=== PATIENT | female | born 1935 | race Caucasian/White ===

== ENCOUNTER 2016-07-05 23:00 | Inpatient (IN) | payer MEDICARE, OTHER ==
[~2016-07-05] VITALS: Ht 152.4 cm; Wt 104.0 kg
[~2016-07-05 23:00] MED LIST: BUME1TAB PO; CARV12.5 PO; COMMODE 3:1; DOCU1CAP39 PO; HYDR100T2 PO; LEVO.1 PO; LYRI50CA2 PO; MINO10 PO; MONT10TA2 PO; ROSU40 PO; WALKER ROLLING; WHEELCHAIR RENTAL RA
[2016-07-05 23:07] VITALS: BP 166/72; PULSE 119; RESP 34; TEMP 98.6; O2SAT 89
--- NOTE | 2016-07-05 23:40 | PD ---
HPI Chief Complaint: General Weakness Time Seen by Provider: 23:30 Travel History International Travel<30 days: No Contact w/Intl Traveler<30days: No Traveled to known affect area: No History of Present Illness HPI Pt. is a poor historian. She was sent from her rehab because she has been more fatigued and lethargic. PFSH Past Medical History Arthritis: Yes Asthma: No Autoimmune Disease: No Heart Rhythm Problems: No Cancer: No Cardiovascular Problems: Yes High Cholesterol: Yes (medication controlling) Chemotherapy: No Chest Pain: No Congestive Heart Failure: No COPD: No Cerebrovascular Accident: No Diabetes: Yes Patient Takes Glucophage: No (glipizide ) Endocrine: Yes GERD: Yes Genitourinary: Yes Hiatal Hernia: No Hypertension: Yes Immune Disorder: No Kidney Stones: No Musculoskeletal: Yes (bone on bone knee pain, dr recommended surgery in past) Neurologic: No Psychiatric: No Reproductive: Yes Respiratory: No Radiation Therapy: No Renal Failure: Yes Seizures: No Sickle Cell Disease: No Sleep Apnea: Yes (uses cpap machine) Thyroid Disease: Yes (synthyroid) Ulcer: No Tetanus Vaccination: > 5 Years Past Surgical History Abdominal Surgery: No AICD: No Arteriovenous Shunt: No Cardiac Surgery: No Ear Surgery: No Endocrine Surgery: No Eye Surgery: No Genitourinary Surgery: No Gynecologic Surgery: Yes (partial hysterectomy) Hysterectomy: Yes Insulin Pump: No Joint Replacement: No Oral Surgery: No Pacemaker: No Thoracic Surgery: No Social History Alcohol Use: No Tobacco Use: No Substance Use: No Allergies-Medications (Allergen,Severity, Reaction): Coded Allergies: Codeine (Verified Allergy, Unknown, Confusion, 07/28/15) pt stated, she felt the effects of medication days after, doesnt want any narcotics Reported Meds & Prescriptions Reported Meds & Active Scripts Active Reported Alendronate (Alendronate Sodium) 70 Mg Tab 70 Mg PO Q7D Uloric (Febuxostat) 80 Mg Tab 80 PO DAILY Omeprazole 20 Mg Tab 20 Mg PO DAILY Hydrocodone-Acetaminophen 5-325 mg Tab 1 Tab PO Q4H PRN Flexeril (Cyclobenzaprine HCl) 10 Mg Tab 10 Mg PO TID Colcrys (Colchicine) 0.6 Mg Tab 0.6 Mg PO DAILY Culturelle Advanced Immun (Probiotic Product) 1 Cap Cap Ciprofloxacin (Ciprofloxacin HCl) 500 Mg Tab 500 Mg PO BID Alprazolam 0.25 Mg Tab 0.25 Mg PO Q8H PRN Milk of Magnesia Liq (Magnesium Hydroxide) 400 Mg/5 Ml Susp 30 Ml PO DAILY PRN Dulcolax Supp (Bisacodyl) 10 Mg Supp 10 Mg RECTAL DAILY PRN Reyna Protect (Skin Protectants, Misc.) 1 Cre Cre Review of Systems ROS Limitations: Poor Historian Physical Exam Narrative GENERAL:Well appearing, no acute distress SKIN: Warm and dry. HEAD: Atraumatic. Normocephalic. EYES: Pupils equal and round. No injection or drainage. ENT: Moist mucous membranes NECK: Trachea midline. CARDIOVASCULAR: Regular rate and rhythm. 3/6 systolic murmur over the rusb RESPIRATORY: Clear to auscultation. Breath sounds equal bilaterally. GASTROINTESTINAL: Abdomen soft, non-tender, nondistended. MUSCULOSKELETAL: No obvious deformities. NEUROLOGICAL:Confused. No obvious cranial nerve deficits. Moving all extremities. Data Data Last Documented VS Vital Signs Date Time Temp Pulse Resp B/P Pulse Ox O2 Delivery O2 Flow Rate FiO2 07/06/16 00:37 100 20 125/62 99 Nasal Cannula 2 07/05/16 23:07 98.6 Orders ^ Insert Iv (07/05/16 23:33) Complete Blood Count With Diff (07/05/16 23:33) Comprehensive Metabolic Panel (07/05/16 23:33) B-Type Natriuretic Peptide (07/05/16 23:33) Troponin I (07/05/16 23:33) Chest, Single Ap (07/05/16 ) D-Dimer (07/05/16 23:42) Urinalysis - C+S If Indicated (07/05/16 23:42) Cath For Specimen (07/05/16 23:42) Arterial Blood Gas (Abg) (07/06/16 ) Blood Culture (07/06/16 00:34) Lactic Acid Sepsis Protocol (07/06/16 00:34) Cefepime Inj (Maxipime Inj) (07/06/16 00:45) Vancomycin Inj (Vancomycin Inj) (07/06/16 00:45) Type And Screen (07/06/16 00:34) Pantoprazole Inj (Protonix Inj) (07/06/16 01:45) Pantoprazole Inj (Protonix Inj) (07/06/16 01:45) Sodium Chlorid 0.9% 500 Ml Inj (Ns 500 M (07/06/16 00:45) Sodium Chlorid 0.9% 500 Ml Inj (Ns 500 M (07/06/16 00:45) Admit Order (Ed Use Only) (07/06/16 00:50) Labs Laboratory Tests Test 07/05/16 07/06/16 23:30 00:50 White Blood Count 15.1 TH/MM3 Red Blood Count 3.34 MIL/MM3 Hemoglobin 9.6 GM/DL Hematocrit 29.9 % Mean Corpuscular Volume 89.5 FL Mean Corpuscular Hemoglobin 28.9 PG Mean Corpuscular Hemoglobin 32.3 % Concent Red Cell Distribution Width 14.8 % Platelet Count 285 TH/MM3 Mean Platelet Volume 7.8 FL Neutrophils (%) (Auto) 84.0 % Lymphocytes (%) (Auto) 5.6 % Monocytes (%) (Auto) 8.1 % Eosinophils (%) (Auto) 0.7 % Basophils (%) (Auto) 1.6 % Neutrophils # (Auto) 12.7 TH/MM3 Lymphocytes # (Auto) 0.8 TH/MM3 Monocytes # (Auto) 1.2 TH/MM3 Eosinophils # (Auto) 0.1 TH/MM3 Basophils # (Auto) 0.2 TH/MM3 CBC Comment AUTO DIFF Differential Total Cells 100 Counted Neutrophils % (Manual) 70 % Band Neutrophils % 6 % Lymphocytes % 9 % Monocytes % 10 % Neutrophils # (Manual) 12.2 TH/MM3 Metamyelocytes 4 % Myelocytes 1 % Differential Comment FINAL DIFF MANUAL Platelet Estimate NORMAL Platelet Morphology Comment CLUMPED Basophilic Stippling MOD Acanthocytes D-Dimer Quantitative (PE/DVT) 1.98 MG/L FEU Sodium Level 137 MEQ/L Potassium Level 5.4 MEQ/L Chloride Level 98 MEQ/L Carbon Dioxide Level 27.8 MEQ/L Anion Gap 11 MEQ/L Blood Urea Nitrogen 178 MG/DL Creatinine 3.82 MG/DL Random Glucose 105 MG/DL Calcium Level 7.9 MG/DL Total Bilirubin 0.2 MG/DL Aspartate Amino Transf 13 U/L (AST/SGOT) Alanine Aminotransferase 19 U/L (ALT/SGPT) Alkaline Phosphatase 73 U/L Troponin I 0.10 NG/ML B-Type Natriuretic Peptide 142 PG/ML Total Protein 6.0 GM/DL Albumin 2.4 GM/DL Blood Gas Puncture Site RT RADIAL Blood Gas Patient Temperature 98.6 Blood Gas HCO3 26 mmol/L Blood Gas Base Excess -1.1 mmol/L Blood Gas Oxygen Saturation 94 % Arterial Blood pH 7.21 Arterial Blood Partial 67 mmHg Pressure CO2 Arterial Blood Partial 106 mmHG Pressure O2 Arterial Blood Oxygen Content 12.9 Vol % Arterial Blood 2.4 % Carboxyhemoglobin Arterial Blood Methemoglobin 2.0 % Blood Gas Hemoglobin 9.6 G/DL Oxygen Delivery Device NASAL CANNULA Blood Gas Liter Flow 4 L/M Blood Type O POSITIVE Antibody Screen NEGATIVE Blood Bank Comment MDM Medical Decision Making Medical Screen Exam Complete: Yes Emergency Medical Condition: Yes Interpretation(s) Afebrile, tachycardic, tachypneic, hypoxic Leukocytosis with some metamyelocytes and myelocytes BUN is 178 Creatinine is 3.8 Troponin is 0.1 ABG: PH is 7.21, PCO2 is 67 Last [address] 07/06/16 0000 Signed Impressions: Service Date/Time: June 01:52 - CONCLUSION: 1. Atherosclerosis. 2. Pneumonia. Larry Skaggs MD Chest X-Ray 07/05/16 0000 Signed Impressions: Service Date/Time: Tuesday, July 05, 2016 22:06 - CONCLUSION: No acute disease. Larry Skaggs MD Differential Diagnosis Pneumonia, sepsis, pulmonary embolism, congestive heart failure, electrolyte abnormality Narrative Course This is a 80-year-old female who presents from a rehabilitation facility for altered mental status. She is unable to tell me about her recent admission. She was placed on a monitor and an IV was established. On physical exam she was found to be very dry, confused and somewhat somnolent. ABG demonstrates hypercarbia with a respiratory acidosis. Patient was placed on BiPAP. Patient was found to have a leukocytosis. Cultures were obtained and she was started on broad-spectrum antibiotics. In the setting of hypoxia a pneumonia was suspected. A dry CT was obtained which confirms pneumonia. Patient was also found to be in acute renal failure with a BUN of 178. She was given IV hydration. She also was found to be Hemoccult positive. She was started on pantoprazole. Patient has multiple medical issues including sepsis, GI bleed and renal failure. She requires ICU admission. Critical Care Narrative Aggregate critical care time was 45 minutes. Time to perform other separately billable procedures was not included in the critical care time. My time did not include minutes spent treating any other patients simultaneously or on activities that did not directly contribute to the patient's treatment. The services I provided to this patient were to treat and/or prevent clinically significant deterioration that could result in: disability, I provided critical care services requiring my management, as noted below: Chart data review, documentation time, medication orders and management, vital sign assessments/reviewing monitor data, ordering and reviewing lab tests, ordering and interpreting/reviewing x-rays and diagnostic studies, care of the patient and discussion of the patient with the admitting physicians. Diagnosis Primary Impression: Pneumonia Qualified Code: J18.9 - Pneumonia of right lung due to infectious organism, unspecified part of lung Additional Impression: Renal failure Admitting Information Admitting Physician Requests: it Yarely Sims MD Jul 05, 2016 23:40
[2016-07-06] VITALS (17 sets, daily range): BP systolic 124–178; BP diastolic 61–87; PULSE 80–106; RESP 16–22; TEMP 98.7–99.8; O2SAT 94–100
[2016-07-06 00:10] LABS: AUTOMATED NEUTROPHIL # 12.7 TH/MM3 (1.8-7.7); BASOPHIL # 0.2 TH/MM3 (0-0.2); BASOPHIL % 1.6 % (0.0-2.0); EOSINOPHIL # 0.1 TH/MM3 (0-0.4); EOSINOPHIL % 0.7 % (0.0-4.0); HEMATOCRIT 29.9 % (35.0-46.0); LYMPH % 5.6 % (9.0-44.0); LYMPHOCYTE # 0.8 TH/MM3 (1.0-4.8); MEAN CELL VOLUME 89.5 FL (80.0-100.0); MEAN CORPUSCULAR HEMOGLOBIN 28.9 PG (27.0-34.0); MEAN CORPUSCULAR HGB CONC 32.3 % (32.0-36.0); MONO % 8.1 % (0.0-8.0); PLATELET COUNT 285 TH/MM3 (150-450); RED BLOOD COUNT 3.34 MIL/MM3 (4.00-5.30); RED CELL DISTRIBUTION WIDTH 14.8 % (11.6-17.2); WHITE BLOOD COUNT 15.1 TH/MM3 (4.0-11.0)
[2016-07-06 00:13] LABS: HEMO FLAGS AUTO DIFF
[2016-07-06] MEDS ORDERED: CIPR500T2 PO (00:13)
[2016-07-06] MEDS ORDERED: PROB1CAP25 (00:13)
[2016-07-06] MEDS ORDERED: OMEP20TA PO (00:13)
[2016-07-06] MEDS ORDERED: ULOR80TA2 PO (00:13)
[2016-07-06] MEDS ORDERED: ALPR0.25 PO (00:13)
[2016-07-06] MEDS ORDERED: BAZACRE (00:13)
[2016-07-06] MEDS ORDERED: CYCL1TAB29 PO (00:13)
[2016-07-06] MEDS ORDERED: MILKSUS PO (00:13)
[2016-07-06] MEDS ORDERED: DULC10SU3 RECTAL (00:13)
[2016-07-06] MEDS ORDERED: ALEN1TAB48 PO (00:13)
[2016-07-06] MEDS ORDERED: COLC1TAB7 PO (00:13)
[2016-07-06] MEDS ORDERED: HYDR-3516 PO (00:13)
[2016-07-06 00:21] LABS: ALT (GPT) 19 U/L (10-53); ANION GAP 11 MEQ/L (5-15); AST (GOT) 13 U/L (15-37); BICARBONATE 27.8 MEQ/L (21.0-32.0); CHLORIDE 98 MEQ/L (98-107); POTASSIUM 5.4 MEQ/L (3.5-5.1); SODIUM (NA) 137 MEQ/L (136-145)
[2016-07-06 00:25] LABS: ALKALINE PHOSPHATASE 73 U/L (45-117); BLOOD UREA NITROGEN 178 MG/DL (7-18); TOTAL BILIRUBIN ADULT 0.2 MG/DL (0.2-1.0)
--- NOTE | 2016-07-06 00:34 | RADRPT ---
EXAM DATE/TIME: 07/05/2016 22:06 [facility] COMPARISON: CHEST SINGLE AP, April 11, 2015, 14:05. INDICATIONS : Shortness of breath starting today MEDICAL HISTORY : None. SURGICAL HISTORY : None. ENCOUNTER: Initial ACUITY: 1 day PAIN SCORE: 0/10 LOCATION: Bilateral chest FINDINGS: Cardiomegaly. No definite consolidation or effusion. Osseous structures are intact. CONCLUSION: No acute disease. Larry Skaggs MD on July 06, 2016 at 0:33 Board Certified Radiologist. This report was verified electronically.
[2016-07-06] MEDS ORDERED: VANCOMYCIN INJ 1,500 MG in SODIUM CHLORID 0.9% 500 ML INJ 500 ML IV ONE (00:45)
[2016-07-06] MEDS ORDERED: CEFEPIME INJ 2,000 MG in SODIUM CHLORIDE 0.9% INJ 100 ML IV ONE (00:45)
[2016-07-06] MEDS ORDERED: SODIUM CHLORID 0.9% 500 ML INJ 500 ML IV ONE ×2 (00:45)
[2016-07-06 00:49] LABS: BANDS 6 % (0-6); METAMYELOCYTES 4 % (0-1); MYELOCYTES 1 % (0-0); NEUTROPHIL # MANUAL DIFF 12.2 TH/MM3 (1.8-7.7); POLYS (SEG NEUTROPHILS) 70 % (16-70); WBC DIFF SAMPLE 100
[2016-07-06 00:51] LABS: PLATELET ESTIMATE SMEAR NORMAL (NORMAL); PLATELET MORPHOLOGY CLUMPED (NORMAL); SCAN/DIFF FINAL DIFF MANUAL
[2016-07-06 00:59] LABS: BLOOD GAS BASE EXCESS -1.1 mmol/L (-2-2); BLOOD GAS CARBOXYHEMOGLOBIN 2.4 % (0-4); BLOOD GAS HCO3 26 mmol/L (22-26); BLOOD GAS O2 HGB SATURATION 94 % (90-100); BLOOD GAS OXYGEN CONTENT 12.9 Vol % (12.0-20.0); BLOOD GAS PCO2 67 mmHg (38-42); BLOOD GAS PO2 106 mmHG (61-120); BLOOD GAS TOTAL HGB 9.6 G/DL (12.0-16.0); TEMP CORR TO 98.6
[2016-07-06 01:00] LABS: CRITICAL VALUE YES; DRAW SITE RT RADIAL; LITER FLOW 4 L/M; NUMBER OF ARTERIAL PUNCTURES 1; OXYGEN DEVICE NASAL CANNULA; STAT YES; ULNAR PULSE PRESENT
[2016-07-06] MEDS ORDERED: SODIUM CHLOR 0.9% 1000 ML INJ 1,000 ML IV ONE ×2 (01:30)
--- NOTE | 2016-07-06 01:38 | HHI.HP ---
[facility] Service Critical Care Medicine Primary Care Physician Kelly Lemus Admission Diagnosis renal failure, gi bleed Diagnosis: (1) Chronic diastolic (congestive) heart failure Diagnosis: Principal (2) Altered mental status, unspecified Diagnosis: Principal (3) Uremia Diagnosis: Principal (4) Diabetes mellitus Diagnosis: Principal (5) Hereditary lymphedema Diagnosis: Principal (6) Debility Diagnosis: Principal (7) Impaired mobility and activities of daily living Diagnosis: Principal (8) Chronic kidney disease, stage 3 Diagnosis: Principal (9) HTN (hypertension) Diagnosis: Principal (10) Constipation Diagnosis: Principal (11) Gout Diagnosis: Principal (12) Allergic rhinitis Diagnosis: Principal (13) Gastroesophageal reflux disease Diagnosis: Principal Chief Complaint: Family request evaluation for altered mental status Travel History International Travel<30 Days: No Contact w/Intl Traveler <30 Da: No Traveled to Known Affected Are: No History of Present Illness 80-year-old female. Full code. Resident of [facility]. Recently discharged from [facility] 07/04/16. Past medical history includes chronic diastolic heart failure, chronic kidney disease stage IV, chronic narcotic/muscle relaxant use, gastroesophageal reflux disease, anxiety and gout. He is recently hospice of [facility] for unknown reasons. Was sent to correction on ciprofloxacin. She was seen by her family today that facility was noted to be confused. They requested transfer to emergency department for evaluation. Upon arrival in ED, patient was known to be quite lethargic. She appeared quite currently ED physician. Laboratories revealed BUN [address] of the chest was performed which revealed bilateral lower lobe pneumonia/infiltrates. She received 2 g of cefepime in 1500 mg vancomycin 1. Patient was pancultured. Also noted to have leukocytosis as well. Patient received 4 L normal saline bolus wide open 1. We are asked to admit the patient for further workup. 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 Hydralazine 100 mg twice a day Duo nebs 3 times a day Nystatin powder 3 times a day for 5 days swish and spit Levoxyl 50 mcg by mouth daily Singular 10 mg by mouth daily Hydrocodone 5/325 every 6 hours as needed Alendronate 70 mg weekly Uloric at 40 mg 2 tablets daily Prilosec 20 mg by mouth daily Flexeril 10 mg 3 times a day Colchicine 0.6 mg daily Xanax 0.25 mg 3 times a day as needed Active Ordered Medications Reviewed in EMR Family History father with chf Social History unknown tobacco, ETOH, IVDU Physical Exam Vital Signs Vital Signs Date Time Temp Pulse Resp B/P Pulse Ox O2 Delivery O2 Flow Rate FiO2 07/06/16 00:37 100 20 125/62 99 Nasal Cannula 2 07/05/16 23:07 98.6 119 34 166/72 89 Physical Exam GENERAL: 72-year-old female, critically ill currently resting in bed in no acute distress SKIN: Warm and dry. HEAD: Atraumatic. Normocephalic. EYES: Pupils equal and round about 3 L bilaterally and reactive. No scleral icterus. No injection or drainage. ENT: No nasal bleeding or discharge. Mucous membranes pink and dry. Oropharynx without erythema NECK: Trachea midline. No JVD. CARDIOVASCULAR: Regular rate and rhythm. S1, S2. No S4. Without murmur RESPIRATORY: No accessory muscle use. Clear to auscultation. Breath sounds equal bilaterally. GASTROINTESTINAL: Abdomen obese, soft, nontender. Hypoactive bowel sounds MUSCULOSKELETAL: Extremities 1+ lower extremity edema. No obvious deformities. NEUROLOGICAL: Arousable but falls asleep. Moves all 4 extremity spontaneously but slowly. Normal sensation. Laboratory Laboratory Tests Test 07/05/16 07/06/16 23:30 00:50 White Blood Count 15.1 Red Blood Count 3.34 Hemoglobin 9.6 Hematocrit 29.9 Mean Corpuscular Volume 89.5 Mean Corpuscular Hemoglobin 28.9 Mean Corpuscular Hemoglobin 32.3 Concent Red Cell Distribution Width 14.8 Platelet Count 285 Mean Platelet Volume 7.8 Neutrophils (%) (Auto) 84.0 Lymphocytes (%) (Auto) 5.6 Monocytes (%) (Auto) 8.1 Eosinophils (%) (Auto) 0.7 Basophils (%) (Auto) 1.6 Neutrophils # (Auto) 12.7 Lymphocytes # (Auto) 0.8 Monocytes # (Auto) 1.2 Eosinophils # (Auto) 0.1 Basophils # (Auto) 0.2 CBC Comment AUTO DIFF Differential Total Cells 100 Counted Neutrophils % (Manual) 70 Band Neutrophils % 6 Lymphocytes % 9 Monocytes % 10 Neutrophils # (Manual) 12.2 Metamyelocytes 4 Myelocytes 1 Differential Comment FINAL DIFF MANUAL Platelet Estimate NORMAL Platelet Morphology Comment CLUMPED Basophilic Stippling MOD Acanthocytes D-Dimer Quantitative (PE/DVT) 1.98 Sodium Level 137 Potassium Level 5.4 Chloride Level 98 Carbon Dioxide Level 27.8 Anion Gap 11 Blood Urea Nitrogen 178 Creatinine 3.82 Random Glucose 105 Calcium Level 7.9 Total Bilirubin 0.2 Aspartate Amino Transf 13 (AST/SGOT) Alanine Aminotransferase 19 (ALT/SGPT) Alkaline Phosphatase 73 Troponin I 0.10 B-Type Natriuretic Peptide 142 Total Protein 6.0 Albumin 2.4 Blood Gas Puncture Site RT RADIAL Blood Gas Patient Temperature 98.6 Blood Gas HCO3 26 Blood Gas Base Excess -1.1 Blood Gas Oxygen Saturation 94 Arterial Blood pH 7.21 Arterial Blood Partial 67 Pressure CO2 Arterial Blood Partial 106 Pressure O2 Arterial Blood Oxygen Content 12.9 Arterial Blood 2.4 Carboxyhemoglobin Arterial Blood Methemoglobin 2.0 Blood Gas Hemoglobin 9.6 Oxygen Delivery Device NASAL CANNULA Blood Gas Liter Flow 4 Date/Time Procedure Status Source Growth 07/06/16 01:10 Aerobic Blood Culture Received Blood Peripheral Pending 07/06/16 01:10 Anaerobic Blood Culture Received Blood Peripheral Pending Result Diagram: 07/05/16 2330 07/05/16 2330 Imaging Last Impressions Chest X-Ray 07/05/16 0000 Signed Impressions: Service Date/Time: Tuesday, July 05, 2016 22:06 - CONCLUSION: No acute disease. Larry Skaggs MD Assessment and Plan Assessment and Plan Neuro/Psych: Acute toxic metabolic encephalopathy secondary to uremia Chronic benzodiazepine use Chronic muscle relaxant use Chronic narcotic use CT head has been ordered. Patient is on Xanax 0.25 3 times a day for anxiety. This has been held in light of altered mental status Patient is on scheduled Flexeril 10 mg 3 times a day at home. This has been held in light of altered mental status Patient is on hydrocodone as needed for pain management at home. This is been held in light of altered mental status CV: Hypertension Chronic diastolic heart failure Trop 0.1 Home medications Coreg 12.5 twice a day currently being for hypertension. Issues on Bumex 2 mg daily for diastolic heart failure. This be held in light of acute kidney injury. 2-D echo ordered EKG nonspecific. Recheck in AM. Resp: Obstructive sleep apnea Pneumonia Daily quite acidotic on ABG. Will be intubated in ED. ACV versus PRVC ventilation Ventilator bundle Bronchodilator therapy every 6 hours and as needed Daily sedation vacation Repeat ABG at noon today. CT thorax revealed right greater than left lower lobe infiltrates. Right lower lobe granuloma. Patient is on CPAP at night at [facility]. For obstructive sleep apnea. Currently on BiPAP GI: Gastroesophageal reflux disease Heme+ stool Patient is on Prilosec 20 mg by mouth daily at home. On protonix gtt w/heme+ stool Currently nothing by mouth. Speech therapy to evaluate and treat swallowing mechanism. Colace/as needed Senokot for bowel regimen. GI c/s : Jain will be placed for accurate I's and O's in a critically ill patient Endo: Gout Diabetes mellitus History of secondary hyperparathyroidism on calcitriol 0.25 g daily? Currently holding colchicine 0.6 daily and Uloric 80 mg daily for gout. Resuming clinically indicated Currently holding glipizide 5 mg before meals. Sliding-scale insulin to maintain euglycemia. Renal: Acute on chronic kidney injury stage IV to 5 Baseline creatinine between 2 and 3 documented. Will hold nephrotoxic drugs and diuretics at the present time. Status post 4 L normal saline bolus. She has made 800 cc urine since ED. Heme: Leukocytosis Normocytic anemia Monitor CBC/coags. Monitor trends. Infectious etiology likely Serial H/H q6h ID: Healthcare associated pneumonia Received 2 g cefepime and 1500 mg vancomycin ED Continue cefepime and add Flagyl and azithromycin Blood cultures 2, UA, sputum, and pneumococcal and Legionella urinary antigens all pending. Influenza ordered as well FEN: Hyperkalemia Received D 50/insulin/bicarbonate and calcium. Recheck at 0800 MSK: Osteoporosis/osteoarthritis Holding narcotics/muscle relaxants light of altered mental status. Holding alendronate 70 mg weekly. Resume when clinically indicated Access - Utilize peripheral IV. Central line if indicated Prophylaxis - GI - Protonix - DVT - SCD/pharmacological prophylaxis if CT head no acute findings Critical Care: The total critical care time was 65 minutes. Time to perform other separately billable procedures was not included in the critical care time. Code Status Full code Discussed Condition With Dr. Sims/ED physician. Family unavailable. Care plan discussed and all questions answered Problem Qualifiers (1) Diabetes mellitus: Qualified Code: E11.8 - Type 2 diabetes mellitus with complication, without long-term current use of insulin (2) HTN (hypertension): Qualified Code: I10 - Essential hypertension (3) Constipation: Qualified Code: K59.00 - Constipation, unspecified constipation type (4) Gout: Qualified Code: M1A.9XX0 - Chronic gout without tophus, unspecified cause, unspecified site (5) Allergic rhinitis: (6) Gastroesophageal reflux disease: Qualified Code: K21.9 - Gastroesophageal reflux disease without esophagitis Darius Morrison MD Jul 06, 2016 01:38
[2016-07-06] MEDS ORDERED: PANTOPRAZOLE INJ 80 MG in SODIUM CHLORIDE 0.9% INJ 35 ML IV ONE (01:45)
--- NOTE | 2016-07-06 02:04 | RADRPT ---
EXAM DATE/TIME: 07/06/2016 01:52 [facility] COMPARISON: CHEST SINGLE AP, July 05, 2016, 22:06. INDICATIONS : Short of breath. RADIATION DOSE: 15.20 CTDIvol (mGy) MEDICAL HISTORY : Hypertension. Cardiovascular disease Renal failure, chronic. SURGICAL HISTORY : Hysterectomy. ENCOUNTER: Initial ACUITY: 2 days PAIN SCALE: 3/10 LOCATION: chest TECHNIQUE: Volumetric scanning of the chest was performed. Using automated exposure control and adjustment of t he mA and/or kV according to patient size, radiation dose was kept as low as reasonably achievable to obtain optimal diagnostic quality images. FINDINGS: There is patchy consolidation within both lower lobes, right greater than left. There is a calcified granuloma in the right lower lobe measuring 5.6 mm. There is mild peripheral atelectasis or airspace disease in the right middle lobe lateral segment. Cardiomegaly is present. There is coronary artery c alcification and atherosclerotic calcification of the aorta. There is no adenopathy. The osseous stru ctures demonstrate degenerative changes of the spine. CONCLUSION: 1. Atherosclerosis. 2. Pneumonia. Larry Skaggs MD on July 06, 2016 at 2:01 Board Certified Radiologist. This report was verified electronically.
[2016-07-06 02:55] LABS: BACTERIA, URINE RARE /hpf; BLOOD, URINE NEG (NEG); COMMENT (UR) CATH-CULTURE IND; CULTURE IF INDICATED CATH CULTURE IND; GLUCOSE,URINE NEG (NEG); KETONE, URINE NEG (NEG); MUCUS URINE FEW /lpf (OCC); NITRITE,URINE NEG (NEG); URINE COLOR YELLOW (YELLW/STRAW)
[2016-07-06] MEDS: PANTOPRAZOLE INJ 80 MG in SODIUM CHLORIDE 0.9% INJ 100 ML IV SCH ×3 (03:03→21:16)
[2016-07-06] MEDS ORDERED: RESP: ALBUTEROL 2.5 MG/IPRATROPIUM 0.5 MG NEB (PRN) INH (03:30)
[2016-07-06] MEDS ORDERED: SODIUM CHLORIDE 0.9% FLUSH 5 ML FLUSH IV FLUSH PRN (03:30)
[2016-07-06] MEDS ORDERED: AZITHROMYCIN INJ 500 MG in SODIUM CHLOR 0.9% 250 ML INJ 250 ML IV SCH (03:30)
[2016-07-06] MEDS ORDERED: SENNOSIDES 8.6 MG TAB PO PRN (03:30)
[2016-07-06] MEDS ORDERED: MISCELLANEOUS NURSING INFORMATION XX SCH (03:30)
[2016-07-06] MEDS ORDERED: ACETAMINOPHEN 325 MG TAB PO PRN (03:30)
[2016-07-06] MEDS ORDERED: CHLORHEXIDINE GLUCONATE 2 % 1 PACK (2 CLOTHS) TOP PRN (03:30)
[2016-07-06] MEDS ORDERED: ONDANSETRON HCL 4 MG/2 ML VIAL IV PRN (03:30)
[2016-07-06] MEDS: AZITHROMYCIN INJ 500 MG in SODIUM CHLOR 0.9% 250 ML INJ 250 ML IV SCH (04:00)
[2016-07-06] MEDS: SODIUM CHLOR 0.9% 1000 ML INJ 1,000 ML IV SCH ×2 (04:00→18:31)
[2016-07-06] MEDS: CHLORHEXIDINE GLUCONATE 2 % 1 PACK (2 CLOTHS) TOP SCH (04:00)
[2016-07-06] MEDS ORDERED: INSULIN HUMAN REGULAR 1,000 UNITS/10 ML VIAL IV PUSH ONE (04:30)
[2016-07-06] MEDS ORDERED: CALCIUM GLUCONATE 10% 1 GM/10 ML VIAL SLOW IVP ONE (04:30)
[2016-07-06] MEDS ORDERED: SODIUM BICARBONATE 8.4% SOLN 50 MEQ/50 ML VIAL SLOW IVP ONE (04:30)
[2016-07-06] MEDS ORDERED: DEXTROSE 50% IN WATER 50 ML VIAL(D50) IV PUSH ONE (04:30)
[2016-07-06 04:59] LABS: BLOOD GAS CARBOXYHEMOGLOBIN 2.3 % (0-4); BLOOD GAS HCO3 25 mmol/L (22-26); BLOOD GAS METHEMOGLOBIN 2.2 % (0-2); BLOOD GAS O2 HGB SATURATION 88 % (90-100); BLOOD GAS OXYGEN CONTENT 12.9 Vol % (12.0-20.0); BLOOD GAS PCO2 72 mmHg (38-42); BLOOD GAS PO2 60 mmHG (61-120); BLOOD GAS TOTAL HGB 10.4 G/DL (12.0-16.0); TEMP CORR TO 98.6
[2016-07-06 05:00] LABS: CRITICAL VALUE YES
[2016-07-06 05:01] LABS: DRAW SITE LT RADIAL; FIO2 40 %; NUMBER OF ARTERIAL PUNCTURES 1; OXYGEN DEVICE BiPAP; STAT YES; ULNAR PULSE PRESENT
[2016-07-06] MEDS: RESP: ALBUTEROL 2.5 MG/IPRATROPIUM 0.5 MG NEB (SCH) INH ×4 (05:08→20:26)
[2016-07-06] MEDS: metroNIDAZOLE 500 MG INJ 100 ML IV SCH ×3 (05:11→20:17)
[2016-07-06] MEDS ORDERED: GLUCAGON 1 MG/ML VIAL OTHER PRN (05:15)
[2016-07-06] MEDS ORDERED: ETOMIDATE 20 MG/10 ML VIAL ONE (05:15)
[2016-07-06] MEDS ORDERED: fentaNYL DRIP 250 ML IV SCH (05:15)
[2016-07-06] MEDS ORDERED: DEXTROSE 50% IN WATER 50 ML VIAL(D50) IV PUSH PRN (05:15)
[2016-07-06] MEDS ORDERED: SUCCINYLCHOLINE CHLORIDE 200 MG/10 ML VIAL ONE (05:18)
[2016-07-06] MEDS ORDERED: ETOMIDATE 20 MG/10 ML VIAL IV PUSH ONE (05:30)
[2016-07-06] MEDS ORDERED: SUCCINYLCHOLINE CHLORIDE 200 MG/10 ML VIAL IV PUSH ONE (05:30)
--- NOTE | 2016-07-06 06:37 | RADRPT ---
EXAM DATE/TIME: 07/06/2016 04:26 [facility] COMPARISON: CT THORAX W/O CONTRAST, July 06, 2016, 1:52. CHEST SINGLE AP, July 05, 2016, 22:06. INDICATIONS : Post intubation. MEDICAL HISTORY : None. SURGICAL HISTORY : None. ENCOUNTER: Initial ACUITY: 1 day PAIN SCORE: Non-responsive. LOCATION: Bilateral chest FINDINGS: Tube is noted and the distal tip terminates 2.7 cm above the jaquelin. NG tube is present and the side- port overlies the distal esophagus the distal tip of the esophagogastric junction. It should be advan benito. Cardiomegaly is noted. Medial basilar consolidation is present bilaterally. Degenerative changes of the spine. CONCLUSION: Endotracheal tube as above. Larry Skaggs MD on July 06, 2016 at 6:35 Board Certified Radiologist. This report was verified electronically.
[2016-07-06 06:51] LABS: BLOOD GAS CARBOXYHEMOGLOBIN 0.9 % (0-4); BLOOD GAS HCO3 23 mmol/L (22-26); BLOOD GAS METHEMOGLOBIN 1.7 % (0-2); BLOOD GAS O2 HGB SATURATION 95 % (90-100); BLOOD GAS OXYGEN CONTENT 14.2 Vol % (12.0-20.0); BLOOD GAS PCO2 46 mmHg (38-42); BLOOD GAS PO2 329 mmHG (61-120); CRITICAL VALUE NO; OXYGEN DEVICE VENTILATOR; TEMP CORR TO 98.6
[2016-07-06 06:52] LABS: DRAW SITE RT RADIAL; FIO2 1003 %; NUMBER OF ARTERIAL PUNCTURES 1; STAT NO; ULNAR PULSE PRESENT; VENT SETTINGS PRVC
[2016-07-06] MEDS: INSULIN NovoLIN REGULAR SUPPLEMENTAL SCALE SQ SCH ×4 (07:00→20:18)
[2016-07-06] MEDS ORDERED: NITROGLYCERIN 2% OINT 1 GM PACKET TOPICAL PRN (08:00)
[2016-07-06] MEDS: CHLORHEXIDINE 0.12% (ORAL KIT) 15 ML CUP MT SCH ×2 (08:00→20:17)
[2016-07-06] MEDS: PANTOPRAZOLE SODIUM 40 MG VIAL IV SCH (08:55)
[2016-07-06] MEDS: SODIUM CHLORIDE 0.9% FLUSH 5 ML FLUSH IV FLUSH SCH ×2 (08:55→20:17)
[2016-07-06] MEDS: DOCUSATE SODIUM 100 MG CAP PO SCH ×2 (08:55→20:17)
[2016-07-06] MEDS: ARTIFICIAL TEARS OPTH SOLN 15 ML BTL EACH EYE SCH ×3 (08:56→18:31)
--- NOTE | 2016-07-06 09:08 | RADRPT ---
EXAM DATE/TIME: 07/06/2016 08:43 [facility] COMPARISON: No previous studies available for comparison. INDICATIONS : Altered mental status. Non-responsive RADIATION DOSE: 56.35 CTDIvol (mGy) MEDICAL HISTORY : Hypertension. Cardiovascular disease Renal failure, chronic. SURGICAL HISTORY : Hysterectomy. ENCOUNTER: Initial ACUITY: 1 day PAIN SCALE: Non-responsive LOCATION: cranial TECHNIQUE: Multiple contiguous axial images were obtained of the head. Using automated exposure control and adj ustment of the mA and/or kV according to patient size, radiation dose was kept as low as reasonably a chievable to obtain optimal diagnostic quality images. FINDINGS: CEREBRUM: Mild to moderate atrophic change with sulcal and ventricular prominence. Patchy periventricular white matter lucencies are present as well as area of more decreased attenuation in the left parietal lobe which extends out to the surface of the brain. No evidence of midline shift, mass lesion, or hemorrh age. No extra-axial fluid collections are seen. POSTERIOR FOSSA: The cerebellum and brainstem are intact. The 4th ventricle is midline. The cerebellopontine angle i s unremarkable. EXTRACRANIAL: The visualized portion of the orbits is intact. SKULL: The calvaria is intact. No evidence of skull fracture. CONCLUSION: 1. No acute hemorrhage or mass effect. 2. Focal area of decreased attenuation involving the left parietal lobe most consistent with an area of infarction which may be subacute to remote. 3. Atrophy and chronic small vessel ischemic change. Gilberto Longoria MD on July 06, 2016 at 9:04 Board Certified Radiologist. This report was verified electronically.
[2016-07-06] MEDS: PROPOFOL 1000 MG/100 ML INJ 100 ML IV SCH ×3 (09:59→21:14)
--- NOTE | 2016-07-06 10:25 | PD.CONS ---
HPI History of Present Illness This is a 80 year old female with Past medical history of chronic diastolic heart failure, chronic kidney disease stage IV, chronic narcotic/muscle relaxant use, gastroesophageal reflux disease, anxiety and gout who was sent from [facility] for AMS. Upon arrival in ED, patient was lethargic, she was intubated. CT of the chest was performed which revealed bilateral lower lobe pneumonia/infiltrates. Also noted to be anemic hgb of 9.6 , looking back in old records, this seems to be baseline for patient, leukocytosis WBC 15.1 GI consulted for anemia and heme (+) stools. Currently patient is sedated on a vent, OGT noted and there is coffee ground gastric out put noted in the tube, but none in the canister. No melena or bloody stools reported. No family in the room, HPI obtained from medical chart and nurse by bed side. (Monty Avila) PFSH Past Medical History Per EMR Obstructive sleep apnea Diabetes mellitus type II Recurrent UTI Anxiety disorder Hypothyroidism Gout Gastroesophageal reflux disease without esophagitis Osteoporosis Next incontinence Lymphedema Allergic rhinitis Chronic kidney disease stage IV to 5 Past Surgical History Hysterectomy (Monty Avila) Coded Allergies: Lyrica (Verified Allergy, Mild, Swelling Confussed, 07/06/16) Codeine (Verified Allergy, Unknown, Confusion, 07/28/15) pt stated, she felt the effects of medication days after, doesnt want any narcotics Medications Current Medications Medications (Trade) Dose Ordered Sig/Logan Route Start Time Stop Time Status Last Admin Pantoprazole Sodium 80 mg/ Sodium Chloride 100 ml @ 10 mls/hr Q10H IV 07/06/16 01:45 07/06/16 03:03 (NS 1000 ml Inj) 1,000 ml @ 84 mls/hr [id number] IV 07/06/16 03:20 07/06/16 04:00 (NS Flush) 2 ml UNSCH PRN IV FLUSH 07/06/16 03:30 (NS Flush) 2 ml BID IV FLUSH 07/06/16 09:00 (Tylenol) 650 mg Q6H PRN PO 07/06/16 03:30 (Protonix Inj) 40 mg DAILY IV 07/06/16 09:00 (Tears Naturale Opth Soln) 1 drop TID EACH EYE 07/06/16 09:00 (Zofran Inj) 4 mg Q6H PRN IV 07/06/16 03:30 (Colace) 100 mg BID PO 07/06/16 09:00 (Senokot) 17.2 mg Q12H PRN PO 07/06/16 03:30 Miscellaneous Information 1 Q361D XX 07/06/16 03:30 (Chlorhexidine 2% Cloth) 3 pack Taper DAILY@04 TOP 07/06/16 04:00 07/02/17 03:59 Chlorhexidine Gluconate 3 pack 3 pack UNSCH PRN TOP 07/06/16 03:30 Metronidazole 100 ml @ 100 mls/hr Q8H IV 07/06/16 05:00 07/06/16 05:11 Azithromycin 500 mg/Sodium Chloride 250 ml @ 250 mls/hr Q24H IV 07/06/16 04:00 07/06/16 04:00 (Maxipime Inj/NS Inj) 100 ml @ 200 mls/hr DAILY@03 IV 07/07/16 03:00 (D50w (Vial) Inj) 25 ml UNSCH PRN IV PUSH 07/06/16 05:15 (Glucagon Inj) 1 mg UNSCH PRN OTHER 07/06/16 05:15 Chlorhexidine Gluconate 15 ml 15 ml BID@08,20 MT 07/06/16 08:00 Propofol 100 ml @ 0 mls/hr TITRATE IV 07/06/16 05:15 07/06/16 09:59 (fentaNYL DRIP) 250 ml @ 0 mls/hr TITRATE IV 07/06/16 05:15 (Trandate Inj) 10 mg Q1HR PRN IV PUSH 07/06/16 08:00 (Nitroglycerin 2% Oint) 2 inch Q6HR PRN TOPICAL 07/06/16 08:00 (Apresoline Inj) 10 mg Q1HR PRN IV PUSH 07/06/16 08:00 Family History Non contributory Social History Unable to obtain (Monty Avila) Review of Systems ROS Patient is sedated on a vent, not able to obtain, there is coffee ground gastric out put noted in the tubing but none in the canister (Monty Avila ) GI Exam Vitals I&O Vital Signs Date Time Temp Pulse Resp B/P Pulse Ox O2 Delivery O2 Flow Rate FiO2 07/06/16 09:30 Mechanical Ventilator 07/06/16 09:20 98 45 07/06/16 09:15 98.9 106 19 124/67 99 07/06/16 08:21 106 16 166/61 100 Ventilator 60 07/06/16 06:50 100 60 07/06/16 05:25 100 100 07/06/16 04:00 93 16 161/71 100 BiPAP 07/06/16 02:00 98 40 07/06/16 02:00 92 16 138/87 100 BiPAP 07/06/16 00:37 99 Nasal Cannula 2.00 07/06/16 00:37 100 20 125/62 99 Nasal Cannula 2 07/05/16 23:07 98.6 119 34 166/72 89 Imaging Last Impressions Head CT 07/06/16 0000 Signed Impressions: Service Date/Time: June 08:43 - CONCLUSION: 1. No acute hemorrhage or mass effect. 2. Focal area of decreased attenuation involving the left parietal lobe most consistent with an area of infarction which may be subacute to remote. 3. Atrophy and chronic small vessel ischemic change. Gilberto Longoria MD Chest X-Ray 07/06/16 0000 Signed Impressions: Service Date/Time: June 04:26 - CONCLUSION: Endotracheal tube as above. Larry Skaggs MD Chest CT 07/06/16 0000 Signed Impressions: Service Date/Time: June 01:52 - CONCLUSION: 1. Atherosclerosis. 2. Pneumonia. Larry Skaggs MD Laboratory Test 07/05/16 07/06/16 07/06/16 07/06/16 23:30 00:50 01:11 02:40 White Blood Count 15.1 TH/MM3 Red Blood Count 3.34 MIL/MM3 Hemoglobin 9.6 GM/DL Hematocrit 29.9 % Mean Corpuscular Volume 89.5 FL Mean Corpuscular Hemoglobin 28.9 PG Mean Corpuscular Hemoglobin 32.3 % Concent Red Cell Distribution Width 14.8 % Platelet Count 285 TH/MM3 Mean Platelet Volume 7.8 FL Neutrophils (%) (Auto) 84.0 % Lymphocytes (%) (Auto) 5.6 % Monocytes (%) (Auto) 8.1 % Eosinophils (%) (Auto) 0.7 % Basophils (%) (Auto) 1.6 % Neutrophils # (Auto) 12.7 TH/MM3 Lymphocytes # (Auto) 0.8 TH/MM3 Monocytes # (Auto) 1.2 TH/MM3 Eosinophils # (Auto) 0.1 TH/MM3 Basophils # (Auto) 0.2 TH/MM3 CBC Comment AUTO DIFF Differential Total Cells 100 Counted Neutrophils % (Manual) 70 % Band Neutrophils % 6 % Lymphocytes % 9 % Monocytes % 10 % Neutrophils # (Manual) 12.2 TH/MM3 Metamyelocytes 4 % Myelocytes 1 % Differential Comment FINAL DIFF MANUAL Platelet Estimate NORMAL Platelet Morphology Comment CLUMPED Basophilic Stippling MOD Acanthocytes D-Dimer Quantitative (PE/DVT) 1.98 MG/L FEU Sodium Level 137 MEQ/L Potassium Level 5.4 MEQ/L Chloride Level 98 MEQ/L Carbon Dioxide Level 27.8 MEQ/L Anion Gap 11 MEQ/L Blood Urea Nitrogen 178 MG/DL Creatinine 3.82 MG/DL Random Glucose 105 MG/DL Calcium Level 7.9 MG/DL Total Bilirubin 0.2 MG/DL Aspartate Amino Transf 13 U/L (AST/SGOT) Alanine Aminotransferase 19 U/L (ALT/SGPT) Alkaline Phosphatase 73 U/L Troponin I 0.10 NG/ML B-Type Natriuretic Peptide 142 PG/ML Total Protein 6.0 GM/DL Albumin 2.4 GM/DL Blood Gas Puncture Site RT RADIAL Blood Gas Patient Temperature 98.6 Blood Gas HCO3 26 mmol/L Blood Gas Base Excess -1.1 mmol/L Blood Gas Oxygen Saturation 94 % Arterial Blood pH 7.21 Arterial Blood Partial 67 mmHg Pressure CO2 Arterial Blood Partial 106 mmHG Pressure O2 Arterial Blood Oxygen Content 12.9 Vol % Arterial Blood 2.4 % Carboxyhemoglobin Arterial Blood Methemoglobin 2.0 % Blood Gas Hemoglobin 9.6 G/DL Oxygen Delivery Device NASAL CANNULA Blood Gas Liter Flow 4 L/M Blood Type O POSITIVE Antibody Screen NEGATIVE Blood Bank Comment Lactic Acid Level 0.5 mmol/L Urine Color YELLOW Urine Turbidity CLEAR Urine pH 5.0 Urine Specific [place] 1.012 Urine Protein NEG mg/dL Urine Glucose (UA) NEG mg/dL Urine Ketones NEG mg/dL Urine Occult Blood NEG Urine Nitrite NEG Urine Bilirubin NEG Urine Urobilinogen LESS THAN 2.0 MG/DL Urine Leukocyte Esterase NEG Urine Bacteria RARE /hpf Urine Mucus FEW /lpf Microscopic Urinalysis Comment CATH-CULTURE IND Test 07/06/16 07/06/16 07/06/16 04:33 05:57 06:38 Blood Gas Puncture Site LT RADIAL RT RADIAL Blood Gas Patient Temperature 98.6 98.6 Blood Gas HCO3 25 mmol/L 23 mmol/L Blood Gas Base Excess -3.0 mmol/L -2.0 mmol/L Blood Gas Oxygen Saturation 88 % 95 % Arterial Blood pH 7.16 7.32 Arterial Blood Partial 72 mmHg 46 mmHg Pressure CO2 Arterial Blood Partial 60 mmHG 329 mmHG Pressure O2 Arterial Blood Oxygen Content 12.9 Vol % 14.2 Vol % Arterial Blood 2.3 % 0.9 % Carboxyhemoglobin Arterial Blood Methemoglobin 2.2 % 1.7 % Blood Gas Hemoglobin 10.4 G/DL 10.0 G/DL Oxygen Delivery Device BiPAP VENTILATOR Blood Gas Inspired Oxygen 40 % 1003 % Troponin I 0.06 NG/ML Blood Gas Ventilator Setting [facility] Date/Time Procedure Status Source Growth 07/06/16 02:40 Urine Culture Received Urine Catheterized Urine Pending 07/06/16 02:40 Legionella Antigen - Final Complete Urine Catheterized Urine PRESUMPTIVE NEGATIVE FOR LEGIONELLA P... 07/06/16 02:40 Streptococcus pneumoniae Antigen (M - Final Complete Urine Catheterized Urine PRESUMPTIVE NEGATIVE FOR STREPTOCOCCU... 07/06/16 01:10 Aerobic Blood Culture Received Blood Peripheral Pending 07/06/16 01:10 Anaerobic Blood Culture Received Blood Peripheral Pending Physical Examination HEENT: normocephalic; atraumatic; no jaundice. Throat is clear. NECK: Neck is supple, no JVD, no lymphadenopathy. CHEST: some expiratory wheezing CARDIAC: Regular rate and rhythm with no murmur gallop or rubs. ABDOMEN: Soft, nondistended, nontender; no hepatosplenomegaly; bowel sounds are present in all four quadrants. OGT to LIWS EXTREMITIES: No clubbing, cyanosis, or edema. SKIN: gen. Edema WINDOWS SYSTEMS ADMIN: Sedated on a vent (Monty Avila) Assessment and Plan Plan - Anemia/heme (+) stools- hgb of 9.6, looking back in old records, this seems to be baseline for patient, Currently patient is sedated on a vent, OGT noted and there is coffee ground gastric out put noted in the tube, but none in the canister. No melena or bloody stools reported. - AMS/Leukocytosis/pneumonia - WBC 15.1, CT of the chest was performed which revealed bilateral lower lobe pneumonia/infiltrates, blood cx pending, abx - CKD, HF per [facility] - Respiratory failure- intubated per [facility] Plan: - OGT to LIWS - EGD once more stable medically - cont. PPI - Monitor hh - Transfuse as needed - Notify GI for active bleeding - Supportive care - Patient seen and examined by Dr. Gaston and myself and this note is written on his behalf. (Monty Avila) Physician Comments seen and examined with Ms. Austin BRADLEY, no blood in OG tube now. No rectal bleeding. H/H stable. Just returned from MRI of head. Multiple co morbidities. Gi shah only ig active bleeding. Iv protonix. Discussed with nurse at bedside. Thank you (Rudy Gaston MD) Monty Avila Jul 06, 2016 10:25 Rudy Gaston MD Jul 06, 2016 18:19
--- NOTE | 2016-07-06 11:25 | PD.CONS ---
HPI Service Nephrology Consult Requested By Reason for Consult Acute on CKD Primary Care Physician Kelly Lemus History of Present Illness This is a 80 y/o female who has a history of CKD 4 in 2015. She presented for altered metal status and lethargy per family. [facility] and was on placed on Cipro for unknown reasons. On arrival ABG showed respiratory acidosis, subsequently she was intubated for management. Labs on arrival: K 5.4, C02 27, BUN 178, Cr 3.82. She is non oliguric, we were consulted for renal management. She has dark output from the OG tube. She is not requiring pressors at this time, currently having EEG performed. PMH as outlined below and includes diastolic heart failure, GERD, Anxiety/gout, and secondary hyperparathyroidism. She was not exposed to IV contrast. She is a full code this admission. (Kylie Bridges) Review of Systems ROS Limitations: Intubated, Altered Mental Status (Kylie Bridges) Past Family Social History Allergies: Coded Allergies: Lyrica (Verified Allergy, Mild, Swelling Confussed, 07/06/16) Codeine (Verified Allergy, Unknown, Confusion, 07/28/15) pt stated, she felt the effects of medication days after, doesnt want any narcotics Past Medical History CKD IV, in 2014 creatinine 2.02, GFR 24 Obstructive sleep apnea Diabetes mellitus type II Recurrent UTI Anxiety disorder Hypothyroidism Gout Gastroesophageal reflux disease without esophagitis Osteoporosis Next incontinence Lymphedema Allergic rhinitis Past Surgical History hysterectomy others unknown Reported Medications Bumex 2 mg daily Calcitriol 0.25 g daily Coreg 12.5 mg every 12 hours Glipizide 5 mg one tablet before meals. Hydralazine 100 mg twice a day Duo nebs 3 times a day Nystatin powder 3 times a day for 5 days swish and spit Levoxyl 50 mcg by mouth daily Singular 10 mg by mouth daily Hydrocodone 5/325 every 6 hours as needed Alendronate 70 mg weekly Uloric at 40 mg 2 tablets daily Prilosec 20 mg by mouth daily Flexeril 10 mg 3 times a day Colchicine 0.6 mg daily Xanax 0.25 mg 3 times a day as needed Active Ordered Medications Current Medications Medications (Trade) Dose Ordered Sig/Logan Route Start Time Stop Time Status Last Admin Pantoprazole Sodium 80 mg/ Sodium Chloride 100 ml @ 10 mls/hr Q10H IV 07/06/16 01:45 07/06/16 03:03 (NS 1000 ml Inj) 1,000 ml @ 84 mls/hr [id number] IV 07/06/16 03:20 07/06/16 04:00 (NS Flush) 2 ml UNSCH PRN IV FLUSH 07/06/16 03:30 (NS Flush) 2 ml BID IV FLUSH 07/06/16 09:00 (Tylenol) 650 mg Q6H PRN PO 07/06/16 03:30 (Protonix Inj) 40 mg DAILY IV 07/06/16 09:00 (Tears Naturale Opth Soln) 1 drop TID EACH EYE 07/06/16 09:00 (Zofran Inj) 4 mg Q6H PRN IV 07/06/16 03:30 (Colace) 100 mg BID PO 07/06/16 09:00 (Senokot) 17.2 mg Q12H PRN PO 07/06/16 03:30 Miscellaneous Information 1 Q361D XX 07/06/16 03:30 (Chlorhexidine 2% Cloth) 3 pack Taper DAILY@04 TOP 07/06/16 04:00 07/02/17 03:59 Chlorhexidine Gluconate 3 pack 3 pack UNSCH PRN TOP 07/06/16 03:30 Metronidazole 100 ml @ 100 mls/hr Q8H IV 07/06/16 05:00 07/06/16 05:11 Azithromycin 500 mg/Sodium Chloride 250 ml @ 250 mls/hr Q24H IV 07/06/16 04:00 07/06/16 04:00 (Maxipime Inj/NS Inj) 100 ml @ 200 mls/hr DAILY@03 IV 07/07/16 03:00 (D50w (Vial) Inj) 25 ml UNSCH PRN IV PUSH 07/06/16 05:15 (Glucagon Inj) 1 mg UNSCH PRN OTHER 07/06/16 05:15 Chlorhexidine Gluconate 15 ml 15 ml BID@08,20 MT 07/06/16 08:00 Propofol 100 ml @ 0 mls/hr TITRATE IV 07/06/16 05:15 07/06/16 09:59 (fentaNYL DRIP) 250 ml @ 0 mls/hr TITRATE IV 07/06/16 05:15 (Trandate Inj) 10 mg Q1HR PRN IV PUSH 07/06/16 08:00 (Nitroglycerin 2% Oint) 2 inch Q6HR PRN TOPICAL 07/06/16 08:00 (Apresoline Inj) 10 mg Q1HR PRN IV PUSH 07/06/16 08:00 Family History Unable to obtain Social History unable to obtain (Kylie Bridges) Physical Exam Vital Signs Vital Signs Date Time Temp Pulse Resp B/P Pulse Ox O2 Delivery O2 Flow Rate FiO2 07/06/16 09:30 Mechanical Ventilator 07/06/16 09:20 98 45 07/06/16 09:15 98.9 106 19 124/67 99 07/06/16 08:21 106 16 166/61 100 Ventilator 60 07/06/16 06:50 100 60 07/06/16 05:25 100 100 07/06/16 04:00 93 16 161/71 100 BiPAP 07/06/16 02:00 98 40 07/06/16 02:00 92 16 138/87 100 BiPAP 07/06/16 00:37 99 Nasal Cannula 2.00 07/06/16 00:37 100 20 125/62 99 Nasal Cannula 2 07/05/16 23:07 98.6 119 34 166/72 89 Physical Exam obese, elderly female, intubated, unresponsive CV: S1/S2, regular rhythm, tachycardic Resp: on vent, decreased in bases abd: round, firm, some bleeding from OG tube Ext: trace edema, pedal pulses 2+ Laboratory Laboratory Tests Test 07/05/16 07/06/16 07/06/16 07/06/16 23:30 00:50 01:11 02:40 White Blood Count 15.1 Red Blood Count 3.34 Hemoglobin 9.6 Hematocrit 29.9 Mean Corpuscular Volume 89.5 Mean Corpuscular Hemoglobin 28.9 Mean Corpuscular Hemoglobin 32.3 Concent Red Cell Distribution Width 14.8 Platelet Count 285 Mean Platelet Volume 7.8 Neutrophils (%) (Auto) 84.0 Lymphocytes (%) (Auto) 5.6 Monocytes (%) (Auto) 8.1 Eosinophils (%) (Auto) 0.7 Basophils (%) (Auto) 1.6 Neutrophils # (Auto) 12.7 Lymphocytes # (Auto) 0.8 Monocytes # (Auto) 1.2 Eosinophils # (Auto) 0.1 Basophils # (Auto) 0.2 CBC Comment AUTO DIFF Differential Total Cells 100 Counted Neutrophils % (Manual) 70 Band Neutrophils % 6 Lymphocytes % 9 Monocytes % 10 Neutrophils # (Manual) 12.2 Metamyelocytes 4 Myelocytes 1 Differential Comment FINAL DIFF MANUAL Platelet Estimate NORMAL Platelet Morphology Comment CLUMPED Basophilic Stippling MOD Acanthocytes D-Dimer Quantitative (PE/DVT) 1.98 Sodium Level 137 Potassium Level 5.4 Chloride Level 98 Carbon Dioxide Level 27.8 Anion Gap 11 Blood Urea Nitrogen 178 Creatinine 3.82 Random Glucose 105 Calcium Level 7.9 Total Bilirubin 0.2 Aspartate Amino Transf 13 (AST/SGOT) Alanine Aminotransferase 19 (ALT/SGPT) Alkaline Phosphatase 73 Troponin I 0.10 B-Type Natriuretic Peptide 142 Total Protein 6.0 Albumin 2.4 Blood Gas Puncture Site RT RADIAL Blood Gas Patient Temperature 98.6 Blood Gas HCO3 26 Blood Gas Base Excess -1.1 Blood Gas Oxygen Saturation 94 Arterial Blood pH 7.21 Arterial Blood Partial 67 Pressure CO2 Arterial Blood Partial 106 Pressure O2 Arterial Blood Oxygen Content 12.9 Arterial Blood 2.4 Carboxyhemoglobin Arterial Blood Methemoglobin 2.0 Blood Gas Hemoglobin 9.6 Oxygen Delivery Device NASAL CANNULA Blood Gas Liter Flow 4 Blood Type O POSITIVE Antibody Screen NEGATIVE Blood Bank Comment Lactic Acid Level 0.5 Urine Color YELLOW Urine Turbidity CLEAR Urine pH 5.0 Urine Specific [place] 1.012 Urine Protein NEG Urine Glucose (UA) NEG Urine Ketones NEG Urine Occult Blood NEG Urine Nitrite NEG Urine Bilirubin NEG Urine Urobilinogen LESS THAN 2.0 Urine Leukocyte Esterase NEG Urine Bacteria RARE Urine Mucus FEW Microscopic Urinalysis Comment CATH-CULTURE IND Test 07/06/16 07/06/16 07/06/16 04:33 05:57 06:38 Blood Gas Puncture Site LT RADIAL RT RADIAL Blood Gas Patient Temperature 98.6 98.6 Blood Gas HCO3 25 23 Blood Gas Base Excess -3.0 -2.0 Blood Gas Oxygen Saturation 88 95 Arterial Blood pH 7.16 7.32 Arterial Blood Partial 72 46 Pressure CO2 Arterial Blood Partial 60 329 Pressure O2 Arterial Blood Oxygen Content 12.9 14.2 Arterial Blood 2.3 0.9 Carboxyhemoglobin Arterial Blood Methemoglobin 2.2 1.7 Blood Gas Hemoglobin 10.4 10.0 Oxygen Delivery Device BiPAP VENTILATOR Blood Gas Inspired Oxygen 40 1003 Troponin I 0.06 Blood Gas Ventilator Setting [facility] Date/Time Procedure Status Source Growth 07/06/16 02:40 Urine Culture Received Urine Catheterized Urine Pending 07/06/16 02:40 Legionella Antigen - Final Complete Urine Catheterized Urine PRESUMPTIVE NEGATIVE FOR LEGIONELLA P... 07/06/16 02:40 Streptococcus pneumoniae Antigen (M - Final Complete Urine Catheterized Urine PRESUMPTIVE NEGATIVE FOR STREPTOCOCCU... 07/06/16 01:10 Aerobic Blood Culture Received Blood Peripheral Pending 07/06/16 01:10 Anaerobic Blood Culture Received Blood Peripheral Pending (Kylie Bridges) Result Diagram: 07/05/16 2330 07/05/16 2330 Imaging Last [address] 07/06/16 0000 Signed Impressions: Service Date/Time: June 08:43 - CONCLUSION: 1. No acute hemorrhage or mass effect. 2. Focal area of decreased attenuation involving the left parietal lobe most consistent with an area of infarction which may be subacute to remote. 3. Atrophy and chronic small vessel ischemic change. Gilberto Longoria MD Chest X-Ray 07/06/16 0000 Signed Impressions: Service Date/Time: June 04:26 - CONCLUSION: Endotracheal tube as above. Larry Skaggs MD Chest CT 07/06/16 0000 Signed Impressions: Service Date/Time: June 01:52 - CONCLUSION: 1. Atherosclerosis. 2. Pneumonia. Larry Skaggs MD Chest X-Ray 07/05/16 0000 Signed Impressions: Service Date/Time: Tuesday, July 05, 2016 22:06 - CONCLUSION: No acute disease. Larry Skaggs MD (Kylie Bridges) Assessment and Plan Problem List: (1) Acute kidney injury superimposed on CKD Plan: Baseline creatinine from 2014 2.02, GFR 24, consistent with CKD 4 may have had decline in renal function since then BUN disproportionately elevated, which may be due to GI bleeding differentials include GIB, decreased renal perfusion from sepsis, possible dehydration obtain urine electrolytes obtain renal US K 5.4, she was treated with bicarb and insulin with calcium, follow up BMP tomorrow. she is non oliguric, monitor output reduce IVF to 50 cc/hr, on 0.9% avoid nephrotoxins she is not in need of immediate dialysis support, monitor her overnight, additional recommendations based on her status (2) HTN (hypertension) Plan: BP stable, she is not requiring pressors monitor (3) Pneumonia Plan: on Zithromax and cefepime, given vancomycin in ER monitor clinically (4) DM (diabetes mellitus) Plan: BG acceptable continue insulin as needed (Kylie Bridges) Problem List: (1) Acute kidney injury superimposed on CKD Plan: Baseline creatinine from 2014 2.02, GFR 24, consistent with CKD 4 may have had decline in renal function since then BUN disproportionately elevated, which may be due to GI bleeding differentials include GIB, decreased renal perfusion from sepsis, possible dehydration obtain urine electrolytes obtain renal US K 5.4, she was treated with bicarb and insulin with calcium, follow up BMP tomorrow. she is non oliguric, monitor output reduce IVF to 50 cc/hr, on 0.9% avoid nephrotoxins she is not in need of immediate dialysis support, monitor her overnight, additional recommendations based on her status (2) HTN (hypertension) Plan: BP stable, she is not requiring pressors monitor (3) Pneumonia Plan: on Zithromax and cefepime, given vancomycin in ER monitor clinically (4) DM (diabetes mellitus) Plan: BG acceptable continue insulin as needed Assessment and Plan patient was seen and examined. Acute on chronic kidney disease. Disproportionate increase in BUN could be due to upper GI bleeding vs dehydration. Non oliguric. No immediate need for dialysis. (Luis Crocker MD) Problem Qualifiers (1) HTN (hypertension): Qualified Code: I10 - Essential hypertension (2) Pneumonia: Qualified Code: J18.9 - Pneumonia of right lung due to infectious organism, unspecified part of lung Kylie Bridges Jul 06, 2016 11:25 Luis Crocker MD Jul 07, 2016 15:44
--- NOTE | 2016-07-06 12:53 | RADRPT ---
EXAM DATE/TIME: 07/06/2016 11:52 [place] COMPARISON: US KIDNEY/RENAL/BLADDER, April 14, 2015, 15:55. INDICATIONS: Increased BUN/Creatinine. MEDICAL HISTORY: Hypercholesterolemia. Hypertension. Thyroid disease. Syncope. Renal disease. Diabetes. SURGICAL HISTORY: Hysterectomy. ENCOUNTER: Initial ACUITY: 1 day PAIN SCORE: 0/10 LOCATION: Bilateral flank MEASUREMENTS: RIGHT KIDNEY: 10.1 x 5.0 x 4.2 cm LEFT KIDNEY: 9.6 x 5.7 x 4.3 cm FINDINGS: The kidneys are increased in echogenicity consistent with medical renal disease. Echogenic foci are noted within both kidneys consistent with non-obstructing calculi. Small renal cysts are noted bilat erally and measure 1.5 x 1.2 x 1.8 cm in the mid pole in the right and 0.7 x 0.6 x 0.7 cm in the mid pole on the left. There is no evidence of hydronephrosis. The urinary bladder is decompressed with Jain catheter in place. CONCLUSION: 1. Echogenic kidneys consistent with probable medical renal disease. 2. Scattered echogenic foci bilaterally consistent with probable non-obstructing calculi. 3. Bilateral renal cysts. 4. Suboptimal evaluation of the urinary bladder which is decompressed by a Jain catheter. Ashish Mayorga MD on July 06, 2016 at 12:42 Board Certified Radiologist. This report was verified electronically.
[2016-07-06 14:01] LABS: HEMATOCRIT 29.8 % (35.0-46.0); REVIEW FLAG FINAL
[2016-07-06 14:23] LABS: BICARBONATE 25.7 MEQ/L (21.0-32.0); MAGNESIUM 2.2 MG/DL (1.5-2.5); POTASSIUM 4.3 MEQ/L (3.5-5.1)
--- NOTE | 2016-07-06 17:22 | EC ---
Study Study Date:07/06/2016 STUDY CONCLUSIONS SUMMARY - Left ventricle: The cavity size was normal. Wall thickness was normal. Systolic function was normal. The estimated ejection fraction was in the range of 55% to 60%. Wall motion was normal; there were no regional wall motion abnormalities. Doppler parameters are consistent with abnormal left ventricular relaxation (grade 1 diastolic dysfunction). - Aortic valve: Valve area: 1.96cm^2(VTI). Valve area: 1.65cm^2 (Vmax). If LV function is below 40, please consider prescribing an ACEI or ARB or document rationale for non-use. PROCEDURE DATA STUDY STATUS: Elective. Procedure: Transthoracic echocardiography. Image quality was good. Scanning was performed from the parasternal, apical, and subcostal acoustic windows. Study completion: The patient tolerated the procedure well. Transthoracic echocardiography. M-mode, complete 2D, complete spectral Doppler, and color Doppler. Height: Height: 60in. Weight: Weight: 235.5lb. Body mass index: BMI: 46.1kg/m^2. Body surface area: BSA: 2m^2. Patient status: Inpatient. CARDIAC ANATOMY LEFT VENTRICLE: The cavity size was normal. Wall thickness was normal. Systolic function was normal. The estimated ejection fraction was in the range of 55% to 60%. Wall motion was normal; there were no regional wall motion abnormalities. Doppler parameters are consistent with abnormal left ventricular relaxation (grade 1 diastolic dysfunction). AORTIC VALVE: Trileaflet; normal thickness leaflets. Doppler: Transvalvular velocity was within the normal range. There was no stenosis. No regurgitation. Valve area: 1.96cm^2(VTI). Indexed valve area: 0.98cm^2/m^2 (VTI). Valve area: 1.65cm^2 (Vmax). Indexed valve area: 0.83cm^2/m^2 (Vmax). Mean gradient: 5mm Hg (S). AORTA: Aortic root: The aortic root was normal in size. MITRAL VALVE: Structurally normal valve. Doppler: Transvalvular velocity was within the normal range. There was no evidence for stenosis. No regurgitation. LEFT ATRIUM: The atrium was normal in size. RIGHT VENTRICLE: The cavity size was normal. Wall thickness was normal. PULMONIC VALVE: Doppler: Transvalvular velocity was within the normal range. There was no evidence for stenosis. No regurgitation. TRICUSPID VALVE: Structurally normal valve. Doppler: Transvalvular velocity was within the normal range. No regurgitation. PULMONARY ARTERY: The main pulmonary artery was normal-sized. Systolic pressure was within the normal range. RIGHT ATRIUM: The atrium was normal in size. PERICARDIUM: There was no pericardial effusion. SYSTEMIC VEINS: Inferior vena cava: The vessel was normal in size. Patient weight: 235.5lb _Ejection fraction:_ 65-75% _Fractional shortening:_ 32% up to 5Kg 5-11.5Kg 11.6-22.9Kg 23-45Kg 45-57Kg Aortic Root 7-13 <17 13-22 17-27 17-27 LA diam 6-13 <23 24-38 33-47 37-40 RVID 10-17 7-15 7-15 7-18 8-17 LVIDd 12-22 <32 24-38 33-47 37-40 LVPW 2-4 3-6 5-7 6-8 7-8 IVS 2-4 3-6 5-7 6-8 7-8 BASIC MEASUREMENTS ADULT NORMAL Left ventricle LV internal dimension, ED, chordal *37.8 mm 43-52 level, PLAX LV internal dimension, ES, chordal 28.9 mm 23-38 level, PLAX Fractional shortening, chordal level, *24 % >29 PLAX LV posterior wall thickness, ED 9.67 mm IVS/LVPW ratio, ED 0.99 <1.3 Ventricular septum Septal thickness, ED 9.61 mm Aortic valve Leaflet separation 15 mm 15-26 Aorta Root diameter, ED 25 mm Left atrium Anterior-posterior dimension 32 mm Anterior-posterior dimension index 1.6 cm/m^2 <2.2 BASIC MEASUREMENTS ADULT NORMAL Aortic valve Leaflet separation 15 mm 15-26 DOPPLER MEASUREMENTS ADULT NORMAL Main pulmonary artery Pressure, S 24 mm Hg =30 Aortic valve Peak velocity, S 139 cm/s Mean velocity, S 92.9 cm/s VTI, S 22.9 cm Mean gradient, S 5 mm Hg Valve area, VTI 1.96 cm^2 Valve area index, VTI 0.98 cm^2/m^2 Valve area, Vmax 1.65 cm^2 Valve area index, Vmax 0.83 cm^2/m^2 Mitral valve Peak E-wave velocity 66.7 cm/s Peak A-wave velocity 102 cm/s Deceleration time *285 ms 150-230 Peak E/A ratio 0.7 Tricuspid valve Regurgitant peak velocity 224 cm/s Peak RV-RA gradient, S 20 mm Hg Maximal regurgitant velocity 224 cm/s Systemic veins Estimated CVP 5 mm Hg Right ventricle RV pressure, S 28 mm Hg <30 Pulmonic valve Peak velocity, S 94 cm/s LEGEND: Mean values are shown as u=mean value. Asterisk (*) lipscomb values outside specified normal range. Prepared and signed by Kevin Eugene [id number]
[2016-07-06] MEDS: LABETALOL HCL 100 MG/20 ML VIAL IV PUSH PRN (18:15)
--- NOTE | 2016-07-06 18:49 | RADRPT ---
EXAM DATE/TIME: 07/06/2016 17:51 [facility] COMPARISON: No previous studies available for comparison. INDICATIONS : CVA. Lethargic. MEDICAL HISTORY : Hypertension. Diabetes mellitus type 2. Renal insufficiency, chronic. SURGICAL HISTORY : Hysterectomy. ENCOUNTER: Subsequent ACUITY: 2 day PAIN SCORE: Nonresponsive. LOCATION: head. TECHNIQUE: Multiplanar, multisequence MRI of the brain was performed without contrast. FINDINGS: There is a remote infarct in the left parietal lobe adjacent to the remote infarct is a subcentimeter area of slightly increased signal on the diffusion weighted images which could represent a slight ex tension of the previous infarct. There are moderate chronic ischemic changes in periventricular white matter. No mass effect or midline shift. No hydrocephalus. No abnormal extra-axial fluid collections . There is extensive fluid opacification of the aerated portion of the right temporal bone and right ma stoid air cells and partial opacification on the left side. There is also partial opacification of et hmoid air cells. CONCLUSION: 1. 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 2. Abnormal fluid accumulation in the aerated portion of the temporal bones bilaterally associated wi th bilateral mastoiditis and partial ethmoid opacification. Tad Veliz MD on July 06, 2016 at 18:43 Board Certified Radiologist. This report was verified electronically.
[2016-07-06 21:12] LABS: HEMATOCRIT 27.7 % (35.0-46.0); REVIEW FLAG FINAL
[2016-07-07] VITALS (11 sets, daily range): BP systolic 121–177; BP diastolic 58–70; PULSE 78–98; RESP 12–27; TEMP 97.6–98.5; O2SAT 95–100
[2016-07-07 00:54] LABS: HEMATOCRIT 26.8 % (35.0-46.0); REVIEW FLAG FINAL
[2016-07-07] MEDS: hydrALAZINE HCL 20 MG/ML VIAL IV PUSH PRN ×2 (03:24→10:08)
[2016-07-07] MEDS: PROPOFOL 1000 MG/100 ML INJ 100 ML IV SCH ×3 (03:25→05:29)
[2016-07-07] MEDS: CEFEPIME INJ 2,000 MG in SODIUM CHLORIDE 0.9% INJ 100 ML IV SCH (03:25)
[2016-07-07] MEDS: RESP: ALBUTEROL 2.5 MG/IPRATROPIUM 0.5 MG NEB (SCH) INH ×4 (03:31→20:25)
[2016-07-07] MEDS: AZITHROMYCIN INJ 500 MG in SODIUM CHLOR 0.9% 250 ML INJ 250 ML IV SCH (04:23)
[2016-07-07] MEDS: LABETALOL HCL 100 MG/20 ML VIAL IV PUSH PRN ×2 (04:23→09:00)
[2016-07-07] MEDS: metroNIDAZOLE 500 MG INJ 100 ML IV SCH ×3 (04:23→20:57)
[2016-07-07] MEDS: CHLORHEXIDINE GLUCONATE 2 % 1 PACK (2 CLOTHS) TOP SCH (04:23)
[2016-07-07 04:32] LABS: AUTOMATED NEUTROPHIL # 9.8 TH/MM3 (1.8-7.7); BASOPHIL % 0.2 % (0.0-2.0); EOSINOPHIL # 0.1 TH/MM3 (0-0.4); EOSINOPHIL % 0.7 % (0.0-4.0); HEMATOCRIT 29.7 % (35.0-46.0); LYMPH % 5.8 % (9.0-44.0); LYMPHOCYTE # 0.7 TH/MM3 (1.0-4.8); MEAN CELL VOLUME 87.9 FL (80.0-100.0); MONO % 13.2 % (0.0-8.0); NEUT % 80.1 % (16.0-70.0); PLATELET COUNT 229 TH/MM3 (150-450); RED BLOOD COUNT 3.38 MIL/MM3 (4.00-5.30); RED CELL DISTRIBUTION WIDTH 14.7 % (11.6-17.2); WHITE BLOOD COUNT 12.2 TH/MM3 (4.0-11.0)
[2016-07-07 04:42] LABS: APTT (PATIENT) 24.3 SEC (24.3-30.1); PROTHROMBIN TIME - PATIENT 11.4 SEC (9.8-11.6)
[2016-07-07 04:48] LABS: HEMO FLAGS AUTO DIFF
[2016-07-07 05:34] LABS: ALKALINE PHOSPHATASE 68 U/L (45-117); ALT (GPT) 21 U/L (10-53); ANION GAP 14 MEQ/L (5-15); AST (GOT) 26 U/L (15-37); BICARBONATE 25.7 MEQ/L (21.0-32.0); BLOOD UREA NITROGEN 124 MG/DL (7-18); CHLORIDE 107 MEQ/L (98-107); GLOMERULAR FILTRATION RATE 20 ML/MIN (>89); POTASSIUM 3.6 MEQ/L (3.5-5.1); SODIUM (NA) 147 MEQ/L (136-145); TOTAL BILIRUBIN ADULT 0.7 MG/DL (0.2-1.0)
--- NOTE | 2016-07-07 06:14 | RADRPT ---
EXAM DATE/TIME: 07/07/2016 05:25 [facility] COMPARISON: CHEST SINGLE AP, July 06, 2016, 4:26. INDICATIONS : Shortness of breath. MEDICAL HISTORY : Hypertension. Diabetes mellitus type II. Renal insufficiency, chronic. SURGICAL HISTORY : None. ENCOUNTER: Subsequent ACUITY: 2 days PAIN SCORE: Non-responsive. LOCATION: Bilateral chest FINDINGS: Small left pleural effusion present, slightly larger at least more conspicuous in the interim. Right lung remains reasonably clear. I don't see a pneumothorax. Heart size stable, upper limits of normal. Endotracheal tube tip is about 3 cm above the jaquelin. Nasogastric tube courses into the stomach, has been advanced in the interim. CONCLUSION: Tiny left pleural effusion. Allan Renee MD on July 07, 2016 at 6:12 Board Certified Radiologist. This report was verified electronically.
[2016-07-07] MEDS: INSULIN NovoLIN REGULAR SUPPLEMENTAL SCALE SQ SCH ×4 (07:01→20:59)
[2016-07-07 07:04] LABS: METAMYELOCYTES 1 % (0-1); MYELOCYTES 1 % (0-0); NEUTROPHIL # MANUAL DIFF 10.4 TH/MM3 (1.8-7.7); PLATELET ESTIMATE SMEAR NORMAL (NORMAL); PLATELET MORPHOLOGY NORMAL (NORMAL); POLYS (SEG NEUTROPHILS) 83 % (16-70); SCAN/DIFF FINAL DIFF MANUAL; WBC DIFF SAMPLE 100
[2016-07-07] MEDS ORDERED: MORPHINE SULFATE 8 MG/ML INJ ONE (08:12)
[2016-07-07] MEDS: DOCUSATE SODIUM 100 MG CAP PO SCH ×2 (08:19→20:58)
[2016-07-07] MEDS: CHLORHEXIDINE 0.12% (ORAL KIT) 15 ML CUP MT SCH ×2 (08:19→20:57)
[2016-07-07] MEDS: PANTOPRAZOLE SODIUM 40 MG VIAL IV SCH (08:19)
[2016-07-07] MEDS: SODIUM CHLORIDE 0.9% FLUSH 5 ML FLUSH IV FLUSH SCH ×2 (08:19→20:58)
[2016-07-07] MEDS: ARTIFICIAL TEARS OPTH SOLN 15 ML BTL EACH EYE SCH ×3 (08:21→18:00)
[2016-07-07] MEDS: PANTOPRAZOLE INJ 80 MG in SODIUM CHLORIDE 0.9% INJ 100 ML IV SCH ×2 (08:29→18:21)
--- NOTE | 2016-07-07 08:49 | MG ---
cc: SHAMA CARY Lab No: [id number] Date: 07/06/16 Age: 80 Sex: FEMALE F Race: Patient is intubated with Diprivan. Hyperventilation photic stimulation not performed. A 80-year-old woman, syncopal episode. Vancomycin. A lot of bifrontal and temporal muscle artifact is seen which makes interpretation difficult. Diffuse 6 Hz underlying rhythm is at times seen. Some body tremors are noted but no seizure activity is seen with that. Photic stimulation and hyperventilation were not performed. IMPRESSION The body tremors do not correlate with any seizure activity. Some diffuse theta slowing is seen consistent with a moderate diffuse encephalopathy. No seizure activity is noted. No hemisphere asymmetry are noted. Clinical correlation is needed. MD KARL Wheeler/ /2:57 PM /8:43 AM
[2016-07-07] MEDS ORDERED: CEFEPIME INJ 2,000 MG in SODIUM CHLORIDE 0.9% INJ 100 ML IV SCH (09:00)
[2016-07-07] MEDS ORDERED: SODIUM CHLOR 0.45% 1000 ML INJ 1,000 ML IV SCH (10:00)
--- NOTE | 2016-07-07 11:34 | HHI.NPPN ---
Subjective Complaints: Obesity General Problems: Edema Renal Failure: Chronic, Acute, Stage IV Interval History The pt was extubated this morning. Family is at bedside and able to give more information. Renal function is better. Her right pupil is significantly larger than left. She failed swallow study. (Kylie Bridges) Review of Systems General Constitutional: Fatigue (Kylie Bridges) Musculoskeletal MS: Pain/Stiffness (Kylie Bridges) Objective Data Data 07/06/16 07/07/16 19:00 07:00 Intake Total 1180 ml 2328 ml Output Total 2600 ml 2500 ml Balance -1420 ml -172 ml Intake Oral 0 ml 0 ml IV Total 1180 ml 2328 ml Output Urine Total 2500 ml 2400 ml Gastric Drainage Total 100 ml 100 ml # Bowel Movements 0 0 Vital Signs Date Time Temp Pulse Resp B/P Pulse Ox O2 Delivery O2 Flow Rate FiO2 07/07/16 09:23 97 Nasal Cannula 4.00 07/07/16 09:22 96 Nasal Cannula 4 07/07/16 09:20 96 Nasal Cannula 4.00 07/07/16 08:11 35 07/07/16 08:11 97 35 07/07/16 08:11 97 Ventilator 35 07/07/16 08:00 35 07/07/16 08:00 97.9 85 27 152/67 98 07/07/16 07:00 Mechanical Ventilator 07/07/16 04:10 98 35 07/07/16 04:00 35 07/07/16 04:00 98.5 82 18 177/70 100 07/07/16 00:00 98.3 78 18 156/67 100 07/07/16 00:00 35 07/06/16 23:49 100 35 07/06/16 20:30 35 07/06/16 20:30 100 35 07/06/16 20:00 45 07/06/16 20:00 98.7 80 20 162/71 100 07/06/16 19:00 100 Mechanical Ventilator 45 07/06/16 18:35 100 100 07/06/16 16:09 100 45 07/06/16 16:00 45 07/06/16 16:00 99.8 83 19 178/75 100 07/06/16 12:00 99.7 92 22 129/64 94 07/06/16 11:45 99 45 (Kylie Bridges) -: 07/07/169 07/07/16 0409 Microbiology 07/07/16 Gram Stain, Received Pending 07/07/16 Sputum Culture, Received Pending Imaging Last 72 hours Impressions Chest X-Ray 07/07/16 0000 Signed Impressions: Service Date/Time: Thursday, July 07, 2016 05:25 - CONCLUSION: Tiny left pleural effusion. Allan Renee MD Renal Ultrasound 07/06/16 0859 Signed Impressions: Service Date/Time: June 11:52 - CONCLUSION: 1. Echogenic kidneys consistent with probable medical renal disease. 2. Scattered echogenic foci bilaterally consistent with probable non-obstructing calculi. 3. Bilateral renal cysts. 4. Suboptimal evaluation of the urinary bladder which is decompressed by a Glynn catheter. Ashish Mayorga MD Head CT 07/06/16 0000 Signed Impressions: Service Date/Time: June 08:43 - CONCLUSION: 1. No acute hemorrhage or mass effect. 2. Focal area of decreased attenuation involving the left parietal lobe most consistent with an area of infarction which may be subacute to remote. 3. Atrophy and chronic small vessel ischemic change. Gilberto Longoria MD Chest X-Ray 07/06/16 0000 Signed Impressions: Service Date/Time: June 04:26 - CONCLUSION: Endotracheal tube as above. Larry Skaggs MD Chest CT 07/06/16 0000 Signed Impressions: Service Date/Time: June 01:52 - CONCLUSION: 1. Atherosclerosis. 2. Pneumonia. Larry Skaggs MD Brain MRI 07/06/16 0000 Signed Impressions: Service Date/Time: June 17:51 - CONCLUSION: 1. 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 2. Abnormal fluid accumulation in the aerated portion of the temporal bones bilaterally associated with bilateral mastoiditis and partial ethmoid opacification. Tad Veliz MD Chest X-Ray 07/05/16 0000 Signed Impressions: Service Date/Time: Tuesday, July 05, 2016 22:06 - CONCLUSION: No acute disease. Larry Skaggs MD Tubes & Lines: Glynn (Cyrus,Kylie B. RELAYS DRAFTSPERSON) Physical Exam General Appearance: Well Developed, Well Nourished, Comfortable, Obese (Cyrus Kylie B. RELAYS DRAFTSPERSON) Eyes Eye Exam: Sclera White Eye Remarks right pupil 3 mm, left 1 mm (Cyrus,Kylie B. RELAYS DRAFTSPERSON) Throat Throat Exam: Oral Mucosa Hato Candal & Moist (Cyrus,Kylie B. RELAYS DRAFTSPERSON) Pulmonary Resp Exam: Breath Sounds Equal, Crackles Resp Remarks bibasilar rales (Cyrus,Kylie B. RELAYS DRAFTSPERSON) Cardiology CV Exam: Good Perfusion, Irregular, Tachycardia (Cyrus,Kylie B. RELAYS DRAFTSPERSON) Gastrointestinal/Abdomen GI Exam: Soft, Non-Tender, Bowel Sounds Present, Distended (Cyrus,Kylie B. RELAYS DRAFTSPERSON) Genitourinary Exam: Clear Urine (CyrusKylie B. RELAYS DRAFTSPERSON) Musculoskeletal MS Exam: Joints Intact, Normal Tone (CyrusKylie B. RELAYS DRAFTSPERSON) Integumentary Skin Exam: Clear, Warm, Dry, Intact (Cyrus,Kylie B. RELAYS DRAFTSPERSON) Extremeties Extremities Exam: Pedal Pulses Palpable, Moderate Edema, Pitting Edema ( CyrusKylie B. RELAYS DRAFTSPERSON) Neurologic Neuro Exam: Alert, Awake, Oriented, Speech Clear, Moving All Extremities ( CyrusKylie B. RELAYS DRAFTSPERSON) Psychiatric Psych Exam: Appropriate Responses (CyrusKylie B. RELAYS DRAFTSPERSON) Assessment/Plan Discussed Condition With: Patient, Spouse, Daughter Assessment Summary: RAKEL/Acute Renal Failure, Diabetes Mellitus, CKD Stage IV Problem List: (1) Acute kidney injury superimposed on CKD Plan: Baseline creatinine from 2014 2.02, GFR 24, consistent with CKD 4 may have had decline in renal function since then BUN disproportionately elevated, which can be seen with GI bleeding (denies use of NSAIDs prior to admission) RAKEL differentials include GIB, decreased renal perfusion from sepsis, possible dehydration FeNa low (< 1%) confirming prerenal etiology renal US showing medical renal disease, simple cysts bilaterally, no obstructive etiology potassium has corrected, no acid base disorders developed hypernatremia, IVF was changed to 0.45% at 50 cc/hr; however now demonstrating fluid overload, hold IVF, give a dose of Diuril and add free water through feeding tube of note she was on Bumex 2 mg po once daily at home; EF 55-60% she is non oliguric, monitor output with glynn avoid nephrotoxins, renally dose medications when appropriate she is not in need of immediate dialysis support at this time She follows with Dr Ortiz in [facility], but the pt and family have not been happy with the care they have received. The pt will require follow up after discharge to monitor renal function. We will be happy to follow up with her outpatient if the family chooses. (2) HTN (hypertension) Plan: BP acceptable, continue medications monitor vital signs (3) Pneumonia Plan: on Zithromax and cefepime, monitor clinically 1/4 blood cultures with gram positive cocci (? contaminant) (4) Anemia Plan: check iron profile monitor hemoglobin, did have upper GI bleeding yesterday to have EGD when clinically stable (5) DM (diabetes mellitus) Plan: BG acceptable continue insulin as needed (Kylie Bridges) Plan patient was seen and examined. Renal function has improved. Hypernatremia is noted. A dose of Diuril given. She now has NG tube: Dobbhoff. Start free water through the feeding tube. Discussed with patient's daughter. (Luis Crocker MD) Problem Qualifiers (1) HTN (hypertension): Qualified Code: I10 - Essential hypertension (2) Pneumonia: Qualified Code: J18.9 - Pneumonia of right lung due to infectious organism, unspecified part of lung Kylie Bridges Jul 07, 2016 11:34 Luis Crocker MD Jul 07, 2016 15:53
[2016-07-07] MEDS ORDERED: CHLOROTHIAZIDE SOD 500 MG VIAL IV ONE (11:45)
--- NOTE | 2016-07-07 12:28 | HHI.GIFU ---
Subjective Remarks Patient was extubated this morning, no signs of bleeding, when OGT was removed, green gastric out put came out. hgb stable. there is a plan for dobhoff, she failed her swallow eval. Family by bed side. (Austin,Monty BRADLEY) Objective Vitals I&O Vital Signs Date Time Temp Pulse Resp B/P Pulse Ox O2 Delivery O2 Flow Rate FiO2 07/07/16 09:23 97 Nasal Cannula 4.00 07/07/16 09:22 96 Nasal Cannula 4 07/07/16 09:20 96 Nasal Cannula 4.00 07/07/16 08:11 35 07/07/16 08:11 97 35 07/07/16 08:11 97 Ventilator 35 07/07/16 08:00 35 07/07/16 08:00 97.9 85 27 152/67 98 07/07/16 07:00 Mechanical Ventilator 07/07/16 04:10 98 35 07/07/16 04:00 35 07/07/16 04:00 98.5 82 18 177/70 100 07/07/16 00:00 98.3 78 18 156/67 100 07/07/16 00:00 35 07/06/16 23:49 100 35 07/06/16 20:30 35 07/06/16 20:30 100 35 07/06/16 20:00 45 07/06/16 20:00 98.7 80 20 162/71 100 07/06/16 19:00 100 Mechanical Ventilator 45 07/06/16 18:35 100 100 07/06/16 16:09 100 45 07/06/16 16:00 45 07/06/16 16:00 99.8 83 19 178/75 100 I/O 07/06/16 07/06/16 07/06/16 07/07/16 07/07/16 07/07/16 07:00 15:00 23:00 07:00 15:00 23:00 Intake Total 1180 ml 743 ml 1585 ml Output Total 2600 ml 960 ml 1540 ml Balance -1420 ml -217 ml 45 ml Intake Oral 0 ml 0 ml 0 ml IV Total 1180 ml 743 ml 1585 ml Output Urine Total 2500 ml 900 ml 1500 ml Gastric Drainage Total 100 ml 60 ml 40 ml # Bowel Movements 0 0 0 Laboratory Laboratory Tests Test 207/06/16 07/07/16 07/07/16 13:35 20:41 00:40 04:09 Hemoglobin 9.6 9.2 8.8 9.8 Hematocrit 29.8 27.7 26.8 29.7 Sodium Level 141 147 Potassium Level 4.3 3.6 Chloride Level 105 107 Carbon Dioxide Level 25.7 25.7 Anion Gap 10 14 Blood Urea Nitrogen 152 124 Creatinine 3.09 2.40 Estimat Glomerular Filtration 15 20 Rate Random Glucose 126 176 Calcium Level 8.2 8.4 Phosphorus Level 3.7 3.5 Magnesium Level 2.2 2.0 Troponin I 0.08 White Blood Count 12.2 Red Blood Count 3.38 Mean Corpuscular Volume 87.9 Mean Corpuscular Hemoglobin 29.0 Mean Corpuscular Hemoglobin 33.0 Concent Red Cell Distribution Width 14.7 Platelet Count 229 Mean Platelet Volume 7.8 Neutrophils (%) (Auto) 80.1 Lymphocytes (%) (Auto) 5.8 Monocytes (%) (Auto) 13.2 Eosinophils (%) (Auto) 0.7 Basophils (%) (Auto) 0.2 Neutrophils # (Auto) 9.8 Lymphocytes # (Auto) 0.7 Monocytes # (Auto) 1.6 Eosinophils # (Auto) 0.1 Basophils # (Auto) 0.0 CBC Comment AUTO DIFF Differential Total Cells 100 Counted Neutrophils % (Manual) 83 Lymphocytes % 8 Monocytes % 7 Neutrophils # (Manual) 10.4 Metamyelocytes 1 Myelocytes 1 Differential Comment FINAL DIFF MANUAL Platelet Estimate NORMAL Platelet Morphology Comment NORMAL Prothrombin Time 11.4 Prothromb Time International 1.0 Ratio Activated Partial 24.3 Thromboplast Time Lactic Acid Level 1.5 Total Bilirubin 0.7 Aspartate Amino Transf 26 (AST/SGOT) Alanine Aminotransferase 21 (ALT/SGPT) Alkaline Phosphatase 68 Total Protein 5.8 Albumin 2.2 Date/Time Procedure Status Source Growth 07/07/16 09:20 Gram Stain Received Sputum Endotracheal Pending 07/07/16 09:20 Sputum Culture Received Sputum Endotracheal Pending 07/06/16 02:40 Urine Culture Received Urine Catheterized Urine Pending 07/06/16 02:40 Legionella Antigen - Final Complete Urine Catheterized Urine PRESUMPTIVE NEGATIVE FOR LEGIONELLA P... 07/06/16 02:40 Streptococcus pneumoniae Antigen (M - Final Complete Urine Catheterized Urine PRESUMPTIVE NEGATIVE FOR STREPTOCOCCU... 07/06/16 01:10 Aerobic Blood Culture - Preliminary Resulted Blood Peripheral Gram Positive Cocci 07/06/16 01:10 Anaerobic Blood Culture - Preliminary Resulted Blood Peripheral NO GROWTH IN 1 DAY Imaging Last Impressions Chest X-Ray 07/07/16 0000 Signed Impressions: Service Date/Time: Thursday, July 07, 2016 05:25 - CONCLUSION: Tiny left pleural effusion. Allan Renee MD Renal Ultrasound 07/06/16 0859 Signed Impressions: Service Date/Time: June 11:52 - CONCLUSION: 1. Echogenic kidneys consistent with probable medical renal disease. 2. Scattered echogenic foci bilaterally consistent with probable non-obstructing calculi. 3. Bilateral renal cysts. 4. Suboptimal evaluation of the urinary bladder which is decompressed by a Jain catheter. Ashish Mayorga MD Head CT 07/06/16 0000 Signed Impressions: Service Date/Time: June 08:43 - CONCLUSION: 1. No acute hemorrhage or mass effect. 2. Focal area of decreased attenuation involving the left parietal lobe most consistent with an area of infarction which may be subacute to remote. 3. Atrophy and chronic small vessel ischemic change. Gilberto Longoria MD Chest CT 07/06/16 0000 Signed Impressions: Service Date/Time: June 01:52 - CONCLUSION: 1. Atherosclerosis. 2. Pneumonia. Larry Skaggs MD Brain MRI 07/06/16 0000 Signed Impressions: Service Date/Time: June 17:51 - CONCLUSION: 1. 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 2. Abnormal fluid accumulation in the aerated portion of the temporal bones bilaterally associated with bilateral mastoiditis and partial ethmoid opacification. Tad Veliz MD Physical Exam HEENT: normocephalic; atraumatic; no jaundice. Throat is clear. NECK: Neck is supple, no JVD, no lymphadenopathy. CHEST: crackles, bibasilar rales CARDIAC: Regular rate and rhythm with no murmur gallop or rubs. ABDOMEN: Soft, nondistended, nontender; no hepatosplenomegaly; bowel sounds are present in all four quadrants. EXTREMITIES: No clubbing, cyanosis, or edema. SKIN: gen. 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 No melena or bloody stools reported. - AMS/Leukocytosis/pneumonia - WBC 15.1, CT of the chest was performed which revealed bilateral lower lobe pneumonia/infiltrates, blood cx pending, abx - CKD, HF per [facility] - Respiratory failure- extubated today per [facility] Plan: - Diet per CCM, - Cont. to monitor for signs of bleeding, EGD/colonoscopy only on emergent basis - cont. PPI - Monitor hh - Transfuse as needed - Notify GI for active bleeding - Gi will sign off, please reconsult as needed - Patient seen and examined by Dr. Gaston and myself and this note is written on his behalf. (Monty Avila) Physician Comments Seen and examined with KIRK, extubated earlier today. No bleeding, H/H stable. GI shah when more stable, discussed with daughter at the bedside. Will sign off reconsult when able to proceed with gi shah. Thank you (Rudy Gaston MD) Monty Avila Jul 07, 2016 12:28 Rudy Gaston MD Jul 07, 2016 16:53
[2016-07-07] MEDS: MAGNESIUM SULFATE 1 GM PREMIX 100 ML IV SCH ×2 (13:25→14:04)
--- NOTE | 2016-07-07 14:52 | RADRPT ---
EXAM DATE/TIME: 07/07/2016 13:42 [facility] COMPARISON: No previous studies available for comparison. INDICATIONS : Evaluate Dobhoff placement. MEDICAL HISTORY : Thyroid disease. Renal disease. SURGICAL HISTORY : Hysterectomy. ENCOUNTER: Initial ACUITY: 1 day PAIN SCORE: Non-responsive. LOCATION: Abdomen. FINDINGS: The Dobhoff tube appears to have its tip in the expected region of the distal stomach or proximal duo denum. CONCLUSION: Tip of the Dobhoff tube appears to be in the distal stomach or proximal duodenum. Ashish Mayorga MD on July 07, 2016 at 14:43 Board Certified Radiologist. This report was verified electronically.
--- NOTE | 2016-07-07 16:55 | HHI.CCPN ---
Subjective Remarks/Hospital Course Hospital Course: 80-year-old female. Full code. Resident of [facility]. Recently discharged from [facility] 07/04/16. Past medical history includes chronic diastolic heart failure, chronic kidney disease stage IV, chronic narcotic/muscle relaxant use, gastroesophageal reflux disease, anxiety and gout. He is recently hospice of [facility] for unknown reasons. Was sent to [facility] on ciprofloxacin. She was seen by her family today that facility was noted to be confused. They requested transfer to emergency department for evaluation. Upon arrival in ED, patient was known to be quite lethargic. She appeared quite currently ED physician. Laboratories revealed BUN [address] of the chest was performed which revealed bilateral lower lobe pneumonia/infiltrates. She received 2 g of cefepime in 1500 mg vancomycin 1. Patient was pancultured. Also noted to have leukocytosis as well. Patient received 4 L normal saline bolus wide open 1. We are asked to admit the patient for further workup. Subjective: 07/07: awake and following commands today. no complaints. on SBT this AM. MRI with subacute stroke Objective Vital Signs Date Time Temp Pulse Resp B/P Pulse Ox O2 Delivery O2 Flow Rate FiO2 07/07/16 16:00 97.6 98 12 121/60 96 07/07/16 09:23 Nasal Cannula 4.00 07/07/16 08:11 35 Intake and Output 07/06/16 07/06/16 07/07/16 08:00 16:00 00:00 Intake Total 1180 ml 743 ml Output Total 2600 ml 960 ml Balance -1420 ml -217 ml Result Diagram: 07/07/16 0409 07/07/16 0409 Other Results Microbiology Date/Time Procedure Status Source Growth 07/06/16 02:40 Legionella Antigen - Final Complete Urine Catheterized Urine PRESUMPTIVE NEGATIVE FOR LEGIONELLA P... 07/06/16 02:40 Streptococcus pneumoniae Antigen (M - Final Complete Urine Catheterized Urine PRESUMPTIVE NEGATIVE FOR STREPTOCOCCU... Imaging Last Impressions Chest X-Ray 07/05/16 0000 Signed Impressions: Service Date/Time: Tuesday, July 05, 2016 22:06 - CONCLUSION: No acute disease. Larry Skaggs MD Objective Remarks GENERAL: 72-year-old female, critically ill lying in bed SKIN: Warm and dry. HEAD: Atraumatic. Normocephalic. EYES: Pupils equal and round about 3 L bilaterally and reactive. No scleral icterus. No injection or drainage. ENT: No nasal bleeding or discharge. Mucous membranes pink and dry. Oropharynx without erythema NECK: Trachea midline. No JVD. CARDIOVASCULAR: Regular rate and rhythm. S1, S2. No S4. Without murmur RESPIRATORY: No accessory muscle use. Cleath sounds equal bilaterally. GASTROINTESTINAL: Abdomen obese, soft, nontender. ar to auscultation. BreHypoactive bowel sounds MUSCULOSKELETAL: Extremities 1+ lower extremity edema. No obvious deformities. NEUROLOGICAL: Arousable but falls asleep. follows commands. A/P Assessment and Plan Assessment: 80yF with stage IV CKD, diastolic heart failure, chronic pain complaints who presented with altered mental status and hypoxia requiring intubation and mechanical ventilation. I think her acute encephalopathy could be a combination of her subacute infarct and medication induced from poor renal clearance. certainly she is still at high risk for decompensation. She is very slowly improving. Neuro/Psych: Acute toxic metabolic encephalopathy secondary to uremia Chronic benzodiazepine use Chronic muscle relaxant use Chronic narcotic use MRI with subacute left parietal infarct Currently holding Xanax, Felxeril, hydrocodone, lyrica. Per family, patient has adverse reaction to lyrica and only rarely takes the other home meds. CV: Hypertension Chronic diastolic heart failure Trop 0.1 continue to hold coreg. home bumex 2mg/day. may need to restart this today. 2-D echo: Grade 1 DDfxn, preserved EF. Resp: Obstructive sleep apnea Pneumonia acute hypoxic resp failure SBT-- if she passes, will pursue extubation. Ventilator bundle Bronchodilator therapy every 6 hours and as needed Daily sedation vacation CT thorax revealed right greater than left lower lobe infiltrates. Right lower lobe granuloma. Patient is on CPAP at night at [facility]. For obstructive sleep apnea. GI: Gastroesophageal reflux disease Heme+ stool Patient is on Prilosec 20 mg by mouth daily at home. On protonix gtt w/heme+ stool Currently nothing by mouth. Speech therapy to evaluate and treat swallowing mechanism. Colace/as needed Senokot for bowel regimen. GI c/s : Jain will be placed for accurate I's and O's in a critically ill patient Endo: Gout Diabetes mellitus History of secondary hyperparathyroidism on calcitriol 0.25 g daily? Currently holding colchicine 0.6 daily and Uloric 80 mg daily for gout. Resuming clinically indicated Currently holding glipizide 5 mg before meals. Sliding-scale insulin to maintain euglycemia. Renal: Acute on chronic kidney injury stage IV to 5 Baseline creatinine between 2 and 3 documented. Will hold nephrotoxic drugs and diuretics at the present time. Heme: Leukocytosis Normocytic anemia Monitor CBC/coags. Monitor trends. Infectious etiology likely H/H stable. daily CBC. ID: Healthcare associated pneumonia Received 2 g cefepime and 1500 mg vancomycin ED Continue cefepime, Flagyl and azithromycin FEN: Hyperkalemia- improved. MSK: Osteoporosis/osteoarthritis Holding narcotics/muscle relaxants light of altered mental status. Holding alendronate 70 mg weekly. Resume when clinically indicated Access - Utilize peripheral IV. Prophylaxis - GI - Protonix - DVT - SCD/start SQH 5000 q12h. she is at high risk for DVT, but also cautiously start prophy given possible GIB. Critical Care: The total critical care time was 40 minutes. Time to perform other separately billable procedures was not included in the critical care time. Titus Hurt MD Jul 07, 2016 16:55
[2016-07-07] MEDS ORDERED: HYDROmorphone HCL PF 1 MG/ML VIAL IV PUSH PRN (17:00)
[2016-07-07] MEDS: FREE WATER G-TUBE SCH (18:00)
[2016-07-07] MEDS ORDERED: MONT10TA4 PO (18:17)
[2016-07-07] MEDS ORDERED: ROSU1TAB6 PO (18:17)
[2016-07-07] MEDS ORDERED: HYDR-3801 PO (18:17)
[2016-07-07] MEDS ORDERED: CARV25TA PO (18:17)
[2016-07-07] MEDS ORDERED: TIZA4CAP3 PO (18:17)
[2016-07-07] MEDS ORDERED: CALC0.25 PO (18:17)
[2016-07-07] MEDS ORDERED: TIMO0.2517 EACH EYE (18:17)
[2016-07-07] MEDS ORDERED: POTA-163 PO (18:17)
[2016-07-07] MEDS ORDERED: LEVO50TA4 PO (18:17)
[2016-07-07] MEDS ORDERED: GLIP5TAB8 PO (18:17)
[2016-07-07] MEDS: ACETAMINOPHEN 325 MG TAB PO SCH (18:21)
[2016-07-07] MEDS: HEPARIN SODIUM - SQ 10,000 UNITS/ML VIAL SQ SCH (20:58)
--- NOTE | 2016-07-07 22:33 | RADRPT ---
EXAM DATE/TIME: 07/07/2016 21:00 [place] COMPARISON: No previous studies available for comparison. INDICATIONS : Cerebrovascular accident. MEDICAL HISTORY : Hypercholesterolemia. Hypertension. Gastroesophageal reflux disease. Thyroid disease. Syncope. Renal disease. Diabetes. Congestive heart failure. Sleep apnea. Arthritis. Osteoporosis. Anxiety. Gout. Blo od transfusion. SURGICAL HISTORY : Hysterectomy. Bilateral cataract removal. ENCOUNTER: Subsequent ACUITY: 1 day PAIN SCORE: Nonresponsive. LOCATION: Bilateral neck PEAK SYSTOLIC VELOCITIES (cm/sec): ICA/CCA RATIO: Right: 1.3 Left: 1.9 ICA: Right: 124 Left: 165 CCA: Right: 95 Left: 88 ECA: Right: 110 Left: 111 VERTEBRAL: Right: 100 antegrade Left: 90 antegrade Elevated flow velocities and ICA/CCA ratios have been found to correlate with increased degrees of vessel stenosis, calculated as percentage of diameter relative to a normal segment of distal ICA/CCA FINDINGS: There is mild calcified plaque bilaterally at the carotid bifurcations and left mid common carotid ar rebel. Noncalcified plaque is seen bilaterally to a mild degree as well. Mildly elevated velocities an d ratio on the left side. CONCLUSION: 1. Probable mild stenosis left internal carotid artery. No hemodynamically significant stenosis on th e right. Vertebral artery flow antegrade. Tad Veliz MD on July 07, 2016 at 22:31 Board Certified Radiologist. This report was verified electronically.
[2016-07-08] VITALS: BP 127/59; PULSE 90; RESP 17; TEMP 97.8; O2SAT 96
[2016-07-08] MEDS: FREE WATER G-TUBE SCH ×6 (01:39→23:39)
[2016-07-08] MEDS: ACETAMINOPHEN 325 MG TAB PO SCH ×5 (01:39→23:36)
[2016-07-08] MEDS: CEFEPIME INJ 2,000 MG in SODIUM CHLORIDE 0.9% INJ 100 ML IV SCH (01:40)
[2016-07-08] MEDS: RESP: ALBUTEROL 2.5 MG/IPRATROPIUM 0.5 MG NEB (SCH) INH ×4 (03:23→23:43)
[2016-07-08] MEDS: AZITHROMYCIN INJ 500 MG in SODIUM CHLOR 0.9% 250 ML INJ 250 ML IV SCH (03:56)
[2016-07-08] MEDS: CHLORHEXIDINE GLUCONATE 2 % 1 PACK (2 CLOTHS) TOP SCH (03:57)
[2016-07-08 04:00] VITALS: BP 126/60; PULSE 90; RESP 13; TEMP 97.7; O2SAT 100
[2016-07-08] MEDS: PANTOPRAZOLE INJ 80 MG in SODIUM CHLORIDE 0.9% INJ 100 ML IV SCH (04:02)
[2016-07-08] MEDS: metroNIDAZOLE 500 MG INJ 100 ML IV SCH ×3 (05:18→20:57)
[2016-07-08] MEDS: INSULIN NovoLIN REGULAR SUPPLEMENTAL SCALE SQ SCH ×4 (06:16→21:00)
[2016-07-08 06:23] LABS: HEMATOCRIT 26.1 % (35.0-46.0); MEAN CELL VOLUME 91.9 FL (80.0-100.0); MEAN CORPUSCULAR HEMOGLOBIN 29.8 PG (27.0-34.0); MEAN CORPUSCULAR HGB CONC 32.4 % (32.0-36.0); PLATELET COUNT 180 TH/MM3 (150-450); RED BLOOD COUNT 2.84 MIL/MM3 (4.00-5.30); RED CELL DISTRIBUTION WIDTH 15.2 % (11.6-17.2); REVIEW FLAG FINAL; WHITE BLOOD COUNT 10.2 TH/MM3 (4.0-11.0)
[2016-07-08 06:37] LABS: ANION GAP 11 MEQ/L (5-15); BICARBONATE 26.3 MEQ/L (21.0-32.0); BLOOD UREA NITROGEN 99 MG/DL (7-18); CHLORIDE 112 MEQ/L (98-107); GLOMERULAR FILTRATION RATE 24 ML/MIN (>89); HDL CHOLESTEROL 33.8 MG/DL (40.0-60.0); LDL CHOLESTEROL 32 MG/DL (0-99); POTASSIUM 3.8 MEQ/L (3.5-5.1); SODIUM (NA) 149 MEQ/L (136-145); TRANSFERRIN IRON PROFILE 127 MG/DL (200-360)
[2016-07-08 07:52] VITALS: O2SAT 98
[2016-07-08 08:00] VITALS: BP 161/68; PULSE 92; RESP 18; TEMP 97.4; O2SAT 98
--- NOTE | 2016-07-08 08:49 | HHI.CCPN ---
Subjective Remarks/Hospital Course Hospital Course: 80-year-old female. Full code. Resident of [facility]. Recently discharged from [facility] 07/04/16. Past medical history includes chronic diastolic heart failure, chronic kidney disease stage IV, chronic narcotic/muscle relaxant use, gastroesophageal reflux disease, anxiety and gout. He is recently hospice of [facility] for unknown reasons. Was sent to assisted on ciprofloxacin. She was seen by her family today that facility was noted to be confused. They requested transfer to emergency department for evaluation. Upon arrival in ED, patient was known to be quite lethargic. She appeared quite currently ED physician. Laboratories revealed BUN [address] of the chest was performed which revealed bilateral lower lobe pneumonia/infiltrates. She received 2 g of cefepime in 1500 mg vancomycin 1. Patient was pancultured. Also noted to have leukocytosis as well. Patient received 4 L normal saline bolus wide open 1. We are asked to admit the patient for further workup. Subjective: 07/07: awake and following commands today. no complaints. on SBT this AM. MRI with subacute stroke 07/08: more awake today. remained extubated. failed swallow study yesterday. placed DHT and restarted TF. speech consulted. Objective Vital Signs Date Time Temp Pulse Resp B/P Pulse Ox O2 Delivery O2 Flow Rate FiO2 07/08/16 07:52 98 Nasal Cannula 3.00 07/08/16 04:00 97.7 90 13 126/60 07/07/16 08:11 35 Intake and Output 07/07/16 07/07/16 07/08/16 08:00 16:00 00:00 Intake Total 1585 ml 408 ml 571 ml Output Total 1540 ml 800 ml 300 ml Balance 45 ml -392 ml 271 ml Result Diagram: 07/08/16 0526 07/08/16 0526 Other Results Microbiology Date/Time Procedure Status Source Growth 07/06/16 02:40 Urine Culture - Final Complete Urine Catheterized Urine NO GROWTH IN 48 HOURS. 07/06/16 02:40 Legionella Antigen - Final Complete Urine Catheterized Urine PRESUMPTIVE NEGATIVE FOR LEGIONELLA P... 07/06/16 02:40 Streptococcus pneumoniae Antigen (M - Final Complete Urine Catheterized Urine PRESUMPTIVE NEGATIVE FOR STREPTOCOCCU... Imaging Last Impressions Chest X-Ray 07/05/16 0000 Signed Impressions: Service Date/Time: Tuesday, July 05, 2016 22:06 - CONCLUSION: No acute disease. Larry Skaggs MD Objective Remarks GENERAL: 72-year-old female, lying in bed. SKIN: Warm and dry. HEAD: Atraumatic. Normocephalic. EYES: Pupils equal and round about 3 L bilaterally and reactive. No scleral icterus. No injection or drainage. ENT: No nasal bleeding or discharge. Mucous membranes pink and dry. Oropharynx without erythema NECK: Trachea midline. No JVD. CARDIOVASCULAR: Regular rate and rhythm. S1, S2. No S4. Without murmur RESPIRATORY: No accessory muscle use. Cleath sounds equal bilaterally. GASTROINTESTINAL: Abdomen obese, soft, nontender. no guarding. MUSCULOSKELETAL: Extremities 1+ lower extremity edema. No obvious deformities. NEUROLOGICAL: Arousable, RASS -1. follows commands. A/P Assessment and Plan Assessment: 80yF with stage IV CKD, diastolic heart failure, chronic pain complaints who presented with altered mental status and hypoxia requiring intubation and mechanical ventilation. I think her acute encephalopathy could be a combination of her subacute infarct and medication induced from poor renal clearance. extubated and improving. Neuro/Psych: Acute toxic metabolic encephalopathy secondary to uremia Chronic benzodiazepine use Chronic muscle relaxant use Chronic narcotic use Subacute left parietal infarct MRI with subacute left parietal infarct Currently holding Xanax, Felxeril, hydrocodone, lyrica. Per family, patient has adverse reaction to lyrica and only rarely takes the other home meds. -- lipid panel normal -- carotid dopplers pending --echo as below CV: Hypertension Chronic diastolic heart failure Trop 0.1 restart coreg. home bumex 2mg/day. may need to restart this today. will defer to Nephrology. 2-D echo: Grade 1 DDfxn, preserved EF. Resp: Obstructive sleep apnea Pneumonia acute hypoxic resp failure- resolving. OOB to chair with PT today wean o2 by NC for goal spo2 > 90% Bronchodilator therapy every 6 hours and as needed CT thorax revealed right greater than left lower lobe infiltrates. Right lower lobe granuloma. Patient is on CPAP at night at assisted. For obstructive sleep apnea. GI: Gastroesophageal reflux disease Heme+ stool Patient is on Prilosec 20 mg by mouth daily at home. d/c protonix drip. bid protonix iv. Currently nothing by mouth. TF at goal. add miralax. Speech therapy to evaluate and treat swallowing mechanism. Colace/as needed Senokot for bowel regimen. GI c/s : Jain will be placed for accurate I's and O's in a critically ill patient Endo: Gout Diabetes mellitus History of secondary hyperparathyroidism on calcitriol 0.25 g daily? Currently holding colchicine 0.6 daily and Uloric 80 mg daily for gout. Resuming clinically indicated Currently holding glipizide 5 mg before meals. Sliding-scale insulin to maintain euglycemia. Renal: Acute on chronic kidney injury stage IV to 5 Baseline creatinine between 2 and 3 documented. Will hold nephrotoxic drugs and diuretics at the present time. Heme: Leukocytosis Normocytic anemia Monitor CBC/coags. Monitor trends. Infectious etiology likely H/H stable. daily CBC. 1/2 blood cultures coag negative staph. likely contaminant. if cultures remain negative, could likely transition to Unasyn or other oral med for completion of likely HCAP. ID: Healthcare associated pneumonia Received 2 g cefepime and 1500 mg vancomycin ED Continue cefepime, Flagyl and azithromycin for now. FEN: Hyperkalemia- improved. MSK: Osteoporosis/osteoarthritis Holding narcotics/muscle relaxants light of altered mental status. Holding alendronate 70 mg weekly. Resume when clinically indicated Access - Utilize peripheral IV. Prophylaxis - GI - Protonix - DVT - SCD/SQH 5000 q12h. she is at high risk for DVT, but also cautiously start prophy given possible GIB. Dispo: I think she is stable for transfer to floor with hospitalist services following. Titus Hurt MD Jul 08, 2016 08:49
[2016-07-08] MEDS: ARTIFICIAL TEARS OPTH SOLN 15 ML BTL EACH EYE SCH ×3 (09:00→18:35)
[2016-07-08] MEDS: DOCUSATE SODIUM 100 MG CAP PO SCH ×2 (10:06→21:03)
[2016-07-08] MEDS: PANTOPRAZOLE SODIUM 40 MG VIAL IV PUSH SCH ×2 (10:06→20:59)
[2016-07-08] MEDS: HEPARIN SODIUM - SQ 10,000 UNITS/ML VIAL SQ SCH ×2 (10:07→21:02)
[2016-07-08] MEDS: SODIUM CHLORIDE 0.9% FLUSH 5 ML FLUSH IV FLUSH SCH ×2 (10:07→21:03)
[2016-07-08] MEDS: CHLORHEXIDINE 0.12% (ORAL KIT) 15 ML CUP MT SCH ×2 (10:07→20:00)
--- NOTE | 2016-07-08 13:31 | HHI.NPPN ---
Subjective Complaints: Obesity General Problems: Edema Renal Failure: Chronic, Acute, Stage IV History of Present Illness 10 y/o female who has a history of CKD 4 in 2015. She presented for altered metal status and lethargy per family. She was recently discharged from [facility] and rehab, and was on placed on Cipro for unknown reasons. On arrival ABG showed respiratory acidosis and elevated BUN and Creatinine. Additional Remarks Patient is alert, with NGT, and nasal cannula, not in distress. Review of Systems General Constitutional: Fatigue Musculoskeletal MS: Pain/Stiffness Objective Data Data 07/07/16 07/08/16 19:00 07:00 Intake Total 408 ml 1937 ml Output Total 800 ml 1000 ml Balance -392 ml 937 ml Intake Oral 0 ml 0 ml IV Total 408 ml 1038 ml Tube Feeding 239 ml Other 660 ml Output Urine Total 800 ml 1000 ml Gastric Drainage Total 0 ml # Bowel Movements 0 0 Vital Signs Date Time Temp Pulse Resp B/P Pulse Ox O2 Delivery O2 Flow Rate FiO2 07/08/16 08:00 97.4 92 18 161/68 98 07/08/16 07:52 98 Nasal Cannula 3.00 07/08/16 07:00 98 Nasal Cannula 3.00 07/08/16 04:00 97.7 90 13 126/60 100 07/08/16 00:00 97.8 90 17 127/59 96 07/07/16 20:25 99 Nasal Cannula 3.00 07/07/16 20:00 97.7 94 17 121/58 99 07/07/16 19:00 96 Nasal Cannula 4.00 07/07/16 16:00 97.6 98 12 121/60 96 -: 07/08/16 0526 07/08/16 0526 Tubes & Lines: Jain Physical Exam General Appearance: No Acute Distress, Comfortable, Anxious, Obese Eyes Eye Exam: Sclera White Throat Throat Exam: Oral Mucosa [place] & Moist Pulmonary Resp Exam: Breath Sounds Equal, Crackles Cardiology CV Exam: Good Perfusion, Irregular, Tachycardia Gastrointestinal/Abdomen GI Exam: Soft, Non-Tender, Bowel Sounds Present, Distended Genitourinary Exam: Clear Urine Musculoskeletal MS Exam: Joints Intact, Normal Tone Integumentary Skin Exam: Clear, Warm, Dry, Intact Extremeties Extremities Exam: Moderate Edema, Pitting Edema Neurologic Neuro Exam: Alert, Awake, Oriented Assessment/Plan Discussed Condition With: Patient, Spouse, Daughter Assessment Summary: RAKEL/Acute Renal Failure, Diabetes Mellitus, CKD Stage IV Problem List: (1) Acute kidney injury superimposed on CKD Plan: Baseline creatinine from 2014 2.02, GFR 24, consistent with CKD 4 may have had decline in renal function since then BUN disproportionately elevated, which may be due to GI bleeding differentials include GIB, decreased renal perfusion from sepsis, possible dehydration obtain urine electrolytes Renal U/S noted. Creatinine continue to improve and now close to her baseline. Na. is 149, started on free water. D/W the family at bed side. (2) HTN (hypertension) Plan: BP stable, she is not requiring pressors monitor (3) Pneumonia Plan: on Zithromax and cefepime, given vancomycin in ER monitor clinically (4) DM (diabetes mellitus) Plan: BG acceptable continue insulin as needed Plan patient was seen and examined. Renal function has improved. Hypernatremia is noted. A dose of Diuril given. She now has NG tube: Dobbhoff. Start free water through the feeding tube. Discussed with patient's daughter. Problem Qualifiers (1) HTN (hypertension): Qualified Code: I10 - Essential hypertension (2) Pneumonia: Qualified Code: J18.9 - Pneumonia of right lung due to infectious organism, unspecified part of lung Netta Graham MD Jul 08, 2016 13:31
[2016-07-08] MEDS: hydrALAZINE HCL 20 MG/ML VIAL IV PUSH PRN (14:51)
[2016-07-08 20:00] VITALS: BP 144/55; PULSE 88; PULSE 90; RESP 18; TEMP 97.5; O2SAT 97
[2016-07-08 23:44] VITALS: O2SAT 98
[2016-07-09] VITALS (10 sets, daily range): BP systolic 126–168; BP diastolic 60–69; PULSE 86–107; RESP 17–18; TEMP 97.5–98.8; O2SAT 94–98
[2016-07-09] MEDS: CEFEPIME INJ 2,000 MG in SODIUM CHLORIDE 0.9% INJ 100 ML IV SCH (02:36)
[2016-07-09] MEDS: RESP: ALBUTEROL 2.5 MG/IPRATROPIUM 0.5 MG NEB (SCH) INH ×4 (03:19→22:20)
[2016-07-09] MEDS: CHLORHEXIDINE GLUCONATE 2 % 1 PACK (2 CLOTHS) TOP SCH (04:00)
[2016-07-09] MEDS: FREE WATER G-TUBE SCH ×5 (04:00→20:00)
[2016-07-09] MEDS: AZITHROMYCIN INJ 500 MG in SODIUM CHLOR 0.9% 250 ML INJ 250 ML IV SCH (04:36)
[2016-07-09] MEDS: metroNIDAZOLE 500 MG INJ 100 ML IV SCH ×3 (05:59→20:57)
[2016-07-09] MEDS: ACETAMINOPHEN 325 MG TAB PO SCH ×3 (06:00→18:00)
[2016-07-09] MEDS: INSULIN NovoLIN REGULAR SUPPLEMENTAL SCALE SQ SCH ×4 (06:00→21:56)
[2016-07-09 06:45] LABS: BICARBONATE 27.2 MEQ/L (21.0-32.0)
[2016-07-09 06:49] LABS: HEMATOCRIT 23.5 % (35.0-46.0); MEAN CELL VOLUME 89.6 FL (80.0-100.0); MEAN CORPUSCULAR HEMOGLOBIN 29.1 PG (27.0-34.0); MEAN CORPUSCULAR HGB CONC 32.5 % (32.0-36.0); PLATELET COUNT 168 TH/MM3 (150-450); RED BLOOD COUNT 2.62 MIL/MM3 (4.00-5.30); RED CELL DISTRIBUTION WIDTH 14.7 % (11.6-17.2); WHITE BLOOD COUNT 14.8 TH/MM3 (4.0-11.0)
[2016-07-09 06:52] LABS: POTASSIUM 4.2 MEQ/L (3.5-5.1)
[2016-07-09 07:27] LABS: REVIEW FLAG FINAL
[2016-07-09] MEDS: CHLORHEXIDINE 0.12% (ORAL KIT) 15 ML CUP MT SCH ×2 (08:00→20:00)
[2016-07-09] MEDS: HEPARIN SODIUM - SQ 10,000 UNITS/ML VIAL SQ SCH ×2 (10:33→20:57)
[2016-07-09] MEDS: SODIUM CHLORIDE 0.9% FLUSH 5 ML FLUSH IV FLUSH SCH ×2 (10:33→20:57)
[2016-07-09] MEDS: DOCUSATE SODIUM 100 MG CAP PO SCH ×2 (10:34→20:55)
[2016-07-09] MEDS: ARTIFICIAL TEARS OPTH SOLN 15 ML BTL EACH EYE SCH ×3 (10:34→18:00)
[2016-07-09] MEDS: PANTOPRAZOLE SODIUM 40 MG VIAL IV PUSH SCH ×2 (10:34→20:56)
--- NOTE | 2016-07-09 12:21 | HHI.NPPN ---
Subjective Complaints: Obesity General Problems: Edema Renal Failure: Chronic, Acute, Stage IV History of Present Illness 10 y/o female who has a history of CKD 4 in 2015. She presented for altered metal status and lethargy per family. She was recently discharged from [facility] and rehab, and was on placed on Cipro for unknown reasons. On arrival ABG showed respiratory acidosis and elevated BUN and Creatinine. Additional Remarks Patient is alert, with NGT, and nasal cannula, clinically same, feeling better. Review of Systems General Constitutional: Fatigue Musculoskeletal MS: Pain/Stiffness Objective Data Data 07/08/16 07/09/16 19:00 07:00 Intake Total 1868 ml Output Total 900 ml Balance 968 ml Intake Oral 0 ml Tube Feeding 968 ml Other 900 ml Output Urine Total 900 ml # Bowel Movements 0 Vital Signs Date Time Temp Pulse Resp B/P Pulse Ox O2 Delivery O2 Flow Rate FiO2 07/09/16 12:00 97.5 99 17 144/65 97 07/09/16 11:13 94 07/09/16 09:36 98 Nasal Cannula 3.00 07/09/16 08:00 97.7 86 17 143/65 98 07/09/16 07:45 Nasal Cannula 3.00 07/09/16 04:00 98.8 91 18 131/60 97 07/09/16 00:00 97.6 96 18 126/60 97 07/08/16 23:44 98 Nasal Cannula 3.00 07/08/16 20:00 98 Nasal Cannula 2.00 07/08/16 20:00 97.5 88 18 144/55 97 07/08/16 20:00 90 07/08/16 15:29 18 -: 07/09/16 0611 07/09/16 0611 Tubes & Lines: Jain Physical Exam General Appearance: No Acute Distress, Comfortable, Anxious, Obese Eyes Eye Exam: Sclera White Throat Throat Exam: Oral Mucosa [place] & Moist Pulmonary Resp Exam: Breath Sounds Equal, Crackles Cardiology CV Exam: Good Perfusion, Irregular, Tachycardia Gastrointestinal/Abdomen GI Exam: Soft, Non-Tender, Bowel Sounds Present, Distended Genitourinary Exam: Clear Urine Musculoskeletal MS Exam: Joints Intact, Normal Tone Integumentary Skin Exam: Clear, Warm, Dry, Intact Extremeties Extremities Exam: Moderate Edema, Pitting Edema Neurologic Neuro Exam: Alert, Awake, Oriented Assessment/Plan Discussed Condition With: Patient, Spouse, Daughter Assessment Summary: RAKEL/Acute Renal Failure, Diabetes Mellitus, CKD Stage IV Problem List: (1) Acute kidney injury superimposed on CKD Plan: Baseline creatinine from 2014 2.02, GFR 24, consistent with CKD 4 may have had decline in renal function since then BUN disproportionately elevated, which may be due to GI bleeding differentials include GIB, decreased renal perfusion from sepsis, possible dehydration obtain urine electrolytes Renal U/S noted. Creatinine continue to improve and now close to her baseline. Na. increased to 150, free water increased. Follow the urine out put and BMP. (2) HTN (hypertension) Plan: BP stable, she is not requiring pressors monitor (3) Pneumonia Plan: on Zithromax and cefepime, given vancomycin in ER monitor clinically (4) DM (diabetes mellitus) Plan: BG acceptable continue insulin as needed Plan patient was seen and examined. Renal function has improved. Hypernatremia is noted. A dose of Diuril given. She now has NG tube: Dobbhoff. Start free water through the feeding tube. Discussed with patient's daughter. Problem Qualifiers (1) HTN (hypertension): Qualified Code: I10 - Essential hypertension (2) Pneumonia: Qualified Code: J18.9 - Pneumonia of right lung due to infectious organism, unspecified part of lung Netta Graham MD Jul 09, 2016 12:21
--- NOTE | 2016-07-09 14:42 | HHI.PR ---
Subjective Remarks States that the patient is more lethargic sodium noted to be trending up now 150 Patient denies any pain or shortness of breath when awoken. Vital signs seems to be stable. Objective Vitals Vital Signs Date Time Temp Pulse Resp B/P Pulse Ox O2 Delivery O2 Flow Rate FiO2 07/09/16 12:00 97.5 99 17 144/65 97 07/09/16 11:13 94 07/09/16 09:36 98 Nasal Cannula 3.00 07/09/16 08:00 97.7 86 17 143/65 98 07/09/16 07:45 Nasal Cannula 3.00 07/09/16 04:00 98.8 91 18 131/60 97 07/09/16 00:00 97.6 96 18 126/60 97 07/08/16 23:44 98 Nasal Cannula 3.00 07/08/16 20:00 98 Nasal Cannula 2.00 07/08/16 20:00 97.5 88 18 144/55 97 07/08/16 20:00 90 07/08/16 15:29 18 I/O 07/08/16 07/08/16 07/08/16 07/09/16 07/09/16 07/09/16 07:00 15:00 23:00 07:00 15:00 23:00 Intake Total 1366 ml 0 ml 1868 ml Output Total 700 ml 350 ml 550 ml Balance 666 ml -350 ml 1318 ml Intake Oral 0 ml 0 ml 0 ml IV Total 637 ml Tube Feeding 129 ml 968 ml Other 600 ml 900 ml Output Urine Total 700 ml 350 ml 550 ml # Bowel Movements 0 0 0 Result Diagram: 07/09/1611 07/09/16 0611 Imaging Last Impressions Chest X-Ray 07/07/16 0000 Signed Impressions: Service Date/Time: Thursday, July 07, 2016 05:25 - CONCLUSION: Tiny left pleural effusion. Allan Renee MD Carotid Artery Ultrasound 07/07/16 0000 Signed Impressions: Service Date/Time: Thursday, July 07, 2016 21:00 - CONCLUSION: 1. Probable mild stenosis left internal carotid artery. No hemodynamically significant stenosis on the right. Vertebral artery flow antegrade. Tad Veliz MD Abdomen X-Ray 07/07/16 0000 Signed Impressions: Service Date/Time: Thursday, July 07, 2016 13:42 - CONCLUSION: Tip of the Dobhoff tube appears to be in the distal stomach or proximal duodenum. Ashish Mayorga MD Renal Ultrasound 07/06/16 0859 Signed Impressions: Service Date/Time: June 11:52 - CONCLUSION: 1. Echogenic kidneys consistent with probable medical renal disease. 2. Scattered echogenic foci bilaterally consistent with probable non-obstructing calculi. 3. Bilateral renal cysts. 4. Suboptimal evaluation of the urinary bladder which is decompressed by a Jain catheter. Ashish Mayorga MD Head CT 07/06/16 0000 Signed Impressions: Service Date/Time: June 08:43 - CONCLUSION: 1. No acute hemorrhage or mass effect. 2. Focal area of decreased attenuation involving the left parietal lobe most consistent with an area of infarction which may be subacute to remote. 3. Atrophy and chronic small vessel ischemic change. Gilberto Longoria MD Chest CT 07/06/16 0000 Signed Impressions: Service Date/Time: June 01:52 - CONCLUSION: 1. Atherosclerosis. 2. Pneumonia. Larry Skaggs MD Brain MRI 07/06/16 0000 Signed Impressions: Service Date/Time: June 17:51 - CONCLUSION: 1. 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 2. Abnormal fluid accumulation in the aerated portion of the temporal bones bilaterally associated with bilateral mastoiditis and partial ethmoid opacification. Tad Veliz MD Objective Remarks GENERAL: 72-year-old female, lying in bed. SKIN: Warm and dry. HEAD: Atraumatic. Normocephalic. EYES: Pupils equal and round about 3 L bilaterally and reactive. No scleral icterus. No injection or drainage. ENT: No nasal bleeding or discharge. Mucous membranes pink and dry. Oropharynx without erythema NECK: Trachea midline. No JVD. CARDIOVASCULAR: Regular rate and rhythm. S1, S2. No S4. Without murmur RESPIRATORY: No accessory muscle use. Clear sounds are equal bilaterally. GASTROINTESTINAL: Abdomen obese, soft, nontender. no guarding. MUSCULOSKELETAL: Extremities 1+ lower extremity edema. No obvious deformities. NEUROLOGICAL: Patient is lethargic but arousable. Medications and IVs Current Medications Medications (Trade) Dose Ordered Sig/Logan Route Start Time Stop Time Status Last Admin (NS Flush) 2 ml UNSCH PRN IV FLUSH 07/06/16 03:30 (NS Flush) 2 ml BID IV FLUSH 07/06/16 09:00 07/09/16 10:33 (Tylenol) 650 mg Q6H PRN PO 07/06/16 03:30 (Tears Naturale Opth Soln) 1 drop TID EACH EYE 07/06/16 09:00 07/09/16 18:00 (Zofran Inj) 4 mg Q6H PRN IV 07/06/16 03:30 (Colace) 100 mg BID PO 07/06/16 09:00 07/09/16 10:34 (Senokot) 17.2 mg Q12H PRN PO 07/06/16 03:30 Miscellaneous Information 1 Q361D XX 07/06/16 03:30 (Chlorhexidine 2% Cloth) 3 pack Taper DAILY@04 TOP 07/06/16 04:00 07/02/17 03:59 07/09/16 04:00 Chlorhexidine Gluconate 3 pack 3 pack UNSCH PRN TOP 07/06/16 03:30 Metronidazole 100 ml @ 100 mls/hr Q8H IV 07/06/16 05:00 07/09/16 12:20 Azithromycin 500 mg/Sodium Chloride 250 ml @ 250 mls/hr Q24H IV 07/06/16 04:00 07/09/16 04:36 (Maxipime Inj/NS Inj) 100 ml @ 200 mls/hr DAILY@03 IV 07/07/16 03:00 07/09/16 02:36 (D50w (Vial) Inj) 25 ml UNSCH PRN IV PUSH 07/06/16 05:15 (Glucagon Inj) 1 mg UNSCH PRN OTHER 07/06/16 05:15 (Peridex 0.12% Liq) 15 ml BID@08,20 MT 07/06/16 08:00 07/08/16 10:07 (Trandate Inj) 10 mg Q1HR PRN IV PUSH 07/06/16 08:00 07/07/16 09:00 (Apresoline Inj) 10 mg Q1HR PRN IV PUSH 07/06/16 08:00 07/08/16 14:51 (Heparin Inj) 5,000 units Q12HR SQ 07/07/16 21:00 07/09/16 10:33 (Roxicodone) 5 mg Q4H PRN PO 07/07/16 17:00 (Dilaudid Pf Inj) 0.5 mg Q4H PRN IV PUSH 07/07/16 17:00 (Tylenol) 650 mg Q6H PO 07/07/16 18:00 07/09/16 12:21 (Free Water) 300 ml Q4HR G-TUBE 07/08/16 12:00 07/09/16 16:27 Pantoprazole Sodium 40 mg 40 mg Q12H IV PUSH 07/08/16 10:00 07/09/16 10:34 Vancomycin HCl 1000 mg/Sodium Chloride 250 ml @ 250 mls/hr Q24H IV 07/09/16 15:00 07/09/16 16:19 (Sodium Chloride 23.4% Inj/Sterile Water For Inj) 1,009.625 ml @ 100 mls/hr Q10H6M IV 07/09/16 16:00 07/09/16 16:19 Urinary Catheter: No Vascular Central Line Catheter: No A/P Problem List: (1) Chronic diastolic (congestive) heart failure ICD Code: I50.32 Status: Chronic (2) Altered mental status, unspecified ICD Code: R41.82 Status: Acute (3) Uremia ICD Code: N19 Status: Resolved (4) Diabetes mellitus ICD Code: E11.9 Status: Chronic (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 Status: Acute (6) Debility ICD Code: R53.81 Status: Acute (7) Impaired mobility and activities of daily living ICD Code: Z74.09 Status: Acute (8) Chronic kidney disease, stage 3 ICD Code: N18.3 Status: Chronic (9) HTN (hypertension) ICD Code: I10 Status: Chronic (10) Constipation ICD Code: K59.00 Status: Acute (11) Gout ICD Code: M10.9 Status: Chronic (12) Gastroesophageal reflux disease ICD Code: K21.9 Status: Acute Assessment and Plan Assessment: 80yF with stage IV CKD, diastolic heart failure, chronic pain complaints who presented with altered mental status and hypoxia requiring intubation and mechanical ventilation. I think her acute encephalopathy could be a combination of her subacute infarct and medication induced from poor renal clearance. extubated and improving. Neuro/Psych: Acute toxic metabolic encephalopathy secondary to uremia Chronic benzodiazepine use Chronic muscle relaxant use Chronic narcotic use Subacute left parietal infarct MRI with subacute left parietal infarct Currently holding Xanax, Felxeril, hydrocodone, lyrica. Per family, patient has adverse reaction to lyrica and only rarely takes the other home meds. -- lipid panel normal -- carotid dopplers pending --echo as below 07/09 patient is currently lethargic, possibly secondary to hypernatremia. Will also check ammonia levels. CV: Hypertension Chronic diastolic heart failure Trop 0.1 restart coreg. home bumex 2mg/day. may need to restart this today. will defer to Nephrology. 2-D echo: Grade 1 DDfxn, preserved EF. 2?12 continue Coreg, blood pressure seems to be stable. Resp: Obstructive sleep apnea Pneumonia acute hypoxic resp failure- resolving. OOB to chair with PT today wean o2 by NC for goal spo2 > 90% Bronchodilator therapy every [address] hours and as needed CT thorax revealed right greater than left lower lobe infiltrates. Right lower lobe granuloma. Patient is on CPAP at night at [facility]. For obstructive sleep apnea. GI: Gastroesophageal reflux disease Heme+ stool Patient is on Prilosec 20 mg by mouth daily at home. Currently nothing by mouth. TF are at goal. Speech therapy to evaluate and treat swallowing mechanism. Colace/as needed Senokot for bowel regimen. GI c/s 04/28 his hemoglobin is trending down and there is a disproportionate BUN/ creatinine ratio I will order a GI consultation for suspected GI bleed. I will place the patient nothing by mouth, placed on Protonix drip. I will transfuse 2 units of packed red blood cells since hemoglobin dropped from 8.5-7.6 : Jain will be placed for accurate I's and O's in a critically ill patient Endo: Gout Diabetes mellitus History of secondary hyperparathyroidism on calcitriol 0.25 g daily? Currently holding colchicine 0.6 daily and Uloric 80 mg daily for gout. Resuming clinically indicated Currently holding glipizide 5 mg before meals. Sliding-scale insulin to maintain euglycemia. Renal: Acute on chronic kidney injury stage IV to 5 Baseline creatinine between 2 and 3 documented. Will hold nephrotoxic drugs and diuretics at the present time. Creatinine continues to improve, now close to baseline. Appreciate nephrology recommendations. Continue to monitor BUN/creatinine, avoid nephrotoxins, follow -up nephrology recommendations. Heme: Leukocytosis Normocytic anemia Monitor CBC/coags. Monitor trends. Infectious etiology likely 1/2 blood cultures coag negative staph. likely contaminant. if cultures remain negative, could likely transition to Unasyn or other oral med for completion of likely HCAP. 2/12 repeat blood cultures, consult infectious disease for positive blood cultures. ID: Healthcare associated pneumonia Received 2 g cefepime and 1500 mg vancomycin ED Continue cefepime, Flagyl and azithromycin for now. FEN: Hyperkalemia- improved. MSK: Osteoporosis/osteoarthritis Holding narcotics/muscle relaxants light of altered mental status. Holding alendronate 70 mg weekly. Resume when clinically indicated Access - Utilize peripheral IV. Prophylaxis - GI - Protonix - DVT - SCD/SQH 5000 q12h. she is at high risk for DVT, but also cautiously start prophy given possible GIB. Discharge Planning Flavia to monitor the medical floor. Problem Qualifiers (1) Diabetes mellitus: Qualified Code: E11.8 - Type 2 diabetes mellitus with complication, without long-term current use of insulin (2) HTN (hypertension): Qualified Code: I10 - Essential hypertension (3) Constipation: Qualified Code: K59.00 - Constipation, unspecified constipation type (4) Gout: Qualified Code: M1A.9XX0 - Chronic gout without tophus, unspecified cause, unspecified site (5) Gastroesophageal reflux disease: Qualified Code: K21.9 - Gastroesophageal reflux disease without esophagitis Anthony Bryant MD Jul 09, 2016 14:42
[2016-07-09] MEDS ORDERED: SODIUM CHLOR 0.45% 1000 ML INJ 1,000 ML IV SCH (15:00)
[2016-07-09] MEDS: VANCOMYCIN INJ 1,000 MG in SODIUM CHLOR 0.9% 250 ML INJ 250 ML IV SCH (16:19)
[2016-07-09] MEDS: SODIUM CHLORIDE 23.4% INJ 38.5 MEQ in WATER STERILE FOR INJ 1,000 ML IV SCH (16:19)
[2016-07-09] MEDS ORDERED: SODIUM CHLOR 0.9% 250 ML INJ 250 ML IV ONE (21:15)
[2016-07-09] MEDS ORDERED: ACETAMINOPHEN 325 MG TAB PO PRN (21:15)
[2016-07-09 22:45] LABS: BICARBONATE 29.6 MEQ/L (21.0-32.0); POTASSIUM 4.6 MEQ/L (3.5-5.1)
[2016-07-10] VITALS (13 sets, daily range): BP systolic 128–178; BP diastolic 61–70; PULSE 80–103; RESP 16–20; TEMP 97.4–98.7; O2SAT 96–99
[2016-07-10] MEDS: ACETAMINOPHEN 325 MG TAB PO SCH ×4 (00:01→17:52)
[2016-07-10] MEDS: PANTOPRAZOLE INJ 80 MG in SODIUM CHLORIDE 0.9% INJ 100 ML IV SCH (00:02)
[2016-07-10] MEDS: SODIUM CHLORIDE 23.4% INJ 38.5 MEQ in WATER STERILE FOR INJ 1,000 ML IV SCH (02:06)
[2016-07-10] MEDS: CEFEPIME INJ 2,000 MG in SODIUM CHLORIDE 0.9% INJ 100 ML IV SCH (03:01)
[2016-07-10] MEDS: FREE WATER G-TUBE SCH ×5 (03:09→21:52)
[2016-07-10] MEDS: RESP: ALBUTEROL 2.5 MG/IPRATROPIUM 0.5 MG NEB (SCH) INH (03:19)
[2016-07-10] MEDS: AZITHROMYCIN INJ 500 MG in SODIUM CHLOR 0.9% 250 ML INJ 250 ML IV SCH (03:35)
[2016-07-10] MEDS: CHLORHEXIDINE GLUCONATE 2 % 1 PACK (2 CLOTHS) TOP SCH (04:00)
[2016-07-10] MEDS: diphenhydrAMINE HCL 25 MG CAP PO PRN ×2 (04:08)
[2016-07-10] MEDS: metroNIDAZOLE 500 MG INJ 100 ML IV SCH ×3 (05:51→21:36)
[2016-07-10 06:17] LABS: ALKALINE PHOSPHATASE 75 U/L (45-117); ALT (GPT) 16 U/L (10-53); ANION GAP 5 MEQ/L (5-15); AST (GOT) 16 U/L (15-37); BLOOD UREA NITROGEN 59 MG/DL (7-18); CHLORIDE 113 MEQ/L (98-107); GLOMERULAR FILTRATION RATE 40 ML/MIN (>89); MAGNESIUM 1.9 MG/DL (1.5-2.5); POTASSIUM 4.3 MEQ/L (3.5-5.1); SODIUM (NA) 150 MEQ/L (136-145); TOTAL BILIRUBIN ADULT 0.5 MG/DL (0.2-1.0)
[2016-07-10] MEDS: INSULIN NovoLIN REGULAR SUPPLEMENTAL SCALE SQ SCH ×4 (06:41→21:44)
[2016-07-10 07:21] LABS: BASOPHIL % 0.3 % (0.0-2.0); EOSINOPHIL # 0.1 TH/MM3 (0-0.4); EOSINOPHIL % 1.2 % (0.0-4.0); HEMATOCRIT 29.9 % (35.0-46.0); LYMPHOCYTE # 0.7 TH/MM3 (1.0-4.8); MEAN CELL VOLUME 87.7 FL (80.0-100.0); MEAN CORPUSCULAR HEMOGLOBIN 28.1 PG (27.0-34.0); MEAN CORPUSCULAR HGB CONC 32.1 % (32.0-36.0); MONO % 13.1 % (0.0-8.0); NEUT % 78.4 % (16.0-70.0); PLATELET COUNT 149 TH/MM3 (150-450); RED BLOOD COUNT 3.41 MIL/MM3 (4.00-5.30); RED CELL DISTRIBUTION WIDTH 17.2 % (11.6-17.2); WHITE BLOOD COUNT 10.2 TH/MM3 (4.0-11.0)
[2016-07-10 07:27] LABS: HEMO FLAGS AUTO DIFF
[2016-07-10] MEDS: CHLORHEXIDINE 0.12% (ORAL KIT) 15 ML CUP MT SCH ×2 (08:00→21:52)
[2016-07-10 08:22] LABS: PLATELET ESTIMATE SMEAR LOW (NORMAL); PLATELET MORPHOLOGY ENLARGED (NORMAL); SCAN/DIFF AUTO DIFF CONFIRMED
[2016-07-10] MEDS: DOCUSATE SODIUM 100 MG CAP PO SCH ×2 (08:36→21:00)
[2016-07-10] MEDS: HEPARIN SODIUM - SQ 10,000 UNITS/ML VIAL SQ SCH (08:37)
[2016-07-10] MEDS: ARTIFICIAL TEARS OPTH SOLN 15 ML BTL EACH EYE SCH ×3 (08:38→17:53)
[2016-07-10] MEDS: SODIUM CHLORIDE 0.9% FLUSH 5 ML FLUSH IV FLUSH SCH ×2 (08:38→21:00)
--- NOTE | 2016-07-10 10:18 | HHI.PR ---
Subjective Remarks Patient denies abdominal pain, nausea vomiting Seems to be more awake and alert Blood pressure is somewhat labile - had sbp into the 170's Denies fevers or chills Objective Vitals Vital Signs Date Time Temp Pulse Resp B/P Pulse Ox O2 Delivery O2 Flow Rate FiO2 07/10/16 08:15 97 Nasal Cannula 3.00 07/10/16 05:27 98.0 94 16 141/61 99 07/10/16 04:13 Nasal Cannula 3.00 07/10/16 04:13 97.5 102 16 155/65 96 07/10/16 03:45 97.4 102 16 178/70 97 07/10/16 03:09 98.0 103 16 131/61 98 07/10/16 01:05 98.5 90 16 143/66 99 07/10/16 00:50 98.2 91 16 136/62 97 07/10/16 00:00 Nasal Cannula 3.00 07/10/16 00:00 97.8 87 18 159/66 98 07/09/16 22:22 97 Nasal Cannula 3.00 07/09/16 21:30 Nasal Cannula 3.00 07/09/16 20:06 107 07/09/16 20:00 97.5 94 18 168/69 94 07/09/16 16:00 98.2 90 18 136/62 98 07/09/16 12:00 97.5 99 17 144/65 97 07/09/16 12:00 Nasal Cannula 3.00 07/09/16 11:13 94 I/O 07/09/16 07/09/16 07/09/16 07/10/16 07/10/16 07/10/16 07:00 15:00 23:00 07:00 15:00 23:00 Intake Total 1868 ml 1487 ml 1032 ml Output Total 550 ml 1000 ml 700 ml 650 ml Balance 1318 ml -1000 ml 787 ml 382 ml Intake Oral 0 ml 120 ml 100 ml IV Total 807 ml 332 ml Tube Feeding 968 ml 260 ml Packed Cells 600 ml Other 900 ml 300 ml Output Urine Total 550 ml 1000 ml 700 ml 650 ml # Bowel Movements 0 0 0 1 Result Diagram: 07/10/16 0639 07/10/16 0519 Imaging Last Impressions Chest X-Ray 07/07/16 0000 Signed Impressions: Service Date/Time: Thursday, July 07, 2016 05:25 - CONCLUSION: Tiny left pleural effusion. Allan Renee MD Carotid Artery Ultrasound 07/07/16 Signed Impressions: Service Date/Time: Thursday, July 07, 2016 21:00 - CONCLUSION: 1. Probable mild stenosis left internal carotid artery. No hemodynamically significant stenosis on the right. Vertebral artery flow antegrade. Tad Veliz MD Abdomen X-Ray 07/07/16 Signed Impressions: Service Date/Time: Thursday, July 07, 2016 13:42 - CONCLUSION: Tip of the Dobhoff tube appears to be in the distal stomach or proximal duodenum. Ashish Mayorga MD Renal Ultrasound 07/06/16 0859 Signed Impressions: Service Date/Time: June 11:52 - CONCLUSION: 1. Echogenic kidneys consistent with probable medical renal disease. 2. Scattered echogenic foci bilaterally consistent with probable non-obstructing calculi. 3. Bilateral renal cysts. 4. Suboptimal evaluation of the urinary bladder which is decompressed by a Jain catheter. Ashish Mayorga MD Head CT 07/06/16 Signed Impressions: Service Date/Time: June 08:43 - CONCLUSION: 1. No acute hemorrhage or mass effect. 2. Focal area of decreased attenuation involving the left parietal lobe most consistent with an area of infarction which may be subacute to remote. 3. Atrophy and chronic small vessel ischemic change. Gilberto Longoria MD Chest CT 07/06/16 Signed Impressions: Service Date/Time: June 01:52 - CONCLUSION: 1. Atherosclerosis. 2. Pneumonia. Larry Skaggs MD Brain MRI 07/06/16 0000 Signed Impressions: Service Date/Time: June 17:51 - CONCLUSION: 1. 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 2. Abnormal fluid accumulation in the aerated portion of the temporal bones bilaterally associated with bilateral mastoiditis and partial ethmoid opacification. Tad Veliz MD Objective Remarks GENERAL: 72-year-old female, lying in bed. SKIN: Warm and dry. HEAD: Atraumatic. Normocephalic. EYES: Pupils equal and round about 3 L bilaterally and reactive. No scleral icterus. No injection or drainage. ENT: No nasal bleeding or discharge. Mucous membranes pink and dry. Oropharynx without erythema NECK: Trachea midline. No JVD. CARDIOVASCULAR: Regular rate and rhythm. S1, S2. No S4. Without murmur RESPIRATORY: No accessory muscle use. Clear sounds are equal bilaterally. GASTROINTESTINAL: Abdomen obese, soft, nontender. no guarding. MUSCULOSKELETAL: Extremities 1+ lower extremity edema. No obvious deformities. NEUROLOGICAL: Patient is lethargic but arousable. Procedures none Medications and IVs Current Medications Medications (Trade) Dose Ordered Sig/Logan Route Start Time Stop Time Status Last Admin (NS Flush) 2 ml UNSCH PRN IV FLUSH 07/06/16 03:30 (NS Flush) 2 ml BID IV FLUSH 07/06/16 09:00 07/10/16 08:38 (Tylenol) 650 mg Q6H PRN PO 07/06/16 03:30 (Tears Naturale Opth Soln) 1 drop TID EACH EYE 07/06/16 09:00 07/10/16 08:38 (Zofran Inj) 4 mg Q6H PRN IV 07/06/16 03:30 (Colace) 100 mg BID PO 07/06/16 09:00 07/10/16 08:36 (Senokot) 17.2 mg Q12H PRN PO 07/06/16 03:30 Miscellaneous Information 1 Q361D XX 07/06/16 03:30 (Chlorhexidine 2% Cloth) 3 pack Taper DAILY@04 TOP 07/06/16 04:00 07/02/17 03:59 07/09/16 04:00 Chlorhexidine Gluconate 3 pack 3 pack UNSCH PRN TOP 07/06/16 03:30 Metronidazole 100 ml @ 100 mls/hr Q8H IV 07/06/16 05:00 07/10/16 05:51 Azithromycin 500 mg/Sodium Chloride 250 ml @ 250 mls/hr Q24H IV 07/06/16 04:00 07/10/16 03:35 (Maxipime Inj/NS Inj) 100 ml @ 200 mls/hr DAILY@03 IV 07/07/16 03:00 07/10/16 03:01 (D50w (Vial) Inj) 25 ml UNSCH PRN IV PUSH 07/06/16 05:15 (Glucagon Inj) 1 mg UNSCH PRN OTHER 07/06/16 05:15 (Peridex 0.12% Liq) 15 ml BID@08,20 MT 07/06/16 08:00 07/08/16 10:07 (Trandate Inj) 10 mg Q1HR PRN IV PUSH 07/06/16 08:00 07/07/16 09:00 (Apresoline Inj) 10 mg Q1HR PRN IV PUSH 07/06/16 08:00 07/08/16 14:51 (Heparin Inj) 5,000 units Q12HR SQ 07/07/16 21:00 07/10/16 08:37 (Roxicodone) 5 mg Q4H PRN PO 07/07/16 17:00 (Dilaudid Pf Inj) 0.5 mg Q4H PRN IV PUSH 07/07/16 17:00 (Tylenol) 650 mg Q6H PO 07/07/16 18:00 07/10/16 04:08 Water 300 ml 300 ml Q4HR G-TUBE 07/08/16 12:00 07/10/16 08:37 Vancomycin HCl 1000 mg/Sodium Chloride 250 ml @ 250 mls/hr Q24H IV 07/09/16 15:00 07/09/16 16:19 Sodium Chloride 38.5 meq/Sterile Water 1,009.625 ml @ 125 mls/hr Q8H5M IV 07/09/16 16:00 07/09/16 16:19 Sodium Chloride 250 ml @ 15 mls/hr ONCE ONCE IV 07/09/16 21:15 07/10/16 13:54 07/10/16 00:45 (Protonix Inj/NS Inj) 100 ml @ 10 mls/hr CONTINUOUS IV 07/09/16 21:30 07/10/16 00:02 Urinary Catheter: No Vascular Central Line Catheter: No A/P Problem List: (1) Encephalopathy acute ICD Code: G93.40 Status: Acute Plan: This is a 80-year-old female with a stage IV CK-MB, diastolic heart failure, chronic pain complaints who presented with altered mental status and hypoxemia requiring intubation mechanical ventilation. Intensive care unit. The patient presented with encephalopathy which was thought to be a combination of her subacute infarct medication induced due to poor renal clearance. The patient was treated in the intensive care unit and then extubated. MRI showed subacute left parietal infarct Xanax, Flexeril and hydrocodone as well as Lyrica on hold. The patient states that patient has an adverse reaction to Lyrica and that only rarely take the other home meds. Lipid panel normal Carotid ultrasounds show probable mild stenosis of the left internal carotid artery. No hemodynamically significant stenosis on the right. Patient was noted to be lethargic on July 09. Thought to be secondary to hyponatremia. Ammonia levels checked and slightly elevated at 36. 2/13 patient is more awake today. Sodium still 150, I will increase to rate of 1/4 NS to 125 ml/hr. (2) Chronic diastolic (congestive) heart failure ICD Code: I50.32 Status: Chronic Plan: Seems to be stable at this moment. Patient is on Bumex at home. Continue to hold due to hypernatremia. 2-D echocardiogram showed grade 1 diastolic dysfunction with preserved ejection fraction. (3) Uremia ICD Code: N19 Status: Resolved Plan: Likely contributing to the patient's encephalopathy. Patient still with elevated BUN, however trending down from previous days. There is question of GI bleed due to disproportionate elevated BUN to creatinine ratio. (4) Diabetes mellitus ICD Code: E11.9 Status: Chronic Plan: Continue to hold glipizide. Sugar seems to be stable. Continue SSI with regular insulin and to monitor Accu-Cheks. 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 (6) Debility ICD Code: R53.81 Status: Acute Plan: Continue with physical therapy efforts. Patient will need PT at rehabilitation. (7) Chronic kidney disease, stage 3 ICD Code: N18.3 Status: Chronic Plan: Continue to monitor BUN and creatinine. Creatinine seems to be close to baseline. (8) HTN (hypertension) ICD Code: I10 Status: Chronic Plan: Labral blood pressure with systolic blood pressure into the 170s. Much improved now. Resume home coreg and hydralazine (9) Constipation ICD Code: K59.00 Status: Acute Plan: Add senna and Colace, Miralax as needed. Patient reportedly had a BM today (10) Gout ICD Code: M10.9 Status: Chronic Plan: seems stable - resume Uloric (11) Gastroesophageal reflux disease ICD Code: K21.9 Status: Acute Plan: Patient takes Prilosec 20 mg by mouth daily at home. Patient currently is on tube feedings which have been held due to drop in hemoglobin observed on 07/08/16 Patient start an IV Protonix drip on 07/09/16. Continue Follow-up GI recommendations. (12) Anemia ICD Code: D64.9 Status: Acute Plan: Patient had a positive stool guaiac test. Hemoglobin dropped from 8.5-7.6 on 07/09/16. Patient status post infusion of 2 units of packed red blood cells on 07/09. Hemoglobin now 9.6 with appropriate response to transfusion. Concern for GI bleed given disproportionate BUN to creatinine ratio. GI reconsult ordered and recommendations pending. Continue to monitor H/H every 12 hours. (13) Acute kidney injury superimposed on CKD ICD Code: N17.9 Status: Acute Plan: The pain seems to be trending down. Continue to monitor BUN and creatinine, I would nephrotoxins. RAKEL seems resolving. (14) Hypernatremia ICD Code: E87.0 Status: Acute Plan: Patient started on 1/4 ns on 07/09 - sodium still 150 I will increase rate of 1/4 ns - ok to resume free water via NG tube once cleared to have PO by GI. (15) Positive blood culture ICD Code: R78.81 Status: Acute Plan: Patient had a positive blood culture with staph coagulase negative on 07/06 Possible contaminant. Blood cultures repeated on 07/09/16 and pending. Vancomycin restarted on 07/09/16. ID consult (16) HCAP (healthcare-associated pneumonia) ICD Code: J18.9 Status: Acute Plan: Patient given cefepime and given vancomycin emergency department. Continue IV vancomycin, IV cefepime, IV Flagyl and azithromycin for now. Legionella and streptococcal urine antigen negative. Sputum culture showed light growth of normal respiratory federico. Assessment and Plan - GI - Protonix - DVT - SCD, hold heparin SQ given recent drop in hemoglobin. Discharge Planning Flavia to monitor the medical floor. Problem Qualifiers (1) Diabetes mellitus: Qualified Code: E11.8 - Type 2 diabetes mellitus with complication, without long-term current use of insulin (2) HTN (hypertension): Qualified Code: I10 - Essential hypertension (3) Constipation: Qualified Code: K59.00 - Constipation, unspecified constipation type (4) Gout: Qualified Code: M1A.9XX0 - Chronic gout without tophus, unspecified cause, unspecified site (5) Gastroesophageal reflux disease: Qualified Code: K21.9 - Gastroesophageal reflux disease without esophagitis (6) Anemia: Qualified Code: D64.9 - Anemia, unspecified type Anthony Bryant MD Jul 10, 2016 10:18 2-D echo: Grade 1 DDfxn, preserved EF. 2?12 continue Coreg, blood pressure seems to be stable. Resp: Obstructive sleep apnea Pneumonia acute hypoxic resp failure- resolving. OOB to chair with PT today wean o2 by NC for goal spo2 > 90% Bronchodilator therapy every [address] hours and as needed CT thorax revealed right greater than left lower lobe infiltrates. Right lower lobe granuloma. [facility] For obstructive sleep apnea. GI: Gastroesophageal reflux disease Heme+ stool Patient is on Prilosec 20 mg by mouth daily at home. Currently nothing by mouth. TF are at goal. Speech therapy to evaluate and treat swallowing mechanism. Colace/as needed Senokot for bowel regimen. GI c/s 04/28 his hemoglobin is trending down and there is a disproportionate BUN/ creatinine ratio I will order a GI consultation for suspected GI bleed. I will place the patient nothing by mouth, placed on Protonix drip. I will transfuse 2 units of packed red blood cells since hemoglobin dropped from 8.5-7.6 : Jain will be placed for accurate I's and O's in a critically ill patient Endo: Gout Diabetes mellitus History of secondary hyperparathyroidism on calcitriol 0.25 g daily? Currently holding colchicine 0.6 daily and Uloric 80 mg daily for gout. Resuming clinically indicated Currently holding glipizide 5 mg before meals. Sliding-scale insulin to maintain euglycemia. Renal: Acute on chronic kidney injury stage IV to 5 Baseline creatinine between 2 and 3 documented. Will hold nephrotoxic drugs and diuretics at the present time. Creatinine continues to improve, now close to baseline. Appreciate nephrology recommendations. Continue to monitor BUN/creatinine, avoid nephrotoxins, follow -up nephrology recommendations. Heme: Leukocytosis Normocytic anemia Monitor CBC/coags. Monitor trends. Infectious etiology likely 1/2 blood cultures coag negative staph. likely contaminant. if cultures remain negative, could likely transition to Unasyn or other oral med for completion of likely HCAP. 07/09 repeat blood cultures, consult infectious disease for positive blood cultures. ID: Healthcare associated pneumonia Received 2 g cefepime and 1500 mg vancomycin ED Continue cefepime, Flagyl and azithromycin for now. FEN: Hyperkalemia- improved. MSK: Osteoporosis/osteoarthritis Holding narcotics/muscle relaxants light of altered mental status. Holding alendronate 70 mg weekly. Resume when clinically indicated Access - Utilize peripheral IV. Prophylaxis - GI - Protonix - DVT - SCD/SQH 5000 q12h. she is at high risk for DVT, but also cautiously start prophy given possible GIB. Discharge Planning Flavia to monitor the medical floor. Problem Qualifiers (1) Diabetes mellitus: Qualified Code: E11.8 - Type 2 diabetes mellitus with complication, without long-term current use of insulin (2) HTN (hypertension): Qualified Code: I10 - Essential hypertension (3) Constipation: Qualified Code: K59.00 - Constipation, unspecified constipation type (4) Gout: Qualified Code: M1A.9XX0 - Chronic gout without tophus, unspecified cause, unspecified site (5) Gastroesophageal reflux disease: Qualified Code: K21.9 - Gastroesophageal reflux disease without esophagitis (6) Anemia: Qualified Code: D64.9 - Anemia, unspecified type Anthony Bryant MD Jul 10, 2016 10:18
--- NOTE | 2016-07-10 10:51 | HHI.GIFU ---
Subjective Remarks Reconsulted for EGD. Pt resting in bed. No n/v. No abdominal pain. No active gi bleeding. D/W Dr. Grimm, H/H has been trending down and patient is now stable for egd. (Renuka Dennis) Objective Vitals I&O Vital Signs Date Time Temp Pulse Resp B/P Pulse Ox O2 Delivery O2 Flow Rate FiO2 07/10/16 08:15 97 Nasal Cannula 3.00 07/10/16 05:27 98.0 94 16 141/61 99 07/10/16 04:13 Nasal Cannula 3.00 07/10/16 04:13 97.5 102 16 155/65 96 07/10/16 03:45 97.4 102 16 178/70 97 07/10/16 03:09 98.0 103 16 131/61 98 07/10/16 01:05 98.5 90 16 143/66 99 07/10/16 00:50 98.2 91 16 136/62 97 07/10/16 00:00 Nasal Cannula 3.00 07/10/16 00:00 97.8 87 18 159/66 98 07/09/16 22:22 97 Nasal Cannula 3.00 07/09/16 21:30 Nasal Cannula 3.00 07/09/16 20:06 107 07/09/16 20:00 97.5 94 18 168/69 94 07/09/16 16:00 98.2 90 18 136/62 98 07/09/16 12:00 97.5 99 17 144/65 97 07/09/16 12:00 Nasal Cannula 3.00 07/09/16 11:13 94 I/O 07/09/16 07/09/16 07/09/16 07/10/16 07/10/16 07/10/16 07:00 15:00 23:00 07:00 15:00 23:00 Intake Total 1868 ml 1487 ml 1032 ml Output Total 550 ml 1000 ml 700 ml 650 ml Balance 1318 ml -1000 ml 787 ml 382 ml Intake Oral 0 ml 120 ml 100 ml IV Total 807 ml 332 ml Tube Feeding 968 ml 260 ml Packed Cells 600 ml Other 900 ml 300 ml Output Urine Total 550 ml 1000 ml 700 ml 650 ml # Bowel Movements 0 0 0 1 Laboratory Laboratory Tests Test 2/12/07/09/16 07/10/16 07/10/16 21:40 21:50 05:19 06:39 Sodium Level 149 150 Potassium Level 4.6 4.3 Chloride Level 114 113 Carbon Dioxide Level 29.6 32.0 Anion Gap 5 5 Blood Urea Nitrogen 65 59 Creatinine 1.35 1.28 Estimat Glomerular Filtration 38 40 Rate Random Glucose 168 152 Calcium Level 8.1 8.1 Ammonia 36 Blood Type O POSITIVE Antibody Screen NEGATIVE Crossmatch Leukocyte-Reduced Red Blood Cells Blood Bank Comment Phosphorus Level 2.4 Magnesium Level 1.9 Total Bilirubin 0.5 Aspartate Amino Transf 16 (AST/SGOT) Alanine Aminotransferase 16 (ALT/SGPT) Alkaline Phosphatase 75 Total Protein 5.3 Albumin 1.9 White Blood Count 10.2 Red Blood Count 3.41 Hemoglobin 9.6 Hematocrit 29.9 Mean Corpuscular Volume 87.7 Mean Corpuscular Hemoglobin 28.1 Mean Corpuscular Hemoglobin 32.1 Concent Red Cell Distribution Width 17.2 Platelet Count 149 Mean Platelet Volume 8.9 Neutrophils (%) (Auto) 78.4 Lymphocytes (%) (Auto) 7.0 Monocytes (%) (Auto) 13.1 Eosinophils (%) (Auto) 1.2 Basophils (%) (Auto) 0.3 Neutrophils # (Auto) 8.0 Lymphocytes # (Auto) 0.7 Monocytes # (Auto) 1.3 Eosinophils # (Auto) 0.1 Basophils # (Auto) 0.0 CBC Comment AUTO DIFF Differential Comment AUTO DIFF CONFIRMED Platelet Estimate LOW Platelet Morphology Comment ENLARGED Basophilic Stippling MOD Date/Time Procedure Status Source Growth 07/09/16 16:15 Aerobic Blood Culture Received Blood Peripheral Pending 07/09/16 16:15 Anaerobic Blood Culture Received Blood Peripheral Pending 07/07/16 09:20 Gram Stain - Final Complete Sputum Endotracheal 07/07/16 09:20 Sputum Culture - Final Complete Sputum Endotracheal LIGHT GROWTH NORMAL RESPIRATORY JAYCOB 07/06/16 02:40 Urine Culture - Final Complete Urine Catheterized Urine NO GROWTH IN 48 HOURS. 07/06/16 02:40 Legionella Antigen - Final Complete Urine Catheterized Urine PRESUMPTIVE NEGATIVE FOR LEGIONELLA P... 07/06/16 02:40 Streptococcus pneumoniae Antigen (M - Final Complete Urine Catheterized Urine PRESUMPTIVE NEGATIVE FOR STREPTOCOCCU... 07/06/16 01:10 Aerobic Blood Culture - Preliminary Resulted Blood Peripheral Staph Sp Coagulase Negative 07/06/16 01:10 Anaerobic Blood Culture - Preliminary Resulted Blood Peripheral NO GROWTH IN 3 DAYS Imaging Last Impressions Chest X-Ray 07/07/16 0000 Signed Impressions: Service Date/Time: Thursday, July 07, 2016 05:25 - CONCLUSION: Tiny left pleural effusion. Allan Renee MD Carotid Artery Ultrasound 07/07/16 0000 Signed Impressions: Service Date/Time: Thursday, July 07, 2016 21:00 - CONCLUSION: 1. Probable mild stenosis left internal carotid artery. No hemodynamically significant stenosis on the right. Vertebral artery flow antegrade. Tad Veliz MD Abdomen X-Ray 07/07/16 0000 Signed Impressions: Service Date/Time: Thursday, July 07, 2016 13:42 - CONCLUSION: Tip of the Dobhoff tube appears to be in the distal stomach or proximal duodenum. Ashish Mayorga MD Renal Ultrasound 07/06/16 0859 Signed Impressions: Service Date/Time: June 11:52 - CONCLUSION: 1. Echogenic kidneys consistent with probable medical renal disease. 2. Scattered echogenic foci bilaterally consistent with probable non-obstructing calculi. 3. Bilateral renal cysts. 4. Suboptimal evaluation of the urinary bladder which is decompressed by a Jain catheter. Ashish Mayorga MD Head CT 07/06/16 Signed Impressions: Service Date/Time: June 08:43 - CONCLUSION: 1. No acute hemorrhage or mass effect. 2. Focal area of decreased attenuation involving the left parietal lobe most consistent with an area of infarction which may be subacute to remote. 3. Atrophy and chronic small vessel ischemic change. Gilberto Longoria MD Chest CT 07/06/16 Signed Impressions: Service Date/Time: June 01:52 - CONCLUSION: 1. Atherosclerosis. 2. Pneumonia. Larry Skaggs MD Brain MRI 07/06/16 0000 Signed Impressions: Service Date/Time: June 17:51 - CONCLUSION: 1. 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 2. Abnormal fluid accumulation in the aerated portion of the temporal bones bilaterally associated with bilateral mastoiditis and partial ethmoid opacification. Tad Veliz MD Physical Exam HEENT: Normocephalic; atraumatic; no jaundice. CHEST: Diminished bases CARDIAC: RRR. ABDOMEN: Soft, nondistended, nontender; no hepatosplenomegaly; bowel sounds are present in all four quadrants. EXTREMITIES: Generalized edema. SKIN: Multiple ecchymotic areas SALICYLIC ACID BLENDER: Alert, oriented to place and person (Renuka Dennis) Assessment and Plan Plan ASSESSMENT: - Anemia/heme (+) stools. We had previously evaluated the patient, but her HH was stable and she was not having any signs of active bleeding and therefore because of her multiple comorbidities, it was decided to hold on endoscopy and to pursue if active bleeding. Pt is now more stable and her HH had been trending down and therefore GI was reconsulted for EGD. Pt in no distress. No n/v. No abdominal pain. No obvious active bleeding. Protonix gtt - AMS/Leukocytosis/pneumonia. Improved. Rpt. BCx pending. cefepime, flagyl - Acute on chronic kidney disease, per nephrology - Respiratory failure. S/P extubation. Plan: - Plan for egd in am - Obtain consents - Nepro at 40cc/hr - Puree diet with honey thickened liquids - NPO after MN - Hold heparin after MN - Cont. PPI - Monitor labs - Transfuse as needed - Notify GI for active bleeding - Supportive care - Further recommendations to follow based on results of above - Patient seen and examined by Dr. Gaston and myself and this note is written on his behalf. (Renuka Dennis) Physician Comments seen, examined agree with above (Estefani Lord MD) Renuka Dennis Jul 10, 2016 10:51 Estefani Lord MD Jul 10, 2016 19:02
--- NOTE | 2016-07-10 12:02 | HHI.NPPN ---
Subjective Complaints: Obesity General Problems: Edema Renal Failure: Chronic, Acute, Stage IV Interval History She is sitting up in bed, looks better, more alert. NG tube remains. Renal function is better. Sodium is higher (Kylie Bridges) Review of Systems General Constitutional: Fatigue (Kylie Bridges) Musculoskeletal MS: Pain/Stiffness (Kylie Bridges) Objective Data Data 07/09/16 07/10/16 19:00 07:00 Intake Total 2519 ml Output Total 1000 ml 1350 ml Balance -1000 ml 1169 ml Intake Oral 220 ml IV Total 1139 ml Tube Feeding 260 ml Packed Cells 600 ml Other 300 ml Output Urine Total 1000 ml 1350 ml # Bowel Movements 0 1 Vital Signs Date Time Temp Pulse Resp B/P Pulse Ox O2 Delivery O2 Flow Rate FiO2 07/10/16 08:15 97 Nasal Cannula 3.00 07/10/16 05:27 98.0 94 16 141/61 99 07/10/16 04:13 Nasal Cannula 3.00 07/10/16 04:13 97.5 102 16 155/65 96 07/10/16 03:45 97.4 102 16 178/70 97 07/10/16 03:09 98.0 103 16 131/61 98 07/10/16 01:05 98.5 90 16 143/66 99 07/10/16 00:50 98.2 91 16 136/62 97 07/10/16 00:00 Nasal Cannula 3.00 07/10/16 00:00 97.8 87 18 159/66 98 07/09/16 22:22 97 Nasal Cannula 3.00 07/09/16 21:30 Nasal Cannula 3.00 07/09/16 20:06 107 07/09/16 20:00 97.5 94 18 168/69 94 07/09/16 16:00 98.2 90 18 136/62 98 07/09/16 12:00 97.5 99 17 144/65 97 07/09/16 12:00 Nasal Cannula 3.00 (Kylie Bridges) -: 07/10/16 0639 07/10/16 0519 Microbiology 07/09/16 Aerobic Blood Culture - Preliminary, Resulted NO GROWTH IN 1 DAY 07/09/16 Anaerobic Blood Culture - Preliminary, Resulted NO GROWTH IN 1 DAY 07/09/16 Aerobic Blood Culture - Preliminary, Resulted NO GROWTH IN 1 DAY 07/09/16 Anaerobic Blood Culture - Preliminary, Resulted NO GROWTH IN 1 DAY Tubes & Lines: Glynn (Kylie Bridges) Physical Exam General Appearance: Well Developed, No Acute Distress, Comfortable, Obese (Kylie Bridges ENGINE LATHE SET UP OPERATOR TOOL) Eyes Eye Exam: Sclera White Eye Remarks right pupil 3 mm, left 1 mm (Kylie BridgesP) Throat Throat Exam: Oral Mucosa [place] & Moist Throat Remarks NG tube (Kylie Bridges ENGINE LATHE SET UP OPERATOR TOOL) Pulmonary Resp Exam: Breath Sounds Equal, Crackles Resp Remarks bibasilar rales (Kylie Bridges ENGINE LATHE SET UP OPERATOR TOOL) Cardiology CV Exam: Good Perfusion, Irregular, Arrhythmia (Kylie Bridges B. ENGINE LATHE SET UP OPERATOR TOOL) Gastrointestinal/Abdomen GI Exam: Soft, Non-Tender, Bowel Sounds Present, Distended (Kylie BridgesP) Genitourinary Exam: Clear Urine (Kylie BridgesP) Musculoskeletal MS Exam: Joints Intact, Normal Tone (Kylie Bridges ENGINE LATHE SET UP OPERATOR TOOL) Integumentary Skin Exam: Clear, Warm, Dry, Intact (Kylie BridgesP) Extremeties Extremities Exam: Moderate Edema, Pitting Edema (Kylie Bridges B. ENGINE LATHE SET UP OPERATOR TOOL) Neurologic Neuro Exam: Alert, Awake, Oriented, Speech Clear, Moving All Extremities ( Kylie Bridges. ENGINE LATHE SET UP OPERATOR TOOL) Assessment/Plan Discussed Condition With: Patient, Spouse, Daughter Assessment Summary: RAKEL/Acute Renal Failure, Diabetes Mellitus, CKD Stage IV Problem List: (1) Acute kidney injury superimposed on CKD Plan: Baseline creatinine from 2014 2.02, GFR 24, consistent with CKD 4 may have had decline in renal function since then renal function has improved good urine output sodium is elevated, will decrease rate of 1/4 NS to 50 cc/hr, increase free water with tube feeding, and give a dose of diuril BMP in am and reevaluate glynn can be removed if able to void on own (2) HTN (hypertension) Plan: BP stable, continue oral medications monitor (3) Pneumonia Plan: on Zithromax and cefepime monitor clinically she is at risk for aspiration PNA (4) DM (diabetes mellitus) Plan: BG acceptable continue insulin as needed (5) Dysphagia Plan: repeat swallow evaluation recommended (6) Anemia Plan: Hb had dropped, GI following to have EGD tomorrow am labs indicating iron deficiency, Venofer should be avoided in Sepsis possible contaminant on admission, 1/4 bottles positive, repeat negative to date will give oral iron now (Kylie Bridges) Plan patient was seen and examined. Agree with above assessment and plan. Renal function has improved. Continue hypotonic fluids for hypernatremia. (Luis Crocker MD) Problem Qualifiers (1) HTN (hypertension): Qualified Code: I10 - Essential hypertension (2) Pneumonia: Qualified Code: J18.9 - Pneumonia of right lung due to infectious organism, unspecified part of lung (3) Anemia: Qualified Code: D64.9 - Anemia, unspecified type Kylie Bridges Jul 10, 2016 12:02 Luis Crocker MD Jul 10, 2016 16:42
[2016-07-10] MEDS: LEVOTHYROXINE SODIUM 50 MCG TAB PO SCH (12:23)
[2016-07-10] MEDS: CARVEDILOL 12.5 MG TAB PO SCH ×2 (12:24→21:43)
[2016-07-10] MEDS: FERROUS SULFATE 325 MG (65 MG ELEMENTAL IRON) TAB PO SCH (12:25)
[2016-07-10] MEDS ORDERED: CHLOROTHIAZIDE SOD 500 MG VIAL IV ONE (13:00)
[2016-07-10] MEDS: hydrALAZINE HCL 100 MG TAB PO SCH ×2 (13:43→17:52)
[2016-07-10] MEDS: VANCOMYCIN INJ 1,000 MG in SODIUM CHLOR 0.9% 250 ML INJ 250 ML IV SCH (16:01)
--- NOTE | 2016-07-10 18:46 | PD.ID.CON ---
History of Present Illness Service ID Consult Requested By Dr Grimm Reason for Consult bactermeia Primary Care Physician Kelly Lemus Diagnoses: History of Present Illness Pt is very poor historian Hx obtained mainly from the chart 80-year-old female. with extensive medical history including chronic diastolic heart failure, chronic kidney disease stage IV, chronic narcotic/ muscle relaxant use, gastroesophageal reflux disease, anxiety and gout. Pt was sent to jail on ciprofloxacin. and was noted to be confused. by her family ; she was transfered to emergency department for evaluation where she presented quite lethargic. On presentation she was hypoxic, with leukocytosis and low grade fever and has acute on cronic renal insufficiaency Her CT of the chest revealed bilateral lower lobe pneumonia/infiltrates. She was started on f cefepime , g vancomycin , azithro was added She was intubated and briefly stayed on the vent She is now extubated, transferred to floor and on NC O2 Her admission BC grew coag neg staph in one bottle Repeat blood clx are neg so far Sputum clx negative Leg/pneumococcus and flu antigens are neg Leukocytosis , feeer resolved Creatinine improved Review of Systems ROS Limitations: Poor Historian Past Family Social History Allergies: Coded Allergies: Lyrica (Verified Allergy, Mild, Swelling Confussed, 07/06/16) Codeine (Verified Allergy, Unknown, Confusion, 07/28/15) pt stated, she felt the effects of medication days after, doesnt want any narcotics Past Medical History Obstructive sleep apnea Diabetes mellitus type II Recurrent UTI Anxiety disorder Hypothyroidism Gout Gastroesophageal reflux disease without esophagitis Osteoporosis Next incontinence Lymphedema Allergic rhinitis Chronic kidney disease stage IV to 5 Past Surgical History partial hysterectomy) Active Ordered Medications Medications where reviewed in EMR Antibiotics Include: azithro cefepime vancomycin Family History Non-Contributory. Social History No Tobacco. No ETOH. No Illicit Drugs. Physical Exam Vital Signs Vital Signs Date Time Temp Pulse Resp B/P Pulse Ox O2 Delivery O2 Flow Rate FiO2 07/10/16 16:00 97.6 87 16 132/63 98 07/10/16 13:25 18 07/10/16 12:00 98.2 98 18 144/63 98 07/10/16 11:30 Nasal Cannula 3.00 07/10/16 08:15 97 Nasal Cannula 3.00 07/10/16 08:00 98.7 97 18 128/62 99 07/10/16 08:00 Nasal Cannula 3.00 07/10/16 05:27 98.0 94 16 141/61 99 07/10/16 04:13 Nasal Cannula 3.00 07/10/16 04:13 97.5 102 16 155/65 96 07/10/16 03:45 97.4 102 16 178/70 97 07/10/16 03:09 98.0 103 16 131/61 98 07/10/16 01:05 98.5 90 16 143/66 99 07/10/16 00:50 98.2 91 16 136/62 97 07/10/16 00:00 Nasal Cannula 3.00 07/10/16 00:00 97.8 87 18 159/66 98 07/09/16 22:22 97 Nasal Cannula 3.00 07/09/16 21:30 Nasal Cannula 3.00 07/09/16 20:06 107 07/09/16 20:00 97.5 94 18 168/69 94 Physical Exam CONSTITUTIONAL/GENERAL: This is an adequately nourished patient, in no apparent distress. TUBES/LINES/DRAINS: SKIN: No jaundice, rashes, or lesions. Ecchymoses on upper extremities. No wounds seen anteriorly. Skin temperature appropriate. Not diaphoretic. HEAD: Atraumatic. Normocephalic. EYES: Pupils equal and round and reactive. Extraocular motions intact. No scleral icterus. No injection or drainage. Fundi not examined. ENT: Hearing grossly normal. Nose without bleeding or purulent drainage. Throat without visible erythema, exudates, masses, or lesions. NECK: Trachea midline. Supple, nontender. CARDIOVASCULAR: Regular rate and rhythm without murmurs, gallops, or rubs. No JVD. Peripheral pulses symmetric. RESPIRATORY/CHEST: Symmetric, unlabored respirations. Clear to auscultation. Breath sounds equal bilaterally. No wheezes, rales, or rhonchi. GASTROINTESTINAL: Abdomen soft, non-tender, nondistended. No hepato-splen Jain catheter in place. MUSCULOSKELETAL: Extremities without clubbing, cyanosis, + trace edema. No joint tenderness or effusion noted. No calf tenderness. No mottling or clubbing. LYMPHATICS: No palpable cervical or supraclavicular adenopathy. NEUROLOGICAL: Awake and alert. Motor and sensory grossly within normal limits. Follows commands. Normal sppeech. Moves all extremities. PSYCHIATRIC: flat affect Laboratory Laboratory Tests Test 07/09/16 07/09/16 07/10/16 07/10/16 21:40 21:50 05:19 06:39 Sodium Level 149 150 Potassium Level 4.6 4.3 Chloride Level 114 113 Carbon Dioxide Level 29.6 32.0 Anion Gap 5 5 Blood Urea Nitrogen 65 59 Creatinine 1.35 1.28 Estimat Glomerular Filtration 38 40 Rate Random Glucose 168 152 Calcium Level 8.1 8.1 Ammonia 36 Blood Type O POSITIVE Antibody Screen NEGATIVE Crossmatch Leukocyte-Reduced Red Blood Cells Blood Bank Comment Phosphorus Level 2.4 Magnesium Level 1.9 Total Bilirubin 0.5 Aspartate Amino Transf 16 (AST/SGOT) Alanine Aminotransferase 16 (ALT/SGPT) Alkaline Phosphatase 75 Total Protein 5.3 Albumin 1.9 White Blood Count 10.2 Red Blood Count 3.41 Hemoglobin 9.6 Hematocrit 29.9 Mean Corpuscular Volume 87.7 Mean Corpuscular Hemoglobin 28.1 Mean Corpuscular Hemoglobin 32.1 Concent Red Cell Distribution Width 17.2 Platelet Count 149 Mean Platelet Volume 8.9 Neutrophils (%) (Auto) 78.4 Lymphocytes (%) (Auto) 7.0 Monocytes (%) (Auto) 13.1 Eosinophils (%) (Auto) 1.2 Basophils (%) (Auto) 0.3 Neutrophils # (Auto) 8.0 Lymphocytes # (Auto) 0.7 Monocytes # (Auto) 1.3 Eosinophils # (Auto) 0.1 Basophils # (Auto) 0.0 CBC Comment AUTO DIFF Differential Comment AUTO DIFF CONFIRMED Platelet Estimate LOW Platelet Morphology Comment ENLARGED Basophilic Stippling MOD Date/Time Procedure Status Source Growth 07/09/16 16:15 Aerobic Blood Culture - Preliminary Resulted Blood Peripheral NO GROWTH IN 1 DAY 07/09/16 16:15 Anaerobic Blood Culture - Preliminary Resulted Blood Peripheral NO GROWTH IN 1 DAY 07/07/16 09:20 Gram Stain - Final Complete Sputum Endotracheal 07/07/16 09:20 Sputum Culture - Final Complete Sputum Endotracheal LIGHT GROWTH NORMAL RESPIRATORY JAYCOB 07/06/16 02:40 Urine Culture - Final Complete Urine Catheterized Urine NO GROWTH IN 48 HOURS. 07/06/16 02:40 Legionella Antigen - Final Complete Urine Catheterized Urine PRESUMPTIVE NEGATIVE FOR LEGIONELLA P... 07/06/16 02:40 Streptococcus pneumoniae Antigen (M - Final Complete Urine Catheterized Urine PRESUMPTIVE NEGATIVE FOR STREPTOCOCCU... 07/06/16 01:10 Aerobic Blood Culture - Final Resulted Blood Peripheral Staph. Capitis-Ureolyticus 07/06/16 01:10 Anaerobic Blood Culture - Preliminary Resulted Blood Peripheral NO GROWTH IN 4 DAYS Result Diagram: 07/10/16 0639 07/10/16 0519 Imaging Last Impressions Chest X-Ray 07/07/16 0000 Signed Impressions: Service Date/Time: Thursday, July 07, 2016 05:25 - CONCLUSION: Tiny left pleural effusion. Allan Renee MD Carotid Artery Ultrasound 07/07/16 0000 Signed Impressions: Service Date/Time: Thursday, July 07, 2016 21:00 - CONCLUSION: 1. Probable mild stenosis left internal carotid artery. No hemodynamically significant stenosis on the right. Vertebral artery flow antegrade. Tad Veliz MD Abdomen X-Ray 07/07/16 0000 Signed Impressions: Service Date/Time: Thursday, July 07, 2016 13:42 - CONCLUSION: Tip of the Dobhoff tube appears to be in the distal stomach or proximal duodenum. Ashish Mayorga MD Renal Ultrasound 07/06/16 0859 Signed Impressions: Service Date/Time: June 11:52 - CONCLUSION: 1. Echogenic kidneys consistent with probable medical renal disease. 2. Scattered echogenic foci bilaterally consistent with probable non-obstructing calculi. 3. Bilateral renal cysts. 4. Suboptimal evaluation of the urinary bladder which is decompressed by a Jain catheter. Ashish Mayorga MD Head CT 07/06/16 0000 Signed Impressions: Service Date/Time: June 08:43 - CONCLUSION: 1. No acute hemorrhage or mass effect. 2. Focal area of decreased attenuation involving the left parietal lobe most consistent with an area of infarction which may be subacute to remote. 3. Atrophy and chronic small vessel ischemic change. Gilberto Longoria MD Chest CT 07/06/16 0000 Signed Impressions: Service Date/Time: June 01:52 - CONCLUSION: 1. Atherosclerosis. 2. Pneumonia. Larry Skaggs MD Brain MRI 07/06/16 0000 Signed Impressions: Service Date/Time: Thursday, July 06, 2016 17:51 - CONCLUSION: 1. 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 2. Abnormal fluid accumulation in the aerated portion of the temporal bones bilaterally associated with bilateral mastoiditis and partial ethmoid opacification. Tad Veliz MD Assessment and Plan Assessment and Plan PNA with hypoxia - clearly improving - culture -negative ? Aspiration Coag neg staph bacteremia, low cy favouring contamination - dc vancomycin - cont azithro po - change cfepeime to CFTX - FU repeat BC - if repeat BCstay negative no further w/u or tx needed - cont flagyl, can be switched to po Discussed Condition With at b/s Zakiya Luna MD Jul 10, 2016 18:46
[2016-07-10] MEDS: cefTRIAXone INJ 2,000 MG in SODIUM CHLORIDE 0.9% INJ 100 ML IV SCH (21:37)
[2016-07-10] MEDS: ATORVASTATIN 20 MG TAB PO SCH (21:43)
[2016-07-10] MEDS: MONTELUKAST SODIUM 10 MG TAB PO SCH (21:43)
[2016-07-11] VITALS (8 sets, daily range): BP systolic 126–172; BP diastolic 61–82; PULSE 87–164; RESP 18–22; TEMP 97–98; O2SAT 96–99
[2016-07-11] MEDS: PANTOPRAZOLE INJ 80 MG in SODIUM CHLORIDE 0.9% INJ 100 ML IV SCH ×2 (00:35→15:15)
[2016-07-11] MEDS: SODIUM CHLORIDE 23.4% INJ 38.5 MEQ in WATER STERILE FOR INJ 1,000 ML IV SCH (01:33)
[2016-07-11] MEDS: CHLORHEXIDINE GLUCONATE 2 % 1 PACK (2 CLOTHS) TOP SCH (04:00)
[2016-07-11] MEDS: ACETAMINOPHEN 325 MG TAB PO SCH ×4 (04:32→18:03)
[2016-07-11] MEDS: AZITHROMYCIN INJ 500 MG in SODIUM CHLOR 0.9% 250 ML INJ 250 ML IV SCH (04:33)
[2016-07-11] MEDS: metroNIDAZOLE 500 MG INJ 100 ML IV SCH ×3 (04:33→21:58)
[2016-07-11] MEDS: FREE WATER G-TUBE SCH ×7 (04:38→21:44)
[2016-07-11] MEDS: LEVOTHYROXINE SODIUM 50 MCG TAB PO SCH (06:37)
[2016-07-11] MEDS: INSULIN NovoLIN REGULAR SUPPLEMENTAL SCALE SQ SCH ×5 (06:37→21:00)
[2016-07-11 07:23] LABS: ALKALINE PHOSPHATASE 63 U/L (45-117); ALT (GPT) 17 U/L (10-53); ANION GAP 4 MEQ/L (5-15); AST (GOT) 22 U/L (15-37); BICARBONATE 31.1 MEQ/L (21.0-32.0); BLOOD UREA NITROGEN 48 MG/DL (7-18); CHLORIDE 109 MEQ/L (98-107); GLOMERULAR FILTRATION RATE 43 ML/MIN (>89); MAGNESIUM 1.7 MG/DL (1.5-2.5); POTASSIUM 4.5 MEQ/L (3.5-5.1); SODIUM (NA) 144 MEQ/L (136-145); TOTAL BILIRUBIN ADULT 0.4 MG/DL (0.2-1.0)
[2016-07-11] MEDS: SODIUM CHLORIDE 0.9% FLUSH 5 ML FLUSH IV FLUSH SCH ×2 (07:59→21:00)
[2016-07-11] MEDS: DOCUSATE SODIUM 100 MG CAP PO SCH ×2 (07:59→21:00)
[2016-07-11] MEDS: FERROUS SULFATE 325 MG (65 MG ELEMENTAL IRON) TAB PO SCH (07:59)
[2016-07-11] MEDS: CARVEDILOL 12.5 MG TAB PO SCH ×2 (07:59→21:43)
[2016-07-11] MEDS: hydrALAZINE HCL 100 MG TAB PO SCH ×3 (07:59→18:02)
[2016-07-11] MEDS: CHLORHEXIDINE 0.12% (ORAL KIT) 15 ML CUP MT SCH ×2 (08:00→20:00)
[2016-07-11] MEDS: ARTIFICIAL TEARS OPTH SOLN 15 ML BTL EACH EYE SCH ×3 (08:00→18:03)
[2016-07-11] MEDS ORDERED: POTASSIUM PHOSPHATE MONOBASIC 500 MG TAB PO ONE (09:15)
[2016-07-11] MEDS: TIMOLOL MALEATE 0.25% OPHT SOLN 5 ML BTL EACH EYE SCH (09:15)
[2016-07-11 09:53] LABS: AUTOMATED NEUTROPHIL # 7.8 TH/MM3 (1.8-7.7); BASOPHIL % 0.5 % (0.0-2.0); EOSINOPHIL # 0.2 TH/MM3 (0-0.4); EOSINOPHIL % 1.7 % (0.0-4.0); HEMATOCRIT 28.8 % (35.0-46.0); HEMO FLAGS DIFF FINAL; LYMPH % 8.8 % (9.0-44.0); LYMPHOCYTE # 0.9 TH/MM3 (1.0-4.8); MEAN CELL VOLUME 87.2 FL (80.0-100.0); MEAN CORPUSCULAR HEMOGLOBIN 28.3 PG (27.0-34.0); MEAN CORPUSCULAR HGB CONC 32.5 % (32.0-36.0); MONO % 10.2 % (0.0-8.0); NEUT % 78.8 % (16.0-70.0); PLATELET COUNT 150 TH/MM3 (150-450); RED CELL DISTRIBUTION WIDTH 16.6 % (11.6-17.2); WHITE BLOOD COUNT 9.9 TH/MM3 (4.0-11.0)
[2016-07-11] MEDS ORDERED: PROPOFOL 200 MG/20 ML AMP IV ONE (11:59)
--- NOTE | 2016-07-11 14:45 | RADRPT ---
EXAM DATE/TIME: 07/11/2016 13:32 [place] COMPARISON: ABDOMEN KUB ONLY, July 07, 2016, 13:42. INDICATIONS : Dobbhoff type feeding tube placement. MEDICAL HISTORY : Renal disease SURGICAL HISTORY : Hysterectomy. ENCOUNTER: Subsequent ACUITY: 3 days PAIN SCORE: 0/10 LOCATION: Bilateral upper quadrant abdomen FINDINGS: 2 AP supine views of the abdomen and pelvis were obtained and demonstrate a oderate 2 large amount of stool throughout the colon. A Dobbhoff type feeding tube is present with the tip projected over the distal esophagus. There is no evidence of free air. There is a mild to moderate scoliosis of the lumb ar spine with mild degenerative change. CONCLUSION: 1. Feeding tube in place with the tip projected over the distal esophagus. 2. Moderate to large amount of stool throughout the colon. Gilberto Longoria MD on July 11, 2016 at 14:40 Board Certified Radiologist. This report was verified electronically.
--- NOTE | 2016-07-11 15:49 | HHI.NPPN ---
Subjective Complaints: Obesity General Problems: Edema Renal Failure: Chronic, Acute, Stage IV Interval History She had Panendoscopy this morning. NG tube remains and tube feeding infusing without complications. Renal function and sodium level have improved. (Kylie Bridges) Review of Systems General Constitutional: Fatigue (Kylie Bridges) Musculoskeletal MS: Pain/Stiffness (Kylie Bridges) Objective Data Data 07/10/16 07/11/16 19:00 07:00 Intake Total 120 ml 120 ml Output Total 900 ml 1375 ml Balance -780 ml -1255 ml Intake Oral 120 ml 120 ml Output Urine Total 900 ml 1375 ml # Bowel Movements 0 0 Vital Signs Date Time Temp Pulse Resp B/P Pulse Ox O2 Delivery O2 Flow Rate FiO2 07/11/16 12:30 88 20 198/100 99 07/11/16 12:11 97.4 90 20 178/97 99 07/11/16 12:11 99 Nasal Cannula 2 07/11/16 10:48 Nasal Cannula 3.00 07/11/16 10:30 97.0 90 20 132/64 99 07/11/16 08:00 97.0 90 20 132/64 99 07/11/16 04:00 97.6 89 20 157/67 96 07/11/16 04:00 164 07/11/16 00:00 97.3 87 20 126/61 99 07/10/16 21:45 Nasal Cannula 3.00 07/10/16 21:40 98 Nasal Cannula 3.00 07/10/16 20:00 97.5 89 20 144/63 99 07/10/16 20:00 89 07/10/16 16:00 97.6 87 16 132/63 98 (Kylie Bridges) -: 07/11/16 0855 07/11/16 0635 Imaging Last 72 hours Impressions Abdomen X-Ray 07/11/16 0000 Signed Impressions: Service Date/Time: Monday, July 11, 2016 13:32 - CONCLUSION: 1. Feeding tube in place with the tip projected over the distal esophagus. 2. Moderate to large amount of stool throughout the colon. Gilberto Longoria MD Tubes & Lines: Glynn (Kylie Bridges) Physical Exam General Appearance: Well Developed, No Acute Distress, Comfortable, Obese (Kylie Bridges) Eyes Eye Exam: Sclera White Eye Remarks right pupil 3 mm, left 1 mm (Kylie Bridges) Throat Throat Exam: Oral Mucosa [place] & Moist Throat Remarks NG tube (Kylie BridgesP) Pulmonary Resp Exam: Breath Sounds Equal, Crackles Resp Remarks bibasilar rales (Kylie BridgesP) Cardiology CV Exam: Good Perfusion, Irregular, Arrhythmia (Kylie Bridges LEAD PORTFOLIO MANAGER) Gastrointestinal/Abdomen GI Exam: Soft, Non-Tender, Bowel Sounds Present, Distended (Kylie BridgesP) Genitourinary Exam: Clear Urine (Kylie Bridges) Musculoskeletal MS Exam: Joints Intact, Normal Tone (Kylie Bridges) Integumentary Skin Exam: Clear, Warm, Dry, Intact (Kylie Bridges) Extremeties Extremities Exam: Moderate Edema, Pitting Edema (Kylie Bridges LEAD PORTFOLIO MANAGER) Neurologic Neuro Exam: Alert, Awake, Oriented, Speech Clear, Moving All Extremities ( Kylie Bridges) Assessment/Plan Discussed Condition With: Patient, Spouse, Daughter Assessment Summary: RAKEL/Acute Renal Failure, Diabetes Mellitus, CKD Stage IV Problem List: (1) Acute kidney injury superimposed on CKD Plan: Baseline creatinine from 2014 2.02, GFR 24, consistent with CKD 4 renal function has improved overnight she has good urine output, glynn in place K is normal sodium is improving, continue 1/4 NS until tomorrow, continue free water via tube feeding but decrease volume will have glynn removed tomorrow recheck electrolyte panel and correct variants discussed with pt and family (2) HTN (hypertension) Plan: BP stable, continue oral medications monitor (3) DM (diabetes mellitus) Plan: BG acceptable continue insulin as needed (4) Anemia Plan: Hb stable, GI following s/p panendoscopy labs indicating iron deficiency, Venofer should be avoided in Sepsis possible contaminant on admission, 1/4 bottles positive, repeat negative to date will continue oral iron (5) Dysphagia Plan: has NG tube speech therapy assisting (6) Pneumonia Plan: ID following, Abx changed: Zithromax and cefepime were stopped, she is on Rocephin only monitor clinically she is at risk for aspiration PNA having swallowing evaluated by ST (Kylie Bridges) Plan patient was seen and examined. Agree with above assessment and plan. Renal function and hypernatremia both have improved. (Luis Crocker MD) Problem Qualifiers (1) HTN (hypertension): Qualified Code: I10 - Essential hypertension (2) Anemia: Qualified Code: D64.9 - Anemia, unspecified type (3) Pneumonia: Qualified Code: J18.9 - Pneumonia of right lung due to infectious organism, unspecified part of lung yKlie Bridges Jul 11, 2016 15:49 Luis Crocker MD Jul 11, 2016 17:38
[2016-07-11] MEDS: LABETALOL HCL 100 MG/20 ML VIAL IV PUSH PRN (18:03)
--- NOTE | 2016-07-11 18:12 | HHI.PR ---
Subjective Remarks BP still elevated daughter at bedside patient is more awake and alert as per daughter improving cognitively denies cp/sob had good BM but no melena reported Objective Vitals Vital Signs Date Time Temp Pulse Resp B/P Pulse Ox O2 Delivery O2 Flow Rate FiO2 07/11/16 16:54 97 Nasal Cannula 3.00 07/11/16 12:30 88 20 198/100 99 07/11/16 12:11 97.4 90 20 178/97 99 07/11/16 12:11 99 Nasal Cannula 2 07/11/16 10:48 Nasal Cannula 3.00 07/11/16 10:30 97.0 90 20 132/64 99 07/11/16 08:00 97.0 90 20 132/64 99 07/11/16 04:00 97.6 89 20 157/67 96 07/11/16 04:00 164 07/11/16 00:00 97.3 87 20 126/61 99 07/10/16 21:45 Nasal Cannula 3.00 07/10/16 21:40 98 Nasal Cannula 3.00 07/10/16 20:00 97.5 89 20 144/63 99 07/10/16 20:00 89 I/O 07/10/16 07/10/16 07/10/16 07/11/16 07/11/16 07/11/16 07:00 15:00 23:00 07:00 15:00 23:00 Intake Total 1032 ml 120 ml 120 ml 0 ml 100 ml Output Total 650 ml 900 ml 1000 ml 375 ml Balance 382 ml -780 ml -880 ml -375 ml 100 ml Intake Oral 100 ml 120 ml 120 ml 0 ml IV Total 332 ml 100 ml Packed Cells 600 ml Output Urine Total 650 ml 900 ml 1000 ml 375 ml # Bowel Movements 1 0 0 0 Result Diagram: 07/11/16 0855 07/11/16 0635 Imaging Last Impressions Abdomen X-Ray 07/11/16 0000 Signed Impressions: Service Date/Time: Monday, July 11, 2016 13:32 - CONCLUSION: 1. Feeding tube in place with the tip projected over the distal esophagus. 2. Moderate to large amount of stool throughout the colon. Gilberto Longoria MD Chest X-Ray 07/07/16 0000 Signed Impressions: Service Date/Time: Thursday, July 07, 2016 05:25 - CONCLUSION: Tiny left pleural effusion. Allan Renee MD Carotid Artery Ultrasound 07/07/16 0000 Signed Impressions: Service Date/Time: Thursday, July 07, 2016 21:00 - CONCLUSION: 1. Probable mild stenosis left internal carotid artery. No hemodynamically significant stenosis on the right. Vertebral artery flow antegrade. Tad Veliz MD Renal Ultrasound 07/06/16 0859 Signed Impressions: Service Date/Time: June 11:52 - CONCLUSION: 1. Echogenic kidneys consistent with probable medical renal disease. 2. Scattered echogenic foci bilaterally consistent with probable non-obstructing calculi. 3. Bilateral renal cysts. 4. Suboptimal evaluation of the urinary bladder which is decompressed by a Jain catheter. Ashish Mayorga MD Head CT 07/06/16 0000 Signed Impressions: Service Date/Time: June 08:43 - CONCLUSION: 1. No acute hemorrhage or mass effect. 2. Focal area of decreased attenuation involving the left parietal lobe most consistent with an area of infarction which may be subacute to remote. 3. Atrophy and chronic small vessel ischemic change. Gilberto Longoria MD Chest CT 07/06/16 0000 Signed Impressions: Service Date/Time: June 01:52 - CONCLUSION: 1. Atherosclerosis. 2. Pneumonia. Larry Skaggs MD Brain MRI 07/06/16 0000 Signed Impressions: Service Date/Time: June 17:51 - CONCLUSION: 1. 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 2. Abnormal fluid accumulation in the aerated portion of the temporal bones bilaterally associated with bilateral mastoiditis and partial ethmoid opacification. Tad Veliz MD Objective Remarks GENERAL: 72-year-old female, lying in bed. SKIN: Warm and dry. HEAD: Atraumatic. Normocephalic. EYES: Pupils equal and round about 3 L bilaterally and reactive. No scleral icterus. No injection or drainage. ENT: No nasal bleeding or discharge. Mucous membranes pink and dry. Oropharynx without erythema NECK: Trachea midline. No JVD. CARDIOVASCULAR: Regular rate and rhythm. S1, S2. No S4. Without murmur RESPIRATORY: No accessory muscle use. Clear sounds are equal bilaterally. GASTROINTESTINAL: Abdomen obese, soft, nontender. no guarding. MUSCULOSKELETAL: Extremities 1+ lower extremity edema. No obvious deformities. NEUROLOGICAL: Patient is lethargic but arousable. Procedures none Medications and IVs Current Medications Medications (Trade) Dose Ordered Sig/Logan Route Start Time Stop Time Status Last Admin (NS Flush) 2 ml UNSCH PRN IV FLUSH 07/06/16 03:30 (NS Flush) 2 ml BID IV FLUSH 07/06/16 09:00 07/11/16 07:59 (Tylenol) 650 mg Q6H PRN PO 07/06/16 03:30 (Tears Naturale Opth Soln) 1 drop TID EACH EYE 07/06/16 09:00 07/11/16 18:03 (Zofran Inj) 4 mg Q6H PRN IV 07/06/16 03:30 (Colace) 100 mg BID PO 07/06/16 09:00 07/11/16 07:59 (Senokot) 17.2 mg Q12H PRN PO 07/06/16 03:30 07/10/16 16:00 Miscellaneous Information 1 Q361D XX 07/06/16 03:30 (Chlorhexidine 2% Cloth) Taper DAILY@04 TOP 07/06/16 04:00 07/02/17 03:59 07/09/16 04:00 Chlorhexidine Gluconate 3 pack 3 pack UNSCH PRN TOP 07/06/16 03:30 Metronidazole 100 ml @ 100 mls/hr Q8H IV 07/06/16 05:00 07/11/16 12:47 (Zithromax Inj/ NS 250 ml Inj) 250 ml @ 250 mls/hr Q24H IV 07/06/16 04:00 07/11/16 04:33 (D50w (Vial) Inj) 25 ml UNSCH PRN IV PUSH 07/06/16 05:15 (Glucagon Inj) 1 mg UNSCH PRN OTHER 07/06/16 05:15 (Peridex 0.12% Liq) 15 ml BID@08,20 MT 07/06/16 08:00 07/11/16 08:00 (Trandate Inj) 10 mg Q1HR PRN IV PUSH 07/06/16 08:00 07/11/16 18:03 (Apresoline Inj) 10 mg Q1HR PRN IV PUSH 07/06/16 08:00 07/08/16 14:51 (Roxicodone) 5 mg Q4H PRN PO 07/07/16 17:00 (Dilaudid Pf Inj) 0.5 mg Q4H PRN IV PUSH 07/07/16 17:00 Acetaminophen 650 mg 650 mg Q6H PO 07/07/16 18:00 07/11/16 18:03 Sodium Chloride 38.5 meq/Sterile Water 1,009.625 ml @ 50 mls/hr [id number] IV 07/09/16 16:00 07/11/16 01:33 (Protonix Inj/NS Inj) 100 ml @ 10 mls/hr CONTINUOUS IV 07/09/16 21:30 07/11/16 15:15 (Coreg) 25 mg BID PO 07/10/16 11:00 07/11/16 07:59 (Lipitor) 20 mg HS PO 07/10/16 21:00 07/10/16 21:43 (Apresoline) 100 mg TID PO 07/10/16 13:00 07/11/16 18:02 (Synthroid) 50 mcg DAILY@06 PO 07/10/16 10:45 07/11/16 06:37 (Singulair) 10 mg HS PO 07/10/16 21:00 07/10/16 21:43 (Timoptic 0.25% Opth Soln) 1 drop DAILY EACH EYE 07/11/16 09:00 07/11/16 09:15 Ferrous Sulfate 325 mg 325 mg DAILY PO 07/10/16 12:15 07/11/16 07:59 (Rocephin Inj/NS Inj) 100 ml @ 200 mls/hr Q24H IV 07/10/16 20:00 07/10/16 21:37 (Free Water) 300 ml Q6HR G-TUBE 07/11/16 18:00 Urinary Catheter: No Vascular Central Line Catheter: No A/P Problem List: (1) Encephalopathy acute ICD Code: G93.40 Status: Acute Plan: This is a 80-year-old female with a stage IV CK-MB, diastolic heart failure, chronic pain complaints who presented with altered mental status and hypoxemia requiring intubation mechanical ventilation. Intensive care unit. The patient presented with encephalopathy which was thought to be a combination of her subacute infarct medication induced due to poor renal clearance. The patient was treated in the intensive care unit and then extubated. MRI showed subacute left parietal infarct Xanax, Flexeril and hydrocodone as well as Lyrica on hold. The patient states that patient has an adverse reaction to Lyrica and that only rarely take the other home meds. Lipid panel normal Carotid ultrasounds show probable mild stenosis of the left internal carotid artery. No hemodynamically significant stenosis on the right. Patient was noted to be lethargic on July 09. Thought to be secondary to hyponatremia. Ammonia levels checked and slightly elevated at 36. 07/10 patient is more awake today. Sodium still 150, I will increase to rate of 1/4 NS to 125 ml/hr. 07/11 Encephalopathy resolved. Patient's sodium now better at 146, appreciate nephrology recommendations. Continue 1/4 ns at 50 ml/hr and continue free water via NG tube. Monitor BMP. (2) Chronic diastolic (congestive) heart failure ICD Code: I50.32 Status: Chronic Plan: Seems to be stable at this moment. Patient is on Bumex at home. Continue to hold due to hypernatremia. 2-D echocardiogram showed grade 1 diastolic dysfunction with preserved ejection fraction. (3) Uremia ICD Code: N19 Status: Resolved Plan: Likely contributing to the patient's encephalopathy. Patient still with elevated BUN, however trending down from previous days. There is question of GI bleed due to disproportionate elevated BUN to creatinine ratio. Uremia improving - BUN trending down - now 48 (4) Diabetes mellitus ICD Code: E11.9 Status: Chronic Plan: Continue to hold glipizide. Sugar seems to be stable. Continue SSI with regular insulin and to monitor Accu-Cheks. 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 (6) Debility ICD Code: R53.81 Status: Acute Plan: Continue with physical therapy efforts. Patient will need PT at rehabilitation. (7) Chronic kidney disease, stage 3 ICD Code: N18.3 Status: Chronic Plan: Continue to monitor BUN and creatinine. Creatinine seems to be close to baseline. (8) HTN (hypertension) ICD Code: I10 Status: Chronic Plan: Labile blood pressure with systolic blood pressure into the 170s. Much improved now. Resume home coreg and hydralazine (9) Constipation ICD Code: K59.00 Status: Resolved Plan: Continue senna and Colace, Miralax as needed. Patient reportedly had a BM today (10) Gout ICD Code: M10.9 Status: Chronic Plan: seems stable - resume Uloric (11) Gastroesophageal reflux disease ICD Code: K21.9 Status: Acute Plan: Patient takes Prilosec 20 mg by mouth daily at home. Patient currently is on tube feedings which have been held due to drop in hemoglobin observed on 07/08/16 Patient started an IV Protonix drip on 07/09/16. Continue 07/11 patient is status post EGD which showed gastritis and esophagitis. Continue Protonix drip. Follow-up GI recommendations. (12) Anemia ICD Code: D64.9 Status: Acute Plan: Patient had a positive stool guaiac test. Hemoglobin dropped from 8.5-7.6 on 07/09/16. Patient status post transfusion of 2 units of packed red blood cells on 07/09. Hemoglobin now 9.6 with appropriate response to transfusion. Concern for GI bleed given disproportionate BUN to creatinine ratio. Patient status post EGD. Hemoglobin stable at 9.4. EGD showed gastritis and esophagitis but no active bleeding Continue to monitor hemoglobin. Transfuse for hemoglobin less than 7 or active bleeding. (13) Acute kidney injury superimposed on CKD ICD Code: N17.9 Status: Acute Plan: The pain seems to be trending down. Continue to monitor BUN and creatinine, I would nephrotoxins. RAKEL seems resolving. Creatinine down to 1. 22 from 1.28. (14) Hypernatremia ICD Code: E87.0 Status: Acute Plan: Patient started on 1/4 ns on 07/09 - sodium still 150 Appreciate nephrology recommendations on help. Continue the rate of 1/4 ns at 15 mL per hour and continue free water via NG tube. Sodium is trending down now 146. (15) Positive blood culture ICD Code: R78.81 Status: Acute Plan: Patient had a positive blood culture with staph coagulase negative on 07/06 Possible contaminant. Blood cultures repeated on 07/09/16 and pending. Vancomycin restarted on 07/09/16. At the recommendations of proceeded. As per ID discontinue vancomycin, continue azithromycin, Flagyl Kumpe switched to oral and the patient was started on Rocephin. As per ID, most likely a contaminant. Blood cultures remain negative then the patient will not need any further treatment or workup. (16) HCAP (healthcare-associated pneumonia) ICD Code: J18.9 Status: Acute Plan: Patient given cefepime and given vancomycin emergency department. Continue IV vancomycin, IV cefepime, IV Flagyl and azithromycin for now. Legionella and streptococcal urine antigen negative. Sputum culture showed light growth of normal respiratory federico. Pulmonary stable, pneumonia seems to be improving. (17) Dysphagia ICD Code: R13.10 Status: Acute Plan: Continue NG tube and continued to feedings for now. I will reconsult speech therapy to perform a swallow eval that the patient is more awake. Assessment and Plan - GI - Protonix - DVT - SCD, continue to hold chemoprophylaxis due to drop in hemoglobin. Discharge Planning Case discussed with the daughter and RN were at bedside. Continue to monitor in the medical floor. Problem Qualifiers (1) Diabetes mellitus: Qualified Code: E11.8 - Type 2 diabetes mellitus with complication, without long-term current use of insulin (2) HTN (hypertension): Qualified Code: I10 - Essential hypertension (3) Constipation: Qualified Code: K59.00 - Constipation, unspecified constipation type (4) Gout: Qualified Code: M1A.9XX0 - Chronic gout without tophus, unspecified cause, unspecified site (5) Gastroesophageal reflux disease: Qualified Code: K21.9 - Gastroesophageal reflux disease without esophagitis (6) Anemia: Qualified Code: D64.9 - Anemia, unspecified type Anthony Bryant MD Jul 11, 2016 18:11
[2016-07-11] MEDS ORDERED: cloNIDine HCL 0.1 MG TAB PO PRN (18:30)
--- NOTE | 2016-07-11 19:50 | RADRPT ---
EXAM DATE/TIME: 07/11/2016 17:49 [facility] COMPARISON: No previous studies available for comparison. INDICATIONS : Evaluate NG tube placement. MEDICAL HISTORY : Renal disease. SURGICAL HISTORY : Hysterectomy. ENCOUNTER: Initial ACUITY: 1 day PAIN SCORE: 0/10 LOCATION: Abdomen. FINDINGS: An NG tube is seen with its tip at the distal esophagus. This does not appear to extend into the sto mach. The heart size appears enlarged. CONCLUSION: NG tube with its tip in the distal esophagus. Allan Tran MD on July 11, 2016 at 18:44 Board Certified Radiologist. This report was verified electronically.
--- NOTE | 2016-07-11 20:51 | RADRPT ---
EXAM DATE/TIME: 07/11/2016 20:13 [facility] COMPARISON: No previous studies available for comparison. INDICATIONS : Right arm swelling. MEDICAL HISTORY : Hypertension. Hypercholesterolemia. Sleep apnea. Syncope. CHF. Gastrointestinal disorders. Renal fail ure. UTI. Arthritis. Diabetes. SURGICAL HISTORY : Hysterectomy. ENCOUNTER: Initial ACUITY: 1 week PAIN SCORE: 0/10 LOCATION: Right arm. FINDINGS: There is thrombus in the right cephalic vein. There is spontaneous flow documented in the brachial, b asilic, axillary, and subclavian veins. The vessels are compressible and augmentation response is do cumented. No filling defects are seen. The flow is phasic with respiration. Direction of flow in t he jugular vein is caudal. CONCLUSION: Thrombus in the right cephalic vein. The remaining venous structures in the right upper extremity are patent. Allan Tran MD on July 11, 2016 at 20:48 Board Certified Radiologist. This report was verified electronically.
[2016-07-11] MEDS ORDERED: DOXAZOSIN MESYLATE 1 MG TAB PO SCH (21:00)
[2016-07-11] MEDS: ATORVASTATIN 20 MG TAB PO SCH (21:43)
[2016-07-11] MEDS: MONTELUKAST SODIUM 10 MG TAB PO SCH (21:43)
[2016-07-11] MEDS: cefTRIAXone INJ 2,000 MG in SODIUM CHLORIDE 0.9% INJ 100 ML IV SCH (21:57)
[2016-07-12] VITALS (11 sets, daily range): BP systolic 107–162; BP diastolic 57–72; PULSE 89–113; RESP 20–22; TEMP 97.1–98.2; O2SAT 94–97
[2016-07-12] MEDS: PANTOPRAZOLE INJ 80 MG in SODIUM CHLORIDE 0.9% INJ 100 ML IV SCH (02:22)
[2016-07-12] MEDS: SODIUM CHLORIDE 23.4% INJ 38.5 MEQ in WATER STERILE FOR INJ 1,000 ML IV SCH (02:22)
[2016-07-12] MEDS: CHLORHEXIDINE GLUCONATE 2 % 1 PACK (2 CLOTHS) TOP SCH (04:00)
[2016-07-12] MEDS: AZITHROMYCIN INJ 500 MG in SODIUM CHLOR 0.9% 250 ML INJ 250 ML IV SCH (05:01)
[2016-07-12] MEDS: metroNIDAZOLE 500 MG INJ 100 ML IV SCH ×3 (05:03→21:41)
[2016-07-12] MEDS: LEVOTHYROXINE SODIUM 50 MCG TAB PO SCH (05:06)
[2016-07-12] MEDS: FREE WATER G-TUBE SCH ×3 (05:06→17:00)
[2016-07-12] MEDS: ACETAMINOPHEN 325 MG TAB PO SCH ×4 (05:06→17:00)
[2016-07-12] MEDS: INSULIN NovoLIN REGULAR SUPPLEMENTAL SCALE SQ SCH ×4 (07:00→20:53)
[2016-07-12 07:21] LABS: HEMATOCRIT 30.9 % (35.0-46.0); MEAN CELL VOLUME 89.5 FL (80.0-100.0); MEAN CORPUSCULAR HGB CONC 31.3 % (32.0-36.0); PLATELET COUNT 174 TH/MM3 (150-450); RED BLOOD COUNT 3.46 MIL/MM3 (4.00-5.30); RED CELL DISTRIBUTION WIDTH 16.4 % (11.6-17.2); REVIEW FLAG FINAL; WHITE BLOOD COUNT 10.7 TH/MM3 (4.0-11.0)
[2016-07-12 07:39] LABS: MAGNESIUM 1.6 MG/DL (1.5-2.5); POTASSIUM 4.3 MEQ/L (3.5-5.1)
[2016-07-12] MEDS: CHLORHEXIDINE 0.12% (ORAL KIT) 15 ML CUP MT SCH ×2 (08:00→20:00)
[2016-07-12] MEDS: FERROUS SULFATE 325 MG (65 MG ELEMENTAL IRON) TAB PO SCH (08:10)
[2016-07-12] MEDS: CARVEDILOL 12.5 MG TAB PO SCH ×2 (08:10→20:55)
[2016-07-12] MEDS: DOCUSATE SODIUM 100 MG CAP PO SCH ×2 (08:10→20:55)
[2016-07-12] MEDS: hydrALAZINE HCL 100 MG TAB PO SCH ×3 (08:10→17:00)
[2016-07-12] MEDS: TIMOLOL MALEATE 0.25% OPHT SOLN 5 ML BTL EACH EYE SCH (08:11)
[2016-07-12] MEDS: SODIUM CHLORIDE 0.9% FLUSH 5 ML FLUSH IV FLUSH SCH ×2 (08:11→20:54)
[2016-07-12] MEDS: ARTIFICIAL TEARS OPTH SOLN 15 ML BTL EACH EYE SCH ×3 (08:11→17:01)
--- NOTE | 2016-07-12 09:15 | PQ ---
Physician Query Response Document PATIENT: KELVIN ENCINAS : 1935 ADMIT DATE: 07/06/2016 12:52 AM DISCH DATE: RESPONDING PROVIDER #: [email or web address] QUERY TEXT: Sepsis Query Based on your medical judgement, can you further clarify the folowiin. Sepsis (SIRS due to an infection) 2. Sepsis with Organ Dysfunction 3. A localized Infection only 4. Another condition - please specify 5. Unable to determine - please explain. Depending on your selection above, please indicate one of the below if applicable: - Sepsis was present on Admission - Sepsis developed after admission The patient's Clinical Indicators include: WBC 15.1 RR 34 HR 119 sat 88 and ph 7/16 AND DIAGNOSIS OF PNEUMONIA and hypoxia on admission ENCEPALOPATHY AND ACUTE ON CHRONIC RENAL FAILURE TX CEFEPIME / AZITHROMYCIN per Nephrology She was recently discharged from [facility] and rehab, and was on placed on Cipro for unknown reasons. On arrival ABG showed respiratory acidosis and elevated BUN and Creatinine differentials include GIB, decreased renal perfusion from sepsis, possible dehydration Query created by: Harleen Paz on 07/10/2016 9:02 AM RESPONSE TEXT: Sepsis present on admission Electronically signed by: Anthony Mariscal MD 07/12/2016 9:11 AM
--- NOTE | 2016-07-12 10:57 | HHI.GIFU ---
Subjective Remarks Resting in bed. States she was eating 50% or more of meals prior to endoscopy. No n/v. No abdominal pain. No bleeding. States she would drink ensure if chocolate. (Renuka Dennis) Objective Vitals I&O Vital Signs Date Time Temp Pulse Resp B/P Pulse Ox O2 Delivery O2 Flow Rate FiO2 07/12/16 09:45 Nasal Cannula 3.00 07/12/16 08:00 97.2 99 22 162/72 97 07/12/16 04:16 104 07/12/16 04:00 98.2 102 22 148/64 97 07/12/16 00:00 97.4 102 22 107/57 97 07/11/16 22:00 Nasal Cannula 3.00 07/11/16 20:00 98.0 99 22 172/82 98 07/11/16 16:54 97 Nasal Cannula 3.00 07/11/16 16:00 97.4 94 18 148/64 98 07/11/16 12:30 88 20 198/100 99 07/11/16 12:11 97.4 90 20 178/97 99 07/11/16 12:11 99 Nasal Cannula 2 07/11/16 12:00 97.8 94 20 154/67 96 I/O 07/11/16 07/11/16 07/11/16 07/12/16 07/12/16 07/12/16 07:00 15:00 23:00 07:00 15:00 23:00 Intake Total 0 ml 220 ml 3950 ml Output Total 375 ml 350 ml 2 ml Balance -375 ml -130 ml 3948 ml Intake Oral 0 ml 120 ml IV Total 100 ml 3950 ml Output Urine Total 375 ml 350 ml 2 ml # Bowel Movements 0 1 1 Laboratory Laboratory Tests Test 07/12/16 07:01 White Blood Count 10.7 Red Blood Count 3.46 Hemoglobin 9.7 Hematocrit 30.9 Mean Corpuscular Volume 89.5 Mean Corpuscular Hemoglobin 28.0 Mean Corpuscular Hemoglobin 31.3 Concent Red Cell Distribution Width 16.4 Platelet Count 174 Mean Platelet Volume 10.1 Sodium Level 143 Potassium Level 4.3 Chloride Level 106 Carbon Dioxide Level 28.0 Anion Gap 9 Blood Urea Nitrogen 40 Creatinine 1.15 Estimat Glomerular Filtration 46 Rate Random Glucose 130 Calcium Level 8.6 Phosphorus Level 2.4 Magnesium Level 1.6 Date/Time Procedure Status Source Growth 07/09/16 16:15 Aerobic Blood Culture - Preliminary Resulted Blood Peripheral NO GROWTH IN 2 DAYS 07/09/16 16:15 Anaerobic Blood Culture - Preliminary Resulted Blood Peripheral NO GROWTH IN 2 DAYS Imaging Last Impressions Upper Extremity Ultrasound 07/11/16 0000 Signed Impressions: Service Date/Time: Monday, July 11, 2016 20:13 - CONCLUSION: Thrombus in the right cephalic vein. The remaining venous structures in the right upper extremity are patent. Allan Tran MD Abdomen X-Ray 07/11/16 0000 Signed Impressions: Service Date/Time: Monday, July 11, 2016 17:49 - CONCLUSION: NG tube with its tip in the distal esophagus. Allan Tran MD Chest X-Ray 07/07/16 0000 Signed Impressions: Service Date/Time: Thursday, July 07, 2016 05:25 - CONCLUSION: Tiny left pleural effusion. Allan Renee MD Carotid Artery Ultrasound 07/07/16 0000 Signed Impressions: Service Date/Time: Thursday, July 07, 2016 21:00 - CONCLUSION: 1. Probable mild stenosis left internal carotid artery. No hemodynamically significant stenosis on the right. Vertebral artery flow antegrade. Tad Veliz MD Renal Ultrasound 07/06/16 0859 Signed Impressions: Service Date/Time: June 11:52 - CONCLUSION: 1. Echogenic kidneys consistent with probable medical renal disease. 2. Scattered echogenic foci bilaterally consistent with probable non-obstructing calculi. 3. Bilateral renal cysts. 4. Suboptimal evaluation of the urinary bladder which is decompressed by a Jain catheter. Ashish Mayorga MD Head CT 07/06/16 0000 Signed Impressions: Service Date/Time: June 08:43 - CONCLUSION: 1. No acute hemorrhage or mass effect. 2. Focal area of decreased attenuation involving the left parietal lobe most consistent with an area of infarction which may be subacute to remote. 3. Atrophy and chronic small vessel ischemic change. Gilberto Longoria MD Chest CT 07/06/16 0000 Signed Impressions: Service Date/Time: June 01:52 - CONCLUSION: 1. Atherosclerosis. 2. Pneumonia. Larry Skaggs MD Brain MRI 07/06/16 0000 Signed Impressions: Service Date/Time: June 17:51 - CONCLUSION: 1. 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 2. Abnormal fluid accumulation in the aerated portion of the temporal bones bilaterally associated with bilateral mastoiditis and partial ethmoid opacification. Tad Veliz MD Physical Exam HEENT: Normocephalic; atraumatic; no jaundice. CHEST: Diminished bases CARDIAC: RRR. ABDOMEN: Soft, nondistended, nontender; no hepatosplenomegaly; bowel sounds are present in all four quadrants. EXTREMITIES: Generalized edema. SKIN: Multiple ecchymotic areas SENIOR QA ENGINEER: Alert, oriented to place and person (Renuka Dennis) Assessment and Plan Plan ASSESSMENT: - Anemia/heme (+) stools. We had previously evaluated the patient, but her HH was stable and she was not having any signs of active bleeding and therefore because of her multiple comorbidities, it was decided to hold on endoscopy and to pursue if active bleeding. Pt is now more stable and her HH had been trending down and therefore GI was reconsulted for EGD. S/P EGD (07/11/16)--- > gastritis in the antrum, esophagitis distal esophagus, dobhoff tube was noted to be in the fundus of stomach, repositioned, retroflexed views revealed a hiatal hernia. Pt had NGT placed last night. - Dysphagia, Improved. She is being followed by ST and they recommended puree diet with honey thickened liquids. She was eating 50% or more of meals prior to scope. She reports that she would drink ensure if chocolate. D/W patient importance of good po intake and she thinks she can eat more. Will resume po diet and add Glucerna chocolate glucerna. If she eats more than 50 % and drinks the shakes, okay to d/c NGT. - AMS/Leukocytosis/pneumonia. Improved. Rpt. BCx pending no growth 2 days. cefepime, flagyl - Acute on chronic kidney disease, per nephrology - Respiratory failure. S/P extubation. Plan: - Puree diet with honey thickened liquids - Chocolate ensure - If patient eats more than 50% of meal and takes Glucerna, okay to d/c NGT - If not, resume TF along with po diet. - D/C protonix gtt - Protonix 40mg po daily - Await pathology - Monitor labs - Transfuse as needed - Notify GI for active bleeding - Supportive care - Further recommendations to follow based on results of above - Patient seen and examined by Dr. Lrod and myself and this note is written on her behalf. (Renuka Dennis) Physician Comments agree with above (Estefani Lord MD) Renuka Dennis Jul 12, 2016 10:57 Estefani Lord MD Jul 12, 2016 17:41
[2016-07-12] MEDS ORDERED: PANTOPRAZOLE INJ 80 MG in SODIUM CHLORIDE 0.9% INJ 100 ML IV SCH (12:00)
--- NOTE | 2016-07-12 13:11 | HHI.NPPN ---
Subjective Complaints: Obesity General Problems: Edema Renal Failure: Chronic, Acute, Stage IV Interval History Renal function stable, sodium improved. (Kylie Bridges) Review of Systems General Constitutional: Fatigue (Kylie Bridges) Musculoskeletal MS: Pain/Stiffness (Kylie Bridges) Objective Data Data 07/11/16 07/12/16 19:00 07:00 Intake Total 220 ml 3950 ml Output Total 350 ml 2 ml Balance -130 ml 3948 ml Intake Oral 120 ml IV Total 100 ml 3950 ml Output Urine Total 350 ml 2 ml # Bowel Movements 1 1 Vital Signs Date Time Temp Pulse Resp B/P Pulse Ox O2 Delivery O2 Flow Rate FiO2 07/12/16 12:00 97.1 99 20 154/65 97 07/12/16 09:45 Nasal Cannula 3.00 07/12/16 08:00 97.2 99 22 162/72 97 07/12/16 04:16 104 07/12/16 04:00 98.2 102 22 148/64 97 07/12/16 00:00 97.4 102 22 107/57 97 07/11/16 22:00 Nasal Cannula 3.00 07/11/16 20:00 98.0 99 22 172/82 98 07/11/16 16:54 97 Nasal Cannula 3.00 07/11/16 16:00 97.4 94 18 148/64 98 (Kylie Bridges) -: 07/12/16 0701 07/12/16 0701 Imaging Last 72 hours Impressions Upper Extremity Ultrasound 07/11/16 0000 Signed Impressions: Service Date/Time: Monday, July 11, 2016 20:13 - CONCLUSION: Thrombus in the right cephalic vein. The remaining venous structures in the right upper extremity are patent. Allan Tran MD Abdomen X-Ray 07/11/16 0000 Signed Impressions: Service Date/Time: Monday, July 11, 2016 17:49 - CONCLUSION: NG tube with its tip in the distal esophagus. Allan Tran MD Abdomen X-Ray 07/11/16 0000 Signed Impressions: Service Date/Time: Monday, July 11, 2016 13:32 - CONCLUSION: 1. Feeding tube in place with the tip projected over the distal esophagus. 2. Moderate to large amount of stool throughout the colon. Gilberto Longoria MD Tubes & Lines: Glynn Tubes & Lines Comment NG tube (Kylie Bridges [employer] OFFICER) Physical Exam General Appearance: Well Developed, Well Nourished, No Acute Distress, Comfortable, Obese (Kylie Bridges B. [employer]SEC[employer]ITY OFFICER) Eyes Eye Exam: Sclera White Eye Remarks right pupil 3 mm, left 1 mm (Kylie Bridges B. [employer]SEC[employer]ITY OFFICER) Throat Throat Exam: Oral Mucosa Bertram & Moist Throat Remarks NG tube (Kylie Bridges B. [employer]SECURITY OFFICER) Pulmonary Resp Exam: Breath Sounds Equal, Crackles Resp Remarks bibasilar rales (Kylie Bridges B. BIOSECURITY OFFICER) Cardiology CV Exam: Good Perfusion, Irregular, Arrhythmia (Kylie Bridges B. [employer]SECURITY OFFICER) Gastrointestinal/Abdomen GI Exam: Soft, Non-Tender, Bowel Sounds Present, Distended (Kylie Bridges B. BIOSECURITY OFFICER) Genitourinary Exam: Clear Urine (Kylie Bridges. BIOSECURITY OFFICER) Musculoskeletal MS Exam: Joints Intact, Normal Tone (Kylie Bridges B. BIOSECURITY OFFICER) Integumentary Skin Exam: Clear, Warm, Dry, Intact (Kylie Bridges B. BIOSECURITY OFFICER) Extremeties Extremities Exam: Pedal Pulses Palpable, Trace Edema (Kylie Bridges B. BIOSECURITY OFFICER) Neurologic Neuro Exam: Alert, Awake, Oriented, Speech Clear, Moving All Extremities ( Kylie Bridges B. BIOSECURITY OFFICER) Psychiatric Psych Exam: Appropriate Responses (Kylie Bridges) Assessment/Plan Discussed Condition With: Patient, Spouse, Daughter Assessment Summary: RAKEL/Acute Renal Failure, Diabetes Mellitus, CKD Stage IV Problem List: (1) Acute kidney injury superimposed on CKD Plan: Baseline creatinine from 2015 2.02, GFR 24, consistent with CKD 4 renal function has improved significantly she has good urine output, glynn has been removed K is normal sodium corrected, will stop IVF recheck electrolyte panel and correct variants discussed with pt and family (2) HTN (hypertension) Plan: BP stable, continue oral medications monitor (3) DM (diabetes mellitus) Plan: BG acceptable continue insulin as needed (4) Anemia Plan: Hb stable, GI following s/p panendoscopy, results of hiatal hernia and gastritis, no GI bleed identifiec labs indicating iron deficiency, Venofer should be avoided in Sepsis possible contaminant on admission, 1/4 bottles positive, repeat negative to date will continue oral iron (5) Dysphagia Plan: GI evaluated and advanced diet to nectar thick/pureed NG can be removed speech therapy assisting (6) Pneumonia Plan: ID following, on Rocephin only monitor clinically she is at risk for aspiration PNA having swallowing evaluated by ST (Kylie Bridges) Plan patient was seen and examined. Agree with above assessment and plan. (Luis Crocker MD) Problem Qualifiers (1) HTN (hypertension): Qualified Code: I10 - Essential hypertension (2) Anemia: Qualified Code: D64.9 - Anemia, unspecified type (3) Pneumonia: Qualified Code: J18.9 - Pneumonia of right lung due to infectious organism, unspecified part of lung Kylie Bridges Jul 12, 2016 13:11 Luis Crocker MD Jul 12, 2016 22:02
--- NOTE | 2016-07-12 19:23 | HHI.PR ---
Subjective Remarks passed swallow eval denies cp/sob daughter at bedside ate well Bp elevated Objective Vitals Vital Signs Date Time Temp Pulse Resp B/P Pulse Ox O2 Delivery O2 Flow Rate FiO2 07/12/16 19:16 97.6 99 22 153/65 97 07/12/16 18:29 96 Nasal Cannula 2.00 07/12/16 16:00 97.3 89 20 139/62 94 07/12/16 13:07 96 Nasal Cannula 3.00 07/12/16 12:00 97.1 99 20 154/65 97 07/12/16 09:45 Nasal Cannula 3.00 07/12/16 08:00 97.2 99 22 162/72 97 07/12/16 04:16 104 07/12/16 04:00 98.2 102 22 148/64 97 07/12/16 00:00 97.4 102 22 107/57 97 07/11/16 22:00 Nasal Cannula 3.00 07/11/16 20:00 98.0 99 22 172/82 98 I/O 07/11/16 07/11/16 07/11/16 07/12/16 07/12/16 07/12/16 07:00 15:00 23:00 07:00 15:00 23:00 Intake Total 0 ml 220 ml 3950 ml Output Total 375 ml 350 ml 2 ml Balance -375 ml -130 ml 3948 ml Intake Oral 0 ml 120 ml IV Total 100 ml 3950 ml Output Urine Total 375 ml 350 ml 2 ml # Bowel Movements 0 1 1 Result Diagram: 07/12/16 0701 07/12/16 0701 Imaging Last Impressions Upper Extremity Ultrasound 07/11/16 0000 Signed Impressions: Service Date/Time: Monday, July 11, 2016 20:13 - CONCLUSION: Thrombus in the right cephalic vein. The remaining venous structures in the right upper extremity are patent. Allan Tran MD Abdomen X-Ray 07/11/16 0000 Signed Impressions: Service Date/Time: Monday, July 11, 2016 17:49 - CONCLUSION: NG tube with its tip in the distal esophagus. Allan Tran MD Chest X-Ray 07/07/16 0000 Signed Impressions: Service Date/Time: Thursday, July 07, 2016 05:25 - CONCLUSION: Tiny left pleural effusion. Allan Renee MD Carotid Artery Ultrasound 07/07/16 Signed Impressions: Service Date/Time: Thursday, July 07, 2016 21:00 - CONCLUSION: 1. Probable mild stenosis left internal carotid artery. No hemodynamically significant stenosis on the right. Vertebral artery flow antegrade. Tad Veliz MD Renal Ultrasound 07/06/16 0859 Signed Impressions: Service Date/Time: June 11:52 - CONCLUSION: 1. Echogenic kidneys consistent with probable medical renal disease. 2. Scattered echogenic foci bilaterally consistent with probable non-obstructing calculi. 3. Bilateral renal cysts. 4. Suboptimal evaluation of the urinary bladder which is decompressed by a Jain catheter. Ashish Mayorga MD Head CT 07/06/16 0000 Signed Impressions: Service Date/Time: June 08:43 - CONCLUSION: 1. No acute hemorrhage or mass effect. 2. Focal area of decreased attenuation involving the left parietal lobe most consistent with an area of infarction which may be subacute to remote. 3. Atrophy and chronic small vessel ischemic change. Gilberto Longoria MD Chest CT 07/06/16 Signed Impressions: Service Date/Time: June 01:52 - CONCLUSION: 1. Atherosclerosis. 2. Pneumonia. Larry Skaggs MD Brain MRI 07/06/16 Signed Impressions: Service Date/Time: June 17:51 - CONCLUSION: 1. 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 2. Abnormal fluid accumulation in the aerated portion of the temporal bones bilaterally associated with bilateral mastoiditis and partial ethmoid opacification. Tad Veliz MD Objective Remarks GENERAL: 72-year-old female, lying in bed. SKIN: Warm and dry. HEAD: Atraumatic. Normocephalic. EYES: Pupils equal and round about 3 L bilaterally and reactive. No scleral icterus. No injection or drainage. ENT: No nasal bleeding or discharge. Mucous membranes pink and dry. Oropharynx without erythema NECK: Trachea midline. No JVD. CARDIOVASCULAR: Regular rate and rhythm. S1, S2. No S4. Without murmur RESPIRATORY: No accessory muscle use. Clear sounds are equal bilaterally. GASTROINTESTINAL: Abdomen obese, soft, nontender. no guarding. MUSCULOSKELETAL: Extremities 1+ lower extremity edema. No obvious deformities. NEUROLOGICAL: Patient is lethargic but arousable. Procedures none Medications and IVs Current Medications Medications (Trade) Dose Ordered Sig/Logan Route Start Time Stop Time Status Last Admin (NS Flush) 2 ml UNSCH PRN IV FLUSH 07/06/16 03:30 (NS Flush) 2 ml BID IV FLUSH 07/06/16 09:00 07/12/16 08:11 (Tylenol) 650 mg Q6H PRN PO 07/06/16 03:30 (Tears Naturale Opth Soln) 1 drop TID EACH EYE 07/06/16 09:00 07/12/16 17:01 (Zofran Inj) 4 mg Q6H PRN IV 07/06/16 03:30 (Colace) 100 mg BID PO 07/06/16 09:00 07/12/16 08:10 (Senokot) 17.2 mg Q12H PRN PO 07/06/16 03:30 07/10/16 16:00 Miscellaneous Information 1 Q361D XX 07/06/16 03:30 (Chlorhexidine 2% Cloth) Taper DAILY@04 TOP 07/06/16 04:00 07/02/17 03:59 07/09/16 04:00 Chlorhexidine Gluconate 3 pack 3 pack UNSCH PRN TOP 07/06/16 03:30 Metronidazole 100 ml @ 100 mls/hr Q8H IV 07/06/16 05:00 07/12/16 11:31 (Zithromax Inj/ NS 250 ml Inj) 250 ml @ 250 mls/hr Q24H IV 07/06/16 04:00 07/12/16 05:01 (D50w (Vial) Inj) 25 ml UNSCH PRN IV PUSH 07/06/16 05:15 (Glucagon Inj) 1 mg UNSCH PRN OTHER 07/06/16 05:15 (Peridex 0.12% Liq) 15 ml BID@08,20 MT 07/06/16 08:00 07/12/16 08:00 (Trandate Inj) 10 mg Q1HR PRN IV PUSH 07/06/16 08:00 07/11/16 18:03 (Apresoline Inj) 10 mg Q1HR PRN IV PUSH 07/06/16 08:00 07/08/16 14:51 (Roxicodone) 5 mg Q4H PRN PO 07/07/16 17:00 (Dilaudid Pf Inj) 0.5 mg Q4H PRN IV PUSH 07/07/16 17:00 (Tylenol) 650 mg Q6H PO 07/07/16 18:00 07/12/16 11:32 (Coreg) 25 mg BID PO 07/10/16 11:00 07/12/16 08:10 (Lipitor) 20 mg HS PO 07/10/16 21:00 07/11/16 21:43 (Apresoline) 100 mg TID PO 07/10/16 13:00 07/12/16 17:00 (Synthroid) 50 mcg DAILY@06 PO 07/10/16 10:45 07/12/16 05:06 (Singulair) 10 mg HS PO 07/10/16 21:00 07/11/16 21:43 (Timoptic 0.25% Opth Soln) 1 drop DAILY EACH EYE 07/11/16 09:00 07/12/16 08:11 Ferrous Sulfate 325 mg 325 mg DAILY PO 07/10/16 12:15 07/12/16 08:10 (Rocephin Inj/NS Inj) 100 ml @ 200 mls/hr Q24H IV 07/10/16 20:00 07/11/16 21:57 (Catapres) 0.1 mg Q6H PRN PO 07/11/16 18:30 (Cardura) 1 mg HS PO 07/11/16 21:00 07/11/16 21:54 (Protonix) 40 mg DAILY PO 07/13/16 09:00 (Free Water) 200 ml Q6HR G-TUBE 07/12/16 18:00 07/12/16 17:00 A/P Problem List: (1) Encephalopathy acute ICD Code: G93.40 Status: Acute Plan: This is a 80-year-old female with a stage IV CK-MB, diastolic heart failure, chronic pain complaints who presented with altered mental status and hypoxemia requiring intubation mechanical ventilation. Intensive care unit. The patient presented with encephalopathy which was thought to be a combination of her subacute infarct medication induced due to poor renal clearance. The patient was treated in the intensive care unit and then extubated. MRI showed subacute left parietal infarct Xanax, Flexeril and hydrocodone as well as Lyrica on hold. The patient states that patient has an adverse reaction to Lyrica and that only rarely take the other home meds. Lipid panel normal Carotid ultrasounds show probable mild stenosis of the left internal carotid artery. No hemodynamically significant stenosis on the right. Patient was noted to be lethargic on July 09. Thought to be secondary to hyponatremia. Ammonia levels checked and slightly elevated at 36. 07/10 patient is more awake today. Sodium still 150, I will increase to rate of 1/4 NS to 125 ml/hr. 07/11 Encephalopathy resolved. Patient's sodium now better at 146, appreciate nephrology recommendations. Continue 1/4 ns at 50 ml/hr and continue free water via NG tube. Monitor BMP. 07/12 1/4 ns discontinued. (2) Chronic diastolic (congestive) heart failure ICD Code: I50.32 Status: Chronic Plan: Seems to be stable at this moment. Patient is on Bumex at home. Continue to hold due to hypernatremia. 2-D echocardiogram showed grade 1 diastolic dysfunction with preserved ejection fraction. (3) Uremia ICD Code: N19 Status: Resolved Plan: Likely contributing to the patient's encephalopathy. Patient still with elevated BUN, however trending down from previous days. There is question of GI bleed due to disproportionate elevated BUN to creatinine ratio. Uremia improving - BUN trending down - now 40 (4) Diabetes mellitus ICD Code: E11.9 Status: Chronic Plan: Continue to hold glipizide. Sugar seems to be stable. Continue SSI with regular insulin and to monitor Accu-Cheks. 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 (6) Debility ICD Code: R53.81 Status: Acute Plan: Continue with physical therapy efforts. Patient will need PT at rehabilitation. (7) Chronic kidney disease, stage 3 ICD Code: N18.3 Status: Chronic Plan: Continue to monitor BUN and creatinine. Creatinine seems to be close to baseline. (8) HTN (hypertension) ICD Code: I10 Status: Chronic Plan: Labile blood pressure with systolic blood pressure into the 170s. Much improved now. Continue Coreg and hydralazine 07/12 Cardura 1mg at bedtime started on 07/11 however blood pressure still elevated and uncontrolled. Increase Cardura dose to 2 mg by mouth at bedtime. (9) Constipation ICD Code: K59.00 Status: Resolved Plan: Continue senna and Colace, Miralax as needed. resolved (10) Gout ICD Code: M10.9 Status: Chronic Plan: seems stable - resume Uloric (11) Gastroesophageal reflux disease ICD Code: K21.9 Status: Acute Plan: Patient takes Prilosec 20 mg by mouth daily at home. Patient currently is on tube feedings which have been held due to drop in hemoglobin observed on 07/08/16 Patient started an IV Protonix drip on 07/09/16. Continue 07/11 patient is status post EGD which showed gastritis and esophagitis. Continue Protonix drip. Follow-up GI recommendations. 07/12 off protonix drip - continue protonix 40 mg daily (12) Anemia ICD Code: D64.9 Status: Acute Plan: Patient had a positive stool guaiac test. Hemoglobin dropped from 8.5-7.6 on 07/09/16. Patient status post transfusion of 2 units of packed red blood cells on 07/09. Hemoglobin now 9.6 with appropriate response to transfusion. Concern for GI bleed given disproportionate BUN to creatinine ratio. Patient status post EGD. Hemoglobin stable . EGD showed gastritis and esophagitis but no active bleeding Continue to monitor hemoglobin. Transfuse for hemoglobin less than 7 or active bleeding. (13) Acute kidney injury superimposed on CKD ICD Code: N17.9 Status: Acute Plan: The pain seems to be trending down. Continue to monitor BUN and creatinine, I would nephrotoxins. RAKEL seems resolving. Creatinine down to 1. 22 from 1.28. (14) Hypernatremia ICD Code: E87.0 Status: Acute Plan: Patient started on 1/4 ns on 07/09 - sodium still 150 Appreciate nephrology recommendations on help. Sodium bettetr at 143 - Nephrology discontinued Hypotonic saline. (15) Positive blood culture ICD Code: R78.81 Status: Acute Plan: Patient had a positive blood culture with staph coagulase negative on 07/06 Possible contaminant. Blood cultures repeated on 07/09/16 and pending. Vancomycin restarted on 07/09/16. At the recommendations of proceeded. As per ID discontinue vancomycin, continue azithromycin, Flagyl Kumpe switched to oral and the patient was started on Rocephin. As per ID, most likely a contaminant. Blood cultures remain negative then the patient will not need any further treatment or workup. (16) HCAP (healthcare-associated pneumonia) ICD Code: J18.9 Status: Acute Plan: Patient given cefepime and given vancomycin emergency department. Continue IV vancomycin, IV cefepime, IV Flagyl and azithromycin for now. Legionella and streptococcal urine antigen negative. Sputum culture showed light growth of normal respiratory federico. Pulmonary stable, pneumonia seems to be improving. (17) Dysphagia ICD Code: R13.10 Status: Acute Plan: Continue NG tube and continued to feedings for now. I will reconsult speech therapy to perform a swallow eval that the patient is more awake. 07/12 Passed dysphagia eval. NG tube discontinued. Continue with diet as per speech therapy. Assessment and Plan - GI - Protonix - DVT - SCD, continue to hold chemoprophylaxis due to drop in hemoglobin. Discharge Planning Poss dc in am. Patient will need rehab Problem Qualifiers (1) Diabetes mellitus: Qualified Code: E11.8 - Type 2 diabetes mellitus with complication, without long-term current use of insulin (2) HTN (hypertension): Qualified Code: I10 - Essential hypertension (3) Constipation: Qualified Code: K59.00 - Constipation, unspecified constipation type (4) Gout: Qualified Code: M1A.9XX0 - Chronic gout without tophus, unspecified cause, unspecified site (5) Gastroesophageal reflux disease: Qualified Code: K21.9 - Gastroesophageal reflux disease without esophagitis (6) Anemia: Qualified Code: D64.9 - Anemia, unspecified type Anthony Bryant MD Jul 12, 2016 19:23
[2016-07-12] MEDS: cefTRIAXone INJ 2,000 MG in SODIUM CHLORIDE 0.9% INJ 100 ML IV SCH (20:53)
[2016-07-12] MEDS: MONTELUKAST SODIUM 10 MG TAB PO SCH (20:53)
[2016-07-12] MEDS: ATORVASTATIN 20 MG TAB PO SCH (20:53)
[2016-07-12] MEDS: DOXAZOSIN MESYLATE 1 MG TAB PO SCH (20:54)
--- NOTE | 2016-07-12 22:21 | HHI.IDPN ---
Subjective Subjective Remarks cont to be confused afebrile on NC O2 Antibiotics azithromycin CFTX Allergies: Coded Allergies: Lyrica (Verified Allergy, Mild, Swelling Confussed, 07/06/16) Codeine (Verified Allergy, Unknown, Confusion, 07/28/15) pt stated, she felt the effects of medication days after, doesnt want any narcotics Objective . Vital Signs Date Time Temp Pulse Resp B/P Pulse Ox O2 Delivery O2 Flow Rate FiO2 07/12/16 20:00 97.8 99 22 116/58 97 07/12/16 19:16 97.6 99 22 153/65 97 07/12/16 18:29 96 Nasal Cannula 2.00 07/12/16 16:00 97.3 89 20 139/62 94 07/12/16 13:07 96 Nasal Cannula 3.00 07/12/16 12:00 97.1 99 20 154/65 97 07/12/16 09:45 Nasal Cannula 3.00 07/12/16 08:00 97.2 99 22 162/72 97 07/12/16 04:16 104 07/12/16 04:00 98.2 102 22 148/64 97 07/12/16 00:00 97.4 102 22 107/57 97 07/11/16 07/11/16 07/12/16 15:00 23:00 07:00 Intake Total 220 ml 3950 ml Output Total 350 ml 2 ml Balance -130 ml 3948 ml Intake Oral 120 ml IV Total 100 ml 3950 ml Output Urine Total 350 ml 2 ml # Bowel Movements 1 1 . Laboratory Tests Test 07/11/16 07/12/16 08:55 07:01 White Blood Count 9.9 TH/MM3 10.7 TH/MM3 Red Blood Count 3.30 MIL/MM3 3.46 MIL/MM3 Hemoglobin 9.4 GM/DL 9.7 GM/DL Hematocrit 28.8 % 30.9 % Mean Corpuscular Volume 87.2 FL 89.5 FL Mean Corpuscular Hemoglobin 28.3 PG 28.0 PG Mean Corpuscular Hemoglobin 32.5 % 31.3 % Concent Red Cell Distribution Width 16.6 % 16.4 % Platelet Count 150 TH/MM3 174 TH/MM3 Mean Platelet Volume 9.8 FL 10.1 FL Neutrophils (%) (Auto) 78.8 % Lymphocytes (%) (Auto) 8.8 % Monocytes (%) (Auto) 10.2 % Eosinophils (%) (Auto) 1.7 % Basophils (%) (Auto) 0.5 % Neutrophils # (Auto) 7.8 TH/MM3 Lymphocytes # (Auto) 0.9 TH/MM3 Monocytes # (Auto) 1.0 TH/MM3 Eosinophils # (Auto) 0.2 TH/MM3 Basophils # (Auto) 0.0 TH/MM3 CBC Comment DIFF FINAL Differential Comment Hematology Comments Laboratory Tests Test 07/11/16 07/12/16 06:35 07:01 Sodium Level 144 MEQ/L 143 MEQ/L Potassium Level 4.5 MEQ/L 4.3 MEQ/L Chloride Level 109 MEQ/L 106 MEQ/L Carbon Dioxide Level 31.1 MEQ/L 28.0 MEQ/L Anion Gap 4 MEQ/L 9 MEQ/L Blood Urea Nitrogen 48 MG/DL 40 MG/DL Creatinine 1.22 MG/DL 1.15 MG/DL Estimat Glomerular Filtration 43 ML/MIN 46 ML/MIN Rate Random Glucose 111 MG/DL 130 MG/DL Calcium Level 8.3 MG/DL 8.6 MG/DL Phosphorus Level 1.9 MG/DL 2.4 MG/DL Magnesium Level 1.7 MG/DL 1.6 MG/DL Total Bilirubin 0.4 MG/DL Aspartate Amino Transf 22 U/L (AST/SGOT) Alanine Aminotransferase 17 U/L (ALT/SGPT) Alkaline Phosphatase 63 U/L Total Protein 5.1 GM/DL Albumin 1.8 GM/DL Imaging Last Impressions Upper Extremity Ultrasound 07/11/16 0000 Signed Impressions: Service Date/Time: Monday, July 11, 2016 20:13 - CONCLUSION: Thrombus in the right cephalic vein. The remaining venous structures in the right upper extremity are patent. Allan Tran MD Abdomen X-Ray 07/11/16 0000 Signed Impressions: Service Date/Time: Monday, July 11, 2016 17:49 - CONCLUSION: NG tube with its tip in the distal esophagus. Allan Tran MD Chest X-Ray 07/07/16 0000 Signed Impressions: Service Date/Time: Thursday, July 07, 2016 05:25 - CONCLUSION: Tiny left pleural effusion. Allan Renee MD Carotid Artery Ultrasound 07/07/16 0000 Signed Impressions: Service Date/Time: Thursday, July 07, 2016 21:00 - CONCLUSION: 1. Probable mild stenosis left internal carotid artery. No hemodynamically significant stenosis on the right. Vertebral artery flow antegrade. Tad Veliz MD Renal Ultrasound 07/06/16 0859 Signed Impressions: Service Date/Time: June 11:52 - CONCLUSION: 1. Echogenic kidneys consistent with probable medical renal disease. 2. Scattered echogenic foci bilaterally consistent with probable non-obstructing calculi. 3. Bilateral renal cysts. 4. Suboptimal evaluation of the urinary bladder which is decompressed by a Jain catheter. Ashish Mayorga MD Head CT 07/06/16 0000 Signed Impressions: Service Date/Time: June 08:43 - CONCLUSION: 1. No acute hemorrhage or mass effect. 2. Focal area of decreased attenuation involving the left parietal lobe most consistent with an area of infarction which may be subacute to remote. 3. Atrophy and chronic small vessel ischemic change. Gilberto Longoria MD Chest CT 07/06/16 0000 Signed Impressions: Service Date/Time: June 01:52 - CONCLUSION: 1. Atherosclerosis. 2. Pneumonia. Larry Skaggs MD Brain MRI 07/06/16 0000 Signed Impressions: Service Date/Time: June 17:51 - CONCLUSION: 1. 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 2. Abnormal fluid accumulation in the aerated portion of the temporal bones bilaterally associated with bilateral mastoiditis and partial ethmoid opacification. Tad Veliz MD Physical Exam CONSTITUTIONAL/GENERAL: This is an adequately nourished patient, in no apparent distress. TUBES/LINES/DRAINS: SKIN: No jaundice, rashes, or lesions. Ecchymoses on upper extremities. No wounds seen anteriorly. Skin temperature appropriate. Not diaphoretic. ENT: Hearing grossly normal. Nose without bleeding or purulent drainage. Throat without visible erythema, exudates, masses, or lesions. CARDIOVASCULAR: Regular rate and rhythm without murmurs, gallops, or rubs. No JVD. Peripheral pulses symmetric. RESPIRATORY/CHEST: Symmetric, unlabored respirations. Clear to auscultation. Breath sounds equal bilaterally. No wheezes, rales, or rhonchi. GASTROINTESTINAL: Abdomen soft, non-tender, nondistended. No hepato-splen Jain catheter in place. MUSCULOSKELETAL: Extremities without clubbing, cyanosis, + trace edema. No joint tenderness or effusion noted. No calf tenderness. No mottling or clubbing. LYMPHATICS: No palpable cervical or supraclavicular adenopathy. NEUROLOGICAL: Awake and alert. Motor and sensory grossly within normal limits. Follows commands. Normal sppeech. Moves all extremities. Assessment & Plan Remarks PNA with hypoxia - clearly improving - culture -negative ? Aspiration Staph capitis bacteremia, low cy cw contamination - dc azithro po - cont CFTX - cont flagyl, can be switched to po - cont few more days of abx , dc in 3-5 days if improving Zakiya Cutler MD Jul 12, 2016 22:21
[2016-07-13] VITALS (10 sets, daily range): BP systolic 104–141; BP diastolic 56–65; PULSE 86–108; RESP 18–20; TEMP 97.2–97.6; O2SAT 95–98
[2016-07-13] MEDS: FREE WATER G-TUBE SCH ×5 (00:45→23:03)
[2016-07-13] MEDS: ACETAMINOPHEN 325 MG TAB PO SCH ×5 (00:45→17:47)
[2016-07-13] MEDS: CHLORHEXIDINE GLUCONATE 2 % 1 PACK (2 CLOTHS) TOP SCH (04:00)
[2016-07-13] MEDS: metroNIDAZOLE 500 MG TAB PO SCH ×3 (05:01→23:02)
[2016-07-13] MEDS: LEVOTHYROXINE SODIUM 50 MCG TAB PO SCH (05:01)
[2016-07-13] MEDS: INSULIN NovoLIN REGULAR SUPPLEMENTAL SCALE SQ SCH ×4 (06:00→21:00)
[2016-07-13 06:06] LABS: HEMATOCRIT 26.4 % (35.0-46.0); MEAN CORPUSCULAR HEMOGLOBIN 29.2 PG (27.0-34.0); MEAN CORPUSCULAR HGB CONC 32.8 % (32.0-36.0); PLATELET COUNT 172 TH/MM3 (150-450); RED BLOOD COUNT 2.96 MIL/MM3 (4.00-5.30); RED CELL DISTRIBUTION WIDTH 16.3 % (11.6-17.2); REVIEW FLAG FINAL; WHITE BLOOD COUNT 8.6 TH/MM3 (4.0-11.0)
[2016-07-13 06:35] LABS: POTASSIUM 4.1 MEQ/L (3.5-5.1)
[2016-07-13] MEDS: CHLORHEXIDINE 0.12% (ORAL KIT) 15 ML CUP MT SCH ×2 (08:00→20:00)
--- NOTE | 2016-07-13 08:26 | HHI.NPPN ---
Subjective Complaints: Obesity General Problems: Edema Renal Failure: Chronic, Acute, Stage IV Interval History she feels better. Ate well she says. Review of Systems General Constitutional: Fatigue Musculoskeletal MS: Pain/Stiffness Objective Data Data 07/12/16 07/13/16 19:00 07:00 Intake Total 120 ml 320 ml Balance 120 ml 320 ml Intake Oral 120 ml 120 ml IV Total 200 ml # Voids 3 2 # Bowel Movements 3 0 Vital Signs Date Time Temp Pulse Resp B/P Pulse Ox O2 Delivery O2 Flow Rate FiO2 07/13/16 04:00 97.4 89 20 135/56 96 07/13/16 00:00 97.6 91 20 114/56 95 07/12/16 20:02 113 07/12/16 20:00 97.8 99 22 116/58 97 07/12/16 19:16 97.6 99 22 153/65 97 07/12/16 18:29 96 Nasal Cannula 2.00 07/12/16 16:00 97.3 89 20 139/62 94 07/12/16 13:07 96 Nasal Cannula 3.00 07/12/16 12:00 97.1 99 20 154/65 97 07/12/16 09:45 Nasal Cannula 3.00 -: 07/13/16 0550 07/13/16 0550 Tubes & Lines: Jain Tubes & Lines Comment NG tube Physical Exam General Appearance: Well Developed, Well Nourished, No Acute Distress, Comfortable, Obese Eyes Eye Exam: Sclera White Throat Throat Exam: Oral Mucosa [place] & Moist Pulmonary Resp Exam: Breath Sounds Equal, Crackles Cardiology CV Exam: Good Perfusion, Irregular, Arrhythmia Gastrointestinal/Abdomen GI Exam: Soft, Non-Tender, Bowel Sounds Present Genitourinary Exam: Clear Urine Musculoskeletal MS Exam: Joints Intact, Normal Tone Integumentary Skin Exam: Clear, Warm, Dry, Intact Extremeties Extremities Exam: Pedal Pulses Palpable, Trace Edema Neurologic Neuro Exam: Alert, Awake, Oriented, Speech Clear, Moving All Extremities Psychiatric Psych Exam: Appropriate Responses Assessment/Plan Discussed Condition With: Patient, Spouse, Daughter Assessment Summary: RAKEL/Acute Renal Failure, Diabetes Mellitus, CKD Stage IV Problem List: (1) Acute kidney injury superimposed on CKD Plan: Renal function is stable. May have stage III CKD. Continue supportive care. One dose of Diuril. (2) HTN (hypertension) Plan: BP stable, continue oral medications monitor (3) DM (diabetes mellitus) Plan: BG acceptable continue insulin as needed (4) Anemia Plan: Hb stable, GI following s/p panendoscopy, results of hiatal hernia and gastritis, no GI bleed identifiec labs indicating iron deficiency, Venofer should be avoided in Sepsis possible contaminant on admission, 1/4 bottles positive, repeat negative to date will continue oral iron (5) Dysphagia Plan: GI evaluated and advanced diet to nectar thick/pureed NG can be removed speech therapy assisting (6) Pneumonia Plan: ID following, on Rocephin only monitor clinically she is at risk for aspiration PNA having swallowing evaluated by ST Plan We will see her as needed. Thanks. Problem Qualifiers (1) HTN (hypertension): Qualified Code: I10 - Essential hypertension (2) Anemia: Qualified Code: D64.9 - Anemia, unspecified type (3) Pneumonia: Qualified Code: J18.9 - Pneumonia of right lung due to infectious organism, unspecified part of lung Luis Crocker MD Jul 13, 2016 08:25
[2016-07-13] MEDS ORDERED: CHLOROTHIAZIDE SOD 500 MG VIAL IV ONE (08:30)
[2016-07-13] MEDS: ARTIFICIAL TEARS OPTH SOLN 15 ML BTL EACH EYE SCH ×3 (09:00→17:46)
[2016-07-13] MEDS: SODIUM CHLORIDE 0.9% FLUSH 5 ML FLUSH IV FLUSH SCH ×2 (09:00→21:00)
[2016-07-13] MEDS: PANTOPRAZOLE SOD 40 MG DELAYED RELEASE TAB PO SCH (09:23)
[2016-07-13] MEDS: TIMOLOL MALEATE 0.25% OPHT SOLN 5 ML BTL EACH EYE SCH (09:23)
[2016-07-13] MEDS: CARVEDILOL 12.5 MG TAB PO SCH ×2 (09:23→23:03)
[2016-07-13] MEDS: FERROUS SULFATE 325 MG (65 MG ELEMENTAL IRON) TAB PO SCH (09:23)
[2016-07-13] MEDS: hydrALAZINE HCL 100 MG TAB PO SCH ×3 (09:23→17:46)
[2016-07-13] MEDS: DOCUSATE SODIUM 100 MG CAP PO SCH ×2 (09:23→21:00)
[2016-07-13] MEDS: glipiZIDE 5 MG TAB PO SCH ×2 (09:23→17:47)
[2016-07-13] MEDS ORDERED: METR-1 PO (13:25)
[2016-07-13] MEDS ORDERED: FERR325T PO (13:25)
[2016-07-13] MEDS ORDERED: CARD1TAB PO (13:25)
[2016-07-13] MEDS ORDERED: AUGM875T PO (13:25)
--- NOTE | 2016-07-13 13:26 | HHI.DCPOC ---
Discharge Care Plan Diagnosis: (1) DM (diabetes mellitus) (2) Impaired mobility and activities of daily living (3) Encephalopathy acute (4) Positive blood culture (5) Constipation (6) Dysphagia (7) Diabetes mellitus (8) Gout (9) Anemia (10) Dysphagia (11) Renal failure (12) Uremia (13) HCAP (healthcare-associated pneumonia) Goals to Promote Your Health * To prevent worsening of your condition and complications * To maintain your health at the optimal level Directions to Meet Your Goals Take your medications as prescribed Follow your dietary instruction Follow activity as directed Keep your appointments as scheduled Take your immunizations and boosters as scheduled If your symptoms worsen call your PCP, if no PCP go to Urgent Care Center or Emergency Room Smoking is Dangerous to Your Health. Avoid second hand smoke Call the 24-hour hour crisis hotline for domestic abuse at Anthony Bryant MD Jul 13, 2016 13:26
--- NOTE | 2016-07-13 18:17 | HHI.GIFU ---
Subjective Remarks NGT out, ST was in, advanced diet to soft with thin liquids. No n/v. No abdominal pain. Does not like the roast beef, but otherwise has been eating okay. Objective Vitals I&O Vital Signs Date Time Temp Pulse Resp B/P Pulse Ox O2 Delivery O2 Flow Rate FiO2 07/13/16 12:46 97 Nasal Cannula 2.00 07/13/16 12:00 97.2 87 20 138/61 96 07/13/16 11:13 108 07/13/16 08:00 Nasal Cannula 2.00 07/13/16 08:00 97.6 86 18 141/65 97 07/13/16 04:00 Nasal Cannula 2.00 07/13/16 04:00 97.4 89 20 135/56 96 07/13/16 00:00 Nasal Cannula 2.00 07/13/16 00:00 97.6 91 20 114/56 95 07/12/16 20:02 113 07/12/16 20:00 Nasal Cannula 2.00 07/12/16 20:00 97.8 99 22 116/58 97 07/12/16 19:16 97.6 99 22 153/65 97 07/12/16 18:29 96 Nasal Cannula 2.00 I/O 07/12/16 07/12/16 07/12/16 07/13/16 07/13/16 07/13/16 07:00 15:00 23:00 07:00 15:00 23:00 Intake Total 3950 ml 120 ml 320 ml Output Total 2 ml Balance 3948 ml 120 ml 320 ml Intake Oral 120 ml 120 ml IV Total 3950 ml 200 ml Output Urine Total 2 ml # Voids 3 2 # Bowel Movements 1 3 0 Laboratory Laboratory Tests Test 07/13/16 05:50 White Blood Count 8.6 Red Blood Count 2.96 Hemoglobin 8.7 Hematocrit 26.4 Mean Corpuscular Volume 89.0 Mean Corpuscular Hemoglobin 29.2 Mean Corpuscular Hemoglobin 32.8 Concent Red Cell Distribution Width 16.3 Platelet Count 172 Mean Platelet Volume 9.5 Sodium Level 144 Potassium Level 4.1 Chloride Level 108 Carbon Dioxide Level 28.0 Anion Gap 8 Blood Urea Nitrogen 38 Creatinine 1.15 Estimat Glomerular Filtration 46 Rate Random Glucose 122 Calcium Level 8.4 Date/Time Procedure Status Source Growth 07/09/16 16:15 Aerobic Blood Culture - Preliminary Resulted Blood Peripheral NO GROWTH IN 4 DAYS 07/09/16 16:15 Anaerobic Blood Culture - Preliminary Resulted Blood Peripheral NO GROWTH IN 4 DAYS Imaging Last Impressions Upper Extremity Ultrasound 07/11/16 0000 Signed Impressions: Service Date/Time: Monday, July 11, 2016 20:13 - CONCLUSION: Thrombus in the right cephalic vein. The remaining venous structures in the right upper extremity are patent. Allan Tran MD Abdomen X-Ray 07/11/16 Signed Impressions: Service Date/Time: Monday, July 11, 2016 17:49 - CONCLUSION: NG tube with its tip in the distal esophagus. Allan Tran MD Chest X-Ray 07/07/16 Signed Impressions: Service Date/Time: Thursday, July 07, 2016 05:25 - CONCLUSION: Tiny left pleural effusion. Allan Renee MD Carotid Artery Ultrasound 07/07/16 Signed Impressions: Service Date/Time: Thursday, July 07, 2016 21:00 - CONCLUSION: 1. Probable mild stenosis left internal carotid artery. No hemodynamically significant stenosis on the right. Vertebral artery flow antegrade. Tad Veliz MD Renal Ultrasound 07/06/16 0859 Signed Impressions: Service Date/Time: June 11:52 - CONCLUSION: 1. Echogenic kidneys consistent with probable medical renal disease. 2. Scattered echogenic foci bilaterally consistent with probable non-obstructing calculi. 3. Bilateral renal cysts. 4. Suboptimal evaluation of the urinary bladder which is decompressed by a Jain catheter. Ashish Mayorga MD Head CT 07/06/16 Signed Impressions: Service Date/Time: June 08:43 - CONCLUSION: 1. No acute hemorrhage or mass effect. 2. Focal area of decreased attenuation involving the left parietal lobe most consistent with an area of infarction which may be subacute to remote. 3. Atrophy and chronic small vessel ischemic change. Gilberto Longoria MD Chest CT 07/06/16 Signed Impressions: Service Date/Time: June 01:52 - CONCLUSION: 1. Atherosclerosis. 2. Pneumonia. Larry Skaggs MD Brain MRI 07/06/16 Signed Impressions: Service Date/Time: June 17:51 - CONCLUSION: 1. 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 2. Abnormal fluid accumulation in the aerated portion of the temporal bones bilaterally associated with bilateral mastoiditis and partial ethmoid opacification. Tad Veliz MD Physical Exam HEENT: Normocephalic; atraumatic; no jaundice. CHEST: Diminished bases CARDIAC: RRR. ABDOMEN: Soft, nondistended, nontender; no hepatosplenomegaly; bowel sounds are present in all four quadrants. EXTREMITIES: Generalized edema. SKIN: Multiple ecchymotic areas CAREER DEVELOPMENT SPECIALIST: Alert, oriented to place and person Assessment and Plan Plan ASSESSMENT: - Anemia/heme (+) stools. We had previously evaluated the patient, but her HH was stable and she was not having any signs of active bleeding and therefore because of her multiple comorbidities, it was decided to hold on endoscopy and to pursue if active bleeding. Pt is now more stable and her HH had been trending down and therefore GI was reconsulted for EGD. S/P EGD (07/11/16)--- > gastritis in the antrum, esophagitis distal esophagus, dobhoff tube was noted to be in the fundus of stomach, repositioned, retroflexed views revealed a hiatal hernia. Antral mucosa with reactive gastropathy, as may be seen with bile reflux or drug therapy. Thickened squamous mucosa with congestion of submucosal papillae, suggestive of reflux esophagitis. 8.7/26.4. - Dysphagia, Improved. She is being followed by ST her appetite has been upgraded to soft diet with thin Tolerating this. NGT removed. - AMS/Leukocytosis/pneumonia. Improved. Rpt. BCx pending no growth 4 days. Abx per primary - Acute on chronic kidney disease, per nephrology - Respiratory failure. S/P extubation. Plan: - Soft diet with thin liquids - Chocolate ensure - Protonix 40mg po daily - Monitor labs - Transfuse as needed - GI will sign off, please reconsult as needed - Patient seen and examined by Dr. Lord and myself and this note is written on her behalf. Renuka Dennis Jul 13, 2016 18:17
[2016-07-13] MEDS: ATORVASTATIN 20 MG TAB PO SCH (23:02)
[2016-07-13] MEDS: MONTELUKAST SODIUM 10 MG TAB PO SCH (23:03)
[2016-07-13] MEDS: DOXAZOSIN MESYLATE 1 MG TAB PO SCH (23:04)
[2016-07-13] MEDS: cefTRIAXone INJ 2,000 MG in SODIUM CHLORIDE 0.9% INJ 100 ML IV SCH (23:05)
[2016-07-14] VITALS: BP 143/63; PULSE 89; RESP 20; TEMP 97.5; O2SAT 97
[2016-07-14] MEDS: ACETAMINOPHEN 325 MG TAB PO SCH ×3 (00:36→05:19)
[2016-07-14] MEDS: FREE WATER G-TUBE SCH (00:57)
[2016-07-14] MEDS: CHLORHEXIDINE GLUCONATE 2 % 1 PACK (2 CLOTHS) TOP SCH (00:57)
[2016-07-14 04:00] VITALS: BP 115/57; PULSE 84; RESP 18; TEMP 97.3; O2SAT 98
[2016-07-14] MEDS: LEVOTHYROXINE SODIUM 50 MCG TAB PO SCH (05:19)
[2016-07-14] MEDS: metroNIDAZOLE 500 MG TAB PO SCH (05:19)
[2016-07-14] MEDS: INSULIN NovoLIN REGULAR SUPPLEMENTAL SCALE SQ SCH (05:33)
[2016-07-14 07:23] LABS: HEMATOCRIT 26.8 % (35.0-46.0); MEAN CELL VOLUME 88.6 FL (80.0-100.0); MEAN CORPUSCULAR HEMOGLOBIN 28.7 PG (27.0-34.0); MEAN CORPUSCULAR HGB CONC 32.3 % (32.0-36.0); PLATELET COUNT 200 TH/MM3 (150-450); RED BLOOD COUNT 3.02 MIL/MM3 (4.00-5.30); RED CELL DISTRIBUTION WIDTH 16.2 % (11.6-17.2); REVIEW FLAG FINAL; WHITE BLOOD COUNT 7.3 TH/MM3 (4.0-11.0)
[2016-07-14 07:39] LABS: BICARBONATE 28.1 MEQ/L (21.0-32.0); POTASSIUM 4.1 MEQ/L (3.5-5.1)
[2016-07-14 08:00] VITALS: BP 150/63; PULSE 80; RESP 22; TEMP 97.3; O2SAT 95
[2016-07-14] MEDS: CHLORHEXIDINE 0.12% (ORAL KIT) 15 ML CUP MT SCH (08:00)
[2016-07-14] MEDS: DOCUSATE SODIUM 100 MG CAP PO SCH (08:26)
[2016-07-14] MEDS: hydrALAZINE HCL 100 MG TAB PO SCH (08:26)
[2016-07-14] MEDS: PANTOPRAZOLE SOD 40 MG DELAYED RELEASE TAB PO SCH (08:26)
[2016-07-14] MEDS: CARVEDILOL 12.5 MG TAB PO SCH (08:26)
[2016-07-14] MEDS: FERROUS SULFATE 325 MG (65 MG ELEMENTAL IRON) TAB PO SCH (08:26)
[2016-07-14] MEDS: glipiZIDE 5 MG TAB PO SCH (08:26)
[2016-07-14] MEDS: TIMOLOL MALEATE 0.25% OPHT SOLN 5 ML BTL EACH EYE SCH (08:27)
[2016-07-14] MEDS: ARTIFICIAL TEARS OPTH SOLN 15 ML BTL EACH EYE SCH (08:27)
[2016-07-14] MEDS: SODIUM CHLORIDE 0.9% FLUSH 5 ML FLUSH IV FLUSH SCH (08:27)
--- NOTE | 2016-07-14 09:02 | HHI.PR ---
Subjective Remarks deferred entry - patient seen on 07/13 at 10:50 am denies cp/sob had BM patient states got up from bed denies fevers/chills Objective Vitals Vital Signs Date Time Temp Pulse Resp B/P Pulse Ox O2 Delivery O2 Flow Rate FiO2 07/14/16 04:00 97.3 84 18 115/57 98 07/14/16 00:00 97.5 89 20 143/63 97 07/13/16 23:44 91 07/13/16 22:15 Nasal Cannula 2.00 07/13/16 20:02 104 07/13/16 20:00 97.5 90 20 104/58 98 07/13/16 16:00 97.6 89 20 116/62 97 07/13/16 12:46 97 Nasal Cannula 2.00 07/13/16 12:00 97.2 87 20 138/61 96 07/13/16 11:13 108 I/O 07/13/16 07/13/16 07/13/16 07/14/16 07/14/16 07/14/16 07:00 15:00 23:00 07:00 15:00 23:00 Intake Total 480 ml 222 ml 242 ml Output Total 200 ml Balance 480 ml 22 ml 242 ml Intake Oral 480 ml 120 ml 240 ml IV Total 102 ml 2 ml Output Urine Total 200 ml # Voids 4 1 2 # Bowel Movements 4 0 0 Result Diagram: 07/14/16 0616 07/14/16 0616 Imaging Last Impressions Upper Extremity Ultrasound 07/11/16 0000 Signed Impressions: Service Date/Time: Monday, July 11, 2016 20:13 - CONCLUSION: Thrombus in the right cephalic vein. The remaining venous structures in the right upper extremity are patent. Allan Tran MD Abdomen X-Ray 07/11/16 0000 Signed Impressions: Service Date/Time: Monday, July 11, 2016 17:49 - CONCLUSION: NG tube with its tip in the distal esophagus. Allan Tran MD Chest X-Ray 07/07/16 0000 Signed Impressions: Service Date/Time: Thursday, July 07, 2016 05:25 - CONCLUSION: Tiny left pleural effusion. Allan Renee MD Carotid Artery Ultrasound 07/07/16 0000 Signed Impressions: Service Date/Time: Thursday, July 07, 2016 21:00 - CONCLUSION: 1. Probable mild stenosis left internal carotid artery. No hemodynamically significant stenosis on the right. Vertebral artery flow antegrade. Tad Veliz MD Renal Ultrasound 07/06/16 0859 Signed Impressions: Service Date/Time: June 11:52 - CONCLUSION: 1. Echogenic kidneys consistent with probable medical renal disease. 2. Scattered echogenic foci bilaterally consistent with probable non-obstructing calculi. 3. Bilateral renal cysts. 4. Suboptimal evaluation of the urinary bladder which is decompressed by a Jain catheter. Ashish Mayorga MD Head CT 07/06/16 0000 Signed Impressions: Service Date/Time: June 08:43 - CONCLUSION: 1. No acute hemorrhage or mass effect. 2. Focal area of decreased attenuation involving the left parietal lobe most consistent with an area of infarction which may be subacute to remote. 3. Atrophy and chronic small vessel ischemic change. Gilberto Longoria MD Chest CT 07/06/16 0000 Signed Impressions: Service Date/Time: June 01:52 - CONCLUSION: 1. Atherosclerosis. 2. Pneumonia. Larry Skaggs MD Brain MRI 07/06/16 0000 Signed Impressions: Service Date/Time: June 17:51 - CONCLUSION: 1. 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 2. Abnormal fluid accumulation in the aerated portion of the temporal bones bilaterally associated with bilateral mastoiditis and partial ethmoid opacification. Tad Veliz MD Objective Remarks GENERAL: 72-year-old female, lying in bed. SKIN: Warm and dry. HEAD: Atraumatic. Normocephalic. EYES: Pupils equal and round about 3 L bilaterally and reactive. No scleral icterus. No injection or drainage. ENT: No nasal bleeding or discharge. Mucous membranes pink and dry. Oropharynx without erythema NECK: Trachea midline. No JVD. CARDIOVASCULAR: Regular rate and rhythm. S1, S2. No S4. Without murmur RESPIRATORY: No accessory muscle use. Clear sounds are equal bilaterally. GASTROINTESTINAL: Abdomen obese, soft, nontender. no guarding. MUSCULOSKELETAL: Extremities 1+ lower extremity edema. No obvious deformities. NEUROLOGICAL: Patient is lethargic but arousable. Procedures none Medications and IVs Current Medications Medications (Trade) Dose Ordered Sig/Logan Route Start Time Stop Time Status Last Admin (NS Flush) 2 ml UNSCH PRN IV FLUSH 07/06/16 03:30 (NS Flush) 2 ml BID IV FLUSH 07/06/16 09:00 07/14/16 08:27 (Tylenol) 650 mg Q6H PRN PO 07/06/16 03:30 (Tears Naturale Opth Soln) 1 drop TID EACH EYE 07/06/16 09:00 07/14/16 08:27 (Zofran Inj) 4 mg Q6H PRN IV 07/06/16 03:30 (Colace) 100 mg BID PO 07/06/16 09:00 07/14/16 08:26 (Senokot) 17.2 mg Q12H PRN PO 07/06/16 03:30 07/10/16 16:00 Miscellaneous Information 1 Q361D XX 07/06/16 03:30 (Chlorhexidine 2% Cloth) Taper DAILY@04 TOP 07/06/16 04:00 07/02/17 03:59 07/09/16 04:00 (Chlorhexidine 2% Cloth) 3 pack UNSCH PRN TOP 07/06/16 03:30 (D50w (Vial) Inj) 25 ml UNSCH PRN IV PUSH 07/06/16 05:15 (Glucagon Inj) 1 mg UNSCH PRN OTHER 07/06/16 05:15 (Peridex 0.12% Liq) 15 ml BID@08,20 MT 07/06/16 08:00 07/12/16 08:00 (Trandate Inj) 10 mg Q1HR PRN IV PUSH 07/06/16 08:00 07/11/16 18:03 (Apresoline Inj) 10 mg Q1HR PRN IV PUSH 07/06/16 08:00 07/08/16 14:51 (Roxicodone) 5 mg Q4H PRN PO 07/07/16 17:00 (Dilaudid Pf Inj) 0.5 mg Q4H PRN IV PUSH 07/07/16 17:00 (Tylenol) 650 mg Q6H PO 07/07/16 18:00 07/14/16 05:19 (Coreg) 25 mg BID PO 07/10/16 11:00 07/14/16 08:26 (Lipitor) 20 mg HS PO 07/10/16 21:00 07/13/16 23:02 (Apresoline) 100 mg TID PO 07/10/16 13:00 07/14/16 08:26 (Synthroid) 50 mcg DAILY@06 PO 07/10/16 10:45 07/14/16 05:19 (Singulair) 10 mg HS PO 07/10/16 21:00 07/13/16 23:03 (Timoptic 0.25% Opth Soln) 1 drop DAILY EACH EYE 07/11/16 09:00 07/14/16 08:27 Ferrous Sulfate 325 mg 325 mg DAILY PO 07/10/16 12:15 07/14/16 08:26 (Rocephin Inj/NS Inj) 100 ml @ 200 mls/hr Q24H IV 07/10/16 20:00 07/13/16 23:05 (Catapres) 0.1 mg Q6H PRN PO 07/11/16 18:30 (Protonix) 40 mg DAILY PO 07/13/16 09:00 07/14/16 08:26 (Free Water) 200 ml Q6HR G-TUBE 07/12/16 18:00 07/12/16 17:00 (Cardura) 2 mg HS PO 07/12/16 21:00 07/13/16 23:04 (Glucotrol) 5 mg BIDAC PO 07/13/16 07:00 07/14/16 08:26 (Flagyl) 500 mg Q8HR PO 07/13/16 06:00 07/14/16 05:19 Urinary Catheter: No Vascular Central Line Catheter: No A/P Problem List: (1) Encephalopathy acute ICD Code: G93.40 Status: Acute Plan: This is a 80-year-old female with a stage IV CK-MB, diastolic heart failure, chronic pain complaints who presented with altered mental status and hypoxemia requiring intubation mechanical ventilation. Intensive care unit. The patient presented with encephalopathy which was thought to be a combination of her subacute infarct medication induced due to poor renal clearance. The patient was treated in the intensive care unit and then extubated. MRI showed subacute left parietal infarct Xanax, Flexeril and hydrocodone as well as Lyrica on hold. The patient states that patient has an adverse reaction to Lyrica and that only rarely take the other home meds. Lipid panel normal Carotid ultrasounds show probable mild stenosis of the left internal carotid artery. No hemodynamically significant stenosis on the right. Patient was noted to be lethargic on July 09. Thought to be secondary to hyponatremia. Ammonia levels checked and slightly elevated at 36. 07/10 patient is more awake today. Sodium still 150, I will increase to rate of 1/4 NS to 125 ml/hr. 07/11 Encephalopathy resolved. Patient's sodium now better at 146, appreciate nephrology recommendations. Continue 1/4 ns at 50 ml/hr and continue free water via NG tube. Monitor BMP. 07/12 1/4 ns discontinued. (2) Chronic diastolic (congestive) heart failure ICD Code: I50.32 Status: Chronic Plan: Seems to be stable at this moment. Patient is on Bumex at home. Continue to hold due to hypernatremia. 2-D echocardiogram showed grade 1 diastolic dysfunction with preserved ejection fraction. (3) Uremia ICD Code: N19 Status: Resolved Plan: Likely contributing to the patient's encephalopathy. Patient still with elevated BUN, however trending down from previous days. There is question of GI bleed due to disproportionate elevated BUN to creatinine ratio. Uremia improving - BUN trending down - now 29 (4) Diabetes mellitus ICD Code: E11.9 Status: Chronic Plan: Continue to hold glipizide. Sugar seems to be stable. Continue SSI with regular insulin and to monitor Accu-Cheks. 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 (6) Debility ICD Code: R53.81 Status: Acute Plan: Continue with physical therapy efforts. Patient will need PT at rehabilitation. Will be discharged to inpatient rehab (7) Chronic kidney disease, stage 3 ICD Code: N18.3 Status: Chronic Plan: Continue to monitor BUN and creatinine. Creatinine seems to be close to baseline. (8) HTN (hypertension) ICD Code: I10 Status: Chronic (9) Constipation ICD Code: K59.00 Status: Resolved Plan: Continue senna and Colace, Miralax as needed. resolved (10) Gout ICD Code: M10.9 Status: Chronic (11) Gastroesophageal reflux disease ICD Code: K21.9 Status: Acute Plan: Patient takes Prilosec 20 mg by mouth daily at home. Patient currently is on tube feedings which have been held due to drop in hemoglobin observed on 07/08/16 Patient started an IV Protonix drip on 07/09/16. Continue 07/11 patient is status post EGD which showed gastritis and esophagitis. Continue Protonix drip. Follow-up GI recommendations. 07/12 off protonix drip - continue protonix 40 mg daily (12) Anemia ICD Code: D64.9 Status: Acute Plan: Patient had a positive stool guaiac test. Hemoglobin dropped from 8.5-7.6 on 07/09/16. Patient status post transfusion of 2 units of packed red blood cells on 07/09. Hemoglobin now 9.6 with appropriate response to transfusion. Concern for GI bleed given disproportionate BUN to creatinine ratio. Patient status post EGD. Hemoglobin stable . EGD showed gastritis and esophagitis but no active bleeding hemoglobin stable (13) Acute kidney injury superimposed on CKD ICD Code: N17.9 Status: Acute Plan: The pain seems to be trending down. Continue to monitor BUN and creatinine, I would nephrotoxins. RAKEL seems resolving. Creatinine down to 1. 22 from 1.28. (14) Hypernatremia ICD Code: E87.0 Status: Acute Plan: Patient started on 1/4 ns on 07/09 - sodium still 150 Appreciate nephrology recommendations on help. Sodium stable at 144 - Nephrology discontinued Hypotonic saline. (15) Positive blood culture ICD Code: R78.81 Status: Acute Plan: Patient had a positive blood culture with staph coagulase negative on 07/06 Possible contaminant. Blood cultures repeated on 07/09/16 and pending. Vancomycin restarted on 07/09/16. At the recommendations of proceeded. As per ID discontinue vancomycin, continue azithromycin, Flagyl switched to oral and the patient was started on Rocephin. As per ID, most likely a contaminant. Blood cultures remain negative then the patient will not need any further treatment or workup. 07/13 Will contact ID for discharge advise - case discussed with Dr Cutler - chaparrita to DC on po augmentin and oral flagyl (16) HCAP (healthcare-associated pneumonia) ICD Code: J18.9 Status: Resolved Plan: Patient given cefepime and given vancomycin emergency department. Continue IV vancomycin, IV cefepime, IV Flagyl and azithromycin for now. Legionella and streptococcal urine antigen negative. Sputum culture showed light growth of normal respiratory federico. Pulmonary stable, pneumonia seems to be improving. (17) Dysphagia ICD Code: R13.10 Status: Resolved Plan: Continue NG tube and continued to feedings for now. I will reconsult speech therapy to perform a swallow eval that the patient is more awake. 07/12 Passed dysphagia eval. NG tube discontinued. Continue with diet as per speech therapy. 07/13 patient eating well without problems - Patient on soft diet with Glucerna shakes TID Assessment and Plan - GI - Protonix - DVT - SCD, continue to hold chemoprophylaxis due to drop in hemoglobin. Discharge Planning Poss dc in am. Patient will need rehab Problem Qualifiers (1) Diabetes mellitus: Qualified Code: E11.8 - Type 2 diabetes mellitus with complication, without long-term current use of insulin (2) HTN (hypertension): Qualified Code: I10 - Essential hypertension (3) Constipation: Qualified Code: K59.00 - Constipation, unspecified constipation type (4) Gout: Qualified Code: M1A.9XX0 - Chronic gout without tophus, unspecified cause, unspecified site (5) Gastroesophageal reflux disease: Qualified Code: K21.9 - Gastroesophageal reflux disease without esophagitis (6) Anemia: Qualified Code: D64.9 - Anemia, unspecified type Anthony Bryant MD Jul 14, 2016 09:02
--- NOTE | 2016-07-14 09:58 | HHI.DS ---
Discharge Summary Admission Date Jul 06, 2016 at 00:52 Discharge Date: Jul 14, 2016 Admitting Diagnosis renal failure, gi bleed (1) Encephalopathy acute ICD Code: G93.40 Diagnosis: Principal (2) Chronic diastolic (congestive) heart failure ICD Code: I50.32 Diagnosis: Principal (3) Uremia ICD Code: N19 Diagnosis: Principal (4) Diabetes mellitus ICD Code: E11.9 Diagnosis: Secondary (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 Diagnosis: Secondary (6) Debility ICD Code: R53.81 Diagnosis: Principal (7) Chronic kidney disease, stage 3 ICD Code: N18.3 Diagnosis: Secondary (8) HTN (hypertension) ICD Code: I10 Diagnosis: Principal (9) Constipation ICD Code: K59.00 Diagnosis: Principal (10) Gout ICD Code: M10.9 Diagnosis: Principal (11) Gastroesophageal reflux disease ICD Code: K21.9 Diagnosis: Principal (12) Anemia ICD Code: D64.9 Diagnosis: Principal (13) Acute kidney injury superimposed on CKD ICD Code: N17.9 Diagnosis: Principal (14) Hypernatremia ICD Code: E87.0 Diagnosis: Principal (15) Positive blood culture ICD Code: R78.81 Diagnosis: Principal (16) HCAP (healthcare-associated pneumonia) ICD Code: J18.9 Diagnosis: Principal (17) Dysphagia ICD Code: R13.10 Diagnosis: Principal Procedures none Brief History - From Admission 80-year-old female. Full code. Resident of [facility]. Recently discharged from [facility] 07/04/16. Past medical history includes chronic diastolic heart failure, chronic kidney disease stage IV, chronic narcotic/muscle relaxant use, gastroesophageal reflux disease, anxiety and gout. He is recently hospice of [facility] for unknown reasons. Was sent to [facility] on ciprofloxacin. She was seen by her family today that facility was noted to be confused. They requested transfer to emergency department for evaluation. Upon arrival in ED, patient was known to be quite lethargic. She appeared quite currently ED physician. Laboratories revealed BUN [address] of the chest was performed which revealed bilateral lower lobe pneumonia/infiltrates. She received 2 g of cefepime in 1500 mg vancomycin 1. Patient was pancultured. Also noted to have leukocytosis as well. Patient received 4 L normal saline bolus wide open 1. We are asked to admit the patient for further workup. CBC/BMP: 07/14/16 0616 07/14/16 0616 Significant Findings Laboratory Tests Test 07/12/16 07/13/16 07/14/16 07:01 05:50 06:16 Red Blood Count 3.46 MIL/MM3 2.96 MIL/MM3 3.02 MIL/MM3 (4.00-5.30) (4.00-5.30) (4.00-5.30) Hemoglobin 9.7 GM/DL 8.7 GM/DL 8.7 GM/DL (11.6-15.3) (11.6-15.3) (11.6-15.3) Hematocrit 30.9 % 26.4 % 26.8 % (35.0-46.0) (35.0-46.0) (35.0-46.0) Mean Corpuscular Hemoglobin 31.3 % Concent (32.0-36.0) Blood Urea Nitrogen 40 MG/DL (7-18) 38 MG/DL (7-18) 29 MG/DL (7-18) Creatinine 1.15 MG/DL 1.15 MG/DL 1.01 MG/DL (0.50-1.00) (0.50-1.00) (0.50-1.00) Estimat Glomerular Filtration 46 ML/MIN (>89) 46 ML/MIN (>89) 53 ML/MIN (>89) Rate Random Glucose 130 MG/DL 122 MG/DL (74-106) (74-106) Phosphorus Level 2.4 MG/DL (2.5-4.9) Chloride Level 108 MEQ/L (98-107) Calcium Level 8.4 MG/DL 8.4 MG/DL (8.5-10.1) (8.5-10.1) Imaging Last Impressions Upper Extremity Ultrasound 07/11/16 0000 Signed Impressions: Service Date/Time: Monday, July 11, 2016 20:13 - CONCLUSION: Thrombus in the right cephalic vein. The remaining venous structures in the right upper extremity are patent. Allan Tran MD Abdomen X-Ray 07/11/16 Signed Impressions: Service Date/Time: Monday, July 11, 2016 17:49 - CONCLUSION: NG tube with its tip in the distal esophagus. Allan Tran MD Chest X-Ray 07/07/16 Signed Impressions: Service Date/Time: Thursday, July 07, 2016 05:25 - CONCLUSION: Tiny left pleural effusion. Allan Renee MD Carotid Artery Ultrasound 07/07/16 Signed Impressions: Service Date/Time: Thursday, July 07, 2016 21:00 - CONCLUSION: 1. Probable mild stenosis left internal carotid artery. No hemodynamically significant stenosis on the right. Vertebral artery flow antegrade. Tad Veliz MD Renal Ultrasound 07/06/16 0859 Signed Impressions: Service Date/Time: June 11:52 - CONCLUSION: 1. Echogenic kidneys consistent with probable medical renal disease. 2. Scattered echogenic foci bilaterally consistent with probable non-obstructing calculi. 3. Bilateral renal cysts. 4. Suboptimal evaluation of the urinary bladder which is decompressed by a Jain catheter. Ashish Mayorga MD Head CT 07/06/16 Signed Impressions: Service Date/Time: June 08:43 - CONCLUSION: 1. No acute hemorrhage or mass effect. 2. Focal area of decreased attenuation involving the left parietal lobe most consistent with an area of infarction which may be subacute to remote. 3. Atrophy and chronic small vessel ischemic change. Gilberto Longoria MD Chest CT 07/06/16 Signed Impressions: Service Date/Time: June 01:52 - CONCLUSION: 1. Atherosclerosis. 2. Pneumonia. Larry Skaggs MD Brain MRI 07/06/16 Signed Impressions: Service Date/Time: June 17:51 - CONCLUSION: 1. 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 2. Abnormal fluid accumulation in the aerated portion of the temporal bones bilaterally associated with bilateral mastoiditis and partial ethmoid opacification. Tad Veliz MD PE at Discharge GENERAL: 72-year-old female, lying in bed. SKIN: Warm and dry. HEAD: Atraumatic. Normocephalic. EYES: Pupils equal and round about 3 L bilaterally and reactive. No scleral icterus. No injection or drainage. ENT: No nasal bleeding or discharge. Mucous membranes pink and dry. Oropharynx without erythema NECK: Trachea midline. No JVD. CARDIOVASCULAR: Regular rate and rhythm. S1, S2. No S4. Without murmur RESPIRATORY: No accessory muscle use. Clear sounds are equal bilaterally. GASTROINTESTINAL: Abdomen obese, soft, nontender. no guarding. MUSCULOSKELETAL: Extremities without edema. No obvious deformities. NEUROLOGICAL: Patient is lethargic but arousable. Pt update on day of discharge Patient feels much better. Creatinine trending down. hemoglobin stable. Patient denies cp/sob, no diarrhea Hospital Course (1) Encephalopathy acute Plan: This is a 80-year-old female with a stage IV CK-MB, diastolic heart failure, chronic pain complaints who presented with altered mental status and hypoxemia requiring intubation mechanical ventilation. Intensive care unit. The patient presented with encephalopathy which was thought to be a combination of her subacute infarct medication induced due to poor renal clearance. The patient was treated in the intensive care unit and then extubated. MRI showed subacute left parietal infarct Xanax, Flexeril and hydrocodone as well as Lyrica on hold. The patient states that patient has an adverse reaction to Lyrica and that only rarely take the other home meds. Lipid panel normal Carotid ultrasounds show probable mild stenosis of the left internal carotid artery. No hemodynamically significant stenosis on the right. Patient was noted to be lethargic on July 09. Thought to be secondary to hyponatremia. Ammonia levels checked and slightly elevated at 36. Encephalopathy thought to be metabolic due to hypernatremia. Patient was treated w 1/4 ns and free water. Sodium improved and 1/4 ns discontinued. Encephalopathy resolved completely prior to discharge. (2) Chronic diastolic (congestive) heart failure Plan: Seems to be stable at this moment. Patient is on Bumex at home. Continue to hold due to hypernatremia. 2-D echocardiogram showed grade 1 diastolic dysfunction with preserved ejection fraction. stable at time of discharge. (3) Uremia Plan: Uremia thought to be contributing to encephalopathy initially There is question of GI bleed due to disproportionate elevated BUN to creatinine ratio. nephrology consulted Uremia improving - BUN trending down - now 29 (4) Diabetes mellitus Plan: Continue to hold glipizide. Sugar seems to be stable. Continue SSI with regular insulin and to monitor Accu-Cheks. (5) Hereditary lymphedema Plan: Hold diuretics for now. (6) Debility Plan: Continue with physical therapy efforts. Patient will need PT at rehabilitation. Will be discharged to inpatient rehab (7) Chronic kidney disease, stage 3 Plan: Continue to monitor BUN and creatinine. Creatinine close to baseline upon discharge. Creatinine down to 1.0 (8) HTN (hypertension) Stable upon discharge. Patient discharged on Carvedilol and Cardura which was started during this hospitalization. (9) Constipation Plan: Continue senna and Colace, Miralax as needed. resolved (10) Gout Patient discharged on Uloric. Stable upon DC (11) Gastroesophageal reflux disease Plan: Patient takes Prilosec 20 mg by mouth daily at home. Patient currently is on tube feedings which have been held due to drop in hemoglobin observed on 07/08/16 Patient started an IV Protonix drip on 07/09/16. 07/11 patient is status post EGD which showed gastritis and esophagitis. Continue Protonix drip. Protonix drip was discontinued - patient switched to oral Protonix to be continued upon discharge. (12) Anemia Plan: Patient had a positive stool guaiac test. Hemoglobin dropped from 8.5-7.6 on 07/09/16. Patient status post transfusion of 2 units of packed red blood cells on 07/09. Hemoglobin now 9.6 with appropriate response to transfusion. Concern for GI bleed given disproportionate BUN to creatinine ratio. Patient status post EGD. Hemoglobin stable . EGD showed gastritis and esophagitis but no active bleeding (13) Acute kidney injury superimposed on CKD Plan: The pain seems to be trending down. Continue to monitor BUN and creatinine, nephrology consulted RAKEL resolved upon discharge. (14) Hypernatremia Plan: sodium went up to the 150's. diuretics held. Patient treated with free water and 1/4 ns. Hypernatremia resolved upon discharge. (15) Positive blood culture Plan: Patient had a positive blood culture with staph coagulase negative on 07/06 Possible contaminant. Blood cultures repeated on 07/09/16 and pending. Vancomycin restarted on 07/09/16. At the recommendations of proceeded. As per ID discontinue vancomycin, continue azithromycin, Flagyl switched to oral and the patient was started on Rocephin. As per ID, most likely a contaminant. Blood cultures remain negative then the patient will not need any further treatment or workup. Case discussed with Dr Omayra cheatham to DC on oral Augmentin and oral Flagyl (16) HCAP (healthcare-associated pneumonia) Plan: Patient given cefepime and given vancomycin emergency department. Continue IV vancomycin, IV cefepime, IV Flagyl and azithromycin for now. Legionella and streptococcal urine antigen negative. Sputum culture showed light growth of normal respiratory federico. Pulmonary stable, pneumonia seems to be improving. (17) Dysphagia Plan: Continue NG tube and continued to feedings for now. I will reconsult speech therapy to perform a swallow eval that the patient is more awake. 07/12 Passed dysphagia eval. NG tube discontinued. Continue with diet as per speech therapy. 07/13 patient eating well without problems - Patient on soft diet with Glucerna shakes TID - GI - Protonix - DVT - SCD, continue to hold chemoprophylaxis due to drop in hemoglobin. Pt Condition on Discharge: Stable Discharge Disposition: Rehab Inpatient Discharge Time: > 30 minutes Discharge Instructions DIET: Follow Instructions for: Heart Healthy Diet, Diabetic Diet Speech Therapy-Diet Recommends: Chopped Meat w/Gravy Additional Diet Instructions: Glucerna shakes TID - chocolate 1800 ADA Cons carb diet Activities you can perform: Regular-No Restrictions, See Additionl Instruction Other Activity Instructions: OOB with assistance Follow up Referrals: PCP Follow-up - 1 Week New Medications: Amoxicillin-Clavulanate (Augmentin) 875-125 mg Tab 875 MG PO BID not for use in CrCl <30 ml/min. Infection Days 10 Ref 0 TAB Doxazosin (Cardura) 1 Mg Tab 2 MG PO HS hold for SBP <120 Blood Pressure Management #30 TAB Ferrous Sulfate (Ferrous Sulfate) 325 Mg Tab 325 MG PO DAILY anemia #30 TAB Metronidazole (Flagyl) 500 Mg Tab 500 MG PO Q8HR Infection Days 10 TAB Continued Medications: Alendronate (Alendronate) 70 Mg Tab 70 MG PO Q7D Osteporosis Treatment #4 Ref 0 TAB Alprazolam (Alprazolam) 0.25 Mg Tab 0.25 MG PO Q8H PRN ANXIETY Ref 0 TAB Bisacodyl Supp (Dulcolax Supp) 10 Mg Supp 10 MG RECTAL DAILY PRN CONSTIPATION #12 Ref 0 SUPP Calcitriol (Calcitriol) 0.25 Mcg Cap 0.25 MCG PO DAILY Calcium Supplement #30 Ref 0 CAP Carvedilol (Carvedilol) 25 Mg Tab 25 MG PO BID #60 Ref 0 TAB Cyclobenzaprine (Flexeril) 10 Mg Tab 10 MG PO TID PRN PAIN SCALE 1 TO 10 #90 Ref 0 TAB Febuxostat (Uloric) 80 Mg Tab 80 PO DAILY Glipizide (Glipizide) 5 Mg Tab 5 MG PO BIDAC Take 30 minutes before a meal Blood Sugar Management #60 Ref 0 TAB Hydralazine (Hydralazine) 100 Mg Tab 100 MG PO TID Take with meals Blood Pressure Management Ref 0 TAB Hydrocodone-Acetaminophen (Hydrocodone-Acetaminophen) 5-325 mg Tab 1 TAB PO Q6HR PRN PAIN Ref 0 TAB Levothyroxine (Levothyroxine) 50 Mcg Tab 50 MCG PO DAILY Thyroid #30 Ref 0 TAB Magnesium Hydroxide Liq (Milk of Magnesia Liq) 400 Mg/5 Ml Susp 30 ML PO DAILY PRN INDIGESTION OR UPSET STOMACH #1 Ref 0 BOTTLE Montelukast (Montelukast) 10 Mg Tab 10 MG PO HS #30 Ref 0 TAB Omeprazole (Omeprazole) 20 Mg Tab 20 MG PO DAILY #30 Ref 0 TAB Potassium Chloride ER (Potassium Chloride ER) 20 Meq Tab 20 MEQ PO DAILY PRN SEE LABEL COMMENTS #30 Ref 0 TAB Probiotic Product (Culturelle Advanced Immun) 1 Cap Cap Rosuvastatin (Rosuvastatin) 10 Mg Tab 10 MG PO HS Cholesterol Management Ref 0 TAB Skin Protectants, Misc. (Reyna Protect) 1 Cre Cre Timolol Maleate (Ophth) (Timolol Maleate) 0.25 % Lali 1 DROP EACH EYE DAILY Tizanidine (Tizanidine) 4 Mg Cap 4 MG PO TID PRN SPASM Ref 0 CAP Discontinued Medications: Ciprofloxacin (Ciprofloxacin) 500 Mg Tab 500 MG PO BID Infection Ref 0 TAB Colchicine (Colcrys) 0.6 Mg Tab 0.6 MG PO DAILY Gout Ref 0 TAB Anthony Bryant MD Jul 14, 2016 09:58
[2016-07-30] MEDS ORDERED: [UNRECOGNIZED DRUG - CODE] IV PUSH (13:49)
[2016-07-30] MEDS ORDERED: LEVO.075 PO (13:49)
[2016-07-30] MEDS ORDERED: POTA20TA5 PO (13:49)
[2016-07-30] MEDS ORDERED: IPRASOL NEB (13:49)
[2016-07-30] MEDS ORDERED: CIPR-9 PO (13:49)
[2016-07-30] MEDS ORDERED: HEPA10003 SQ (13:49)
[2016-07-30] MEDS ORDERED: HYDR50TA15 PO (13:49)
[2016-07-30] MEDS ORDERED: PANT20 PO (13:49)
== END 2016-07-14 10:17 | DRG 871 ==
LOC: NEPC 23:00 → NEDA 07-06 00:52 → NEDH 07-06 04:56 → N03A 07-06 09:26 → N04A 07-08 18:15
PROVIDERS: ADMIT Internal Medicine Critical Care Medicine; ATTEND Hospitalist
PROC: 5A09357 Assistance with Respiratory Ventilation, Less than 24 Consecutive Hours, Continuous Positive Airway Pressure (ICD-10-PCS; 2016-07-05)
PROC: 0BH17EZ Insertion of Endotracheal Airway into Trachea, Via Natural or Artificial Opening (ICD-10-PCS; principal; 2016-07-06)
PROC: 5A1935Z Respiratory Ventilation, Less than 24 Consecutive Hours (ICD-10-PCS; 2016-07-06)
PROC: 30233N1 Transfusion of Nonautologous Red Blood Cells into Peripheral Vein, Percutaneous Approach (ICD-10-PCS; 2016-07-10)
PROC: 0DB38ZX Excision of Lower Esophagus, Via Natural or Artificial Opening Endoscopic, Diagnostic (ICD-10-PCS; 2016-07-11)
PROC: 0DB68ZX Excision of Stomach, Via Natural or Artificial Opening Endoscopic, Diagnostic (ICD-10-PCS; 2016-07-11)
DX: A41.9 Sepsis, unspecified organism (principal); J18.9 Pneumonia, unspecified organism; J96.01 Acute respiratory failure with hypoxia; I63.9 Cerebral infarction, unspecified; E87.0 Hyperosmolality and hypernatremia; G92 Toxic encephalopathy; N17.9 Acute kidney failure, unspecified; I13.0 Hypertensive heart and chronic kidney disease with heart failure and stage 1 through stage 4 chronic kidney disease, or unspecified chronic kidney disease; I50.32 Chronic diastolic (congestive) heart failure; E87.2 Acidosis; K92.1 Melena; N25.81 Secondary hyperparathyroidism of renal origin; Z68.41 Body mass index [BMI] 40.0-44.9, adult; N18.3 Chronic kidney disease, stage 3 (moderate); E11.22 Type 2 diabetes mellitus with diabetic chronic kidney disease; E87.5 Hyperkalemia; G47.33 Obstructive sleep apnea (adult) (pediatric); K21.0 Gastro-esophageal reflux disease with esophagitis; M19.90 Unspecified osteoarthritis, unspecified site; M1A.9XX0 Chronic gout, unspecified, without tophus (tophi); M81.0 Age-related osteoporosis without current pathological fracture; E03.9 Hypothyroidism, unspecified; F41.9 Anxiety disorder, unspecified; D64.9 Anemia, unspecified; K44.9 Diaphragmatic hernia without obstruction or gangrene; K29.70 Gastritis, unspecified, without bleeding; Q82.0 Hereditary lymphedema; K59.00 Constipation, unspecified; R53.81 Other malaise; Y95 Nosocomial condition; G89.29 Other chronic pain; I65.22 Occlusion and stenosis of left carotid artery; J30.9 Allergic rhinitis, unspecified; E66.9 Obesity, unspecified; Z79.84 Long term (current) use of oral hypoglycemic drugs; Z79.891 Long term (current) use of opiate analgesic; Z79.899 Other long term (current) drug therapy; Z88.5 Allergy status to narcotic agent
CPT/HCPCS: 31500; 36430; 36600; 70450; 70551; 71010; 71250; 74000; 76775; 76937; 80048; 80053; 80061; 80069; 81001; 82140; 82570; 82805; 82948; 83540; 83550; 83605; 83735; 83880; 84100; 84300; 84484; 85007; 85014; 85018; 85025; 85027; 85379; 85610; 85730; 86403; 86850; 86900; 86901; 86920; 87040; 87070; 87077; 87086; 87186; 87205; 87449; 87641; 88305; 93306; 93880; 93971; 94002; 94003; 94150; 94640; 94664; 94667; 94668; 95819; C9113; J0330; J0360; J0456; J0610; J0692; J0696; J1205; J1644; J1815; J2270; J3370; J3475; J7030; J7040; J7050; P9016; P9612

== ENCOUNTER 2016-07-30 16:14 | Inpatient (IN) | payer MEDICARE, OTHER ==
[~2016-07-30 16:14] MED LIST changes: +ALEN1TAB48 PO; +ALPR0.25 PO; +AUGM875T PO; +BAZACRE; -BUME1TAB PO; +CALC0.25 PO; +CARD1TAB PO; -CARV12.5 PO; +CARV25TA PO; +CIPR-9 PO; -COMMODE 3:1; +CYCL1TAB29 PO; -DOCU1CAP39 PO; +DULC10SU3 RECTAL; +FERR325T PO; +GLIP5TAB8 PO; +HEPA10003 SQ; +HYDR-3516 PO; +HYDR-3801 PO; -HYDR100T2 PO; +HYDR50TA15 PO; +IPRASOL NEB; +LEVO.075 PO; -LEVO.1 PO; +LEVO50TA4 PO; -LYRI50CA2 PO; +METR-1 PO; +MILKSUS PO; -MINO10 PO; -MONT10TA2 PO; +MONT10TA4 PO; +OMEP20TA PO; +PANT20 PO; +POTA-163 PO; +POTA20TA5 PO; +PROB1CAP25; +ROSU1TAB6 PO; -ROSU40 PO; +TIMO0.2517 EACH EYE; +TIZA4CAP3 PO; +ULOR80TA2 PO; -WALKER ROLLING; -WHEELCHAIR RENTAL RA; +[UNRECOGNIZED DRUG - CODE] IV PUSH
[2016-07-30] MEDS ORDERED: ALBU.5I NEB ×2 (17:32)
[2016-07-30] MEDS ORDERED: [UNRECOGNIZED DRUG - CODE] SQ (17:32)
[2016-07-30] MEDS ORDERED: ASPI325T PO (17:32)
[2016-07-30] MEDS ORDERED: DOCU100C PO (17:32)
[2016-07-30] MEDS ORDERED: DEXTROSE 50% IN WATER 50 ML VIAL(D50) IV PUSH PRN (18:15)
[2016-07-30] MEDS ORDERED: POTASSIUM CHLORIDE 20 MEQ CONTROLLED RELEASE TAB PO PRN (18:15)
[2016-07-30] MEDS ORDERED: MAGNESIUM HYDROXIDE SUSP 30 ML CUP PO PRN ×3 (18:15→19:15)
[2016-07-30] MEDS ORDERED: GLUCAGON 1 MG/ML VIAL OTHER PRN (18:15)
[2016-07-30] MEDS ORDERED: BISACODYL 10 MG SUPP RECTAL PRN (18:15)
[2016-07-30] MEDS ORDERED: ONDANSETRON HCL 4 MG/2 ML VIAL IVP PRN ×2 (18:15→19:15)
[2016-07-30] MEDS ORDERED: ACETAMINOPHEN 325 MG TAB PO PRN ×2 (18:15)
[2016-07-30] MEDS ORDERED: RESP: ALBUTEROL CONC 2.5 MG/0.5 ML NEB NEB PRN (18:15)
[2016-07-30 19:00] VITALS: BP 155/62; PULSE 87; PULSE 90; TEMP 97.9; O2SAT 99
[2016-07-30] MEDS: RESP: ALBUTEROL 2.5 MG/IPRATROPIUM 0.5 MG NEB (SCH) NEB (19:06)
[2016-07-30] MEDS ORDERED: SODIUM CHLORIDE 0.9% FLUSH 5 ML FLUSH FLUSH PRN (19:15)
[2016-07-30] MEDS ORDERED: TEMAZEPAM 15 MG CAP PO PRN (19:15)
[2016-07-30] MEDS ORDERED: ACETAMINOPHEN/HYDROcodone 325 MG/5 MG TAB PO PRN (19:15)
[2016-07-30] MEDS ORDERED: BISACODYL 10 MG SUPP PR PRN (19:15)
[2016-07-30 19:17] VITALS: O2SAT 96
[2016-07-30 20:00] VITALS: PULSE 94
[2016-07-30 21:00] VITALS: PULSE 92
[2016-07-30] MEDS: SODIUM CHLORIDE 0.9% FLUSH 5 ML FLUSH FLUSH SCH (21:00)
[2016-07-30] MEDS: MONTELUKAST SODIUM 10 MG TAB PO SCH (21:00)
[2016-07-30] MEDS: ATORVASTATIN 20 MG TAB PO SCH (21:23)
[2016-07-30] MEDS: PANTOPRAZOLE SOD 20 MG DELAYED RELEASE TAB PO SCH (21:24)
[2016-07-30] MEDS: DOCUSATE SODIUM 100 MG CAP PO SCH (21:24)
[2016-07-30] MEDS: HEPARIN SODIUM - SQ 10,000 UNITS/ML VIAL SQ SCH (21:24)
[2016-07-30] MEDS: hydrALAZINE HCL 50 MG TAB PO SCH (21:24)
[2016-07-30] MEDS: CARVEDILOL 12.5 MG TAB PO SCH (21:24)
[2016-07-30] MEDS: DOXAZOSIN MESYLATE 1 MG TAB PO SCH (21:25)
[2016-07-30] MEDS: CIPROFLOXACIN 500 MG TAB PO SCH (21:25)
[2016-07-30] MEDS: ALPRAZolam 0.25 MG TAB PO PRN (21:28)
[2016-07-30] MEDS: INSULIN ASPART SUPPLEMENTAL SCALE SQ SCH (21:33)
[2016-07-30 22:00] VITALS: PULSE 98
[2016-07-30 23:00] VITALS: BP 140/57; PULSE 88; TEMP 98.5; O2SAT 94
[2016-07-31] VITALS (27 sets, daily range): BP systolic 118–170; BP diastolic 47–82; PULSE 74–140; RESP 18–20; TEMP 97.6–98.6; O2SAT 93–99
[2016-07-31 04:27] LABS: AUTOMATED NEUTROPHIL # 7.8 TH/MM3 (1.8-7.7); BASOPHIL % 0.5 % (0.0-2.0); EOSINOPHIL # 0.2 TH/MM3 (0-0.4); EOSINOPHIL % 1.6 % (0.0-4.0); HEMATOCRIT 23.5 % (35.0-46.0); LYMPH % 10.4 % (9.0-44.0); MEAN CORPUSCULAR HEMOGLOBIN 29.4 PG (27.0-34.0); MEAN CORPUSCULAR HGB CONC 33.4 % (32.0-36.0); MONO % 9.6 % (0.0-8.0); NEUT % 77.9 % (16.0-70.0); PLATELET COUNT 250 TH/MM3 (150-450); RED BLOOD COUNT 2.67 MIL/MM3 (4.00-5.30); RED CELL DISTRIBUTION WIDTH 17.2 % (11.6-17.2)
[2016-07-31 04:30] LABS: HEMO FLAGS AUTO DIFF
[2016-07-31 04:57] LABS: ALKALINE PHOSPHATASE 59 U/L (45-117); ALT (GPT) 35 U/L (10-53); ANION GAP 9 MEQ/L (5-15); AST (GOT) 35 U/L (15-37); BICARBONATE 33.2 MEQ/L (21.0-32.0); BLOOD UREA NITROGEN 37 MG/DL (7-18); CHLORIDE 100 MEQ/L (98-107); GLOMERULAR FILTRATION RATE 37 ML/MIN (>89); POTASSIUM 3.9 MEQ/L (3.5-5.1); SODIUM (NA) 142 MEQ/L (136-145); TOTAL BILIRUBIN ADULT 0.3 MG/DL (0.2-1.0)
[2016-07-31] MEDS: LEVOTHYROXINE SODIUM 75 MCG TAB PO SCH (05:57)
[2016-07-31] MEDS: INSULIN ASPART SUPPLEMENTAL SCALE SQ SCH ×4 (06:02→20:23)
[2016-07-31 06:58] LABS: BANDS 4 % (0-6); BASOPHILS 1 % (0-2); EOSINOPHILS 1 % (0-4); MYELOCYTES 3 % (0-0); NEUTROPHIL # MANUAL DIFF 7.9 TH/MM3 (1.8-7.7); POLYS (SEG NEUTROPHILS) 71 % (16-70); PROMYELOCYTES 1 % (0-0); WBC DIFF SAMPLE 100
[2016-07-31 06:59] LABS: PLATELET ESTIMATE SMEAR NORMAL (NORMAL); PLATELET MORPHOLOGY NORMAL (NORMAL); SCAN/DIFF FINAL DIFF MANUAL
[2016-07-31] MEDS: glipiZIDE 5 MG TAB PO SCH ×2 (07:00→15:54)
[2016-07-31] MEDS: RESP: ALBUTEROL 2.5 MG/IPRATROPIUM 0.5 MG NEB (SCH) NEB ×3 (07:24→20:59)
[2016-07-31] MEDS: TIMOLOL MALEATE 0.25% OPHT SOLN 5 ML BTL EACH EYE SCH (08:13)
[2016-07-31] MEDS: PANTOPRAZOLE SOD 20 MG DELAYED RELEASE TAB PO SCH ×2 (08:14→20:23)
[2016-07-31] MEDS: CARVEDILOL 12.5 MG TAB PO SCH ×2 (08:14→20:16)
[2016-07-31] MEDS: SODIUM CHLORIDE 0.9% FLUSH 5 ML FLUSH FLUSH SCH (08:14)
[2016-07-31] MEDS: CALCITRIOL 0.25 MCG CAP PO SCH (08:14)
[2016-07-31] MEDS: FERROUS SULFATE 325 MG (65 MG ELEMENTAL IRON) TAB PO SCH (08:14)
[2016-07-31] MEDS: hydrALAZINE HCL 50 MG TAB PO SCH ×2 (08:15→20:16)
[2016-07-31] MEDS: ASPIRIN 325 MG TAB PO SCH (08:15)
[2016-07-31] MEDS: DOCUSATE SODIUM 100 MG CAP PO SCH ×2 (08:15→20:16)
[2016-07-31] MEDS: HEPARIN SODIUM - SQ 10,000 UNITS/ML VIAL SQ SCH (08:15)
[2016-07-31] MEDS: BUMETANIDE INJ 1 MG/4 ML VIAL IV PUSH SCH ×2 (08:16→17:39)
[2016-07-31] MEDS: CIPROFLOXACIN 500 MG TAB PO SCH ×2 (08:31→20:16)
--- NOTE | 2016-07-31 10:26 | HHI.HP ---
HPI Service [facility] Hospitalists Primary Care Physician Unknown Admission Diagnosis Afib with RVR, ventricular ectopies. Diagnoses: Chief Complaint: Shortness of breath. Travel History International Travel<30 Days: No Contact w/Intl Traveler <30 Da: No Traveled to Known Affected Are: No History of Present Illness Ms. Santacruz is a pleasant 80 year old female with a history of diastolic heart failure, recent pneumonia, CKD stage IV who was transferred from [facility] to [facility] (medical floor) due to ventricular ectopy, atrial fibrillation with RVR noted on Holter monitor. Patient was initially admitted to [facility] and discharged to SNF on 07/04/2016. On 07/05/2016, patient was transferred to [facility] due to mental status change, lethargy, confusion. She was found to have acute on chronic kidney disease. She required mechanical ventilation due to hypoxic respiratory failure. MRI head showed subacute left parietal infarction. Patient was also treated for healthcare associated Pneumonia received IV antibiotics vancomycin, cefepime, Flagyl, and azithromycin. Her echocardiogram showed grade 1 diastolic dysfunction with preserved ejection fraction. She also developed anemia, positive Hemoccult and received 2 packed PRBCs on 07/09/16. EGD showed gastritis and esophagitis without any active bleeding. After patient's clinical condition improved, patient was admitted to [facility] for comprehensive rehab. While at [place], patient has been having increasing shortness of breath, her Hgb was 7.3 s/p 1 unit PRBCs transfusion. With increased diuretics, her shortness of breath subsided. Currently, patient is waiting for a possible cath today. No chest pain , shortness of breath, fever or chills. She denies any tinnitus in her bowel or bladder habits. Review of Systems ROS Limitations: Other (negative except as noted in the history of present illness) Past Family Social History Past Medical History Obstructive sleep apnea Diabetes mellitus type II Recurrent UTI Anxiety disorder Hypothyroidism Gout Gastroesophageal reflux disease without esophagitis Osteoporosis Next incontinence Lymphedema Allergic rhinitis Chronic kidney disease stage IV to 5 Past Surgical History Partial hysterectomy Reported Medications Current Medications Albuterol Sulfate (Albuterol Concentrated Neb) 2.5 mg Q4HR NEB PRN NEB SHORTNESS OF BREATH; Start 07/30/16 at 18:15 Aspirin (Aspirin) 325 mg DAILY PO Last administered on 07/31/16 08:15; Start at 09:00 Bisacodyl (Dulcolax Supp) 10 mg DAILY PRN RECTAL CONSTIPATION; Start 07/30/16 at 18:15; Status Cancel Bumetanide (Bumex Inj) 1 mg BID@09,18 IV PUSH Last administered on 07/31/16 08: 16; Start 07/31/16 at 09:00 Calcitriol (Rocaltrol) 0.25 mcg DAILY PO Last administered on 07/31/16 08:14; Start 07/31/16 at 09:00 Carvedilol (Coreg) 25 mg BID PO Last administered on 07/31/16 08:14; Start 07/30 at 21:00 Ciprofloxacin (Cipro) 500 mg Q12HR PO Last administered on 07/31/16 08:31; Start 07/30/16 at 21:00 Docusate Sodium (Colace) 100 mg BID PO Last administered on 07/31/16 08:15; Start 07/30/16 at 21:00 Doxazosin Mesylate (Cardura) 2 mg HS PO Last administered on 07/30/16 21:25; Start 07/30/16 at 21:00 Epoetin Keaton (Epogen Inj) 40,000 units MoWeFr@14 SQ ; Start 07/31/16 at 14:00 Ferrous Sulfate (Ferrous Sulfate) 325 mg DAILY PO Last administered on 08:14; Start 07/31/16 at 09:00 Glipizide (Glucotrol) 5 mg BIDAC PO ; Start 07/31/16 at 07:00 Heparin Sodium (Porcine) (Heparin Inj) 5,000 units Q12HR SQ Last administered on 07/31/16 08:15; Start 07/30/16 at 21:00 Hydralazine HCl (Apresoline) 50 mg BID PO Last administered on 07/31/16 08:15; Start 07/30/16 at 21:00 Albuterol/ Ipratropium (Duoneb Neb) 1 ampule Q6HR WHILE AWAKE NEB NEB Last administered on 07/31/16 07:24; Start 07/30/16 at 20:00 Levothyroxine Sodium (Synthroid) 75 mcg DAILY@0600 PO Last administered on 05:57; Start 07/31/16 at 06:00 Magnesium Hydroxide (Milk Of Magnesia Liq) 30 ml DAILY PRN PO INDIGESTION OR UPSET STOMACH; Start 07/30/16 at 18:15; Status Cancel Montelukast Sodium (Singulair) 10 mg HS PO Last administered on 07/30/16 21:00 ; Start 07/30/16 at 21:00 Pantoprazole Sodium (Protonix) 20 mg BID PO Last administered on 07/31/16 08:14 ; Start 07/30/16 at 21:00 Potassium Chloride (KCl) 20 meq DAILY PRN PO SEE LABEL COMMENTS; Start 07/30/16 at 18:15 Timolol Maleate (Timoptic 0.25% Opt Soln) 1 drop DAILY EACH EYE Last administered on 07/31/16 08:13; Start 07/31/16 at 09:00 Dextrose (D50w (Vial) Inj) 25 ml UNSCH PRN IV PUSH HYPOGLYCEMIA-SEE COMMENTS; Start 07/30/16 at 18:15 Glucagon (Glucagon Inj) 1 mg UNSCH PRN OTHER HYPOGLYCEMIA-SEE COMMENTS; Start 07/30/16 at 18:15 Insulin Aspart (NovoLOG SUPPLEMENTAL SCALE) 1 ACHS SLIDING SCALE SQ Last administered on 07/30/16 21:33; Start 07/30/16 at 21:00 Acetaminophen (Tylenol) 650 mg Q4H PRN PO TEMP > 100.4; Start 07/30/16 at 18:15 Ondansetron HCl (Zofran Inj) 4 mg Q6H PRN IVP NAUSEA OR VOMITING; Start at 18:15; Status Cancel Acetaminophen (Tylenol) 650 mg Q6H PRN PO PAIN SCALE 1 TO 2; Start 07/30/16 at 18:15 Atorvastatin Calcium (Lipitor) 20 mg HS PO Last administered on 07/30/16 21:23 ; Start 07/30/16 at 21:00 Magnesium Hydroxide (Milk Of Magnesia Liq) 30 ml DAILY PRN PO constipation; Start 07/30/16 at 18:30; Stop 07/30/16 at 18:36; Status DC IV Flush (NS Flush) 2 ml UNSCH PRN FLUSH FLUSH AFTER USING IV ACCESS; Start 07/30/16 at 19:15 IV Flush (NS Flush) 2 ml BID FLUSH Last administered on 07/31/16 08:14; Start 07/30/16 at 21:00 Ondansetron HCl (Zofran Inj) 4 mg Q6H PRN IVP NAUSEA OR VOMITING; Start at 19:15 Bisacodyl (Dulcolax Supp) 10 mg DAILY PRN AL CONSTIPATION; Start 07/30/16 at 19: 15 Magnesium Hydroxide (Milk Of Magnsonny Liq) 30 ml Q12H PRN PO CONSTIPATION; Start 07/30/16 at 19:15 Temazepam (Restoril) 15 mg HS PRN PO INSOMNIA; Start 07/30/16 at 19:15 Alprazolam (Xanax) 0.25 mg Q8H PRN PO ANXIETY Last administered on 07/30/16 21: 28; Start 07/30/16 at 19:15 Acetaminophen/ Hydrocodone Bitart (Morenci 5-325 Mg) 1 tab Q6HR PRN PO PAIN SCALE 3 TO 10; Start 07/30/16 at 19:15 Allergies: Coded Allergies: Lyrica (Verified Allergy, Mild, Swelling Confussed, 07/14/16) Codeine (Verified Allergy, Unknown, Confusion, 07/14/16) pt stated, she felt the effects of medication days after, doesnt want any narcotics Family History Motherrheumatic fever Dadcongestive heart failure Social History Patient does not use tobacco, illicit drugs or alcohol. Physical Exam Vital Signs Vital Signs Date Time Temp Pulse Resp B/P Pulse Ox O2 Delivery O2 Flow Rate FiO2 07/31/16 10:00 87 07/31/16 09:00 88 07/31/16 08:00 97 07/31/16 07:24 99 Nasal Cannula 2.00 07/31/16 07:00 92 07/31/16 07:00 98.5 77 18 155/63 98 07/31/16 06:00 90 07/31/16 05:00 86 07/31/16 04:31 82 07/31/16 04:22 98.3 90 129/65 97 07/31/16 03:00 86 07/31/16 02:00 88 07/31/16 01:00 86 07/31/16 00:00 84 07/30/16 23:00 88 07/30/16 23:00 98.5 88 140/57 94 07/30/16 22:00 98 07/30/16 21:00 92 07/30/16 20:00 94 07/30/16 19:17 96 Nasal Cannula 3.00 07/30/16 19:00 97.9 87 155/62 99 07/30/16 19:00 90 Physical Exam GENERAL: This is a well-nourished, well-developed patient, in no apparent distress. SKIN: No rashes, ecchymoses or lesions. Warm and dry. HEAD: Atraumatic. Normocephalic. No temporal or scalp tenderness. EYES: Pupils equal round and reactive. No injection or drainage. ENT: Nose without bleeding, purulent drainage or septal hematoma. Airway patent. NECK: Trachea midline. No lymphadenopathy. Supple, nontender, no meningeal signs. CARDIOVASCULAR: Regular rate and rhythm without murmurs, gallops, or rubs. No JVD. Bibasilar crackles. RESPIRATORY: Clear to auscultation. Breath sounds equal bilaterally. No wheezes , rales, or rhonchi. GASTROINTESTINAL: Abdomen soft, non-tender, nondistended. No guarding. MUSCULOSKELETAL: Extremities without clubbing, cyanosis. 1+ edema in lower ext. NEUROLOGICAL: Awake and alert. Cranial nerves II through XII intact. No focal neurological deficits. Normal speech. Laboratory Laboratory Tests Test 07/31/16 03:53 White Blood Count 10.0 Red Blood Count 2.67 Hemoglobin 7.9 Hematocrit 23.5 Mean Corpuscular Volume 88.0 Mean Corpuscular Hemoglobin 29.4 Mean Corpuscular Hemoglobin 33.4 Concent Red Cell Distribution Width 17.2 Platelet Count 250 Mean Platelet Volume 8.2 Neutrophils (%) (Auto) 77.9 Lymphocytes (%) (Auto) 10.4 Monocytes (%) (Auto) 9.6 Eosinophils (%) (Auto) 1.6 Basophils (%) (Auto) 0.5 Neutrophils # (Auto) 7.8 Lymphocytes # (Auto) 1.0 Monocytes # (Auto) 1.0 Eosinophils # (Auto) 0.2 Basophils # (Auto) 0.0 CBC Comment AUTO DIFF Differential Total Cells 100 Counted Neutrophils % (Manual) 71 Band Neutrophils % 4 Lymphocytes % 13 Monocytes % 6 Eosinophils % 1 Basophils % 1 Neutrophils # (Manual) 7.9 Myelocytes 3 Promyelocytes 1 Differential Comment FINAL DIFF MANUAL Platelet Estimate NORMAL Platelet Morphology Comment NORMAL Sodium Level 142 Potassium Level 3.9 Chloride Level 100 Carbon Dioxide Level 33.2 Anion Gap 9 Blood Urea Nitrogen 37 Creatinine 1.37 Estimat Glomerular Filtration 37 Rate Random Glucose 115 Calcium Level 8.2 Total Bilirubin 0.3 Aspartate Amino Transf 35 (AST/SGOT) Alanine Aminotransferase 35 (ALT/SGPT) Alkaline Phosphatase 59 B-Type Natriuretic Peptide 299 Total Protein 6.0 Albumin 2.1 Result Diagram: 07/31/1635207/31/16352 Assessment and Plan Problem List: (1) Chronic kidney disease, stage 3 ICD Code: N18.3 Status: Chronic (2) Atrial fibrillation ICD Code: I48.91 Status: Acute (3) Diastolic CHF, chronic ICD Code: I50.32 Status: Acute (4) Hypothyroidism ICD Code: E03.9 Status: Chronic Assessment and Plan Ms. Santacruz, 80 was transferred from [facility] due to Afib and ventricular ectopy noted on holter monitor. Dr. Cutler (Cardiology) has been following this patient. - Ventricular ectopy - Atrial fibrillation - Diastolic congestive heart failure - Echo showed EF 55-60%. - Continue Bumex 1mg BID., Carvedilol 25mg BID. Consider CCB if heart rate > 110. - Could benefit from low dose KRZYSZTOF inhibitors. - Will wait for further recommendations from cardiology - K+ is 3.9. Will check Mg level. - Continue aspirin 325 mg, atorvastatin 20 mg. - CKD stage IIIB - avoid nephrotoxins. Consider low dose KRZYSZTOF inhibitors if BP permits. - Diabetes mellitus - continue glipizide 5 mg twice a day, sliding scale insulin. - Anxiety - continue alprazolam 0.25 mg every 8 hours when necessary. - Hypothyroidism - continue levothyroxine 75 g by mouth daily. Full code. Heparin subcutaneous. Physician Certification 2 Midnight Certification Type: Admission for Inpatient Services Order for Inpatient Services The services are ordered in accordance with Medicare regulations or non- Medicare payer requirements, as applicable. In the case of services not specified as inpatient-only, they are appropriately provided as inpatient services in accordance with the 2-midnight benchmark. Estimated LOS (days): 2 days is the estimated time the patient will need to remain in the hospital, assuming treatment plan goals are met and no additional complications. Post-Hospital Plan: Not yet determined Fan Predomo DO Jul 31, 2016 10:26 am
[2016-07-31] MEDS ORDERED: HEPARIN-NS/PF INJ 500 ML ONE (13:11)
[2016-07-31] MEDS ORDERED: IOHEXOL 350 MG/ML 50 ML BTL (for Cath Lab) OTHER ONE ×2 (13:17→14:00)
--- NOTE | 2016-07-31 13:39 | PD.CARD.PN ---
Subjective Subjective Remarks alert in nad Objective Vital Signs / I&O Vital Signs Date Time Temp Pulse Resp B/P Pulse Ox O2 Delivery O2 Flow Rate FiO2 07/31/16 13:00 82 07/31/16 12:00 75 07/31/16 11:00 114 07/31/16 11:00 98.5 74 18 118/47 97 07/31/16 10:00 87 07/31/16 09:00 88 07/31/16 08:00 97 07/31/16 07:24 99 Nasal Cannula 2.00 07/31/16 07:00 92 07/31/16 07:00 98.5 77 18 155/63 98 07/31/16 06:00 90 07/31/16 05:00 86 07/31/16 04:31 82 07/31/16 04:22 98.3 90 129/65 97 07/31/16 03:00 86 07/31/16 02:00 88 07/31/16 01:00 86 07/31/16 00:00 84 07/30/16 23:00 88 07/30/16 23:00 98.5 88 140/57 94 07/30/16 22:00 98 07/30/16 21:00 92 07/30/16 20:00 94 07/30/16 19:17 96 Nasal Cannula 3.00 07/30/16 19:00 97.9 87 155/62 99 07/30/16 19:00 90 I/O 07/30/16 07/30/16 07/30/16 07/31/16 07/31/16 07/31/16 07:00 15:00 23:00 07:00 15:00 23:00 Intake Total 240 ml Output Total 350 ml Balance -110 ml Intake Oral 240 ml Output Urine Total 350 ml Laboratory Laboratory Tests Test 07/31/16 03:53 White Blood Count 10.0 TH/MM3 Red Blood Count 2.67 MIL/MM3 Hemoglobin 7.9 GM/DL Hematocrit 23.5 % Mean Corpuscular Volume 88.0 FL Mean Corpuscular Hemoglobin 29.4 PG Mean Corpuscular Hemoglobin 33.4 % Concent Red Cell Distribution Width 17.2 % Platelet Count 250 TH/MM3 Mean Platelet Volume 8.2 FL Neutrophils (%) (Auto) 77.9 % Lymphocytes (%) (Auto) 10.4 % Monocytes (%) (Auto) 9.6 % Eosinophils (%) (Auto) 1.6 % Basophils (%) (Auto) 0.5 % Neutrophils # (Auto) 7.8 TH/MM3 Lymphocytes # (Auto) 1.0 TH/MM3 Monocytes # (Auto) 1.0 TH/MM3 Eosinophils # (Auto) 0.2 TH/MM3 Basophils # (Auto) 0.0 TH/MM3 CBC Comment AUTO DIFF Differential Total Cells 100 Counted Neutrophils % (Manual) 71 % Band Neutrophils % 4 % Lymphocytes % 13 % Monocytes % 6 % Eosinophils % 1 % Basophils % 1 % Neutrophils # (Manual) 7.9 TH/MM3 Myelocytes 3 % Promyelocytes 1 % Differential Comment FINAL DIFF MANUAL Platelet Estimate NORMAL Platelet Morphology Comment NORMAL Sodium Level 142 MEQ/L Potassium Level 3.9 MEQ/L Chloride Level 100 MEQ/L Carbon Dioxide Level 33.2 MEQ/L Anion Gap 9 MEQ/L Blood Urea Nitrogen 37 MG/DL Creatinine 1.37 MG/DL Estimat Glomerular Filtration 37 ML/MIN Rate Random Glucose 115 MG/DL Calcium Level 8.2 MG/DL Total Bilirubin 0.3 MG/DL Aspartate Amino Transf 35 U/L (AST/SGOT) Alanine Aminotransferase 35 U/L (ALT/SGPT) Alkaline Phosphatase 59 U/L B-Type Natriuretic Peptide 299 PG/ML Total Protein 6.0 GM/DL Albumin 2.1 GM/DL Assessment and Plan Assessment and Plan rhc and lhc are medically necessary due to severe mr/tr, chf, wide complex tachycardia on holter, vtavh; i explained to patitnt the risk of cath/pci is 10- 20% chance of , mi, cva, need fro emergency cabg/surgery/dialysis/blood transfusion, bleeding, infection, arrythmia, anaphylaxis; patient understands and consents to procedure Zen Cutler MD Jul 31, 2016 13:39
[2016-07-31] MEDS ORDERED: FUROSEMIDE 40 MG/4 ML VIAL ONE (14:04)
[2016-07-31] MEDS ORDERED: MISC INFORMATION XX ONE (14:15)
[2016-07-31] MEDS ORDERED: SODIUM CHLORIDE 0.9% FLUSH 5 ML FLUSH IVF PRN (14:15)
[2016-07-31] MEDS: EPOETIN ALFA 20,000 UNITS/ML VIAL SQ SCH (15:53)
[2016-07-31 20:14] LABS: BICARBONATE 37.3 MEQ/L (21.0-32.0); MAGNESIUM 1.7 MG/DL (1.5-2.5); POTASSIUM 4.1 MEQ/L (3.5-5.1)
[2016-07-31] MEDS: DOXAZOSIN MESYLATE 1 MG TAB PO SCH (20:16)
[2016-07-31] MEDS: ATORVASTATIN 20 MG TAB PO SCH (20:16)
[2016-07-31] MEDS: SODIUM CHLORIDE 0.9% FLUSH 5 ML FLUSH IVF SCH (20:17)
[2016-07-31] MEDS: MONTELUKAST SODIUM 10 MG TAB PO SCH (20:22)
[2016-07-31] MEDS: ALPRAZolam 0.25 MG TAB PO PRN (22:42)
[2016-08-01] VITALS (28 sets, daily range): BP systolic 124–161; BP diastolic 54–87; PULSE 78–105; RESP 17–20; TEMP 97.8–98.6; O2SAT 91–98
[2016-08-01] MEDS: INSULIN ASPART SUPPLEMENTAL SCALE SQ SCH ×4 (06:13→21:28)
[2016-08-01] MEDS: glipiZIDE 5 MG TAB PO SCH ×2 (06:15→16:19)
[2016-08-01] MEDS: LEVOTHYROXINE SODIUM 75 MCG TAB PO SCH (06:15)
[2016-08-01 06:48] LABS: AUTOMATED NEUTROPHIL # 7.8 TH/MM3 (1.8-7.7); BASOPHIL % 0.3 % (0.0-2.0); EOSINOPHIL # 0.1 TH/MM3 (0-0.4); EOSINOPHIL % 1.5 % (0.0-4.0); HEMATOCRIT 24.4 % (35.0-46.0); LYMPH % 10.6 % (9.0-44.0); LYMPHOCYTE # 1.1 TH/MM3 (1.0-4.8); MEAN CELL VOLUME 88.2 FL (80.0-100.0); MEAN CORPUSCULAR HEMOGLOBIN 28.8 PG (27.0-34.0); MEAN CORPUSCULAR HGB CONC 32.6 % (32.0-36.0); MONO % 9.6 % (0.0-8.0); PLATELET COUNT 259 TH/MM3 (150-450); RED BLOOD COUNT 2.77 MIL/MM3 (4.00-5.30); RED CELL DISTRIBUTION WIDTH 17.2 % (11.6-17.2)
[2016-08-01 06:58] LABS: HEMO FLAGS AUTO DIFF
[2016-08-01 07:15] LABS: BICARBONATE 37.4 MEQ/L (21.0-32.0); POTASSIUM 4.1 MEQ/L (3.5-5.1)
--- NOTE | 2016-08-01 07:19 | MB ---
cc: ANNE-MARIE FRANCO MD DATE OF CONSULTATION 07/31/2016 HISTORY OF THE PRESENT ILLNESS A 80-year-old female admitted on 07/30/2016, has had quite an extensive recent background of multiple comorbidities and illnesses. Approximately six weeks ago she was admitted to [facility] for a diagnosis of gout with a uric acid level greater than 12. She was treated there for about a week. She was also found to have some anemia at that time and was given 2 units of packed RBCs per the daughters at the bedside. She was then transferred to [facility] nursing [facility]. She was there about 24 hours when the daughters arrived they noticed that their mother had significant right-sided weakness and was basically unable to move her right upper arm and right leg. They were also medicating her three times a day with Xanax and Flexeril for pain and anxiety. She was then transferred to [facility] for acute respiratory failure, encephalopathy, found to have bilateral pneumonia. She was intubated for approximately 48 hours and was found to have a left parietal infarct. At that time she also had a feeding tube placed due to difficulty with swallowing. She recovered from that and then she was transferred to [facility] for further intense rehab. She was there about a week when she developed some respiratory difficulties, some pulmonary edema, atrial fibrillation with RVR. They did an echocardiogram on the which showed an EF of 55-60%, moderate to severe mitral regurgitation. Systolic pulmonary pressures increased of 65 mmHg. Tricuspid valve had no regurgitation. We were consulted to evaluate for mitral valve replacement. The patient underwent cardiac cath today by Dr. Cutler showing minimal coronary disease with a left main 20%, the RCA 50% stenosed, EF of 55 by cath. PAST MEDICAL HISTORY Includes: 1. Obstructive sleep apnea. She has a C-PAP machine. 2. Diabetes mellitus type 2. 3. Recurrent urinary tract infection. 4. Anxiety disorder. 5. Hypothyroidism. 6. Gout. 7. Gastroesophageal reflux disease without esophagitis. 8. Osteoporosis. 9. Hereditary lymphedema. 10. Chronic rhinitis. 11. Chronic kidney disease stage IV. 12. Recent left parietal infarct. 13. Recent bilateral pneumonia. 14. Respiratory failure requiring ventilation support. 15. Wide complex tachycardia. 16. Recent Pseudomonas urinary tract infection. 17. Recent anemia. She has been transfused per the family, a total of 5 units since her admission to [facility] over six weeks ago. 18. Apparently she had EGD done showing gastritis in the antrum, esophagitis distal esophagus. PAST SURGICAL HISTORY Surgery includes: 1. EGD. 2. Partial hysterectomy. ALLERGIES INCLUDE CODEINE AND LYRICA. MEDICATIONS Home medications include: 1. Cardura 2 mg. 2. Uloric. 3. Recently on Flagyl. 4. Xanax p.r.n. 5. Albuterol nebs. 6. Fosamax. 7. Flexeril. 8. Tizanidine. 9. Hydralazine. 10. Crestor. 11. Singulair. 12. Bumex IV. 13. Aspirin. 14. Humphrey. 15. Protonix. 16. Recent Cipro. 17. Glipizide. 18. Levothyroxine. FAMILY HISTORY Mother had rheumatic fever. Father from congestive heart failure. SOCIAL HISTORY The patient with children. No tobacco, alcohol or illicit drugs. REVIEW OF SYSTEMS GENERAL: No night sweats, fever, heat and cold intolerance. SKIN: No psoriasis, itching or hives. HEENT: No blurred vision, hearing loss. RESPIRATORY: Chronic shortness of breath. Occasional cough. CARDIOVASCULAR: As above in HPI. She has chronic lymphedema which has somewhat improved per the family. GASTROINTESTINAL: No recent diarrhea, nausea, vomiting. GENITOURINARY: No burning, frequency. Occasionally has some urinary incontinence. CENTRAL NERVOUS SYSTEM: Positive for recent parietal infarct. ENDOCRINE: Positive for hypothyroidism and diabetes mellitus. PHYSICAL EXAMINATION VITAL SIGNS: On exam blood pressure 120/60, heart rate of 88, temperature 98.5. GENERAL: Patient is awake, alert. No acute distress. HEENT: Head is normocephalic, atraumatic. Pupils are approximately 3 mm midline, reactive. Oral mucosa pink, moist. NECK: Supple. No JVD. CARDIOVASCULAR: Heart sounds S1-S2, irregular rate and rhythm. Soft systolic murmur. LUNGS: Diminished in the bases, otherwise clear to auscultation. ABDOMEN: Grossly obese, soft, nontender. No masses or organomegaly. EXTREMITIES: Revealed 2-3+ edema bilaterally. She has pain to both feet when palpated. She has distal pulses. LABORATORY FINDINGS Shows hemoglobin 7.9, hematocrit 23, white cell count 10, platelet count 250. Sodium 142, potassium 3.9, BUN of 37 with a creatinine 1.37. BNP 299. She had a blood gas done on 2 liters which showed a pH 7.36, CO2 61, pO2 of 57 with a bicarb of 33. IMPRESSION This is a 80-year-old female with multiple comorbidities to include: 1. Severe mitral valve regurgitation. 2. Also elevated pulmonary systolic pressures, peak pressures is at 65 mm. 3. Recent pneumonia health care acquired, was treated with Flagyl and azithromycin and cefepime. 4. Anemia. Status post EGD showing gastritis, positive heme stool. A total of 4 units of packed RBCs infused since her initial admission from [facility]. 5. A fib with RVR with some wide complex V-tach, therefore leading to the heart catheterization. She has minimal coronary artery disease, however with all of her comorbidities timing of her surgery as per Dr. Anne-Marie Franco she will need to have improved in her overall status. She requires full assistance to get out of bed. She is able to feed herself, however. Prior to this admission to [facility] she was using a walker at home. Further planning and timing as per Dr. Anne-Marie Franco. STS data will be documented in the electronic record and discussed with the patient. DICTATED BY: KIRK Delarosa Anne-Marie NICHOLAS /3:14 PM /7:19 AM
[2016-08-01] MEDS: RESP: ALBUTEROL 2.5 MG/IPRATROPIUM 0.5 MG NEB (SCH) NEB ×3 (07:21→20:22)
[2016-08-01 07:54] LABS: BANDS 4 % (0-6); BASOPHILS 1 % (0-2); CORRECTED NUCLEATED RBC 1 /100 WBC (0-0); EOSINOPHILS 3 % (0-4); METAMYELOCYTES 2 % (0-1); MYELOCYTES 3 % (0-0); NEUTROPHIL # MANUAL DIFF 8.3 TH/MM3 (1.8-7.7); POLYS (SEG NEUTROPHILS) 74 % (16-70); WBC DIFF SAMPLE 100
[2016-08-01 07:55] LABS: PLATELET ESTIMATE SMEAR NORMAL (NORMAL); PLATELET MORPHOLOGY NORMAL (NORMAL); SCAN/DIFF FINAL DIFF MANUAL
[2016-08-01] MEDS: TIMOLOL MALEATE 0.25% OPHT SOLN 5 ML BTL EACH EYE SCH (09:29)
[2016-08-01] MEDS: MAGNESIUM SULFATE 1 GM PREMIX 100 ML IV SCH ×2 (09:30→09:47)
[2016-08-01] MEDS: hydrALAZINE HCL 50 MG TAB PO SCH ×2 (09:30→21:30)
--- NOTE | 2016-08-01 09:30 | HHI.PR ---
Subjective Remarks Follow-up for congestive heart failure, chronic kidney disease, mitral regurgitation. Patient is currently doing well. Denies any chest pain, shortness of breath, fever or chills. Resting in bed well. Daughter and at bedside. Objective Vitals Vital Signs Date Time Temp Pulse Resp B/P Pulse Ox O2 Delivery O2 Flow Rate FiO2 08/01/16 09:00 102 08/01/16 08:00 92 08/01/16 07:21 95 Nasal Cannula 2.00 08/01/16 07:00 97 Nasal Cannula 2.00 08/01/16 07:00 98.1 97 20 160/87 97 08/01/16 07:00 95 08/01/16 06:17 92 08/01/16 05:14 88 08/01/16 04:10 80 08/01/16 03:30 98.6 90 17 124/62 95 08/01/16 03:00 100 08/01/16 02:16 93 08/01/16 01:01 81 08/01/16 00:00 78 08/01/16 00:00 95 07/31/16 23:00 97.6 89 20 141/63 95 07/31/16 23:00 88 07/31/16 22:00 84 07/31/16 21:00 90 07/31/16 20:00 90 07/31/16 19:15 98.1 87 20 170/82 98 07/31/16 19:07 97 Nasal Cannula 3.00 07/31/16 19:00 98 Nasal Cannula 2.00 07/31/16 19:00 88 07/31/16 18:00 82 07/31/16 17:00 87 07/31/16 16:00 88 07/31/16 15:00 140 07/31/16 15:00 98.6 90 18 139/68 93 07/31/16 13:00 82 07/31/16 12:00 75 07/31/16 11:00 114 07/31/16 11:00 98.5 74 18 118/47 97 07/31/16 10:00 87 I/O 07/31/16 07/31/16 07/31/16 08/01/16 08/01/16 08/01/16 07:00 15:00 23:00 07:00 15:00 23:00 Intake Total 240 ml 240 ml 480 ml Output Total 350 ml 775 ml 1150 ml Balance -110 ml -535 ml -670 ml Intake Oral 240 ml 240 ml 480 ml Output Urine Total 350 ml 775 ml 1150 ml Result Diagram: 08/01/1654608/01/16546 Objective Remarks GENERAL: Alert, oriented 3, NAD. SKIN: Warm and dry. HEAD: Normocephalic. EYES: No scleral icterus. No injection or drainage. NECK: Supple, trachea midline. No JVD or lymphadenopathy. CARDIOVASCULAR: Regular rate and rhythm without murmurs, gallops, or rubs. Bibasilar mild crackles. RESPIRATORY: Breath sounds equal bilaterally. No accessory muscle use. GASTROINTESTINAL: Abdomen soft, non-tender, nondistended. MUSCULOSKELETAL: No cyanosis. 1+ edema in lower extremities. BACK: Nontender without obvious deformity. No CVA tenderness. Procedures 07/31/2016 Right heart catheterization. Left heart catheterization. Left ventriculography. Coronary angiography. CONCLUSION 1. Angiographically mild to moderate left main and two-vessel cord and three-vessel coronary artery disease as detailed above. 2. Normal LV systolic function ejection fraction 60%. Markedly elevated pulmonary capillary wedge pressure, moderate pulmonary hypertension, elevated LVEDP consistent with prominent V waves on elevated capillary wedge pressure, all consistent with mitral valve regurgitation. 3. She has an ejection fraction 60%. 4. Recommend CT surgery consult to determine risks, benefits of possible mitral valve repair and/or replacement. Otherwise given the patient 40 IV Lasix in the labor delivery rn. She also received 500 normal saline pre cath, a total of 35 cc of contrast during the entire procedure. A/P Problem List: (1) Chronic kidney disease, stage 3 ICD Code: N18.3 Status: Chronic (2) Atrial fibrillation ICD Code: I48.91 Status: Acute (3) Diastolic CHF, chronic ICD Code: I50.32 Status: Acute (4) Hypothyroidism ICD Code: E03.9 Status: Chronic Assessment and Plan Ms. Santacruz, 80 was transferred from [facility] due to Afib and ventricular ectopy noted on holter monitor. Dr. Cutler (Cardiology) has been following this patient. - Ventricular ectopy - Atrial fibrillation - Diastolic congestive heart failure - Echo showed EF 55-60%. - Continue Bumex 1mg BID., Carvedilol 25mg BID. Consider CCB if heart rate > 110. - Could benefit from low dose KRZYSZTOF inhibitors. - K+ is 3.9. Mg level 1.7, will give her 2 g of Magnesium sulfate. - Continue aspirin 325 mg, atorvastatin 20 mg. - [id number] score 5 (age 80, female, CHF, DM) - EP has been consulted. Will discuss with Dr. Sparrow regarding anti- coagulation. Probably Warfarin since she has valvular disease as well. - CKD stage IIIB - avoid nephrotoxins. Consider low dose KRZYSZTOF inhibitors if BP permits. - Diabetes mellitus - continue glipizide 5 mg twice a day, sliding scale insulin. If blood glucose remains high, we will d/c oral agents and start long and short acting insulin. - Anxiety - continue alprazolam 0.25 mg every 8 hours when necessary. - Hypothyroidism - continue levothyroxine 75 g by mouth daily. Full code. Heparin SQ. Fan Perdomo DO Aug 01, 2016 9:30 am
[2016-08-01] MEDS: PANTOPRAZOLE SOD 20 MG DELAYED RELEASE TAB PO SCH ×2 (09:31→21:30)
[2016-08-01] MEDS: FERROUS SULFATE 325 MG (65 MG ELEMENTAL IRON) TAB PO SCH (09:32)
[2016-08-01] MEDS: DOCUSATE SODIUM 100 MG CAP PO SCH ×2 (09:32→21:30)
[2016-08-01] MEDS: CALCITRIOL 0.25 MCG CAP PO SCH (09:32)
[2016-08-01] MEDS: CARVEDILOL 12.5 MG TAB PO SCH ×2 (09:32→21:29)
[2016-08-01] MEDS: ASPIRIN 325 MG TAB PO SCH (09:32)
[2016-08-01] MEDS: CIPROFLOXACIN 500 MG TAB PO SCH ×2 (09:32→21:29)
[2016-08-01] MEDS: BUMETANIDE INJ 1 MG/4 ML VIAL IV PUSH SCH ×2 (09:33→17:31)
[2016-08-01] MEDS: SODIUM CHLORIDE 0.9% FLUSH 5 ML FLUSH IVF SCH ×2 (09:33→21:30)
--- NOTE | 2016-08-01 09:35 | MR ---
cc: PERICO MAGANA M.D. DATE: 07/31/2016 PROCEDURE: Right heart catheterization. Left heart catheterization. Left ventriculography. Coronary angiography. INDICATIONS Severe MR and severe TR, severe pulmonary hypertension, cardiomyopathy, recurrent congestive heart failure exacerbations. Congestive heart failure. Coronary artery disease and wide complex tachycardia V-tach on 24 hour holter. The patient brought to the heart catheterization. Prepped and usual sterile fashion cc's of lidocaine was used to locally anesthetize the right 4-Anguillan sheath placed in the right 7-Anguillan sheath in right common femoral vein right heart catheterization was performed first with a following findings: Capillary wedge pressure 35/29 is 25, TE 55/20/38. The RV pressure 56/13/19. RA pressure 23/20/18. The FA sat was 94.2% on 4 liters nasal cannula, PA sat is 61% and RA sat 62.5% cardiac output by Gideon is 6.8 liters per minute. cardiac index by Gideon is 3.5 liters per minute per meter squared. SVR is 896.4 dynes. Left heart catheterization was then performed. Left ventricular pressure 150/16 - 224. Ejection fraction of 60%. Right coronary artery is calcified at the ostium. It has mild to moderate diffuse disease up to 30-40% angiographically in the proximal segment. The distal segment has a focal 50% stenosis. The right posterolateral artery is a small medium-sized vessel with an ostial 50% stenosis. The right PDA has mild diffuse disease in the ofg-gv-ghesgb segment up to 20-30% angiographically. Left main coronary artery has a distal 20% stenosis. Left circumflex vessel has no significant disease angiographically. The first obtuse marginal vessel has moderate diffuse disease in the ostial proximal segment up to 40-50% angiographically. The second obtuse marginal vessel, medium-sized vessel no significant disease angiographically. LAD is transapical has no significant obstructive disease. First diagonal artery has a proximal takeoff medium size vessel which bifurcates. There is mild diffuse disease in the medial branch of the bifurcation up to 40% angiographically. CONCLUSION 1. Angiographically mild to moderate left main and two-vessel cord and three-vessel coronary artery disease as detailed above. 2. Normal LV systolic function ejection fraction 60%. Markedly elevated pulmonary capillary wedge pressure, moderate pulmonary hypertension, elevated LVEDP consistent with prominent V waves on elevated capillary wedge pressure, all consistent with mitral valve regurgitation. 3. She has an ejection fraction 60%. 4. Recommend CT surgery consult to determine risks, benefits of possible mitral valve repair and/or replacement. Otherwise given the patient 40 IV Lasix in the laborer beam house. She also received 500 normal saline pre cath, a total of 35 cc of contrast during the entire procedure. MD GRETEL Wisdom/ /2:04 PM /9:20 AM
--- NOTE | 2016-08-01 09:38 | EKG ---
Date Performed: 08/01/2016 Time Performed: 05:55:54 PTAGE: 80 years EKG: Sinus rhythm with frequent PACs Borderline ECG PREVIOUS TRACING : 07/31/2016 16.11 No significant change from previous tracing noted. DOCTOR: Trenton Lee Interpretating Date/Time 08/01/2016 09:36:39
--- NOTE | 2016-08-01 10:43 | PD.CAR.PN ---
CVT Progress Note Subjective/Hospital Course: Ms. Santacruz is a pleasant 80 year old female with a history of diastolic heart failure, recent pneumonia, CKD stage IV who was transferred from [facility] to [facility] (medical floor) due to ventricular ectopy, atrial fibrillation with RVR noted on Holter monitor. Patient was initially admitted to [facility] and discharged to SNF on 07/04/2016. On 07/05/2016, patient was transferred to [facility] due to mental status change, lethargy, confusion. She was found to have acute on chronic kidney disease. She required mechanical ventilation due to hypoxic respiratory failure. MRI head showed subacute left parietal infarction. Patient was also treated for healthcare associated Pneumonia received IV antibiotics vancomycin, cefepime, Flagyl, and azithromycin. Her echocardiogram showed grade 1 diastolic dysfunction with preserved ejection fraction. She also developed anemia, positive Hemoccult and received 2 packed PRBCs on 07/09/16. EGD showed gastritis and esophagitis without any active bleeding. After patient's clinical condition improved, patient was admitted to [facility] for comprehensive rehab. While at [place], patient has been having increasing shortness of breath, her Hgb was 7.3 s/p 1 unit PRBCs transfusion. status post cardiac cath by Dr Cutler , 50% RCA, 20% L main echo moderate to severe Mitral regurgitation films to be reviewed per Dr Carson 08/01/16 was able to stand at side of bed with 2 person assist Objective: GENERAL: SKIN: Warm and dry. HEAD: Normocephalic. EYES: No scleral icterus. No injection or drainage. NECK: Supple, trachea midline. No JVD or lymphadenopathy. CARDIOVASCULAR: Regular rate and rhythm without murmurs, gallops, or rubs. + 2-3 RESPIRATORY: few basilar crackles breath sounds equal bilaterally. No accessory muscle use. GASTROINTESTINAL: Abdomen soft, non-tender, nondistended. MUSCULOSKELETAL: No cyanosis, or edema. BACK: Nontender without obvious deformity. No CVA tenderness. Vital Signs Date Time Temp Pulse Resp B/P Pulse Ox O2 Delivery O2 Flow Rate FiO2 08/01/16 10:00 90 08/01/16 09:00 102 08/01/16 08:00 92 08/01/16 07:21 95 Nasal Cannula 2.00 08/01/16 07:00 97 Nasal Cannula 2.00 08/01/16 07:00 98.1 97 20 160/87 97 08/01/16 07:00 95 08/01/16 06:17 92 08/01/16 05:14 88 08/01/16 04:10 80 08/01/16 03:30 98.6 90 17 124/62 95 08/01/16 03:00 100 08/01/16 02:16 93 08/01/16 01:01 81 08/01/16 00:00 78 08/01/16 00:00 95 07/31/16 23:00 97.6 89 20 141/63 95 07/31/16 23:00 88 07/31/16 22:00 84 07/31/16 21:00 90 07/31/16 20:00 90 07/31/16 19:15 98.1 87 20 170/82 98 07/31/16 19:07 97 Nasal Cannula 3.00 07/31/16 19:00 98 Nasal Cannula 2.00 07/31/16 19:00 88 07/31/16 18:00 82 07/31/16 17:00 87 07/31/16 16:00 88 07/31/16 15:00 140 07/31/16 15:00 98.6 90 18 139/68 93 07/31/16 13:00 82 07/31/16 12:00 75 07/31/16 11:00 114 07/31/16 11:00 98.5 74 18 118/47 97 Labs: Laboratory Tests Test 08/01/16 05:47 White Blood Count 10.0 TH/MM3 (4.0-11.0) Red Blood Count 2.77 MIL/MM3 (4.00-5.30) Hemoglobin 8.0 GM/DL (11.6-15.3) Hematocrit 24.4 % (35.0-46.0) Mean Corpuscular Volume 88.2 FL (80.0-100.0) Mean Corpuscular Hemoglobin 28.8 PG (27.0-34.0) Mean Corpuscular Hemoglobin 32.6 % Concent (32.0-36.0) Red Cell Distribution Width 17.2 % (11.6-17.2) Platelet Count 259 TH/MM3 (150-450) Mean Platelet Volume 8.2 FL (7.0-11.0) Neutrophils (%) (Auto) 78.0 % (16.0-70.0) Lymphocytes (%) (Auto) 10.6 % (9.0-44.0) Monocytes (%) (Auto) 9.6 % (0.0-8.0) Eosinophils (%) (Auto) 1.5 % (0.0-4.0) Basophils (%) (Auto) 0.3 % (0.0-2.0) Neutrophils # (Auto) 7.8 TH/MM3 (1.8-7.7) Lymphocytes # (Auto) 1.1 TH/MM3 (1.0-4.8) Monocytes # (Auto) 1.0 TH/MM3 (0-0.9) Eosinophils # (Auto) 0.1 TH/MM3 (0-0.4) Basophils # (Auto) 0.0 TH/MM3 (0-0.2) CBC Comment AUTO DIFF Differential Total Cells 100 Counted Neutrophils % (Manual) 74 % (16-70) Band Neutrophils % 4 % (0-6) Lymphocytes % 9 % (9-44) Monocytes % 4 % (0-8) Eosinophils % 3 % (0-4) Basophils % 1 % (0-2) Neutrophils # (Manual) 8.3 TH/MM3 (1.8-7.7) Metamyelocytes 2 % (0-1) Myelocytes 3 % (0-0) Nucleated Red Blood Cells 1 /100 WBC (0-0) Differential Comment FINAL DIFF MANUAL Platelet Estimate NORMAL (NORMAL) Platelet Morphology Comment NORMAL (NORMAL) Sodium Level 144 MEQ/L (136-145) Potassium Level 4.1 MEQ/L (3.5-5.1) Chloride Level 99 MEQ/L (98-107) Carbon Dioxide Level 37.4 MEQ/L (21.0-32.0) Anion Gap 8 MEQ/L (5-15) Blood Urea Nitrogen 35 MG/DL (7-18) Creatinine 1.32 MG/DL (0.50-1.00) Estimat Glomerular Filtration 39 ML/MIN (>89) Rate Random Glucose 97 MG/DL (74-106) Calcium Level 9.1 MG/DL (8.5-10.1) B-Type Natriuretic Peptide 337 PG/ML (0-100) Result Diagram: 08/01/1647 08/01/1675 Telemetry: NSR (1) Acute kidney injury superimposed on CKD (2) Diabetes mellitus (3) Impaired mobility and activities of daily living (4) Chronic diastolic (congestive) heart failure (5) Morbid obesity with BMI of 40.0-44.9, adult (6) Lymphedema of both lower extremities (7) Atrial fibrillation (8) mitral valve recurgitation Plan: films to be reviewed by Dr Carson pt overall high risk for surgery 2/2 multiple co-morbidities Autumn Glez Aug 01, 2016 10:43
--- NOTE | 2016-08-01 12:27 | PD.CARD.PN ---
Subjective Subjective Remarks lethargic in nad Objective Vital Signs / I&O Vital Signs Date Time Temp Pulse Resp B/P Pulse Ox O2 Delivery O2 Flow Rate FiO2 08/01/16 12:00 88 08/01/16 11:00 81 08/01/16 11:00 98.0 105 18 139/54 91 08/01/16 10:00 90 08/01/16 09:00 102 08/01/16 08:00 92 08/01/16 07:21 95 Nasal Cannula 2.00 08/01/16 07:00 97 Nasal Cannula 2.00 08/01/16 07:00 98.1 97 20 160/87 97 08/01/16 07:00 95 08/01/16 06:17 92 08/01/16 05:14 88 08/01/16 04:10 80 08/01/16 03:30 98.6 90 17 124/62 95 08/01/16 03:00 100 08/01/16 02:16 93 08/01/16 01:01 81 08/01/16 00:00 78 08/01/16 00:00 95 07/31/16 23:00 97.6 89 20 141/63 95 07/31/16 23:00 88 07/31/16 22:00 84 07/31/16 21:00 90 07/31/16 20:00 90 07/31/16 19:15 98.1 87 20 170/82 98 07/31/16 19:07 97 Nasal Cannula 3.00 07/31/16 19:00 98 Nasal Cannula 2.00 07/31/16 19:00 88 07/31/16 18:00 82 07/31/16 17:00 87 07/31/16 16:00 88 07/31/16 15:00 140 07/31/16 15:00 98.6 90 18 139/68 93 07/31/16 13:00 82 I/O 07/31/16 07/31/16 07/31/16 08/01/16 08/01/16 08/01/16 07:00 15:00 23:00 07:00 15:00 23:00 Intake Total 240 ml 240 ml 480 ml Output Total 350 ml 775 ml 1150 ml Balance -110 ml -535 ml -670 ml Intake Oral 240 ml 240 ml 480 ml Output Urine Total 350 ml 775 ml 1150 ml Laboratory GENERAL: SKIN: Warm and dry. HEAD: Normocephalic. EYES: No scleral icterus. No injection or drainage. NECK: Supple, trachea midline. No JVD or lymphadenopathy. CARDIOVASCULAR: Regular rate and rhythm without murmurs, gallops, or rubs. RESPIRATORY: Breath sounds equal bilaterally. No accessory muscle use. GASTROINTESTINAL: Abdomen soft, non-tender, nondistended. MUSCULOSKELETAL: No cyanosis, or edema. BACK: Nontender without obvious deformity. No CVA tenderness. Laboratory Tests Test 07/31/16 08/01/16 18:44 05:47 Sodium Level 142 MEQ/L 144 MEQ/L Potassium Level 4.1 MEQ/L 4.1 MEQ/L Chloride Level 99 MEQ/L 99 MEQ/L Carbon Dioxide Level 37.3 MEQ/L 37.4 MEQ/L Anion Gap 6 MEQ/L 8 MEQ/L Blood Urea Nitrogen 34 MG/DL 35 MG/DL Creatinine 1.43 MG/DL 1.32 MG/DL Estimat Glomerular Filtration 35 ML/MIN 39 ML/MIN Rate Random Glucose 137 MG/DL 97 MG/DL Calcium Level 8.7 MG/DL 9.1 MG/DL Magnesium Level 1.7 MG/DL White Blood Count 10.0 TH/MM3 Red Blood Count 2.77 MIL/MM3 Hemoglobin 8.0 GM/DL Hematocrit 24.4 % Mean Corpuscular Volume 88.2 FL Mean Corpuscular Hemoglobin 28.8 PG Mean Corpuscular Hemoglobin 32.6 % Concent Red Cell Distribution Width 17.2 % Platelet Count 259 TH/MM3 Mean Platelet Volume 8.2 FL Neutrophils (%) (Auto) 78.0 % Lymphocytes (%) (Auto) 10.6 % Monocytes (%) (Auto) 9.6 % Eosinophils (%) (Auto) 1.5 % Basophils (%) (Auto) 0.3 % Neutrophils # (Auto) 7.8 TH/MM3 Lymphocytes # (Auto) 1.1 TH/MM3 Monocytes # (Auto) 1.0 TH/MM3 Eosinophils # (Auto) 0.1 TH/MM3 Basophils # (Auto) 0.0 TH/MM3 CBC Comment AUTO DIFF Differential Total Cells 100 Counted Neutrophils % (Manual) 74 % Band Neutrophils % 4 % Lymphocytes % 9 % Monocytes % 4 % Eosinophils % 3 % Basophils % 1 % Neutrophils # (Manual) 8.3 TH/MM3 Metamyelocytes 2 % Myelocytes 3 % Nucleated Red Blood Cells 1 /100 WBC Differential Comment FINAL DIFF MANUAL Platelet Estimate NORMAL Platelet Morphology Comment NORMAL B-Type Natriuretic Peptide 337 PG/ML Assessment and Plan Problem List: (1) Acute kidney injury superimposed on CKD (2) Diabetes mellitus (3) Impaired mobility and activities of daily living (4) Chronic diastolic (congestive) heart failure (5) Morbid obesity with BMI of 40.0-44.9, adult (6) Lymphedema of both lower extremities (7) Atrial fibrillation (8) mitral valve recurgitation Assessment and Plan 1.) Severe mr - currently not surgical candidate d/t comorbidities; on bumex, f/ u bnp/bmp 2.) CAD - mild assymptomatic, rec statin 3.) Arrythmia - consult Zen Ho MD Aug 01, 2016 12:27
--- NOTE | 2016-08-01 15:33 | EKG ---
Date Performed: 07/31/2016 Time Performed: 16:11:50 PTAGE: 80 years EKG: Sinus rhythm with PVC(s) with PAC(s) Borderline ECG NO PREVIOUS TRACING DOCTOR: Trenton Lee Interpretating Date/Time 08/01/2016 15:31:51
[2016-08-01] MEDS: DOXAZOSIN MESYLATE 1 MG TAB PO SCH (21:29)
[2016-08-01] MEDS: HEPARIN SODIUM - SQ 10,000 UNITS/ML VIAL SQ SCH (21:29)
[2016-08-01] MEDS: ATORVASTATIN 20 MG TAB PO SCH (21:30)
[2016-08-01] MEDS: MONTELUKAST SODIUM 10 MG TAB PO SCH (21:30)
[2016-08-01] MEDS: ALPRAZolam 0.25 MG TAB PO PRN (23:13)
[2016-08-02] VITALS (27 sets, daily range): BP systolic 115–156; BP diastolic 53–81; PULSE 76–119; RESP 17–18; TEMP 98–98.5; O2SAT 95–98
[2016-08-02] MEDS: INSULIN ASPART SUPPLEMENTAL SCALE SQ SCH ×4 (06:16→20:33)
[2016-08-02] MEDS: LEVOTHYROXINE SODIUM 75 MCG TAB PO SCH (06:24)
[2016-08-02] MEDS: glipiZIDE 5 MG TAB PO SCH ×2 (06:24→16:36)
[2016-08-02 07:01] LABS: BICARBONATE 36.8 MEQ/L (21.0-32.0); POTASSIUM 3.7 MEQ/L (3.5-5.1)
[2016-08-02] MEDS: RESP: ALBUTEROL 2.5 MG/IPRATROPIUM 0.5 MG NEB (SCH) NEB ×3 (07:29→21:43)
[2016-08-02] MEDS ORDERED: oxyCODONE/ACETAMINOPHEN 5 MG/325 MG TAB PO PRN (08:15)
[2016-08-02] MEDS ORDERED: BACITRACIN OINT 0.9 GM PKT TOP ONE (08:15)
[2016-08-02] MEDS ORDERED: LORazepam 2 MG/ML VIAL IV PRN (08:15)
[2016-08-02] MEDS ORDERED: LIDOCAINE HCL 1% 50 ML VIAL INFIL PRN (08:15)
[2016-08-02] MEDS ORDERED: METOCLOPRAMIDE HCL 10 MG/2 ML VIAL IV PRN (08:15)
[2016-08-02] MEDS ORDERED: ONDANSETRON HCL 4 MG/2 ML VIAL IV PRN (08:15)
[2016-08-02] MEDS ORDERED: SODIUM CHLOR 0.9% 250 ML INJ 250 ML IV PRN (08:15)
[2016-08-02] MEDS ORDERED: ATROPINE SULFATE 1 MG/ML VIAL IV PRN (08:15)
--- NOTE | 2016-08-02 08:15 | MB ---
cc: SUZETTE SQUIRES M.D. DATE OF CONSULTATION: 08/01/2016 REASON FOR CONSULTATION Atrial fibrillation with biventricular response. HISTORY OF PRESENT ILLNESS Mrs. Santacruz is a 80-year-old female with high blood pressure, obesity, diabetes mellitus, recent hospitalization. During hospitalization the patient developed anemia. Also she had to be intubated due to aspiration pneumonia. [facility] She developed tachyarrhythmia, possible atrial fibrillation. Echo indicated severe mitral regurgitation with ejection fraction around 55-60%. She had diastolic heart failure and no significant occlusive coronary artery disease. She was referred for surgery. Case was referred to a different center. I was consulted for evaluation due to atrial fibrillation with biventricular response. The chart was reviewed. The patient was evaluated. ALLERGIES CODEINE AND LYRICA. SOCIAL HISTORY Negative for smoking and drinking. FAMILY HISTORY Noncontributory to her current medical condition. MEDICATIONS 1. Glipizide. 2. Aspirin. 3. Bumex. 4. Crestor. 5. Hydralazine. 6. Flexeril. 7. Fosamax. 8. Xanax. 9. Cardura. 10. Levoxyl. REVIEW OF SYSTEMS Currently she refers no chest pain, no chest discomfort, some shortness of breath. No vomiting. No fever. PHYSICAL EXAMINATION GENERAL: Alert, fully oriented, pleasant. VITAL SIGNS: Blood pressure on evaluation 138/68, pulse 97, respiratory rate 18. LUNGS: Ventilated. CARDIOVASCULAR: S1-S2, regular. No gallop. No murmur. ABDOMEN: Soft, obese. No mass or bruit. EXTREMITIES: No edema. ELECTROCARDIOGRAM Indicated sinus rhythm with PACs. TELEMETRY Telemetry also shows sinus rhythm with multiple PACs. LABORATORY DATA Hemoglobin currently is 8.0, white blood cell 10.0, potassium 3.7, creatinine 1.33. ASSESSMENT AND RECOMMENDATIONS Mrs. Santacruz is stable. Some shortness of breath. Heart rate is controlled. What I can see on telemetry is sinus rhythm with multiple PACs. She is beginning to be prepared to be transferred to [place] for mitral valve repair or replacement. I had a long conversation with her. At this point my recommendation is continue with current management. This is most likely sinus rhythm with multiple PACs. I will see her during hospitalization. MD CATHIE Morrow/ALONDRA /7:50 AM /7:58 AM
[2016-08-02] MEDS: CARVEDILOL 12.5 MG TAB PO SCH ×2 (09:07→20:27)
[2016-08-02] MEDS: PANTOPRAZOLE SOD 20 MG DELAYED RELEASE TAB PO SCH ×2 (09:07→20:27)
[2016-08-02] MEDS: HEPARIN SODIUM - SQ 10,000 UNITS/ML VIAL SQ SCH ×2 (09:07→20:27)
[2016-08-02] MEDS: DOCUSATE SODIUM 100 MG CAP PO SCH ×2 (09:07→20:26)
[2016-08-02] MEDS: BUMETANIDE INJ 1 MG/4 ML VIAL IV PUSH SCH ×2 (09:07→17:57)
[2016-08-02] MEDS: CALCITRIOL 0.25 MCG CAP PO SCH (09:07)
[2016-08-02] MEDS: hydrALAZINE HCL 50 MG TAB PO SCH ×2 (09:08→20:27)
[2016-08-02] MEDS: CIPROFLOXACIN 500 MG TAB PO SCH (09:08)
[2016-08-02] MEDS: SODIUM CHLORIDE 0.9% FLUSH 5 ML FLUSH IVF SCH ×2 (09:08→20:27)
[2016-08-02] MEDS: FERROUS SULFATE 325 MG (65 MG ELEMENTAL IRON) TAB PO SCH (09:08)
[2016-08-02] MEDS: ASPIRIN 325 MG TAB PO SCH (09:09)
[2016-08-02] MEDS: TIMOLOL MALEATE 0.25% OPHT SOLN 5 ML BTL EACH EYE SCH (09:09)
[2016-08-02] MEDS ORDERED: ACETAMINOPHEN/HYDROcodone 325 MG/5 MG TAB PO PRN (09:36)
[2016-08-02] MEDS: EPOETIN ALFA 20,000 UNITS/ML VIAL SQ SCH (13:56)
--- NOTE | 2016-08-02 13:56 | HHI.PR ---
Subjective Remarks Follow-up for congestive heart failure, chronic kidney disease, mitral regurgitation. Ms. Santacruz currently doing well. Denies any chest pain, shortness of breath, fever or chills. Daughter at bedside. Patient has been accepted at [facility] in [facility]. Patient is waiting for a bed at [facility]. Objective Vitals Vital Signs Date Time Temp Pulse Resp B/P Pulse Ox O2 Delivery O2 Flow Rate FiO2 08/02/16 13:00 88 08/02/16 12:00 76 08/02/16 11:00 107 08/02/16 11:00 98.5 102 18 141/53 97 08/02/16 10:00 106 08/02/16 09:00 92 08/02/16 08:00 77 08/02/16 07:30 97 Nasal Cannula 2.00 08/02/16 07:15 95 Nasal Cannula 2.00 08/02/16 07:15 98.4 92 18 156/57 95 08/02/16 07:00 119 08/02/16 06:12 77 08/02/16 05:04 93 08/02/16 04:20 88 08/02/16 03:45 98.3 86 17 131/57 97 08/02/16 03:08 87 08/02/16 02:48 96 08/02/16 01:00 82 08/02/16 00:00 84 08/01/16 23:00 90 08/01/16 23:00 97.8 83 19 142/58 97 08/01/16 22:00 92 08/01/16 21:00 96 08/01/16 20:24 98 Nasal Cannula 2.00 08/01/16 20:00 94 08/01/16 19:15 97.9 96 19 161/60 97 08/01/16 19:00 98 Nasal Cannula 2.00 08/01/16 19:00 92 08/01/16 18:00 90 08/01/16 17:00 87 08/01/16 16:00 97 08/01/16 15:00 98.1 94 18 138/68 97 08/01/16 15:00 87 08/01/16 14:00 88 I/O 08/01/16 08/01/16 08/01/16 08/02/16 08/02/16 08/02/16 07:00 15:00 23:00 07:00 15:00 23:00 Intake Total 480 ml 720 ml 480 ml Output Total 1150 ml 500 ml 800 ml Balance -670 ml -500 ml 720 ml -320 ml Intake Oral 480 ml 720 ml 480 ml Output Urine Total 1150 ml 500 ml 800 ml # Bowel Movements 1 Result Diagram: 08/01/16 0547 08/02/16 0525 Objective Remarks GENERAL: Alert, oriented 3, NAD. SKIN: Warm and dry. HEAD: Normocephalic. EYES: No scleral icterus. No injection or drainage. NECK: Supple, trachea midline. No JVD or lymphadenopathy. CARDIOVASCULAR: Regular rate and rhythm without murmurs, gallops, or rubs. Bibasilar mild crackles. RESPIRATORY: Breath sounds equal bilaterally. No accessory muscle use. GASTROINTESTINAL: Abdomen soft, non-tender, nondistended. MUSCULOSKELETAL: No cyanosis. 1+ edema in lower extremities. BACK: Nontender without obvious deformity. No CVA tenderness. Procedures 07/31/2016 Right heart catheterization. Left heart catheterization. Left ventriculography. Coronary angiography. CONCLUSION 1. Angiographically mild to moderate left main and two-vessel cord and three-vessel coronary artery disease as detailed above. 2. Normal LV systolic function ejection fraction 60%. Markedly elevated pulmonary capillary wedge pressure, moderate pulmonary hypertension, elevated LVEDP consistent with prominent V waves on elevated capillary wedge pressure, all consistent with mitral valve regurgitation. 3. She has an ejection fraction 60%. 4. Recommend CT surgery consult to determine risks, benefits of possible mitral valve repair and/or replacement. Otherwise given the patient 40 IV Lasix in the laborer landscape. She also received 500 normal saline pre cath, a total of 35 cc of contrast during the entire procedure. A/P Problem List: (1) Chronic kidney disease, stage 3 ICD Code: N18.3 Status: Chronic (2) Atrial fibrillation ICD Code: I48.91 Status: Acute (3) Diastolic CHF, chronic ICD Code: I50.32 Status: Acute (4) Hypothyroidism ICD Code: E03.9 Status: Chronic Assessment and Plan Ms. Santacruz, 80 was transferred from [facility] due to Afib and ventricular ectopy noted on holter monitor. Dr. Cutler (Cardiology) has been following this patient. - Ventricular ectopy - Sinus arrhythmia with PACs. - Acute on chronic Diastolic congestive heart failure - Echo showed EF 55-60%. - Severe mitral regurgitation - Continue Bumex 1mg BID., Carvedilol 25mg BID. Consider CCB if heart rate > 110. - K+ is 3.9. Mg level 1.7, s/p 2 g of Magnesium sulfate. - Continue aspirin 325 mg, atorvastatin 20 mg. - EP consulted - no change in management. - Patient has been accepted at [facility]. Waiting for bed availability. - CKD stage IIIB - avoid nephrotoxins. - Diabetes mellitus - continue glipizide 5 mg twice a day, sliding scale insulin. AM glucose around 113. - Anxiety - continue alprazolam 0.25 mg every 8 hours when necessary. - Hypothyroidism - continue levothyroxine 75 g by mouth daily. - UTI - received Cipro. Will d/c Cipro today 08/02/2016. Full code. Heparin SQ. Fan Perdomo DO Aug 02, 2016 1:56 pm
--- NOTE | 2016-08-02 14:40 | PD.CARD.PN ---
Subjective Subjective Remarks asleep in nad Objective Vital Signs / I&O Vital Signs Date Time Temp Pulse Resp B/P Pulse Ox O2 Delivery O2 Flow Rate FiO2 08/02/16 14:00 82 08/02/16 13:00 88 08/02/16 12:00 76 08/02/16 11:00 107 08/02/16 11:00 98.5 102 18 141/53 97 08/02/16 10:00 106 08/02/16 09:00 92 08/02/16 08:00 77 08/02/16 07:30 97 Nasal Cannula 2.00 08/02/16 07:15 95 Nasal Cannula 2.00 08/02/16 07:15 98.4 92 18 156/57 95 08/02/16 07:00 119 08/02/16 06:12 77 08/02/16 05:04 93 08/02/16 04:20 88 08/02/16 03:45 98.3 86 17 131/57 97 08/02/16 03:08 87 08/02/16 02:48 96 08/02/16 01:00 82 08/02/16 00:00 84 08/01/16 23:00 90 08/01/16 23:00 97.8 83 19 142/58 97 08/01/16 22:00 92 08/01/16 21:00 96 08/01/16 20:24 98 Nasal Cannula 2.00 08/01/16 20:00 94 08/01/16 19:15 97.9 96 19 161/60 97 08/01/16 19:00 98 Nasal Cannula 2.00 08/01/16 19:00 92 08/01/16 18:00 90 08/01/16 17:00 87 08/01/16 16:00 97 08/01/16 15:00 98.1 94 18 138/68 97 08/01/16 15:00 87 I/O 08/01/16 08/01/16 08/01/16 08/02/16 08/02/16 08/02/16 07:00 15:00 23:00 07:00 15:00 23:00 Intake Total 480 ml 720 ml 480 ml Output Total 1150 ml 500 ml 800 ml Balance -670 ml -500 ml 720 ml -320 ml Intake Oral 480 ml 720 ml 480 ml Output Urine Total 1150 ml 500 ml 800 ml # Bowel Movements 1 Physical Exam GENERAL: SKIN: Warm and dry. HEAD: Normocephalic. EYES: No scleral icterus. No injection or drainage. NECK: Supple, trachea midline. No JVD or lymphadenopathy. CARDIOVASCULAR: Regular rate and rhythm without murmurs, gallops, or rubs. RESPIRATORY: Breath sounds equal bilaterally. No accessory muscle use. GASTROINTESTINAL: Abdomen soft, non-tender, nondistended. MUSCULOSKELETAL: No cyanosis, or edema. BACK: Nontender without obvious deformity. No CVA tenderness. Laboratory Laboratory Tests Test 08/02/16 05:25 Sodium Level 142 MEQ/L Potassium Level 3.7 MEQ/L Chloride Level 99 MEQ/L Carbon Dioxide Level 36.8 MEQ/L Anion Gap 6 MEQ/L Blood Urea Nitrogen 32 MG/DL Creatinine 1.33 MG/DL Estimat Glomerular Filtration 39 ML/MIN Rate Random Glucose 100 MG/DL Calcium Level 8.9 MG/DL B-Type Natriuretic Peptide 248 PG/ML Assessment and Plan Problem List: (1) Acute kidney injury superimposed on CKD (2) Diabetes mellitus (3) Impaired mobility and activities of daily living (4) Chronic diastolic (congestive) heart failure (5) Morbid obesity with BMI of 40.0-44.9, adult (6) Lymphedema of both lower extremities (7) Atrial fibrillation (8) mitral valve recurgitation Assessment and Plan 1.) Severe mr - currently not surgical candidate d/t comorbidities; on bumex, f/ u bnp/bmp 2.) CAD - mild assymptomatic, rec statin 3.) Arrythmia - consult Zen Ho MD Aug 02, 2016 14:40
--- NOTE | 2016-08-02 18:23 | EKG ---
Date Performed: 08/02/2016 Time Performed: 10:33:06 PTAGE: 80 years EKG: Sinus arrhythmia with frequent multifocal PVCs. Abnormal ECG PREVIOUS TRACING : 08/01/2016 05.55 DOCTOR: Baldomero Tran Interpretating Date/Time 08/02/2016 18:22:45
--- NOTE | 2016-08-02 19:37 | RADRPT ---
EXAM DATE/TIME: 08/02/2016 19:20 [place] COMPARISON: CT BRAIN W/O CONTRAST, July 06, 2016, 8:43. INDICATIONS : Weakness. Altered mental status. RADIATION DOSE: 47.52 CTDIvol (mGy) MEDICAL HISTORY : Cerebrovascular disease. Cardiovascular disease Hypertension.Renal failure Diabetes SURGICAL HISTORY : Hysterectomy. ENCOUNTER: Initial ACUITY: 1 day PAIN SCALE: 0/10 LOCATION: cranial TECHNIQUE: Multiple contiguous axial images were obtained of the head. Using automated exposure control and adj ustment of the mA and/or kV according to patient size, radiation dose was kept as low as reasonably a chievable to obtain optimal diagnostic quality images. FINDINGS: CEREBRUM: Scattered areas of low attenuation throughout the white matter. Area of low attenuation left parietal lobe likely old infarct. The ventricles are normal for age. No evidence of midline shift, mass lesi on, hemorrhage or acute infarction. No extra-axial fluid collections are seen. POSTERIOR FOSSA: The cerebellum and brainstem are intact. The 4th ventricle is midline. The cerebellopontine angle i s unremarkable. EXTRACRANIAL: The visualized portion of the orbits is intact. There is opacification of the middle ear and mastoid air cells bilaterally. SKULL: The calvaria is intact. No evidence of skull fracture. CONCLUSION: 1. Chronic ischemic small vessel vasculopathy. 2. Old left parietal infarct. 3. Bilateral otomastoiditis. Theo Martinez MD on August 02, 2016 at 19:32 Board Certified Radiologist. This report was verified electronically.
[2016-08-02] MEDS ORDERED: HEPA10003 SQ (19:55)
[2016-08-02] MEDS: DOXAZOSIN MESYLATE 1 MG TAB PO SCH (20:26)
[2016-08-02] MEDS: MONTELUKAST SODIUM 10 MG TAB PO SCH (20:27)
[2016-08-02] MEDS: ATORVASTATIN 20 MG TAB PO SCH (20:27)
--- NOTE | 2016-08-02 23:08 | HHI.DS ---
Discharge Summary Admission Date Jul 30, 2016 at 16:14 Discharge Date: Aug 02, 2016 Admitting Diagnosis Afib with RVR, ventricular ectopies. (1) Chronic kidney disease, stage 3 ICD Code: N18.3 (2) Diastolic CHF, chronic ICD Code: I50.32 Diagnosis: Principal (3) Hypothyroidism ICD Code: E03.9 (4) mitral valve recurgitation Diagnosis: Principal Procedures 07/31/2016 Right heart catheterization. Left heart catheterization. Left ventriculography. Coronary angiography. CONCLUSION 1. Angiographically mild to moderate left main and two-vessel cord and three-vessel coronary artery disease as detailed above. 2. Normal LV systolic function ejection fraction 60%. Markedly elevated pulmonary capillary wedge pressure, moderate pulmonary hypertension, elevated LVEDP consistent with prominent V waves on elevated capillary wedge pressure, all consistent with mitral valve regurgitation. 3. She has an ejection fraction 60%. 4. Recommend CT surgery consult to determine risks, benefits of possible mitral valve repair and/or replacement. 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 She also received 500 normal saline pre cath, a total of 35 cc of contrast during the entire procedure. Brief History - From Admission Ms. Santacruz is a pleasant 80 year old female with a history of diastolic heart failure, recent pneumonia, CKD stage IV who was transferred from [facility] to [facility] (medical floor) due to ventricular ectopy, atrial fibrillation with RVR noted on Holter monitor. Patient was initially admitted to [facility] and discharged to SNF on 07/04/2016. On 07/05/2016, patient was transferred to [facility] due to mental status change, lethargy, confusion. She was found to have acute on chronic kidney disease. She required mechanical ventilation due to hypoxic respiratory failure. MRI head showed subacute left parietal infarction. Patient was also treated for healthcare associated Pneumonia received IV antibiotics vancomycin, cefepime, Flagyl, and azithromycin. Her echocardiogram showed grade 1 diastolic dysfunction with preserved ejection fraction. She also developed anemia, positive Hemoccult and received 2 packed PRBCs on 07/09/16. EGD showed gastritis and esophagitis without any active bleeding. After patient's clinical condition improved, patient was admitted to [facility] for comprehensive rehab. While at [place], patient has been having increasing shortness of breath, her Hgb was 7.3 s/p 1 unit PRBCs transfusion. With increased diuretics, her shortness of breath subsided. Currently, patient is waiting for a possible cath today. No chest pain , shortness of breath, fever or chills. She denies any tinnitus in her bowel or bladder habits. CBC/BMP: 08/01/16 0547 08/02/16 0525 Significant Findings Laboratory Tests Test 07/31/16 07/31/16 08/01/16 08/02/16 03:53 18:44 05:47 05:25 Red Blood Count 2.67 MIL/MM3 2.77 MIL/MM3 (4.00-5.30) (4.00-5.30) Hemoglobin 7.9 GM/DL 8.0 GM/DL (11.6-15.3) (11.6-15.3) Hematocrit 23.5 % 24.4 % (35.0-46.0) (35.0-46.0) Neutrophils (%) (Auto) 77.9 % 78.0 % (16.0-70.0) (16.0-70.0) Monocytes (%) (Auto) 9.6 % (0.0-8.0) 9.6 % (0.0-8.0) Neutrophils # (Auto) 7.8 TH/MM3 7.8 TH/MM3 (1.8-7.7) (1.8-7.7) Monocytes # (Auto) 1.0 TH/MM3 1.0 TH/MM3 (0-0.9) (0-0.9) Neutrophils % (Manual) 71 % (16-70) 74 % (16-70) Neutrophils # (Manual) 7.9 TH/MM3 8.3 TH/MM3 (1.8-7.7) (1.8-7.7) Myelocytes 3 % (0-0) 3 % (0-0) Promyelocytes 1 % (0-0) Carbon Dioxide Level 33.2 MEQ/L 37.3 MEQ/L 37.4 MEQ/L 36.8 MEQ/L (21.0-32.0) (21.0-32.0) (21.0-32.0) (21.0-32.0) Blood Urea Nitrogen 37 MG/DL (7-18) 34 MG/DL (7-18) 35 MG/DL (7-18) 32 MG/DL (7- 18) Creatinine 1.37 MG/DL 1.43 MG/DL 1.32 MG/DL 1.33 MG/DL (0.50-1.00) (0.50-1.00) (0.50-1.00) (0.50-1.00) Estimat Glomerular Filtration 37 ML/MIN (>89) 35 ML/MIN (>89) 39 ML/MIN (>89) 39 ML/MIN (>89) Rate Random Glucose 115 MG/DL 137 MG/DL (74-106) (74-106) Calcium Level 8.2 MG/DL (8.5-10.1) B-Type Natriuretic Peptide 299 PG/ML 337 PG/ML 248 PG/ML (0-100) (0-100) (0-100) Total Protein 6.0 GM/DL (6.4-8.2) Albumin 2.1 GM/DL (3.4-5.0) Metamyelocytes 2 % (0-1) Nucleated Red Blood Cells 1 /100 WBC (0-0) Imaging Last Impressions Head CT 08/02/16 0000 Signed Impressions: Service Date/Time: Tuesday, August 02, 2016 19:20 - CONCLUSION: 1. Chronic ischemic small vessel vasculopathy. 2. Old left parietal infarct. 3. Bilateral otomastoiditis. Theo Martinez MD PE at Discharge GENERAL: Alert, oriented 3, NAD. SKIN: Warm and dry. HEAD: Normocephalic. EYES: No scleral icterus. No injection or drainage. NECK: Supple, trachea midline. No JVD or lymphadenopathy. CARDIOVASCULAR: Regular rate and rhythm without murmurs, gallops, or rubs. Bibasilar mild crackles. RESPIRATORY: Breath sounds equal bilaterally. No accessory muscle use. GASTROINTESTINAL: Abdomen soft, non-tender, nondistended. MUSCULOSKELETAL: No cyanosis. 1+ edema in lower extremities. BACK: Nontender without obvious deformity. No CVA tenderness. Pt update on day of discharge Ms. Santacruz was seen/examined this morning. She is doing well. No acute concerns. She still feels very fatigued. Daughter at bedside. No fever, chills. Patient has been accepted at [facility] for possible mitral valve repair. Later in the evening, a bed became available at [facility] and patient was subsequently transferred. Hospital Course Ms. Santacruz, 80 was transferred from [facility] due to suspected Afib and ventricular ectopy noted on holter monitor. Dr. Cutler (Cardiology) has been following this patient. - Ventricular ectopy - Sinus arrhythmia with PACs. - Acute on chronic Diastolic congestive heart failure - Echo showed EF 55-60%. - Severe mitral regurgitation - Continue Bumex 1mg BID., Carvedilol 25mg BID. Consider CCB if heart rate > 110. - K+ is 3.9. Mg level 1.7, s/p 2 g of Magnesium sulfate. - Continue aspirin 325 mg, atorvastatin 20 mg. - EP consulted - no change in management. - Patient has been accepted at [facility]. A bed became available in the evening on 08/02/2016. Patient was subsequently transferred to [facility]. This evening 08/02/2016, patient's family raised concern over possible neurological changes. I did not appreciate any neurological changes during my assessment in the morning today. We obtained a CT head without contrast which did not show any acute findings. - CKD stage IIIB - avoid nephrotoxins. - Diabetes mellitus - continue glipizide 5 mg twice a day, sliding scale insulin. AM glucose around 113. - Anxiety - continue alprazolam 0.25 mg every 8 hours when necessary. - Hypothyroidism - continue levothyroxine 75 g by mouth daily. - UTI - received Cipro. Patient is full code. Received Heparin SQ for DVT prophylaxis. Pt Condition on Discharge: Fair Discharge Disposition: Disch to Another Hospital Discharge Time: > 30 minutes Discharge Instructions DIET: Follow Instructions for: Heart Healthy Diet Activities you can perform: Regular-No Restrictions New Medications: Heparin Sodium (Porcine) (Heparin Sodium) 10,000 Unit/Ml Inj 5000 UNITS SQ Q12HR Blood Clot Prevention Days 30 INJECTION Continued Medications: Alendronate (Alendronate) 70 Mg Tab 70 MG PO Q7D Osteporosis Treatment #4 Ref 0 TAB Alprazolam (Alprazolam) 0.25 Mg Tab 0.25 MG PO Q8H PRN ANXIETY Ref 0 TAB Aspirin (Aspirin) 325 Mg Tab 325 MG PO DAILY #30 Ref 0 TAB Bisacodyl Supp (Dulcolax Supp) 10 Mg Supp 10 MG RECTAL DAILY PRN CONSTIPATION #12 Ref 0 SUPP Bumetanide Inj (Bumetanide Inj) 0.25 Mg/Ml Inj 1 MG IV PUSH BID@09,18 Days 1 INJECTION Calcitriol (Calcitriol) 0.25 Mcg Cap 0.25 MCG PO DAILY Calcium Supplement #30 Ref 0 CAP Carvedilol (Carvedilol) 25 Mg Tab 25 MG PO BID #60 Ref 0 TAB Docusate Sodium (Docusate Sodium) 100 Mg Cap 100 MG PO BID Prevent Constipation #60 Ref 0 CAP Doxazosin (Cardura) 1 Mg Tab 2 MG PO HS hold for SBP <120 Blood Pressure Management #30 TAB Epoetin Inj (Epogen Inj) 20,000 Unit/Ml Inj 54933 UNITS SQ 3XWEEK VIAL Ferrous Sulfate (Ferrous Sulfate) 325 Mg Tab 325 MG PO DAILY anemia #30 TAB Glipizide (Glipizide) 5 Mg Tab 5 MG PO BIDAC Take 30 minutes before a meal Blood Sugar Management #60 Ref 0 TAB Heparin Sodium (Porcine) (Heparin Sodium) 10,000 Unit/Ml Inj 5000 UNITS SQ Q12HR Days 1 INJECTION Hydralazine (Hydralazine) 50 Mg Tab 50 MG PO BID #60 TAB Hydrocodone-Acetaminophen (Hydrocodone-Acetaminophen) 5-325 mg Tab 1 TAB PO Q6HR PRN PAIN Ref 0 TAB Ipratropium-Albuterol Neb (Duoneb) 0.5-2.5 Mg/3 Ml Neb 1 AMPULE NEB Q6HR WHILE AWAKE NEB Days 1 ML Levothyroxine (Synthroid) 75 Mcg Tab 75 MCG PO DAILY@0600 #30 TAB Magnesium Hydroxide Liq (Milk of Magnesia Liq) 400 Mg/5 Ml Susp 30 ML PO DAILY PRN INDIGESTION OR UPSET STOMACH #1 Ref 0 BOTTLE Montelukast (Montelukast) 10 Mg Tab 10 MG PO HS #30 Ref 0 TAB Omeprazole (Omeprazole) 20 Mg Tab 20 MG PO DAILY #30 Ref 0 TAB Pantoprazole (Protonix) 20 Mg Tab 20 MG PO BID #60 TAB Potassium Chloride ER (Potassium Chloride ER) 20 Meq Tab 20 MEQ PO DAILY PRN SEE LABEL COMMENTS #30 Ref 0 TAB Probiotic Product (Culturelle Advanced Immun) 1 Cap Cap Rosuvastatin (Rosuvastatin) 10 Mg Tab 10 MG PO HS Cholesterol Management Ref 0 TAB Timolol Maleate (Ophth) (Timolol Maleate) 0.25 % Lali 1 DROP EACH EYE DAILY Discontinued Medications: Albuterol Neb (Albuterol Neb) 2.5 Mg/0.5 Ml Neb 2.5 MG NEB Q6HR NEB Note: The Albuterol Sulfate Inhalation Solution is concentrated and must be diluted. Read complete instructions carefully before using. BOX Albuterol Neb (Albuterol Neb) 2.5 Mg/0.5 Ml Neb 2.5 MG NEB Q4HR NEB Note: The Albuterol Sulfate Inhalation Solution is concentrated and must be diluted. Read complete instructions carefully before using. PRN SHORTNESS OF BREATH EA Ciprofloxacin (Cipro) 500 Mg Tab 500 MG PO Q12HR Days 7 TAB Cyclobenzaprine (Flexeril) 10 Mg Tab 10 MG PO TID PRN PAIN SCALE 1 TO 10 #90 Ref 0 TAB Febuxostat (Uloric) 80 Mg Tab 80 PO DAILY Hydralazine (Hydralazine) 100 Mg Tab 100 MG PO TID Take with meals Blood Pressure Management Ref 0 TAB Levothyroxine (Levothyroxine) 50 Mcg Tab 50 MCG PO DAILY Thyroid #30 Ref 0 TAB Metronidazole (Flagyl) 500 Mg Tab 500 MG PO Q8HR Infection Days 10 TAB Potassium Chloride Microencaps (Potassium Chloride Microencaps) 20 Meq Tab 20 MEQ PO DAILY #30 TAB Skin Protectants, Misc. (Reyna Protect) 1 Cre Cre Tizanidine (Tizanidine) 4 Mg Cap 4 MG PO TID PRN SPASM Ref 0 CAP Fan Perdomo DO Aug 02, 2016 23:08
== END 2016-08-02 22:28 | disposition short-term general hospital (02) | DRG 287 ==
LOC: HCIS 16:14
PROVIDERS: ADMIT Hospitalist; ATTEND Hospitalist
PROC: B2111ZZ Fluoroscopy of Multiple Coronary Arteries using Low Osmolar Contrast (ICD-10-PCS; principal; 2016-07-31)
PROC: 4A023N8 Measurement of Cardiac Sampling and Pressure, Bilateral, Percutaneous Approach (ICD-10-PCS; 2016-07-31)
PROC: B2151ZZ Fluoroscopy of Left Heart using Low Osmolar Contrast (ICD-10-PCS; 2016-07-31)
DX: I34.0 Nonrheumatic mitral (valve) insufficiency (principal); I50.32 Chronic diastolic (congestive) heart failure; I27.2 Other secondary pulmonary hypertension; I48.91 Unspecified atrial fibrillation; I12.9 Hypertensive chronic kidney disease with stage 1 through stage 4 chronic kidney disease, or unspecified chronic kidney disease; N18.3 Chronic kidney disease, stage 3 (moderate); E11.9 Type 2 diabetes mellitus without complications; Z79.84 Long term (current) use of oral hypoglycemic drugs; D64.9 Anemia, unspecified; E03.9 Hypothyroidism, unspecified; I25.10 Atherosclerotic heart disease of native coronary artery without angina pectoris; Z87.01 Personal history of pneumonia (recurrent); F41.9 Anxiety disorder, unspecified; Z79.82 Long term (current) use of aspirin; G47.33 Obstructive sleep apnea (adult) (pediatric); Z87.440 Personal history of urinary (tract) infections; M81.0 Age-related osteoporosis without current pathological fracture; R26.9 Unspecified abnormalities of gait and mobility
CPT/HCPCS: 70450; 80048; 80053; 82810; 82948; 83735; 83880; 85007; 85027; 93005; 93456; 94640; 94664; C1769; C1893; J1644; J1815; J1940; J3475; Q4081; Q9967

== ENCOUNTER 2016-08-05 14:21 | Inpatient (IN) | payer MEDICARE, OTHER ==
[~2016-08-05] VITALS: Ht 154.9 cm; Wt 101.8 kg
[~2016-08-05 14:21] MED LIST changes: +ASPI325T PO; -AUGM875T PO; -BAZACRE; -CIPR-9 PO; -CYCL1TAB29 PO; +DOCU100C PO; -HYDR-3801 PO; -LEVO50TA4 PO; -METR-1 PO; -POTA20TA5 PO; -TIZA4CAP3 PO; -ULOR80TA2 PO; +[UNRECOGNIZED DRUG - CODE] SQ
[2016-08-05 22:40] VITALS: BP 149/63; PULSE 89; RESP 20; TEMP 98.2; O2SAT 96
[2016-08-05] MEDS ORDERED: SENNOSIDES 8.6 MG TAB PO PRN (23:45)
[2016-08-05] MEDS ORDERED: SODIUM CHLORIDE 0.9% FLUSH 5 ML FLUSH FLUSH PRN (23:45)
[2016-08-05] MEDS ORDERED: NALOXONE HCL 0.4 MG/ML AMP IV PRN (23:45)
[2016-08-05] MEDS ORDERED: ACETAMINOPHEN 325 MG TAB PO PRN (23:45)
[2016-08-05] MEDS ORDERED: ONDANSETRON HCL 4 MG/2 ML VIAL IVP PRN (23:45)
[2016-08-06] VITALS (7 sets, daily range): BP systolic 124–161; BP diastolic 57–72; PULSE 75–89; RESP 16–20; TEMP 97.3–98.2; O2SAT 97–99
[2016-08-06] MEDS ORDERED: GLUCAGON 1 MG/ML VIAL OTHER PRN
[2016-08-06] MEDS ORDERED: DEXTROSE 50% IN WATER 50 ML VIAL(D50) IV PUSH PRN
[2016-08-06] MEDS ORDERED: [UNRECOGNIZED DRUG - CODE] IV (01:29)
[2016-08-06] MEDS ORDERED: ASPI-110 PO (01:39)
[2016-08-06] MEDS ORDERED: GABA100C4 PO (01:46)
[2016-08-06] MEDS ORDERED: TIMO0.2517 EACH EYE (01:54)
[2016-08-06] MEDS: HEPARIN SODIUM - SQ 10,000 UNITS/ML VIAL SQ SCH ×2 (03:07→11:33)
[2016-08-06] MEDS: INSULIN ASPART SUPPLEMENTAL SCALE SQ SCH ×4 (05:33→21:00)
[2016-08-06] MEDS ORDERED: BISACODYL 10 MG SUPP RECTAL PRN (06:30)
[2016-08-06] MEDS: LEVOTHYROXINE SODIUM 75 MCG TAB PO SCH (07:04)
[2016-08-06 08:21] LABS: AUTOMATED NEUTROPHIL # 9.4 TH/MM3 (1.8-7.7); BASOPHIL # 0.1 TH/MM3 (0-0.2); BASOPHIL % 0.5 % (0.0-2.0); EOSINOPHIL # 0.4 TH/MM3 (0-0.4); EOSINOPHIL % 3.5 % (0.0-4.0); HEMATOCRIT 26.4 % (35.0-46.0); LYMPH % 10.8 % (9.0-44.0); LYMPHOCYTE # 1.3 TH/MM3 (1.0-4.8); MEAN CELL VOLUME 90.3 FL (80.0-100.0); MEAN CORPUSCULAR HEMOGLOBIN 28.7 PG (27.0-34.0); MEAN CORPUSCULAR HGB CONC 31.7 % (32.0-36.0); MONO % 8.1 % (0.0-8.0); NEUT % 77.1 % (16.0-70.0); PLATELET COUNT 305 TH/MM3 (150-450); RED BLOOD COUNT 2.93 MIL/MM3 (4.00-5.30); WHITE BLOOD COUNT 12.1 TH/MM3 (4.0-11.0)
[2016-08-06] MEDS: glipiZIDE 5 MG TAB PO SCH ×2 (08:27→15:54)
[2016-08-06] MEDS: CARVEDILOL 12.5 MG TAB PO SCH ×2 (08:27→21:17)
[2016-08-06] MEDS: GABAPENTIN 100 MG CAP PO SCH (08:28)
[2016-08-06] MEDS: BUMETANIDE INJ 1 MG/4 ML VIAL IV SCH (08:28)
[2016-08-06] MEDS: hydrALAZINE HCL 50 MG TAB PO SCH ×2 (08:28→21:15)
[2016-08-06] MEDS: ASPIRIN EC 81 MG TABEC PO SCH (08:28)
[2016-08-06] MEDS: FERROUS SULFATE 325 MG (65 MG ELEMENTAL IRON) TAB PO SCH (08:28)
[2016-08-06] MEDS: PANTOPRAZOLE SOD 20 MG DELAYED RELEASE TAB PO SCH ×2 (08:28→21:16)
[2016-08-06 08:29] LABS: HEMO FLAGS AUTO DIFF
[2016-08-06] MEDS: CALCITRIOL 0.25 MCG CAP PO SCH (08:29)
[2016-08-06 08:41] LABS: BICARBONATE 36.5 MEQ/L (21.0-32.0); POTASSIUM 3.7 MEQ/L (3.5-5.1)
[2016-08-06] MEDS: TIMOLOL MALEATE 0.25% OPHT SOLN 5 ML BTL EACH EYE SCH ×2 (09:00→21:14)
[2016-08-06 09:44] LABS: BANDS 3 % (0-6); EOSINOPHILS 2 % (0-4); METAMYELOCYTES 3 % (0-1); MYELOCYTES 4 % (0-0); NEUTROPHIL # MANUAL DIFF 9.4 TH/MM3 (1.8-7.7); PLASMA CELLS 1 % (0-0); POLYS (SEG NEUTROPHILS) 68 % (16-70); WBC DIFF SAMPLE 100
[2016-08-06 09:45] LABS: PLATELET ESTIMATE SMEAR NORMAL (NORMAL); PLATELET MORPHOLOGY NORMAL (NORMAL); SCAN/DIFF FINAL DIFF MANUAL
--- NOTE | 2016-08-06 11:29 | HHI.HP ---
HPI Service [facility] Hospitalists Primary Care Physician Unknown Admission Diagnosis mitral valve regurgitation Diagnoses: (1) mitral valve recurgitation Diagnosis: Principal Chief Complaint: ' transferred back to [place] for further evaluation.' Travel History International Travel<30 Days: No Contact w/Intl Traveler <30 Da: No Traveled to Known Affected Are: No History of Present Illness patient is a 80 y/o female who was recently admitted to [facility], initially with ventricular ectopy. she was evaluated by cardiology and underwent heart catheterization. she was found to have severe mitral valve regurgitation and was evaluated by CT surgery. she wasn't considered a good candidate for surgery due to being a high risk patient. she was then transferred to [facility] for further evaluation. as per my discussion with the hospitalist , there was no plan for any surgical intervention and she was transferred back to [place]. at the time of my evaluation she was resting comfortably with no distress with no chest pain or sob. Review of Systems Constitutional: DENIES: Fever, Weight loss, Chills, Night Sweats Eyes: DENIES: Blurred vision, Diplopia, Vision loss, Double Vision Ears, nose, mouth, throat: DENIES: Tinnitus, Vertigo, Throat pain, Epistaxis Respiratory: DENIES: Apneas, Cough, Snoring, Wheezing, Hemoptysis, Sputum production, Shortness of breath Cardiovascular: DENIES: Chest pain, Palpitations, Syncope, Dyspnea on Exertion , PND, Lower Extremity Edema, Orthopnea, Claudication Gastrointestinal: DENIES: Abdominal pain, Black stools, Bloody stools, Constipation, Diarrhea, Nausea, Vomiting, Difficulty Swallowing, Anorexia Genitourinary: DENIES: Urinary frequency, Urgency, Hematuria, Dysuria Musculoskeletal: DENIES: Joint pain, Muscle aches, Stiffness, Joint Swelling Integumentary: DENIES: Rash Neurologic: DENIES: Abnormal gait, Headache, Localized weakness, Paresthesias, Seizures, Speech Problems, Tremor, Poor Balance Psychiatric: DENIES: Anxiety, Confusion, Mood changes, Depression, Hallucinations, Agitation, Suicidal Ideation, Homicidal Ideation, Delusions Past Family Social History Past Medical History CAD mitral valve replacement CKD hypothyroidism dyslipidemia diabetes mellitus Past Surgical History partial hysterectomy. Reported Medications Alendronate (Alendronate Sodium) 70 Mg Tab 70 Mg PO Q7D Uloric (Febuxostat) 80 Mg Tab 80 PO DAILY Omeprazole 20 Mg Tab 20 Mg PO DAILY Hydrocodone-Acetaminophen 5-325 mg Tab 1 Tab PO Q4H PRN Flexeril (Cyclobenzaprine HCl) 10 Mg Tab 10 Mg PO TID Colcrys (Colchicine) 0.6 Mg Tab 0.6 Mg PO DAILY Culturelle Advanced Immun (Probiotic Product) 1 Cap Cap Alprazolam 0.25 Mg Tab 0.25 Mg PO Q8H PRN Milk of Magnesia Liq (Magnesium Hydroxide) 400 Mg/5 Ml Susp 30 Ml PO DAILY PRN Dulcolax Supp (Bisacodyl) 10 Mg Supp 10 Mg RECTAL DAILY PRN Reyna Protect (Skin Protectants, Misc.) 1 Cre Cre coreg hydralazine aspirin ferrous sulfate Allergies: Coded Allergies: Lyrica (Verified Allergy, Mild, Swelling Confussed, 07/14/16) Codeine (Verified Allergy, Unknown, Confusion, 07/14/16) pt stated, she felt the effects of medication days after, doesnt want any narcotics Active Ordered Medications Current Medications IV Flush (NS Flush) 2 ml UNSCH PRN FLUSH FLUSH AFTER USING IV ACCESS; Start 04/13 at 23:45 IV Flush (NS Flush) 2 ml BID FLUSH ; Start 08/06/16 at 09:00 Acetaminophen (Tylenol) 650 mg Q4H PRN PO TEMP > 100.4; Start 08/05/16 at 23:45 Ondansetron HCl (Zofran Inj) 4 mg Q6H PRN IVP NAUSEA OR VOMITING; Start at 23:45 Sennosides (Senokot) 17.2 mg Q12H PRN PO CONSTIPATION Last administered on 08/06 07:04; Start 08/05/16 at 23:45 Heparin Sodium (Porcine) (Heparin Inj) 5,000 units Q12H SQ Last administered on 08/06/16 03:07; Start 08/06/16 at 00:00 Naloxone HCl (Narcan Inj) 0.4 mg UNSCH PRN IV SEE LABEL COMMENTS; Start at 23:45 Dextrose (D50w (Vial) Inj) 25 ml UNSCH PRN IV PUSH HYPOGLYCEMIA-SEE COMMENTS; Start 08/06/16 at 00:00 Glucagon (Glucagon Inj) 1 mg UNSCH PRN OTHER HYPOGLYCEMIA-SEE COMMENTS; Start 08/06/16 at 00:00 Insulin Aspart (NovoLOG SUPPLEMENTAL SCALE) 1 ACHS SLIDING SCALE SQ Last administered on 08/06/16 05:33; Start 08/06/16 at 07:00 Aspirin (Ecotrin Ec) 81 mg DAILY PO Last administered on 08/06/16 08:28; Start 08/06/16 at 09:00 Bisacodyl (Dulcolax Supp) 10 mg DAILY PRN RECTAL CONSTIPATION; Start 08/06/16 at 06:30 Bumetanide (Bumex Inj) 1 mg DAILY IV Last administered on 08/06/16 08:28; Start 08/06/16 at 09:00 Calcitriol (Rocaltrol) 0.25 mcg DAILY PO Last administered on 08/06/16 08:29; Start 08/06/16 at 09:00 Carvedilol (Coreg) 25 mg BID PO Last administered on 08/06/16 08:27; Start 05/13 at 09:00 Doxazosin Mesylate (Cardura) 2 mg HS PO ; Start 08/06/16 at 21:00 Epoetin Keaton (Epogen Inj) 40,000 units MoWeFr SQ ; Start 08/07/16 at 09:00 Ferrous Sulfate (Ferrous Sulfate) 325 mg DAILY PO Last administered on 08:28; Start 08/06/16 at 09:00 Gabapentin (Neurontin) 100 mg DAILY PO Last administered on 08/06/16 08:28; Start 08/06/16 at 09:00 Glipizide (Glucotrol) 5 mg BIDAC PO Last administered on 08/06/16 08:27; Start 08/06/16 at 07:00 Hydralazine HCl (Apresoline) 50 mg BID PO Last administered on 08/06/16 08:28 ; Start 08/06/16 at 09:00 Levothyroxine Sodium (Synthroid) 75 mcg DAILY@0600 PO Last administered on 08/06 07:04; Start 08/06/16 at 06:30 Montelukast Sodium (Singulair) 10 mg HS PO ; Start 08/06/16 at 21:00 Pantoprazole Sodium (Protonix) 20 mg BID PO Last administered on 08/06/16t 08: 28; Start 08/06/16 at 09:00 Timolol Maleate (Timoptic 0.25% Opth Soln) 1 drop BID EACH EYE ; Start 08/06/16 at 09:00 Atorvastatin Calcium (Lipitor) 20 mg HS PO ; Start 08/06/16 at 21:00 Social History no smoking or drinking. Physical Exam Vital Signs Vital Signs Date Time Temp Pulse Resp B/P Pulse Ox O2 Delivery O2 Flow Rate FiO2 08/06/16 08:42 97.6 89 20 132/60 97 08/06/16 04:00 98.2 80 18 125/61 97 08/06/16 01:30 79 08/06/16 00:00 98.2 75 18 124/57 97 08/05/16 23:18 Nasal Cannula 2.00 08/05/16 22:40 98.2 89 20 149/63 96 Physical Exam GENERAL: This is a well-nourished, well-developed patient, in no apparent distress. SKIN: No rashes, ecchymoses or lesions. Cool and dry. HEAD: Atraumatic. Normocephalic. No temporal or scalp tenderness. EYES: Pupils equal round and reactive. Extraocular motions intact. No scleral icterus. No injection or drainage. ENT: Nose without bleeding, purulent drainage or septal hematoma. Throat without erythema, tonsillar hypertrophy or exudate. Uvula midline. Airway patent. NECK: Trachea midline. No JVD or lymphadenopathy. Supple, nontender, no meningeal signs. CARDIOVASCULAR: Regular rate and rhythm without murmurs, gallops, or rubs. RESPIRATORY: Clear to auscultation. Breath sounds equal bilaterally. No wheezes , rales, or rhonchi. GASTROINTESTINAL: Abdomen soft, non-tender, nondistended. No hepato-splenomegaly , or palpable masses. No guarding. MUSCULOSKELETAL: Extremities with bilateral pedal edema. NEUROLOGICAL: Awake and alert. Cranial nerves II through XII intact. Motor and sensory grossly within normal limits. Five out of 5 muscle strength in all muscle groups. Normal speech. Laboratory Laboratory Tests Test 08/06/16 07:48 White Blood Count 12.1 Red Blood Count 2.93 Hemoglobin 8.4 Hematocrit 26.4 Mean Corpuscular Volume 90.3 Mean Corpuscular Hemoglobin 28.7 Mean Corpuscular Hemoglobin 31.7 Concent Red Cell Distribution Width 18.0 Platelet Count 305 Mean Platelet Volume 8.1 Neutrophils (%) (Auto) 77.1 Lymphocytes (%) (Auto) 10.8 Monocytes (%) (Auto) 8.1 Eosinophils (%) (Auto) 3.5 Basophils (%) (Auto) 0.5 Neutrophils # (Auto) 9.4 Lymphocytes # (Auto) 1.3 Monocytes # (Auto) 1.0 Eosinophils # (Auto) 0.4 Basophils # (Auto) 0.1 CBC Comment AUTO DIFF Differential Total Cells 100 Counted Neutrophils % (Manual) 68 Band Neutrophils % 3 Lymphocytes % 13 Monocytes % 6 Eosinophils % 2 Neutrophils # (Manual) 9.4 Metamyelocytes 3 Myelocytes 4 Differential Comment FINAL DIFF MANUAL Plasma Cells 1 Platelet Estimate NORMAL Platelet Morphology Comment NORMAL Basophilic Stippling FAINT Sodium Level 141 Potassium Level 3.7 Chloride Level 97 Carbon Dioxide Level 36.5 Anion Gap 8 Blood Urea Nitrogen 39 Creatinine 1.56 Estimat Glomerular Filtration 32 Rate Random Glucose 141 Calcium Level 8.3 Result Diagram: 08/06/1674708/06/16747 Assessment and Plan Assessment and Plan A/P - CAD with mitral valve regurgitation- s/p recent cardiac cath. evaluated by CT surgery and not a candidate for surgical repair- continue aspirin- BB and hydralazine- will consult cardiology -diabetes mellitus; continue glipizide- accu-check with SSI- will monitor -CKD- stable at her baseline- will monitor the renal function- -anemia; due to chronic disease- stable- continue epogen and ferrous sulfate -lymphedema- chronic- continue with compression stocking and diuretics- f/u as outpatient -DVT prophylaxis with subq heparin -will consult PT and case management Discussed Condition With the patient and her daughter- RN. Physician Certification 2 Midnight Certification Type: Admission for Inpatient Services Order for Inpatient Services The services are ordered in accordance with Medicare regulations or non- Medicare payer requirements, as applicable. In the case of services not specified as inpatient-only, they are appropriately provided as inpatient services in accordance with the 2-midnight benchmark. Estimated LOS (days): 2 days is the estimated time the patient will need to remain in the hospital, assuming treatment plan goals are met and no additional complications. Post-Hospital Plan: [facility] Delphine Pelayo MD Aug 06, 2016 11:29
[2016-08-06] MEDS: SODIUM CHLORIDE 0.9% FLUSH 5 ML FLUSH FLUSH SCH ×2 (12:04→21:14)
--- NOTE | 2016-08-06 20:40 | MB ---
cc: CATIE QUINN M.D. DATE OF CONSULTATION: 08/06/2016. REASON FOR CONSULTATION: History of coronary artery disease and severe mitral regurgitation. HISTORY OF PRESENT ILLNESS: This is a 80-year-old female who is a patient of Dr. Zen Cutler. She has a past medical history of coronary artery disease and severe mitral regurgitation. The patient was turned down for mitral valve surgery because she is high risk. The patient was transferred to [facility] for evaluation for surgery and she was also found to be at high risk. She was transferred back to [place] for management of lower extremity lymphedema. The patient denies chest pain or shortness of breath. She also denies PND or orthopnea. She admits to lower extremity edema which is chronic because of lymphedema. PAST MEDICAL HISTORY: 1. The patient has history of coronary artery disease and severe mitral regurgitation. 2. She also has a history of type 2 diabetes mellitus. 3. Hyperlipidemia. 4. Chronic kidney disease. SOCIAL HISTORY: Nonsmoker and non-drinker. FAMILY HISTORY: Noncontributory. REVIEW OF SYSTEMS: HEAD, EYES, EARS, NOSE, THROAT: No complaints of lightheadedness or dizziness. CARDIOVASCULAR: History of coronary artery disease and severe mitral regurgitation. PULMONARY: Positive for asthma. GASTROINTESTINAL: No history of Gastroesophageal reflux disease (GERD) or GI bleed. Positive for chronic kidney disease. The remainder of her review of systems is within normal limits. PHYSICAL EXAMINATION VITAL SIGNS: Showed blood pressure of 154/70 with a heart rate of 80 and respiratory rate of 12. The patient is afebrile. NECK: The neck is supple with no jugular venous distension. CHEST: Clear to auscultation and percussion. HEART: S1 normal intensity. S2 single. There is a 3/6 mitral regurgitation murmur. ABDOMEN: Benign. EXTREMITIES: Positive edema in both lower extremities. IMPRESSION: 1. History of coronary artery disease with mitral valve regurgitation. The patient is status post recent cardiac catheterization by Dr. Zen Cutler. She was turned down for cardiac surgery. We will adhere to conservative management. We will continue beta blockers and hydralazine. 2. Type 2 diabetes mellitus. 3. Chronic kidney disease. 4. Lymphedema. RECOMMENDATIONS: The patient is stable from the cardiovascular standpoint. I will continue to follow and provide further recommendations accordingly as needed. MD CHIRAG Allison/BERNY /5:14 PM /7:31 PM
[2016-08-06] MEDS ORDERED: ATORVASTATIN 20 MG TAB PO SCH (21:00)
[2016-08-06] MEDS ORDERED: MONTELUKAST SODIUM 10 MG TAB PO SCH (21:00)
[2016-08-06] MEDS ORDERED: DOXAZOSIN MESYLATE 2 MG TAB PO SCH (21:00)
[2016-08-07] VITALS: BP 149/66; PULSE 80; RESP 18; TEMP 97.7; O2SAT 97
[2016-08-07] MEDS: HEPARIN SODIUM - SQ 10,000 UNITS/ML VIAL SQ SCH ×2 (00:50→12:50)
[2016-08-07] MEDS ORDERED: ALPRAZolam 0.25 MG TAB PO PRN (02:30)
[2016-08-07 04:00] VITALS: BP 130/61; PULSE 80; RESP 14; TEMP 98; O2SAT 99
[2016-08-07] MEDS: LEVOTHYROXINE SODIUM 75 MCG TAB PO SCH (06:00)
[2016-08-07] MEDS: glipiZIDE 5 MG TAB PO SCH ×2 (06:00→16:15)
[2016-08-07] MEDS: INSULIN ASPART SUPPLEMENTAL SCALE SQ SCH ×3 (06:00→16:16)
[2016-08-07 08:00] VITALS: BP 128/58; PULSE 80; PULSE 82; RESP 18; TEMP 97.7; O2SAT 99
[2016-08-07] MEDS ORDERED: EPOETIN ALFA 20,000 UNITS/ML VIAL SQ SCH (09:00)
[2016-08-07] MEDS: CALCITRIOL 0.25 MCG CAP PO SCH (09:00)
[2016-08-07] MEDS: hydrALAZINE HCL 50 MG TAB PO SCH (10:12)
[2016-08-07] MEDS: ASPIRIN EC 81 MG TABEC PO SCH (10:13)
[2016-08-07] MEDS: BUMETANIDE INJ 1 MG/4 ML VIAL IV SCH (10:13)
[2016-08-07] MEDS: CARVEDILOL 12.5 MG TAB PO SCH (10:13)
[2016-08-07] MEDS: PANTOPRAZOLE SOD 20 MG DELAYED RELEASE TAB PO SCH (10:13)
[2016-08-07] MEDS: FERROUS SULFATE 325 MG (65 MG ELEMENTAL IRON) TAB PO SCH (10:14)
[2016-08-07] MEDS: GABAPENTIN 100 MG CAP PO SCH (10:14)
[2016-08-07] MEDS: SODIUM CHLORIDE 0.9% FLUSH 5 ML FLUSH FLUSH SCH (10:14)
[2016-08-07] MEDS: TIMOLOL MALEATE 0.25% OPHT SOLN 5 ML BTL EACH EYE SCH (10:20)
--- NOTE | 2016-08-07 11:06 | HHI.PR ---
Subjective Remarks resting comfortably with no distress. no chest pain or sob. overall doing fine. Objective Vitals Vital Signs Date Time Temp Pulse Resp B/P Pulse Ox O2 Delivery O2 Flow Rate FiO2 08/07/16 08:00 97.7 82 18 128/58 99 08/07/16 08:00 80 08/07/16 04:00 98.0 80 14 130/61 99 08/07/16 00:00 97.7 80 18 149/66 97 08/06/16 20:00 79 08/06/16 20:00 Nasal Cannula 2.00 08/06/16 20:00 98.1 80 16 161/68 99 08/06/16 16:52 97.3 83 20 154/72 97 08/06/16 12:42 Nasal Cannula 2.00 08/06/16 12:30 97.4 80 20 143/62 97 I/O 08/06/16 08/06/16 08/06/16 08/07/16 08/07/16 08/07/16 06:59 14:59 22:59 06:59 14:59 22:59 Intake Total 240 ml 360 ml Balance 240 ml 360 ml Intake Oral 240 ml 360 ml # Voids 2 2 # Bowel Movements 1 Result Diagram: 08/06/16 0748 08/06/16 0748 Objective Remarks GENERAL: This is a well-nourished, well-developed patient, in no apparent distress. CARDIOVASCULAR: Regular rate and regular rhythm without murmurs, gallops, or rubs. RESPIRATORY: Clear to auscultation. Breath sounds equal bilaterally. No wheezes , rales, or rhonchi. GASTROINTESTINAL: Abdomen soft, non-tender, nondistended. Normal, active bowel sounds MUSCULOSKELETAL: both legs covered with clean dressing. NEURO: Alert & Oriented x4 to person, place, time, situation. Moves all ext x4 Procedures none Medications and IVs Current Medications IV Flush (NS Flush) 2 ml UNSCH PRN FLUSH FLUSH AFTER USING IV ACCESS; Start 04/13 at 23:45 IV Flush (NS Flush) 2 ml BID FLUSH Last administered on 08/07/16t 10:14; Start 08/06/16 at 09:00 Acetaminophen (Tylenol) 650 mg Q4H PRN PO TEMP > 100.4; Start 08/05/16 at 23:45 Ondansetron HCl (Zofran Inj) 4 mg Q6H PRN IVP NAUSEA OR VOMITING; Start at 23:45 Sennosides (Senokot) 17.2 mg Q12H PRN PO CONSTIPATION Last administered on 08/06 07:04; Start 08/05/16 at 23:45 Heparin Sodium (Porcine) (Heparin Inj) 5,000 units Q12H SQ Last administered on 08/07/16 00:50; Start 08/06/16 at 00:00 Naloxone HCl (Narcan Inj) 0.4 mg UNSCH PRN IV SEE LABEL COMMENTS; Start at 23:45 Dextrose (D50w (Vial) Inj) 25 ml UNSCH PRN IV PUSH HYPOGLYCEMIA-SEE COMMENTS; Start 08/06/16 at 00:00 Glucagon (Glucagon Inj) 1 mg UNSCH PRN OTHER HYPOGLYCEMIA-SEE COMMENTS; Start 08/06/16 at 00:00 Insulin Aspart (NovoLOG SUPPLEMENTAL SCALE) 1 ACHS SLIDING SCALE SQ Last administered on 08/06/16 12:04; Start 08/06/16 at 07:00 Aspirin (Ecotrin Ec) 81 mg DAILY PO Last administered on 08/07/16 10:13; Start 08/06/16 at 09:00 Bisacodyl (Dulcolax Supp) 10 mg DAILY PRN RECTAL CONSTIPATION; Start 08/06/16 at 06:30 Bumetanide (Bumex Inj) 1 mg DAILY IV Last administered on 08/07/16 10:13; Start 08/06/16 at 09:00 Calcitriol (Rocaltrol) 0.25 mcg DAILY PO Last administered on 08/06/16 08:29; Start 08/06/16 at 09:00 Carvedilol (Coreg) 25 mg BID PO Last administered on 08/07/16 10:13; Start 05/13 at 09:00 Doxazosin Mesylate (Cardura) 2 mg HS PO Last administered on 08/06/16 21:18; Start 08/06/16 at 21:00 Epoetin Keaton (Epogen Inj) 40,000 units MoWeFr SQ ; Start 08/07/16 at 09:00 Ferrous Sulfate (Ferrous Sulfate) 325 mg DAILY PO Last administered on 10:14; Start 08/06/16 at 09:00 Gabapentin (Neurontin) 100 mg DAILY PO Last administered on 08/07/16 10:14; Start 08/06/16 at 09:00 Glipizide (Glucotrol) 5 mg BIDAC PO Last administered on 08/07/16 06:00; Start 08/06/16 at 07:00 Hydralazine HCl (Apresoline) 50 mg BID PO Last administered on 08/07/16 10:12 ; Start 08/06/16 at 09:00 Levothyroxine Sodium (Synthroid) 75 mcg DAILY@0600 PO Last administered on 08/07 06:00; Start 08/06/16 at 06:30 Montelukast Sodium (Singulair) 10 mg HS PO Last administered on 08/06/16 21:18 ; Start 08/06/16 at 21:00 Pantoprazole Sodium (Protonix) 20 mg BID PO Last administered on 08/07/16 10: 13; Start 08/06/16 at 09:00 Timolol Maleate (Timoptic 0.25% Opt Soln) 1 drop BID EACH EYE Last administered on 08/07/16 10:20; Start 08/06/16 at 09:00 Atorvastatin Calcium (Lipitor) 20 mg HS PO Last administered on 08/06/16 21:16 ; Start 08/06/16 at 21:00 Alprazolam (Xanax) 0.25 mg Q8H PRN PO ANXIETY Last administered on 08/07/16 02 :38; Start 08/07/16 at 02:30 A/P Assessment and Plan A/P - CAD with mitral valve regurgitation- s/p recent cardiac cath. evaluated by CT surgery and not a candidate for surgical repair- continue aspirin- BB and hydralazine- cardiology consult appreciated. -diabetes mellitus; continue glipizide- accu-check with SSI- will monitor -CKD- stable at her baseline- will monitor the renal function- -anemia; due to chronic disease- stable- continue epogen and ferrous sulfate -lymphedema- chronic- continue with compression stocking and diuretics- f/u as outpatient -DVT prophylaxis with subq heparin Discharge Planning dc to SNF when arrangements made. see med list. d/w the patient and RN. d/w case management. previously d/w the her daughter. Delphine Pelayo MD Aug 07, 2016 11:06
[2016-08-07] MEDS ORDERED: ALPR0.25 PO (11:11)
[2016-08-07] MEDS ORDERED: HYDR-3516 PO (11:11)
--- NOTE | 2016-08-07 11:12 | HHI.DCPOC ---
Discharge Care Plan Diagnosis: (1) mitral valve recurgitation Your Health Problems Are: Shortness of Breath Goals to Promote Your Health * To prevent worsening of your condition and complications * To maintain your health at the optimal level Directions to Meet Your Goals Take your medications as prescribed Follow your dietary instruction Follow activity as directed Keep your appointments as scheduled Take your immunizations and boosters as scheduled If your symptoms worsen call your PCP, if no PCP go to Urgent Care Center or Emergency Room Smoking is Dangerous to Your Health. Avoid second hand smoke Call the 24-hour hour crisis hotline for domestic abuse at Delphine Pelayo MD Aug 07, 2016 11:12
--- NOTE | 2016-08-07 11:13 | HHI.DS ---
Discharge Summary Admission Date Aug 05, 2016 at 22:35 Discharge Date: Aug 07, 2016 Admitting Diagnosis mitral valve regurgitation (1) mitral valve recurgitation Diagnosis: Principal Procedures none Brief History - From Admission patient is a 80 y/o female who was recently admitted to [facility], initially with ventricular ectopy. she was evaluated by cardiology and underwent heart catheterization. she was found to have severe mitral valve regurgitation and was evaluated by CT surgery. she wasn't considered a good candidate for surgery due to being a high risk patient. she was then transferred to [facility] for further evaluation. as per my discussion with the hospitalist , there was no plan for any surgical intervention and she was transferred back to [place]. at the time of my evaluation she was resting comfortably with no distress with no chest pain or sob. CBC/BMP: 08/06/16 0748 08/06/16 0748 Significant Findings Laboratory Tests Test 08/06/16 07:48 White Blood Count 12.1 TH/MM3 (4.0-11.0) Red Blood Count 2.93 MIL/MM3 (4.00-5.30) Hemoglobin 8.4 GM/DL (11.6-15.3) Hematocrit 26.4 % (35.0-46.0) Mean Corpuscular Hemoglobin 31.7 % Concent (32.0-36.0) Red Cell Distribution Width 18.0 % (11.6-17.2) Neutrophils (%) (Auto) 77.1 % (16.0-70.0) Monocytes (%) (Auto) 8.1 % (0.0-8.0) Neutrophils # (Auto) 9.4 TH/MM3 (1.8-7.7) Monocytes # (Auto) 1.0 TH/MM3 (0-0.9) Neutrophils # (Manual) 9.4 TH/MM3 (1.8-7.7) Metamyelocytes 3 % (0-1) Myelocytes 4 % (0-0) Plasma Cells 1 % (0-0) Basophilic Stippling FAINT (NORMAL) Chloride Level 97 MEQ/L (98-107) Carbon Dioxide Level 36.5 MEQ/L (21.0-32.0) Blood Urea Nitrogen 39 MG/DL (7-18) Creatinine 1.56 MG/DL (0.50-1.00) Estimat Glomerular Filtration 32 ML/MIN (>89) Rate Random Glucose 141 MG/DL (74-106) Calcium Level 8.3 MG/DL (8.5-10.1) PE at Discharge GENERAL: This is a well-nourished, well-developed patient, in no apparent distress. CARDIOVASCULAR: Regular rate and regular rhythm without murmurs, gallops, or rubs. RESPIRATORY: Clear to auscultation. Breath sounds equal bilaterally. No wheezes , rales, or rhonchi. GASTROINTESTINAL: Abdomen soft, non-tender, nondistended. Normal, active bowel sounds MUSCULOSKELETAL: both legs covered with clean dressing. NEURO: Alert & Oriented x4 to person, place, time, situation. Moves all ext x4 Hospital Course - CAD with mitral valve regurgitation- s/p recent cardiac cath. evaluated by CT surgery and not a candidate for surgical repair- continue aspirin- BB and hydralazine- cardiology consult appreciated. -diabetes mellitus; continue glipizide- accu-check with SSI- will monitor -CKD- stable at her baseline- will monitor the renal function- -anemia; due to chronic disease- stable- continue epogen and ferrous sulfate -lymphedema- chronic- continue with compression stocking and diuretics- f/u as outpatient -DVT prophylaxis with subq heparin Pt Condition on Discharge: Good Discharge Disposition: Discharge to SNF Discharge Time: <= 30 minutes Discharge Instructions DIET: Follow Instructions for: Heart Healthy Diet, Diabetic Diet Activities you can perform: Regular-No Restrictions Follow up Referrals: Cardiology PCP Follow-up New Medications: Furosemide (Lasix) 20 Mg Tab 20 MG PO DAILY diuretic #10 Ref 0 TAB Potassium Chloride ER (Potassium Chloride ER) 10 Meq Cap 10 MEQ PO DAILY Electrolyte Replacement #10 Ref 0 CAP Continued Medications: Alendronate (Alendronate) 70 Mg Tab 70 MG PO Q7D Osteporosis Treatment #4 Ref 0 TAB Alprazolam (Alprazolam) 0.25 Mg Tab 0.25 MG PO Q8H PRN ANXIETY #10 Ref 0 TAB (This prescription has been renewed) Aspirin DR (Aspirin 81) 81 Mg Tabdr 81 MG PO DAILY Ref 0 TAB Calcitriol (Calcitriol) 0.25 Mcg Cap 0.25 MCG PO DAILY Calcium Supplement #30 Ref 0 CAP Carvedilol (Carvedilol) 25 Mg Tab 25 MG PO BID #60 Ref 0 TAB Doxazosin (Cardura) 1 Mg Tab 2 MG PO HS hold for SBP <120 Blood Pressure Management #30 TAB Epoetin Inj (Epogen Inj) 20,000 Unit/Ml Inj 22850 UNITS SQ 3XWEEK VIAL Ferrous Sulfate (Ferrous Sulfate) 325 Mg Tab 325 MG PO DAILY anemia #30 TAB Gabapentin (Gabapentin) 100 Mg Cap 100 MG PO DAILY #30 Ref 0 CAP Glipizide (Glipizide) 5 Mg Tab 5 MG PO BIDAC Take 30 minutes before a meal Blood Sugar Management #60 Ref 0 TAB Hydralazine (Hydralazine) 50 Mg Tab 50 MG PO BID #60 TAB Hydrocodone-Acetaminophen (Hydrocodone-Acetaminophen) 5-325 mg Tab 1 TAB PO Q6HR PRN PAIN #14 Ref 0 TAB (This prescription has been renewed) Ipratropium-Albuterol Neb (Duoneb) 0.5-2.5 Mg/3 Ml Neb 1 AMPULE NEB Q6HR WHILE AWAKE NEB Days 1 ML Levothyroxine (Synthroid) 75 Mcg Tab 75 MCG PO DAILY@0600 #30 TAB Montelukast (Montelukast) 10 Mg Tab 10 MG PO HS #30 Ref 0 TAB Pantoprazole (Protonix) 20 Mg Tab 20 MG PO BID #60 TAB Probiotic Product (Culturelle Advanced Immun) 1 Cap Cap Rosuvastatin (Rosuvastatin) 10 Mg Tab 10 MG PO HS Cholesterol Management Ref 0 TAB Timolol Maleate (Ophth) (Timolol Maleate) 0.25 % Lali 1 DROP EACH EYE BID Discontinued Medications: Bisacodyl Supp (Dulcolax Supp) 10 Mg Supp 10 MG RECTAL DAILY PRN CONSTIPATION #12 Ref 0 SUPP Bumetanide Inj (Bumetanide Inj) 0.25 Mg/Ml Inj 2 ML IV DAILY Docusate Sodium (Docusate Sodium) 100 Mg Cap 100 MG PO BID Prevent Constipation #60 Ref 0 CAP Heparin Sodium (Porcine) (Heparin Sodium) 10,000 Unit/Ml Inj 5000 UNITS SQ Q12HR Days 1 INJECTION Heparin Sodium (Porcine) (Heparin Sodium) 10,000 Unit/Ml Inj 5000 UNITS SQ Q12HR Blood Clot Prevention Days 30 INJECTION Magnesium Hydroxide Liq (Milk of Magnesia Liq) 400 Mg/5 Ml Susp 30 ML PO DAILY PRN INDIGESTION OR UPSET STOMACH #1 Ref 0 BOTTLE Omeprazole (Omeprazole) 20 Mg Tab 20 MG PO DAILY #30 Ref 0 TAB Potassium Chloride ER (Potassium Chloride ER) 20 Meq Tab 20 MEQ PO DAILY PRN SEE LABEL COMMENTS #30 Ref 0 TAB Delphine Pelayo MD Aug 07, 2016 11:13
[2016-08-07 12:00] VITALS: BP 138/63; PULSE 85; RESP 18; TEMP 97.9; O2SAT 98
[2016-08-07] MEDS ORDERED: EPOETIN ALFA 40,000 UNITS/ML VIAL SQ SCH (13:02)
[2016-08-07 14:00] VITALS: O2SAT 98
--- NOTE | 2016-08-07 14:46 | HHI.PR ---
Subjective Remarks pt denies chest pain Objective Vital Signs Date Time Temp Pulse Resp B/P Pulse Ox O2 Delivery O2 Flow Rate FiO2 08/07/16 14:00 Nasal Cannula 2.00 08/07/16 12:00 97.9 85 18 138/63 98 08/07/16 08:00 97.7 82 18 128/58 99 08/07/16 08:00 80 08/07/16 04:00 98.0 80 14 130/61 99 08/07/16 00:00 97.7 80 18 149/66 97 08/06/16 20:00 79 08/06/16 20:00 Nasal Cannula 2.00 08/06/16 20:00 98.1 80 16 161/68 99 08/06/16 16:52 97.3 83 20 154/72 97 I/O 08/06/16 08/06/16 08/06/16 08/07/16 08/07/16 08/07/16 07:00 15:00 23:00 07:00 15:00 23:00 Intake Total 240 ml 360 ml Balance 240 ml 360 ml Intake Oral 240 ml 360 ml # Voids 2 2 # Bowel Movements 1 VSS CHEST: CTA HEART:S1,S2,RRR ABD: ST, NT Ext: edema Result Diagram: 08/06/1648 08/06/16 0748 Assessment and Plan Assessment and Plan pt is stable cardiacwise....No further Recs. I will follow as needed. Jaya Ochoa MD Aug 07, 2016 14:46
[2016-08-07] MEDS ORDERED: FURO1TAB62 PO (14:50)
[2016-08-07] MEDS ORDERED: POTA10CA PO (14:50)
[2016-08-07 16:57] VITALS: BP 118/55; PULSE 63; RESP 18; TEMP 98.5; O2SAT 98
== END 2016-08-07 19:05 | DRG 307 ==
LOC: N04B 22:35
PROVIDERS: ADMIT Internal Medicine; ATTEND Internal Medicine
DX: I34.0 Nonrheumatic mitral (valve) insufficiency (principal); I25.10 Atherosclerotic heart disease of native coronary artery without angina pectoris; I89.0 Lymphedema, not elsewhere classified; E11.22 Type 2 diabetes mellitus with diabetic chronic kidney disease; D63.8 Anemia in other chronic diseases classified elsewhere; E03.9 Hypothyroidism, unspecified; N18.9 Chronic kidney disease, unspecified; E78.5 Hyperlipidemia, unspecified; J45.909 Unspecified asthma, uncomplicated
CPT/HCPCS: 80048; 82948; 85007; 85027; J1644; J1815; Q4081